=== PATIENT | male | born 1940 | race Caucasian/White ===

== ENCOUNTER 2022-07-05 04:30 | Outpatient (CLI) | payer OTHER, SELFPAY | END 2022-07-05 04:31 | disposition home or self-care (01) | LOC: AMB 07-24 03:48 | PROVIDERS: Visit Provider Emergency Medicine | DX: I26.99 Other pulmonary embolism without acute cor pulmonale (principal) | CPT/HCPCS: A0425; A0428; A0434 ==

== ENCOUNTER 2022-07-11 23:50 | Outpatient (CLI) | payer OTHER, SELFPAY | END 2022-07-11 23:51 | disposition home or self-care (01) | LOC: AMB 07-31 14:41 | PROVIDERS: Visit Provider Family Medicine | DX: R07.89 Other chest pain (principal) | CPT/HCPCS: A0425; A0427 ==

== ENCOUNTER 2024-08-27 19:03 | Outpatient (CLI) | payer OTHER, SELFPAY | END 2024-08-27 19:04 | disposition home or self-care (01) | LOC: AMB 08-28 17:01 | PROVIDERS: Visit Provider Student in an Organized Health Care Education/Training Program | DX: R10.9 Unspecified abdominal pain (principal); R11.0 Nausea | CPT/HCPCS: A0425; A0427 ==

== ENCOUNTER 2024-08-27 19:54 | Emergency (ER) | payer OTHER, SELFPAY ==
--- OUTSIDE RECORDS SUMMARY | 2023-09-15 05:00 | XMS_ITS | Encounter Summary ---
Author Name [facility] [place] Address [address] [place] [address] Care Team Providers Care Medical Services Assistant Name Role Phone BALTAZAR KOBI Primary Care Provider Unavailabl e Insurance Providers: All historical and current Section Date Range: From patient's date of to the date document was created. This section includes the names of all active insurance providers for the patient. Insurance Provider Type of Coverage Plan Name Start of Policy Coverage End of Policy Coverage Group Number Member ID Insurance Provider's Telephone Number Policy Truong's Name Patient's Relationship to Policy Truong LYNDSAYA [facility] (WNR) MEDICARE ADVANTAGE [facility] (WNR) Aug 22, 2021 [id number] TOM MUÑOZ PATIENT [employer] (WNR) MEDICARE ADVANTAGE [facility] (WNR) Aug 22, 2021 [id number] TOM MUÑOZ PATIENT MEDICARE (WNR) MEDICARE (M) PART A Sep 22, 2005 PART A [id number] [phone] TOM MUÑOZ PATIENT MEDICARE (WNR) MEDICARE (M) PART B Sep 22, 2005 PART B [id number] TOM MUÑOZ PATIENT MEDICARE (WNR) MEDICARE (M) PART A Sep 22, 2005 PART A [id number] TOM MUÑOZ PATIENT MEDICARE (WNR) MEDICARE (M) PART B Sep 22, 2005 PART B [id number] TOM MUÑOZ PATIENT MEDICARE (WNR) MEDICARE (M) PART A Sep 22, 2005 PART A [id number] TOM MUÑOZ PATIENT MEDICARE (WNR) MEDICARE (M) PART B Sep 22, 2005 PART B [id number] TONI,TOM ALLISON PATIENT MEDICARE (WNR) MEDICARE (M) PART A Sep 22, 2005 PART A [id number] TOM MUÑOZ PATIENT MEDICARE (WNR) MEDICARE (M) PART B Sep 22, 2005 PART B [id number] TOM MUÑOZ PATIENT Selected Encounter This section includes the information on record at [place] for the Encounter. Date/Time Encounter Type Encounter Description Reason Provider Source Sep 15, 2023 10:00 AM OFFICE O/P EST HI 40 MIN PM&RS [facility] ICD-10-CM Z89.511 Acquired absence of right leg below knee YOLANDA HIRSCH Encounter Template Text not used by [place] Assessments - Encounter Diagnoses This section includes the primary and secondary diagnoses documented for the Encounter. Date/Time Primary/Secondary Diagnosis Diagnosis Name Provider Source Sep 17, 2023 01:48 PM PRIMARY Acquired absence of right leg below knee AMPARO HIRSCH [facility] Sep 17, 2023 01:48 PM SECONDARY Other abnormalities of gait and mobility AMPARO HIRSCH [facility] Plan of Treatment: Future Appointments (+ 6 months) and Future Tests (+/- 45 days) The Plan of Treatment section includes future care activities for the patient from all [place] treatmentfacilities. This section includes future appointments and future orders which are active, pending or scheduled. Future Appointments This section includes appointments that were scheduled to occur 6 months from the date of the Encounter, up to a maximum of 20 appointments. The data comes from all [place] treatment facilities. Appointment Date/Time Appointment Type Appointme nt Facility Name Nov 11, 2023 01:20 PM AMBULATORY - SURGERY [facility] Nov 26, 2023 10:30 AM AMBULATORY - REHAB MEDICIN [facility] Dec 08, 2023 02:30 PM AMBULATORY - PSYCHIATRY [facility] Dec 23, 2023 03:00 PM AMBULATORY - PSYCHIATRY [facility] Jan 06, 2024 03:00 PM AMBULATORY - PSYCHIATRY [facility] Jan 19, 2024 02:30 PM AMBULATORY - PSYCHIATRY [facility] Jan 28, 2024 01:00 PM AMBULATORY - NONE [facility] Feb 02, 2024 10:00 AM AMBULATORY - REHAB MEDICIN E [facility] Feb 03, 2024 01:00 PM AMBULATORY - PSYCHIATRY [facility] Feb 11, 2024 01:00 PM AMBULATORY - NONE [facility] Feb 17, 2024 01:40 PM AMBULATORY - SURGERY [facility] Feb 18, 2024 11:00 AM AMBULATORY - PSYCHIATRY [facility] Mar 02, 2024 01:00 PM AMBULATORY - PSYCHIATRY [facility] Mar 06, 2024 01:00 PM AMBULATORY - NONE [facility] Mar 15, 2024 02:30 PM AMBULATORY - PSYCHIATRY [facility] Advance Directives: All historical and current Section Date Range: From patient's date of to the date document was created. This section includes ALL of a patient's completed or amended [place] Advance and Rescinded Directives. The entries below indicate that a directive exists for the patient, but an actual copy is not included with this document. The data comes from all [place] facilities. Date Advance Directives Provider Source May 20, 2022 ADVANCE DIRECTIVE DISCUSSION HERMINIA HERNANDEZ [facility] May 20, 2022 ADVANCE DIRECTIVE LOLITA HERNANDEZ [facility] Feb 06, 2004 ADVANCE DIRECTIVE JHOANA LECHUGA [facility] Encounter Notes: All associated encounter notes This section contains the clinical notes associated to the Encounter. Date/Time Encounter Note(s) Provider Source Sep 15, 2023 10:52 AM PHYSICAL MEDICINE REHAB CONSULT: LOCAL TITLE: [facility] STANDARD TITLE: PHYSICAL MEDICINE REHAB CONSULT DATE OF NOTE: SEP 15, 2023@10:52 ENTRY DATE: SEP 15, 2023@10:53 AUTHOR: YOLANDA HIRSCH COSIGNER: URGENCY: STATUS: COMPLETED [facility] Outpatient follow-up: VVC to Vendor Visit conducted by synchronous telehealth. verbal consent obtained. Location/emergency number confirmed. Environment surveyed and all participants identified. Virtual conference room locked. PROVIDERS PRESENT: Yolanda Hirsch MD - [facility] Abdifatah Pimentel, PROPERTY COORDINATOR - [facility] Catina Mitchell CPO with Skyla Mckeon SUBJECTIVE: Mr. 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 Patient has a socket from 2023 with pin suspension. He has his initial Taleo foot. His primary prosthesis fits quite well with 3 ply sock. He has multiple concerns today otherwise. First, he notes difficulty with slopes. He is extremely active outdoor and going on hikes. He has difficulty with inclines and even needs to walk sideways often. The second issue is with weight lifting. Working out in the gym is very important to him. He does deep squats at about 150 lbs currently. The foot does not bend enough for him. His socket is also digging in behind his knee. Denies any left foot wounds or issues. FUNCTIONAL HISTORY: Ambulatory without assistive device Quite active outdoors HOME ENVIRONMENT/SUPPORT: Lives in [place], [place] in an RV on his daughter's property. He has declined home eval. PHYSICAL EXAM: Gen: NAD, very talkative Resp: Breathing comfortably on room air MSK/skin: RIGHT transtibial amputation: somewhat shorter in length. Intact without open wounds, though does have significant bruising to popliteal area. Neuro: Alert, converses appropriately. Ambulates without assistive device. Reciprocal gait, quick sara ASSESSMENT/PLAN: Mr. 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 #Prosthetic management: Acquired absence of right leg below knee Abnormalities in gait/mobility We had a long discussion about prosthetic options to meet his goals. First, a trial of a hydraulic foot for difficulty with slopes is indicated. We did discuss that increased weight is a con he would have to take into account. Regarding weigtlifting, this is extremely important to him and something he has engaged in throughout his life. We did discuss the need to do this slowly and gradually. Given that the trimlines would need to be lowered, a new socket would be needed. He does have bruising behind the knee because of this. Moreover, since hydraulic feet would not provide the dorsiflexion needed, a different foot would be required. - Consult for hydraulic foot, [place] - Consult for activity limb for weightlifting: TC socket, KAYA, gel liner interface, pin suspension, Versa 2 foot Follow-up: Checkout This note reflects shared decision-making between the medical provider and [place] (or their designated decision maker). The patient was informed of the plan and agreed to proceed. All questions were answered prior to the conclusion of the clinic visit. Education was provided as described above. Total time including chart review, counseling, coordination of care, and documentation 45min on date of encounter Yolanda Hirsch MD PM&R Staff Physician /es/ YOLANDA HIRSCH MD STAFF PHYSICIAN Signed: 09/17/2023 13:49 YOLANDA HIRSCH [facility]
--- OUTSIDE RECORDS SUMMARY | 2023-11-11 08:20 | XMS_ITS | Encounter Summary ---
Author Name [facility] [place] Address [address] [place] [address] Care Team Providers Care Senior Marketing Coordinator Name Role Phone BALTAZAR KOBI Primary Care [...] Name Patient's Relationship to Policy Truong LYNDSAYA [facility] (WNR) MEDICARE ADVANTAGE [facility] (WNR) Aug 22, 2021 [id number] TOM MUÑOZ PATIENT [employer] M[employer] (WNR) MEDICARE ADVANTAGE [facility] (WNR) Aug 22, 2021 [id number] 21 TOM MUÑOZ PATIENT MEDICARE (WNR) MEDICARE (M) PART A Sep 22, 2005 PART A [id number] TOM MUÑOZ PATIENT MEDICARE (WNR) MEDICARE (M) PART B Sep 22, 2005 PART B [id number] [phone] TOM MUÑOZ PATIENT MEDICARE (WNR) MEDICARE (M) PART A Sep 22, 2005 PART A [id number] [phone] TOM MUÑOZ PATIENT MEDICARE (WNR) MEDICARE (M) PART B Sep 22, 2005 PART B [id number] [phone] TOM MUÑOZ PATIENT MEDICARE (WNR) MEDICARE (M) PART A Sep 22, 2005 PART A [id number] TONI,TOM ESTEFANY PATIENT MEDICARE (WNR) MEDICARE (M) PART B Sep 22, 2005 PART B [id number] TONI,TOM ESTEFANY PATIENT MEDICARE (WNR) MEDICARE (M) PART A Sep 22, 2005 PART A [id number] [phone] TONI,TOM ALLISON PATIENT MEDICARE (WNR) MEDICARE (M) PART B Sep 22, 2005 PART B [id number] 10A [phone] TOM MUÑOZ PATIENT Selected Encounter This section includes the information on record at [place] for the Encounter. Date/Time Encounter Type Encounter Description Reason Provider Source Nov 11, 2023 01:20 PM OFFICE O/P EST LOW 20 MIN DERMATOLOGY ICD-10-CM L12.0 Bullous pemphigoid RAPHAEL MERCHANT [place] Encounter Template Text not used by [place] Assessments - Encounter Diagnoses This section includes the primary and secondary diagnoses documented for the Encounter. Date/Time Primary/Secondary Diagnosis Diagnosis Name Provider Source Nov 11, 2023 02:11 PM PRIMARY Bullous pemphigoid ELIANA MCLAUGHLIN [facility] Plan of Treatment: Future Appointments (+ 6 months) and Future Tests (+/- 45 days) The Plan of Treatment section includes future care activities for the patient [facility] [place] [facility] This section includes future appointments and future orders which are active, pending or scheduled. Future Appointments This section includes appointments that were scheduled to occur 6 months from the date of the Encounter, up to a maximum of 20 appointments. The data comes from all [place] treatment facilities. Appointment Date/Time Appointment Type Appointme nt Facility Name Nov 26, 2023 10:30 AM AMBULATORY - REHAB MEDICIN [facility] Dec 08, 2023 02:30 PM AMBULATORY - PSYCHIATRY [facility] Dec 23, 2023 03:00 PM AMBULATORY - PSYCHIATRY [facility] Jan 06, 2024 03:00 PM AMBULATORY - PSYCHIATRY [facility] Jan 19, 2024 02:30 PM AMBULATORY - PSYCHIATRY [facility] Jan 28, 2024 01:00 PM AMBULATORY - NONE [facility] Feb 02, 2024 10:00 AM [facility] Feb 03, 2024 01:00 PM AMBULATORY - PSYCHIATRY [facility] Feb 11, 2024 01:00 PM [facility] Feb 17, 2024 01:40 PM AMBULATORY - SURGERY [facility] Feb 18, 2024 11:00 AM AMBULATORY - PSYCHIATRY [facility] Mar 02, 2024 01:00 PM AMBULATORY - PSYCHIATRY [facility] Mar 06, 2024 01:00 PM [facility] Mar 15, 2024 02:30 PM AMBULATORY - PSYCHIATRY [facility] Mar 20, 2024 01:00 PM [facility] Mar 30, 2024 01:00 PM AMBULATORY - PSYCHIATRY [facility] Apr 13, 2024 01:00 PM AMBULATORY - PSYCHIATRY [facility] Apr 27, 2024 01:00 PM AMBULATORY - PSYCHIATRY [facility] May 01, 2024 11:00 AM AMBULATORY - NONE [facility] May 04, 2024 02:00 PM AMBULATORY - REHAB [facility] Lab Results: +/- 30 days of the encounter This section includes the Chemistry and Hematology Lab Results on record with [place] for the patient. Radiology Reports and Pathology Reports are provided separately, in subsequent sections. Lab Results This section contains the Chemistry/Hematology Results that were resulted 30 days before or 30 daysafter the date of the Encounter. Date/Time Source Result Type Result - Unit Interpretation Reference Range Specimen Type Comment Nov 26, 2023 02:[address] [facility] MEASLES, MUMPS, & RUBELLA AB IGG SERUM Specim en Type: SERUM Comment: .KELLEY IGG: AU/mL Interpretation .KELLEY IGG: ----- .KELLEY IGG: <13.50 Not consistent with immunity .KELLEY IG.50 - 16.49 Equivocal .KELLEY IGG: >16.49 Consistent with immunity .KELLEY IGG:The presence of measles IgG suggests immunization or .KELLEY IGG:past or current infection with measles virus. .KELLEY IGG:For additional information, please refer to .KELLEY IGG:http://educa tion.Info/faq/FA [email or web address] .KELLEY IGG:(This link is being provided for informational/ .KELLEY IGG: educational purposes only.) .MUM IGG: AU/mL Interpretation .MUM IGG: - .MUM IGG: < 9.00 Not consistent with immunity .MUM IG.00 - 10.99 Equivocal .MUM IGG: > 10.99 Consistent with immunity .MUM IGG:The presence of mumps IgG antibody suggests .MUM IGG:immunization or past or current infection with mumps .MUM IGG:virus. .RUB IGG:INDEX INTERPRETATION .RUB IGG: .RUB IGG:< 0.90 Not consistent with immunity .RUB IG.90 - 0.99 Equivocal .RUB IGG:> or = 1.00 Consistent with immunity .RUB IGG:The presence of Rubella IgG antibody suggests .RUB IGG:immunization or past or current infection with .RUB IGG:Rubella virus. .RUB IGG:Test Performed by [facility], .RUB IGG:[employer] [facility], .RUB IG[address] [place] [address] .RUB IGG:Les Jurado M.D., Ph.D., Director of Laboratories .RUB IGG: , CLIA [id number] Ordering Provider: BETTE CASTELLANOS Report Released Date/Time: Nov 26, 2023 02:00 PM Reporting Lab: [facility] [address] [facility] [id number] Performing Lab: [address] RUBELLA,IGG AB 30.90 {index} MEASLES IgG MICHELLE >300.00 MUMPS VIRUS RIK(IgG) 10.30 L Nov 26, 2023 02:[address] [facility] VARICELLA ZOSTER IgG SERUM Specime n Type: SERUM Comment: Signal Cut-off S/CO Interpretation --------- <1.00 Negative - Antibody not detected > or = 1.00 Positive - Antibody detected A positive result indicates that the patient has antibody to VZV but does not differentiate between an active or past infection. The clinical diagnosis must be interpreted in conjunction with the clinical signs and symptoms of the patient. This assay reliably measures immunity due to previous infection but may not be sensitive enough to detect antibodies induced by vaccination. Thus, a negative result in a vaccinated individual does not necessarily indicate susceptibility to VZV infection. A more sensitive test for vaccination-induced immunity is Varicella Zoster Virus Antibody Immunity Screen, ACIF. Test Performed by [facility], [employer] [facility], [address] [place] [address] Les Jurado M.D., Ph.D., Director of Laboratories , [place] [id number] Ordering Provider: BETTE CASTELLANOS Report Released Date/Time: Nov 26, 2023 02:00 PM Reporting Lab: [facility] [id number] Performing Lab: [address] VARICELLA ZOSTER IgG 26.30 >=1.00 Nov 26, 2023 02:[address] [facility] QUANTIFERON GOLD PLASMA Specimen Ty pe: PLASMA Comment: A NEGATIVE result does not preclude the possibility of M. tuberculosis infection or tuberculosis disease. A false-negative results can be due to the stage of infection (e.g., specimen obtained prior to the development of cellular immune response or other immunological variables). Ordering Provider: BETTE CASTELLANOS Report Released Date/Time: Nov 26, 2023 02:00 PM Reporting Lab: [facility] [id number] Performing Lab: [facility] [id number] QNT NIL (LIAISON) 0.02 [IU]/mL QNT TB1-NIL LIAISON 0.00 [IU]/mL QNT TB2-NIL LIAISON 0.00 [IU]/mL QNT MITOGEN LIAISON 9.98 [IU]/mL QNT FINAL INTERP NEGATIVE See Interp Nov 26, 2023 02:[address] [facility] ANTI-HBs SERUM Specimen Type: SERUM No comment entered. Ordering Provider: BETTE CASTELLANOS Report Released Date/Time: Nov 26, 2023 02:00 PM Reporting Lab: [facility] [id number] Performing Lab: [facility] [id number] ANTI-HBs 7.26 m[IU]/mL Nov 11, 2023 02:[address] [facility] COMPREHENSIVE METABOLIC PANEL+MG PLASMA Specimen Type: PLASMA No comment entered. Ordering Provider: JUS MCLAUGHLIN Report Released Date/Time: Nov 11, 2023 02:11 PM Reporting Lab: [facility] [id number] Performing Lab: [facility] [id number] CREATININE 1.3 mg/dL H 0.7-1.2 UREA NITROGEN 25 mg/dL 8-26 GLUCOSE 105 mg/dL H 70-100 SODIUM 141 mmol/L 136-145 POTASSIUM 4.1 mmol/L 3.5-5.1 CHLORIDE 108 mmol/L H 98-107 CO2 26 mmol/L 22-29 CALCIUM 9.1 mg/dL 8.4-10.2 PROTEIN,TOTAL 6.5 g/dL 6.4-8.3 ALBUMIN 4.1 g/dL 3.5-5.2 BILIRUBIN, TOTAL 0.7 mg/dL 0.2-1.2 MAGNESIUM 2.1 mg/dL 1.6-2.6 ANION GAP 7 mmol/L 5-15 ALKALINE PHOSPHATASE 85 U/L 40-150 ALT/SGPT 13 U/L <44 AST/SGOT 19 U/L 11-34 .CREAT EGFR(CKD-EPI) 55 L >60 Nov 11, 2023 02:[address] [facility] CBC & DIFF BLOOD Specimen Type : BLOOD Comment: Automated Differential Performed Ordering Provider: JUS MCLAUGHLIN Report Released Date/Time: Nov 11, 2023 02:11 PM Reporting Lab: [facility] [id number] Performing Lab: [facility] [id number] WBC 6.1 4.0-11.0 RBC 5.39 4.60-6.20 HGB 15.4 g/dL 13.5-17.9 HCT 47.8 41-54 MCV 88.7 fL 80-100 MCH 28.6 pg 27-33 MCHC 32.2 g/dL 32.0-37.5 PLT 178 150-400 MPV 8.6 fL L 9.1-13.0 NEUT 60.0 40.0-80.0 LYMPHS 22.7 15.0-45.0 MONO 10.1 2.0-12.0 EOSINO 5.7 0.0-6.0 BASO 1.0 0.0-2.0 RDW 13.9 11.5-14.5 ABS LYMPH 1.4 1.0-4.0 ABS MONO 0.6 0.1-1.0 ABS NEUT 3.7 2.0-7.7 ABS EOS 0.4 0-0.5 ABS BASO 0.1 0-0.2 IG(META,MYELO,PRO) 0.5 ABS IMMATURE GRAN 0.0 0-0.1 Advance Directives: All historical and current Section Date Range: From patient's date of to the date document was created. This section includes ALL of a patient's completed or amended [place] Advance and Rescinded Directives. The entries below indicate that a directive exists for the patient, but an actual copy is not included with this document. The data comes from all [place] facilities. Date Advance Directives Provider Source May 20, 2022 ADVANCE DIRECTIVE DISCUSSION HERMINIA HERNANDEZ [facility] May 20, 2022 ADVANCE DIRECTIVE LOLITA HERNANDEZ [facility] Feb 06, 2004 ADVANCE DIRECTIVE JHOANA LECHUGA [facility] Encounter Notes: All associated encounter notes This section contains the clinical notes associated to the Encounter. Date/Time Encounter Note(s) Provider Source Nov 11, 2023 01:44 PM DERMATOLOGY ATTEND ING NOTE: LOCAL TITLE: DERMATOLOGY CLINIC NOTE STANDARD TITLE: DERMATOLOGY ATTENDING NOTE DATE OF NOTE: NOV 11, 2023@13:44 ENTRY DATE: NOV 11, 2023@13:44:16 AUTHOR: JUS MCLAUGHLIN EXP COSIGNER: URGENCY: STATUS: COMPLETED DERMATOLOGY CLINIC NOTE Has ADDENDA Dr. Merchant saw and evaluated the patient with me, and agrees with the findings, assessment and plan as outlined. 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 s/p punch bx 05/19/22, read as scar with focal giant cell reaction consistent with ruptured follicle. No evidence of malignancy # History of prostate cancer, in remission - noted and PCP managing # Immunosuppressed state - recomended vaccination and masking, patient declined both and understood risks SUBJECTIVE: YOLANDA MUÑOZ is a 83 year old MALE who presents today for follow up bullous pemphigoid. Patient last seen in derm clinic 05/13/23 for follow up BP with Dr. Andres. At that time he was essentially clear and had been self tapering his MMF taking 600 mg BID. He had been taking that dose for a few months without any flares and was interested in decreasing MMF further. BP 180 and 230 were checked at that time; BP180 <5 although BP230 mildly elevated at 16. Given his overall clinical picture and quiescent BP, they ultimately continued to taper MMF to 600 mg once daily. Today patient reports taking he has continued taking 600 mg once daily (3 mls once daily of the oral solution) and has had no flares of his BP. At his last visit his Cr was also noted to be elevated at 1.5 and pt mentioned he started creatine powder which he has since discontinued. He is interested in decreasing the MMF even further. Review of systems: CONST: Otherwise in baseline state of health. SKIN: As above in HPI, no additional skin concerns. OBJECTIVE: GEN: No acute distress. SKIN: No vesicles or papules on exposed areas of skin. ASSESSMENT & PLAN: # Bullous pemphigoid Clear on exam today taking MMF 600 mg (3 ml) once daily. Given no flares for several months on this dose, reasonable for patient to continue titrating down per his request. Discussed that we would not recommend stopping this medication altogether due to risk of flaring (and that MMF would take several months to improve symptoms if he were to flare again). Will continue to taper down from 3 ml (600 mg) once daily to 2 ml (400 mg) once daily. If stable at follow up can consider decreasing further or possibly stopping altogether. - Safety labs today: CBC and CMP - MMF 2 ml (400 mg) once daily RTC 3 months for f/u BP Total encounter time (including chart review, counseling, documentation, ordering of labs/meds): 20-29 min /dinah/ JUS MCLAUGHLIN MD Resident Signed: 11/11/2023 14:11 11/11/2023 ADDENDUM STATUS: COMPLETED CBC and CMP largely wnl. Cr a bit elevated at 1.3, which is down from 1.5 when checked in April. /dinah/ JUS MCLAUGHLIN MD Resident Signed: 11/11/2023 16:[address] [facility]
--- OUTSIDE RECORDS SUMMARY | 2023-11-26 05:30 | XMS_ITS | Encounter Summary ---
Author Name [facility] [place] [facility] [place] Address [address] [place] [address] Care Team Providers Care Lead Material Handler Name Role Phone KOBI LEDESMA Primary Care Provider Unavailabl e Insurance Providers: [...] Name Patient's Relationship to Policy Truong [id number] MCR (WNR) MEDICARE ADVANTAGE [facility] (WNR) Aug 22, 2021 [id number] TOM MUÑOZ PATIENT HUMANA MCR (WNR) MEDICARE ADVANTAGE MCR (WNR) Aug 22, 2021 [id number] TOM MUÑOZ PATIENT MEDICARE (WNR) MEDICARE (M) PART A Sep 22, 2005 PART A [id number] TOM MUÑOZ PATIENT MEDICARE (WNR) MEDICARE (M) PART B Sep 22, 2005 PART B [id number] TOM MUÑOZ PATIENT MEDICARE (WNR) MEDICARE (M) PART A Sep 22, 2005 PART A [id number] [phone] TOM MUÑOZ PATIENT MEDICARE (WNR) MEDICARE (M) PART B Sep 22, 2005 PART B [id number] TOM MUÑOZ PATIENT MEDICARE (WNR) MEDICARE (M) PART A Sep 22, 2005 PART A [id number] TONI,TOM ESTEFANY PATIENT MEDICARE (WNR) MEDICARE (M) PART B Sep 22, 2005 PART B [id number] TONI,TOM ESTEFANY PATIENT MEDICARE (WNR) MEDICARE (M) PART A Sep 22, 2005 PART A [id number] TOM MUÑOZ PATIENT MEDICARE (WNR) MEDICARE (M) PART B Sep 22, 2005 PART B [id number] [phone] TOM MUÑOZ PATIENT Selected Encounter This section includes the information on record at [place] for the Encounter. Date/Time Encounter Type Encounter Description Reason Provider Source Nov 26, 2023 10:30 AM IMG RTA DETCJ/MNTR DS STAFF OPHTHALMOLOGY ICD-10-CM Z01.01 Encounter for exam of eyes and vision w abnormal findings TERESA JACKSON [facility] Encounter Template Text not used by [place] Assessments - Encounter Diagnoses This section includes the primary and secondary diagnoses documented for the Encounter. Date/Time Primary/Secondary Diagnosis Diagnosis Name Provider Source Nov 26, 2023 10:54 AM PRIMARY Encounter for exam of eyes and vision w abnormal findings TERESA JACKSON [facility] Plan of Treatment: Future Appointments (+ 6 months) and Future Tests (+/- 45 days) The Plan of Treatment section includes future care activities for the patient [facility] [place] [facility] This section includes future appointments and future orders which are active, pending or scheduled. Future Appointments This section includes appointments that were scheduled to occur 6 months from the date of the Encounter, up to a maximum of 20 appointments. The data comes from all [place] treatment facilities. Appointment Date/Time Appointment Type Appointme nt Facility Name Dec 08, 2023 02:30 PM AMBULATORY - PSYCHIATRY [facility] Dec 23, 2023 03:00 PM AMBULATORY - PSYCHIATRY [facility] Jan 06, 2024 03:00 PM [facility] Jan 19, 2024 02:30 PM [facility] Jan 28, 2024 01:00 PM AMBULATORY - NONE [facility] Feb 02, 2024 10:00 AM AMBULATORY - REHAB MEDICIN E [facility] Feb 03, 2024 01:00 PM [facility] Feb 11, 2024 01:00 PM [facility] Feb 17, 2024 01:40 PM AMBULATORY - SURGERY [facility] Feb 18, 2024 11:00 AM [facility] Mar 02, 2024 01:00 PM [facility] Mar 06, 2024 01:00 PM [facility] Mar 15, 2024 02:30 PM [facility] Mar 20, 2024 01:00 PM [facility] Mar 30, 2024 01:00 PM AMBULATORY - PSYCHIATRY [facility] Apr 13, 2024 01:00 PM [facility] Apr 27, 2024 01:00 [facility] May 01, 2024 11:00 AM AMBULATORY - NONE [facility] May 04, 2024 02:00 PM AMBULATORY - REHAB MEDICDC E [facility] May 08, 2024 01:30 PM AMBULATORY - MEDICINE [facility] Lab Results: +/- 30 days of the encounter This section includes the Chemistry and Hematology Lab Results on record with [place] for the patient. Radiology Reports and Pathology Reports are provided separately, in subsequent sections. Lab Results This section contains the Chemistry/Hematology Results that were resulted 30 days before or 30 daysafter the date of the Encounter. Date/Time Source Result Type Result - Unit Interpretation Reference Range Specimen Type Comment Nov 26, 2023 02:11 PM [facility] MEASLES, MUMPS, & RUBELLA AB IGG SERUM Specim en Type: SERUM Comment: .KELLEY IGG: AU/mL Interpretation .KELLEY IGG: ----- .KELLEY IGG: <13.50 Not consistent with immunity .KELLEY IG.50 - 16.49 Equivocal .KELLEY IGG: >16.49 Consistent with immunity .KELLEY IGG:The presence of measles IgG suggests immunization or .KELLEY IGG:past or current infection with measles virus. .KELLEY IGG:For additional information, please refer to .KELLEY IGG:[email or web address] .KELLEY IGG:(This link is being provided for [...] .RUB IGG:Rubella virus. .RUB IGG:Test Performed by [place], .RUB IGG:[facility], .RUB IG [place], [place] .RUB IGG:Les Jurado M.D., Ph.D., Director of Laboratories .RUB IGG: , CLIA [id number] Ordering Provider: BETTE CASTELLANOS Report Released Date/Time: Nov 26, 2023 02:00 PM Reporting Lab: [facility] [id number] Performing Lab: [address] RUBELLA,IGG AB 30.90 {index} MEASLES IgG MICHELLE >300.00 MUMPS VIRUS RIK(IgG) 10.30 L Nov 26, 2023 02:11 PM [facility] VARICELLA ZOSTER IgG SERUM Specime n Type: [...] Antibody Immunity Screen, ACIF. Test Performed by [facility], [facility], [address] [place] [address] Les Jurado M.D., Ph.D., Director of Laboratories , [place] [id number] Ordering Provider: BETTE CASTELLANOS Report Released Date/Time: Nov 26, 2023 02:00 PM Reporting Lab: [facility] [id number] Performing Lab: [address] VARICELLA ZOSTER IgG 26.30 >=1.00 Nov 26, 2023 02:11 PM [facility] QUANTIFERON GOLD PLASMA Specimen Ty pe: PLASMA Comment: A NEGATIVE result does not preclude the possibility of M. tuberculosis infection or tuberculosis disease. A false-negative results can be due to the stage of infection (e.g., specimen obtained prior to the development of cellular immune response or other immunological variables). Ordering Provider: BETTE CASTELLANOS Report Released Date/Time: Nov 26, 2023 02:00 PM Reporting Lab: [facility] [id number] Performing Lab: [facility] [address] QNT NIL (LIAISON) 0.02 [IU]/mL QNT TB1-NIL LIAISON 0.00 [IU]/mL QNT TB2-NIL LIAISON 0.00 [IU]/mL QNT MITOGEN LIAISON 9.98 [IU]/mL QNT FINAL INTERP NEGATIVE See Interp Nov 26, 2023 02:11 PM [facility] ANTI-HBs SERUM Specimen Type: SERUM No comment entered. Ordering Provider: BETTE CASTELLANOS Report Released Date/Time: Nov 26, 2023 02:00 PM Reporting Lab: [facility] [address] Performing Lab: [facility] [address] ANTI-HBs 7.26 m[IU]/mL Nov 11, 2023 02:17 PM [facility] COMPREHENSIVE METABOLIC PANEL+MG PLASMA Specimen Type: PLASMA No comment entered. Ordering Provider: JUS MCLAUGHLIN Report Released Date/Time: Nov 11, 2023 02:11 PM Reporting Lab: [facility] [id number] Performing Lab: [facility] [address] CREATININE 1.3 mg/dL H 0.7-1.2 UREA NITROGEN [...] L >60 Nov 11, 2023 02:17 PM [facility] CBC & DIFF BLOOD Specimen Type : BLOOD Comment: Automated Differential Performed Ordering Provider: JUS MCLAUGHLIN Report Released Date/Time: Nov 11, 2023 02:11 PM Reporting Lab: [facility] [address] Performing Lab: [facility] [place] [address] WBC 6.1 4.0-11.0 RBC 5.39 4.60-6.20 HGB [...] ALL of a patient's completed or amended [place] Advance and Rescinded Directives. The entries below indicate that a directive exists for the patient, but an actual copy is not included with this document. The data comes from all [place] facilities. Date Advance Directives Provider Source May 20, 2022 ADVANCE DIRECTIVE DISCUSSION HERMINIA HERNANDEZ [facility] May 20, 2022 ADVANCE DIRECTIVE LOLITA HERNANDEZ [facility] Feb 06, 2004 ADVANCE DIRECTIVE JHOANA LECHGUA [facility] Encounter Notes: All associated encounter notes This section contains the clinical notes associated to the Encounter. Date/Time Encounter Note(s) Provider Source Nov 26, 2023 10:34 AM TELEHEALTH NOTE: LOCAL TITLE: EYE TECS [facility] [employer] STANDARD TITLE: TELEHEALTH NOTE DATE OF NOTE: NOV 26, 2023@10:34 ENTRY DATE: NOV 26, 2023@10:34:24 AUTHOR: TERESA JACKSON COSIGNER: URGENCY: STATUS: COMPLETED [facility] ([facility]) Video Production Engineer Note YOLANDA MUÑOZ [id number] Telehealth Consent and Patient Identification Verification: Verified patient identity with 2 separate identifiers prior to the beginning of the visit: Yes Patient was informed that their information and images will be uploaded securely to the [place] computer system and sent to be remotely interpreted by an eye provider. Recommendations/findings will be conveyed to them via phone call, video chat, and/or letter. Yes Patient verbalized understanding and agreed to participate in the [facility] telemedicine eye exam today. Yes TECS Visit Type: Screening and Vision Assessment: Program Exclusions: - Sudden (1 week or less) decrease in vision in either eye - Sudden onset of significant pain (greater than 8 out of 10) in either eye - Sudden (1 week or less) onset of increased light sensitivity in either eye. - Sudden (1 week or less) of new floaters, flashing lights, or loss of peripheral vision - Sudden (1 week or less) onset of double vision that does not go away when one eye is covered - Recent (in last month) eye surgery or trauma No exclusions identified COMPREHENSIVE SCREEN: HISTORY: Chief Complaint: Patient presents for a TECS screening. History of Present Illness: Patient feels that his vision might be chaning slightly. He denies any pain, but does have trouble with dryness and opening his eyes after he has slept. He denies any flashes of light or new floaters. 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 PROCEDURE(S) HISTORY: 11/25/2022 TECS Eye Proc History-Cataract IOL TRAUMA HISTORY: No history of ocular trauma FAMILY HISTORY: 11/25/2022 Tecs Eye Dx Grandparent-Glaucoma SOCIAL HISTORY: 11/25/2022 Tecs Tobacco Hx-No EYE MEDICATION(S): No Current Eye Medications REFRACTION AND VISION: Wearing Rx (WRx): OD: +0.50+0.31t507 +2.50 OS: +0.50+0.87h322 +2.50 Current Style: Bifocal Current Glasses Condition: Good condition/Not damaged WRx VA: OD: 20/30 OS: 2025-2 Manifest Refraction (MRx): OD: +0.50 sph +2.50 OS: +0.50 sph +2.50 Final MRx VA: OD: 20/20-2 OS: 20/20 FINAL RX Tecs Glauc Tech 11/25/2022 Tecs Refrac-Final Mrx Od +0.50 sph +2.50 Tecs Refrac-Final Mrx Os +0.75 sph +2.50 Additional MRx Information: Final MRx: OD: +0.50 sph +2.50 OS: +0.50 sph +2.50 Extraocular Movement, Confrontation Visual Fuentes, Amsler Grid and Color Vision: Extraocular Movement: OU: Full Confrontation Visual Field: OU: Full PACHYMETRY: Pachymetry Past Results: SHF - Health Factor Select Tecs Video Production Engineer 11/26/2022 Tecs Eye Pachymetry Od 552 Tecs Eye Pachymetry Os 550 11/25/2022 Tecs Eye Pachymetry Od 552 Tecs Eye Pachymetry Os 550 INTRAOCULAR PRESSURE (IOP): Method: Date/Time: Oct @10:48 Rebound Tonometer OD: 10 OS: 9 PUPILS/ANTERIOR CHAMBER (AC) Penlight or slit lamp (if available) exam unremarkable Pupils are equal, round, and reactive to light No afferent defect Pupils are dilated - Side effects of dilation medication discussed, patient stated clear understanding, and patient consented to dilation. - Patient advised not to drive if they feel they have any symptoms which could affect their ability to drive safely. - Patient advised not to engage in any activities which could put themselves or others at risk if they feel they have any symptoms which could affect their ability to perform those activities safely. - Post-mydriatic glasses discussed and dispensed to reduce light sensitivity and increase comfort in bright sunlight. - Patient instructed to report to Eye Clinic or Emergency Room IMMEDIATELY if severe eye pain, facial pain, loss of vision or cloudy vision, severe headaches, or nausea occurs. Medication: 1% Tropicamide, 0.5% Proparacaine Date/Time: Nov@10:48 Which Eye? OD How many drops? 1 ea OS How many drops? 1 ea IMAGING/TESTING: Fundus Photographs were done at this encounter Optical Coherence Tomography (OCT) was done at this encounter The patient DID have Optical Coherence Tomography done - Macula CATARACT EVALUATION/COMMUNITY CARE/VOICEMAIL/HANDOUTS: Cataract surgery evaluation is not applicable for this patient The patient is NOT willing to go to community care if applicable Per , okay to leave message regarding results and plan of care. Telephone number and address verified. Yes CONSULT ORDERS: Patient communication preferences Best Contact Number: Voicemail set up: Yes Preferred Contact Method:* Patient prefers results letter to be mailed, phone call only if necessary for questions, concerns, or abnormal exam results Appendix (abbreviations): AC (Anterior Chamber); AREDS (Age Related Eye Disease Study); ARX (Auto Refraction); BID (Two Times Daily); C:D (Cup-to-Disc); CIC (Care In The Community); TRADE SPECIALIST (Cyclophotocoagulation); CSME (Clinically Significant Macular Edema); DFE (Dilated Fundus Exam); Dorz/Timol (Dorzolamide/Timolol); DSEK (Descemet's Stripping Endothelial Keratoplasty); FAF (Fundus Autofluorescence); F/U (Follow up); GCC (Ganglion Cell Complex); Gonio (Gonioscopy); H/O (History Of); HTN (Hypertension); HVF (Evans Visual Field); IOL (Intraocular Lens); IOP (Intraocular Pressure); K (Keratometry); LASIK (Laser-Assisted In Situ Keratomileusis); MD (Mean Deviation when used with visual field); dB (decibels); MRx (Manifest Refraction); NeoPolyDex/Erythro (Neomycin Polymyxin B Dexamethasone/Erythromycin); NFL (Nerve Fiber Layer); NPDR (Nonproliferative Diabetic Retinopathy); OCT (Optical Coherence Tomography); OD (Right Eye); OS (Left Eye); OU (Both Eyes); PDR (Proliferative Diabetic Retinopathy); PFATs (Preservative Free Artificial Tears); RK (Radial Keratotomy); RNFL (Retinal Nerve Fiber Layer); RTC (Return To Clinic); scVA (Visual Acuity Without Correction/Glasses); KHUSHBOO (Hong Konger Interactive Threshold Algorithm); TID (Three Times Daily); UV (Ultraviolet); VA (Visual Acuity); WRx (Prescription glasses currently worn); WRx VA (Visual Acuity With Prescription Glasses); YAG (Yttrium Aluminum [place]) /dinah/ TERESA JACKSON OPHTHALMOLOGY [facility] [employer] Signed: 11/26/2023 10:54 TERESA JACKSON [facility]
--- OUTSIDE RECORDS SUMMARY | 2023-11-29 06:38 | XMS_ITS | Encounter Summary ---
Author Name [facility] [place] [facility] [place] Address [address] [place] [address] Care Team Providers Care Lift Operator Name Role Phone BALTAZARSHRADDHAEN Primary Care Provider Unavailabl e Insurance Providers: [...] Name Patient's Relationship to Policy Truong [id number] [facility] (WNR) MEDICARE ADVANTAGE [facility] (WNR) Aug 22, 2021 [id number] [phone] TOM MUÑOZ PATIENT [employer] (WNR) MEDICARE ADVANTAGE [facility] (WNR) Aug 22, 2021 [id number] TOM MUÑOZ PATIENT MEDICARE (WNR) MEDICARE (M) PART A Sep 22, 2005 PART A [id number] TOM MUÑOZ PATIENT MEDICARE (WNR) MEDICARE (M) PART B Sep 22, 2005 PART B [id number] TOM MUÑOZ PATIENT MEDICARE (WNR) MEDICARE (M) PART A Sep 22, 2005 PART A [id number] TOM MUÑOZ PATIENT MEDICARE (WNR) MEDICARE (M) PART B Sep 22, 2005 PART B [id number] TOM MUÑOZ PATIENT MEDICARE (WNR) MEDICARE (M) PART A Sep 22, 2005 PART A [id number] TOM MUÑOZ PATIENT MEDICARE (WNR) MEDICARE (M) PART B Sep 22, 2005 PART B [id number] TONI,TOM ALLISON PATIENT MEDICARE (WNR) MEDICARE (M) PART A Sep 22, 2005 PART A [id number] TOM MUÑOZ PATIENT MEDICARE (WNR) MEDICARE (M) PART B Sep 22, 2005 PART B [id number] TOM MUÑOZ PATIENT Selected Encounter This section includes the information on record at [place] for the Encounter. Date/Time Encounter Type Encounter Description Reason Provider Source Nov 29, 2023 11:38 AM OFFICE O/P EST MOD 30 MIN OPHTHALMOLOGY ICD-10-CM 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, bilateral, early dry stage MISA STOVALL [facility] Encounter Template Text not used by [place] Assessments - Encounter Diagnoses This section includes the primary and secondary diagnoses documented for the Encounter. Date/Time Primary/Secondary Diagnosis Diagnosis Name Provider Source Nov 29, 2023 11:45 AM PRIMARY Nexdtve age-related mclr degn, bilateral, early dry stage JASMINE STOVALL [facility] Nov 29, 2023 11:45 AM SECONDARY Presence of intraocular lens JASMINE STOVALL [facility] Nov 29, 2023 11:45 AM SECONDARY Vitreomacular adhesion, right eye JASMINE STOVALL [facility] Plan of Treatment: Future Appointments (+ 6 months) and Future Tests (+/- 45 days) The Plan of Treatment section includes future care activities for the patient from all [place] treatmentfacilities. This section includes future appointments and future orders which are active, pending or scheduled. Future Appointments This section includes appointments that were scheduled to occur 6 months from the date of the Encounter, up to a maximum of 20 appointments. The data comes from all [place] treatment facilities. Appointment Date/Time Appointment Type Appointme nt Facility Name Dec 08, 2023 02:30 PM AMBULATORY - PSYCHIATRY [facility] Dec 23, 2023 03:00 PM AMBULATORY - PSYCHIATRY [facility] Jan 06, 2024 03:00 PM AMBULATORY - PSYCHIATRY [facility] Jan 19, 2024 02:30 PM AMBULATORY - PSYCHIATRY [facility] Jan 28, 2024 01:00 PM AMBULATORY - NONE [facility] Feb 02, 2024 10:00 AM AMBULATORY - REHAB MEDICIN E [facility] Feb 03, 2024 01:00 PM AMBULATORY - PSYCHIATRY [facility] Feb 11, 2024 01:00 PM AMBULATORY - NONE [facility] Feb 17, 2024 01:40 PM AMBULATORY - SURGERY [facility] Feb 18, 2024 11:00 AM AMBULATORY - PSYCHIATRY [facility] Mar 02, 2024 01:00 PM AMBULATORY - PSYCHIATRY [facility] Mar 06, 2024 01:00 PM AMBULATORY - NONE [facility] Mar 15, 2024 02:30 PM AMBULATORY - PSYCHIATRY [facility] Mar 20, 2024 01:00 PM AMBULATORY - NONE [facility] Mar 30, 2024 01:00 PM AMBULATORY - PSYCHIATRY [facility] Apr 13, 2024 01:00 PM AMBULATORY - PSYCHIATRY [facility] Apr 27, 2024 01:00 PM AMBULATORY - PSYCHIATRY [facility] May 01, 2024 11:00 AM AMBULATORY - NONE [facility] May 04, 2024 02:00 PM [facility] May 08, 2024 01:30 PM AMBULATORY - MEDICINE [facility] Lab Results: +/- 30 days of the encounter This section includes the Chemistry and Hematology Lab Results on record with [place] for the patient. Radiology Reports and Pathology Reports are provided separately, in subsequent sections. Lab Results This section contains the Chemistry/Hematology Results that were resulted 30 days before or 30 daysafter the date of the Encounter. Date/Time Source Result Type Result - Unit Interpretation Reference Range Specimen Type Comment Nov 26, 2023 02:11 PM [facility] MEASLES, MUMPS, & RUBELLA AB [...] additional information, please refer to .KELLEY IGG:[email or web address] [email or web address]/FA [email or web address] .KELLEY IGG:(This link is being provided for [...] .RUB IGG:Rubella virus. .RUB IGG:Test Performed by [employer], .RUB IGG:[facility], .RUB IG [place], [place] .RUB IGG:Les Jurado M.D., Ph.D., Director of Laboratories .RUB IGG: , CLIA [id number] Ordering Provider: BETTE CASTELLANOS Report Released Date/Time: Nov 26, 2023 02:00 PM Reporting Lab: [facility] [id number] Performing Lab: [address] RUBELLA,IGG AB 30.90 {index} MEASLES IgG MICHELLE >300.00 MUMPS VIRUS RIK(IgG) 10.30 L Nov 26, 2023 02:11 PM [facility] VARICELLA ZOSTER IgG SERUM Specime [...] Antibody Immunity Screen, ACIF. Test Performed by [employer], [place] [facility], [address] [place] [address] Les Jurado M.D., Ph.D., Director of Laboratories , [place] [id number] Ordering Provider: BETTE CASTELLANOS Report Released Date/Time: Nov 26, 2023 02:00 PM Reporting Lab: [facility] [id number] Performing Lab: [address] VARICELLA ZOSTER IgG 26.30 >=1.00 Nov 26, 2023 02:11 PM [facility] QUANTIFERON GOLD PLASMA Specimen Ty [...] Nov 26, 2023 02:00 PM Reporting Lab: [facility] [id number] Performing Lab: [facility] [id number] QNT NIL (LIAISON) 0.02 [IU]/mL QNT TB1-NIL LIAISON 0.00 [IU]/mL QNT TB2-NIL LIAISON 0.00 [IU]/mL QNT MITOGEN LIAISON 9.98 [IU]/mL QNT FINAL INTERP NEGATIVE See Interp Nov 26, 2023 02:11 PM [facility] ANTI-HBs SERUM Specimen Type: SERUM No comment entered. Ordering Provider: BETTE CASTELLANOS Report Released Date/Time: Nov 26, 2023 02:00 PM Reporting Lab: [facility] [id number] Performing Lab: [facility] [address] ANTI-HBs 7.26 m[IU]/mL Nov 11, 2023 02:17 PM [facility] COMPREHENSIVE METABOLIC PANEL+MG PLASMA Specimen Type: PLASMA No comment entered. Ordering Provider: JUS MCLAUGHLIN Report Released Date/Time: Nov 11, 2023 02:11 PM Reporting Lab: [facility] [id number] Performing Lab: [facility] [id number] CREATININE 1.3 mg/dL H 0.7-1.2 UREA NITROGEN [...] L >60 Nov 11, 2023 02:17 PM [facility] CBC & DIFF BLOOD Specimen Type : BLOOD Comment: Automated Differential Performed Ordering Provider: JUS MCLAUGHLIN Report Released Date/Time: Nov 11, 2023 02:11 PM Reporting Lab: [facility] [id number] Performing Lab: [facility] [id number] WBC 6.1 4.0-11.0 RBC 5.39 4.60-6.20 HGB [...] ALL of a patient's completed or amended [place] Advance and Rescinded Directives. The entries below indicate that a directive exists for the patient, but an actual copy is not included with this document. The data comes from all [place] facilities. Date Advance Directives Provider Source May 20, 2022 ADVANCE DIRECTIVE DISCUSSION HERMINIA HERNANDEZ [facility] May 20, 2022 ADVANCE DIRECTIVE LOLITA HERNANDEZ [facility] Feb 06, 2004 ADVANCE DIRECTIVE JHOANA LECHUGA [facility] Encounter Notes: All associated encounter notes This section contains the clinical notes associated to the Encounter. Date/Time Encounter Note(s) Provider Source Nov 30, 2023 11:43 AM LETTERS: LOCAL TITLE: EYE TECS LETTERS STANDARD TITLE: LETTERS DATE OF NOTE: NOV 30, 2023@11:43 ENTRY DATE: NOV 30, 2023@11:43:45 AUTHOR: KLEBER STOVALLIGNER: URGENCY: STATUS: COMPLETED Nov YOLANDA MUÑOZ [address] [place], [place] [address] Dear YOLANDA MUÑOZ, Thank you for your recent visit to the Technology-Based Eye Care Services (TECS) Program visit at your local [facility] facility. The main goal of the TECS program is to screen for visually significant eye conditions. Based on the review of your eye information and the photos that were taken, we recommend an in-person follow-up evaluation by an eye care provider. (Please see TECS exam note for this visit for full exam details. You can access this on My Conjure[employer] at [email or web address] if you would like). You will receive a phone call from one of our staff members to schedule a follow-up evaluation. However, if you have not been contacted within 30 days, please contact the clinic to schedule this follow-up evaluation. If you notice any sudden changes in your vision, please contact the eye clinic immediately for earlier or urgent referral or go to the Emergency Department for urgent evaluation. Eye Clinic: [place] [phone] If you have been seen by a non-VA eye care provider, please bring your records to your next [facility] appointment. Please try to keep your follow-up VA eye appointment or notify us if you cannot attend so other Veterans can receive access to eye care services. Please contact TECS clinic at [place] [phone] if you have questions about your recent TECS visit. For scheduling actions, call [place] [phone]. We appreciate the opportunity to serve you. Age Related Macular Degeneration Smoking is a risk factor for worsening Macular Degeneration, so if you smoke, please stop smoking. Please be sure to schedule and keep all of your eye appointments and reschedule any missed appointments promptly. At home, please monitor the home Amsler Grid and call immediately if you notice any sudden changes. Even if the grid does not look perfect, a sudden change means that you should call to schedule a prompt exam. These changes may include missing lines, new bent or wavy lines, or concerns of new distortions. A sample of the grid, with instructions on how to use, can be found at the public access portion of the [employer] web site listed below or any site that has a similar grid. You can view this grid on your computer screen or print a hard copy on a sheet of paper from any site that allows printing of a copy of the grid. To use the grid, view on your computer screen, or if you print a copy, then tape it to a flat surface such as the bathroom mirror or a cabinet door. Cover one eye at a time and look at the grid with one eye at a time. Look at the grid from 14 inches away with any best near vision glasses you use. Look at the central dot on the grid and keep your eye focused on the central dot. Then without moving your eye, concentrate on all the lines of the grid. If there are new changes as above, call to let the clinic know and to schedule an appointment. An example of the grid can be found at the following public access part of the [employer] web site: [email or web address].org/eye-hea lth/tips-prevention/facts-a kxph-npubqs-kivy-joe jo-amaikn-frrp Macular Degeneration Multivitamin The benefit from Multivitamin treatment is a decreased risk in further vision loss from progression of Macular Degeneration. If your provider recommends these, please take them regularly. Please contact your primary care to be sure there are no other medications that may interact with the multivitamins and also to manage your medications so you don't inadvertently take duplicate other vitamins that could unintentionally lead to side effects. The Study showing this benefit was the Age-Related Eye Disease Study (AREDS) and the subsequent second study (AREDS 2). As smokers and former smokers have risk with Vitamin A supplements, the beta carotene was removed in the second study and replaced with other components so that this is no longer considered an issue in smokers and former smokers. Original AREDS formulation: 500 milligrams (mg) of Vitamin C 400 International Units of Vitamin E 15 mg Beta-carotene 80 mg Zinc as Zinc Oxide 2 mg Copper as Cupric Oxide Changes in the AREDS2 to result in a formulation that is no longer an issue for smokers and former smokers: Lutein 10 mg Zeaxanthin 2 mg Dover-3 fatty acids (Docosahexanoic acid (DHA and its precursor eicosapentanoic acid EPA) DHA 350 mg EPA 650 mg Zinc 25 mg No Beta-carotene Vitreous Degeneration Signs and Symptoms of possible Retinal Detachment The Vitreous, or gel, that fills the large part of the back of the eye undergoes a normal age related degenerative process through our lifetime. Many people will notice some floaters in our vision as we age due to this. Most often this does not lead to anything sight threatening, but as the vitreous ages, there is a low but possible risk of a tear developing in the retina. If you notice sudden changes, please call immediately for care instructions or go to or call the [facility] ER for care instructions if you have difficulty reaching any eye clinic staff. These changes include new or changed flashes of lights (like flash bulbs, or lightning bolts), a new change in floaters or a large shower of floaters, any big black curtains coming over your vision from any direction, any sudden vision loss, or any special concerns. Visual changes do not automatically mean there is a retinal tear or detachment, but in certain circumstances, the only way to know for certain is to perform a complete dilated exam. The risks if there is a retinal tear or detachment without care includes the risk of permanent vision loss. Treatment will depend on the exam findings and that is why prompt evaluation with any changes is important. KLEBER STOVALL [facility] Nov 30, 2023 11:22 AM ADDENDUM: LOCAL TITLE: Addendum STANDARD TITLE: ADDENDUM DATE OF NOTE: NOV 30, 2023@11:22:42 ENTRY DATE: NOV 30, 2023@11:22:43 AUTHOR: KLEBER STOVALL EXP COSIGNER: URGENCY: STATUS: COMPLETED OCT mac reviewed OD erm/vmt with traction nasally, fov contour largely preserved, scattered drusen/reticular pseudodrusen, no cnvm/fluid/heme OS tr erm, rare drusen, no cnvm/fluid/heme 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 Pt will discuss areds2 with PCP given he notes he is taking additional otc supplements already. /dinah/ KLEBER STOVALL Blanket Folder Signed: 11/30/2023 11:43 Receipt Acknowledged By: 11/30/2023 13:54 /dinah/ SOPHIA HOLDER UPPER LINING CEMENTER --- Original Document --- 11/29/23 OPHTHALMOLOGY/OPTOMETRY EYE TECS PROVIDER CONSULT: TECS Evidence Specialist Note: 11/26/2023 10:34 Local Title: EYE TECS REGIONAL DIRECTOR Standard Title: TELEHEALTH NOTE Technology-based Eye Care Services (TECS) Evidence Specialist Note YOLANDA MUÑOZ [phone] Telehealth Consent and Patient Identification Verification: Verified patient identity with 2 separate identifiers prior to the beginning of the visit: Yes Patient was informed that their information and images will be uploaded securely to the [place] computer system and sent to be remotely interpreted by an eye provider. Recommendations/findings will be conveyed to them via phone call, video chat, and/or letter. Yes Patient verbalized understanding and agreed to participate in the TECS telemedicine eye exam today. Yes TECS Visit [...] years ago Location of last eye exam: [facility] Type of eye exam: TECS TECS HISTORY & REVIEW OF SYSTEMS Decrease in vision Gradual- OU for Month(s) Burning - OU for 1 Year first thing in the mornings mostly, has not tried any drops DIABETES HISTORY: Last A1c: <<Placeholder for LAST A1C object>> The patient does NOT have diabetes EYE DISEASE(S) HISTORY: Tecs Evidence Specialist 11/25/2022 TECS Eye Disease History-Pseudophakia Additional Eye Disease Information: Retina Disease: Macular Degeneration: Dry: Mild - OU EYE PROCEDURE(S) HISTORY: 11/25/2022 TECS Eye Proc History-Cataract IOL TRAUMA HISTORY: No history of ocular trauma FAMILY HISTORY: 11/25/2022 Tecs Eye Dx Grandparent-Glaucoma SOCIAL HISTORY: 11/25/2022 Tecs Tobacco Hx-No EYE MEDICATION(S): No Current Eye Medications REFRACTION AND VISION: Wearing Rx (WRx): OD: +0.50+0.14o955 +2.50 OS: +0.50+0.09x237 +2.50 Current Style: Bifocal Current Glasses Condition: Good condition/Not damaged WRx VA: OD: 20/30 OS: 2025-2 Manifest Refraction (MRx): OD: +0.50 sph +2.50 OS: +0.50 sph +2.50 Final MRx VA: OD: 2020-2 OS: 20/20 FINAL RX Tecs Glauc Tech [...] Results: SHF - Health Factor Select Tecs Evidence Specialist 11/26/2022 Tecs Eye Pachymetry Od 552 Tecs Eye Pachymetry Os 550 11/25/2022 Tecs Eye Pachymetry Od 552 Tecs Eye Pachymetry Os 550 INTRAOCULAR PRESSURE (IOP): Method: Date/Time: Nov@10:48 Rebound Tonometer OD: 10 OS: 9 PUPILS/ANTERIOR [...] C:D (Cup-to-Disc); CIC (Care In The Community); SUPPORT ASSISTANT (Cyclophotocoagulation); CSME (Clinically Significant Macular Edema); DFE [...] MRx (Manifest Refraction); NeoPolyDex/Erythro (Neomycin Polymyxin B Dexamethasone/Erythromycin) ; NFL (Nerve Fiber Layer); NPDR (Nonproliferative Diabetic Retinopathy); OCT (Optical Coherence Tomography); OD (Right Eye); OS (Left Eye); OU (Both Eyes); PDR (Proliferative Diabetic Retinopathy); PFATs (Preservative Free Artificial Tears); RK (Radial Keratotomy); RNFL (Retinal Nerve Fiber Layer); RTC (Return To Clinic); scVA (Visual Acuity Without Correction/Glasses); KHUSHBOO (Fijian Interactive Threshold Algorithm); TID (Three Times Daily); UV (Ultraviolet); VA (Visual Acuity); WRx (Prescription glasses currently worn); WRx VA (Visual Acuity With Prescription Glasses); YAG (Yttrium Aluminum Tagg Flats) Signed by: /dinah/ TERESA Anton [facility] OPHTHALMOLOGY [place] REGIONAL DIRECTOR 11/26/2023 10:54 TECS [place] Note: EXTERNAL PHOTOGRAPH ASSESSMENT: External photo quality adequate for interpretation Findings: Presence of Lenticular Opacity: OU FUNDUS PHOTOGRAPH INTERPRETATION: Fundus Image Quality: Adequate OPTIC NERVE ASSESSMENT: Cup-to-Disc ratio: OD: 0.1 OS: 0.1 No apparent abnormalities OU MACULA ASSESSMENT: Findings: Drusen: OU rare small hard drusen ou RETINA ASSESSMENT: No apparent abnormalities: OU VESSEL ASSESSMENT: No apparent abnormalities: OU OPTICAL COHERENCE TOMOGRAPHY (OCT): OCT Macula: Abnormal: Vitreomacular Traction: OD vma with tr vmt nasally os, foveal contour appears preserved Drusen: OU rare small hard drusen ou, no e/o cnvm/fluid/heme ou Other/Comments(OCT Macula): report reviewed, unable to review raw data via imagenet at this time. will provide additional interpretation when imagenet available ASSESSMENT: Intraocular Pressure(past entry): 11/26/2023 TECS Eye IOP-OD 10 TECS Eye IOP-OS 9 Previous images and studies reviewed; greater than 5 minutes spent in the care of this patient. Comment: 11/2022 tecs visit notes/images reviewed TECS Exam Shows: Patient evaluated in Technology-based Eye Care Services (TECS). This assessment is based on an extensive history, diagnostic technology, and imaging. The TECS exam does not replace a amkh-kg-dckf exam. Cataract: Presence of Intraocular Lens-Pseudophakia. OU Macular Degeneration: Nonexudative/Dry: Early Nonexudative: OU Stable Plan: Recommend daily Amsler grid monitoring and no smoking Other: repeat oct mac 1 yr sooner prn Retina: Other(Retina): VMT OD - mild, nvs. Monitor Refractive error: Presbyopia Spectacle Prescription: Spectacle Prescription Ordered: Reasonable to order glasses using today's manifest refraction (MRx) and add as identified in prototype technician note. Add style and any tint per patient preference within optical allowable options. FOLLOW-UP: Follow-up Recommendation: In-Person Exam Within 12 months: Nov Ancillary Testing Recommended: OCT Macula DISPOSITION: Unable to speak with patient, result letter sent; RTC and/or consult placed as needed. Left a message. *will try to reach pt again once raw oct mac data is avail for review Telehealth encounter completed by remote provider at [facility] 23: [facility] Greater than 5 minutes of time spent in the care of this patient. Appendix (abbreviations): AC (Anterior Chamber); AREDS (Age Related Eye Disease Study); ARX (Auto Refraction); BID (Two Times Daily); C:D (Cup-to-Disc); CIC (Care In The Community); SUPPORT ASSISTANT (Cyclophotocoagulation); CSME (Clinically Significant Macular Edema); DFE [...] MRx (Manifest Refraction); NeoPolyDex/Erythro (Neomycin Polymyxin B Dexamethasone/Erythromycin) ; NFL (Nerve Fiber Layer); NPDR (Nonproliferative Diabetic Retinopathy); OCT (Optical Coherence Tomography); OD (Right Eye); OS (Left Eye); OU (Both Eyes); PDR (Proliferative Diabetic Retinopathy); PFATs (Preservative Free Artificial Tears); RK (Radial Keratotomy); RNFL (Retinal Nerve Fiber Layer); RTC (Return To Clinic); scVA (Visual Acuity Without Correction/Glasses); KHUSHBOO (Fijian Interactive Threshold Algorithm); TID (Three Times Daily); UV (Ultraviolet); VA (Visual Acuity); WRx (Prescription glasses currently worn); WRx VA (Visual Acuity With Prescription Glasses); YAG (Yttrium Aluminum Tagg Flats) /es/ KLEBER STOVALL Blanket Folder Signed: 11/29/2023 14:27 Receipt Acknowledged By: * AWAITING SIGNATURE * TERESA JACKSON STEPHANIE J [place] [facility] Nov 29, 2023 11:38 AM TELEHEALTH NOTE: LOCAL TITLE: OPHTHALMOLOGY/OPTOMETRY EYE TECS PROVIDER CONSULT STANDARD TITLE: TELEHEALTH NOTE DATE OF NOTE: NOV 29, 2023@11:38 ENTRY DATE: NOV 29, 2023@11:39:05 AUTHOR: KLEBER STOVALL COSIGNER: URGENCY: STATUS: COMPLETED OPHTHALMOLOGY/OPTOMETRY EYE TECS PROVIDER CONSULT Has ADDENDA TECS Evidence Specialist Note: 11/26/2023 10:34 Local Title: EYE TECS REGIONAL DIRECTOR Standard Title: TELEHEALTH NOTE Technology-based Eye Care Services (TECS) Evidence Specialist Note YOLANDA MUÑOZ [phone] Telehealth Consent and Patient Identification Verification: Verified patient identity with 2 separate identifiers prior to the beginning of the visit: Yes Patient was informed that their information and images will be uploaded securely to the [place] computer system and sent to be remotely interpreted by an eye provider. Recommendations/findings will be conveyed to them via phone call, video chat, and/or letter. Yes Patient verbalized understanding and agreed to participate in the [facility] telemedicine eye exam today. Yes TECS Visit [...] years ago Location of last eye exam: [facility] Type of eye exam: TECS TECS HISTORY & REVIEW OF SYSTEMS Decrease in vision Gradual- OU for Month(s) Burning - OU for 1 Year first thing in the mornings mostly, has not tried any drops DIABETES HISTORY: Last A1c: <<Placeholder for LAST A1C object>> The patient does NOT have diabetes EYE DISEASE(S) HISTORY: Tecs Evidence Specialist 11/25/2022 TECS Eye Disease History-Pseudophakia Additional Eye Disease Information: Retina Disease: Macular Degeneration: Dry: Mild - OU EYE PROCEDURE(S) HISTORY: 11/25/2022 TECS Eye Proc History-Cataract IOL TRAUMA HISTORY: No history of ocular trauma FAMILY HISTORY: 11/25/2022 Tecs Eye Dx Grandparent-Glaucoma SOCIAL HISTORY: 11/25/2022 Tecs Tobacco Hx-No EYE MEDICATION(S): No Current Eye Medications REFRACTION AND VISION: Wearing Rx (WRx): OD: +0.50+0.99a819 +2.50 OS: +0.50+0.34f166 +2.50 Current Style: Bifocal Current Glasses Condition: Good condition/Not damaged WRx VA: OD: 20/30 OS: 20/25-2 Manifest Refraction (MRx): OD: +0.50 sph +2.50 [...] Results: SHF - Health Factor Select Tecs Evidence Specialist 11/26/2022 Tecs Eye Pachymetry Od 552 Tecs Eye Pachymetry Os 550 11/25/2022 Tecs Eye Pachymetry Od 552 Tecs Eye Pachymetry Os 550 INTRAOCULAR PRESSURE (IOP): Method: Date/Time: Nov@10:48 Rebound Tonometer OD: 10 OS: 9 PUPILS/ANTERIOR [...] C:D (Cup-to-Disc); CIC (Care In The Community); SUPPORT ASSISTANT (Cyclophotocoagulation); CSME (Clinically Significant Macular Edema); DFE [...] MRx (Manifest Refraction); NeoPolyDex/Erythro (Neomycin Polymyxin B Dexamethasone/Erythromycin) ; NFL (Nerve Fiber Layer); NPDR (Nonproliferative Diabetic Retinopathy); OCT (Optical Coherence Tomography); OD (Right Eye); OS (Left Eye); OU (Both Eyes); PDR (Proliferative Diabetic Retinopathy); PFATs (Preservative Free Artificial Tears); RK (Radial Keratotomy); RNFL (Retinal Nerve Fiber Layer); RTC (Return To Clinic); scVA (Visual Acuity Without Correction/Glasses); KHUSHBOO (Fijian Interactive Threshold Algorithm); TID (Three Times Daily); UV (Ultraviolet); VA (Visual Acuity); WRx (Prescription glasses currently worn); WRx VA (Visual Acuity With Prescription Glasses); YAG (Yttrium Aluminum Tagg Flats) Signed by: /dinah/ TERESA Anton [facility] OPHTHALMOLOGY [facility]IONAL DIRECTOR 11/26/2023 10:54 TECS [place] Note: EXTERNAL PHOTOGRAPH ASSESSMENT: External photo quality adequate for interpretation Findings: Presence of Lenticular Opacity: OU FUNDUS PHOTOGRAPH INTERPRETATION: Fundus Image Quality: Adequate OPTIC NERVE ASSESSMENT: Cup-to-Disc ratio: OD: 0.1 OS: 0.1 No apparent abnormalities OU MACULA ASSESSMENT: Findings: Drusen: OU rare small hard drusen ou RETINA ASSESSMENT: No apparent abnormalities: OU VESSEL ASSESSMENT: No apparent abnormalities: OU OPTICAL COHERENCE TOMOGRAPHY (OCT): OCT Macula: Abnormal: Vitreomacular Traction: OD vma with tr vmt nasally os, foveal contour appears preserved Drusen: OU rare small hard drusen ou, no e/o cnvm/fluid/heme ou Other/Comments(OCT Macula): report reviewed, unable to review raw data via imagenet at this time. will provide additional interpretation when imagenet available ASSESSMENT: Intraocular Pressure(past entry): 11/26/2023 TECS Eye IOP-OD 10 TECS Eye IOP-OS 9 Previous images and studies reviewed; greater than 5 minutes spent in the care of this patient. Comment: 11/2022 tecs visit notes/images reviewed TECS Exam Shows: Patient evaluated in Technology-based Eye Care Services (TECS). This assessment is based on an extensive history, diagnostic technology, and imaging. The TECS exam does not replace a ygxo-zo-ixuk exam. Cataract: Presence of Intraocular Lens-Pseudophakia. OU Macular Degeneration: Nonexudative/Dry: Early Nonexudative: OU Stable Plan: Recommend daily Amsler grid monitoring and no smoking Other: repeat oct mac 1 yr sooner prn Retina: Other(Retina): VMT OD - mild, nvs. Monitor Refractive error: Presbyopia Spectacle Prescription: Spectacle Prescription Ordered: Reasonable to order glasses using today's manifest refraction (MRx) and add as identified in prototype technician note. Add style and any tint per patient preference within optical allowable options. FOLLOW-UP: Follow-up Recommendation: In-Person Exam Within 12 months: Nov Ancillary Testing Recommended: OCT Macula DISPOSITION: Unable to speak with patient, result letter sent; RTC and/or consult placed as needed. Left a message. *will try to reach pt again once raw oct mac data is avail for review Telehealth encounter completed by remote provider at [facility]: [facility] Greater than 5 minutes of time spent in the care of this patient. Appendix (abbreviations): AC (Anterior Chamber); AREDS (Age Related Eye Disease Study); ARX (Auto Refraction); BID (Two Times Daily); C:D (Cup-to-Disc); CIC (Care In The Community); SUPPORT ASSISTANT (Cyclophotocoagulation); CSME (Clinically Significant Macular Edema); DFE [...] MRx (Manifest Refraction); NeoPolyDex/Erythro (Neomycin Polymyxin B Dexamethasone/Erythromycin) ; NFL (Nerve Fiber Layer); NPDR (Nonproliferative Diabetic Retinopathy); OCT (Optical Coherence Tomography); OD (Right Eye); OS (Left Eye); OU (Both Eyes); PDR (Proliferative Diabetic Retinopathy); PFATs (Preservative Free Artificial Tears); RK (Radial Keratotomy); RNFL (Retinal Nerve Fiber Layer); RTC (Return To Clinic); scVA (Visual Acuity Without Correction/Glasses); KHUSHBOO (Fijian Interactive Threshold Algorithm); TID (Three Times Daily); UV (Ultraviolet); VA (Visual Acuity); WRx (Prescription glasses currently worn); WRx VA (Visual Acuity With Prescription Glasses); YAG (Yttrium Aluminum Tagg Flats) /dinah/ KLEBER STOVALL Blanket Folder Signed: 11/29/2023 14:27 Receipt Acknowledged By: 12/03/2023 15:23 /dinah/ TERESA JACKSON OPHTHALMOLOGY [facility]AL DIRECTOR 11/30/2023 ADDENDUM STATUS: COMPLETED OCT mac reviewed OD erm/vmt with traction nasally, fov contour largely preserved, scattered drusen/reticular pseudodrusen, no cnvm/fluid/heme OS tr erm, rare drusen, no cnvm/fluid/heme 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 Pt will discuss areds2 with PCP given he notes he is taking additional otc supplements already. /dinah/ KLEBER STOVALL Blanket Folder Signed: 11/30/2023 11:43 Receipt Acknowledged By: 11/30/2023 13:54 /dinah/ SOPHIA HOLDER UPPER LINING CEMENTER KLEBER STOVALL [facility]
--- OUTSIDE RECORDS SUMMARY | 2024-01-28 09:09 | XMS_ITS | Encounter Summary ---
Author Name [facility] [place] Address [address] [place] [address] Care Team Providers Care Endodontist Name Role Phone KOBI LEDESMA Primary Care [...] Truong's Name Patient's Relationship to Policy Truong HUMANA MCR (WNR) MEDICARE ADVANTAGE [facility] (WNR) Aug 22, 2021 [id number] [phone] TOM MUÑOZ PATIENT HUMANA MCR (WNR) MEDICARE ADVANTAGE [facility] (WNR) Aug 22, 2021 [id number] TOM MUÑOZ PATIENT MEDICARE (WNR) MEDICARE (M) PART A Sep 22, 2005 PART A [id number] TOM MUÑOZ PATIENT MEDICARE (WNR) MEDICARE (M) PART B Sep 22, 2005 PART B [id number] TOM MUÑOZ PATIENT MEDICARE (WNR) MEDICARE (M) PART A Sep 22, 2005 PART A [id number] TOM MUÑOZ PATIENT MEDICARE (WNR) MEDICARE (M) PART B Sep 22, 2005 PART B [id number] TOM MUÑOZ PATIENT MEDICARE (WNR) MEDICARE (M) PART A Sep 22, 2005 PART A [id number] TONI,TOM ALLISON PATIENT MEDICARE (WNR) MEDICARE (M) PART B Sep 22, 2005 PART B [id number] TONI,TOM ESTEFANY PATIENT MEDICARE (WNR) MEDICARE (M) PART A Sep 22, 2005 PART A [id number] TONI,TOM ALLISON PATIENT MEDICARE (WNR) MEDICARE (M) PART B Sep 22, 2005 PART B [id number] TOM MUÑOZ PATIENT Selected Encounter This section includes the information on record at [place] for the Encounter. Date/Time Encounter Type Encounter Description Reason Pro vider Source Jan 28, 2024 02:09 PM Outpatient Encounter ADMIN PAT ACTIVTIES (MASNONCT) IHE Encounter Template Text not used by [place] Plan of Treatment: Future Appointments (+ 6 months) and Future Tests (+/- 45 days) The Plan of Treatment section includes future care activities for the patient from all [place] treatmentfacilities. This section includes future appointments and future orders which are active, pending or scheduled. Future Appointments This section includes appointments that were scheduled to occur 6 months from the date of the Encounter, up to a maximum of 20 appointments. The data comes from all [place] treatment facilities. Appointment Date/Time Appointment Type Appointme nt Facility Name Feb 02, 2024 10:00 AM AMBULATORY - REHAB [facility]IN [facility] Feb 03, 2024 01:00 PM AMBULATORY - PSYCHIATRY [facility] Feb 11, 2024 01:00 PM AMBULATORY - NONE [facility] Feb 17, 2024 01:40 PM AMBULATORY - SURGERY [facility] Feb 18, 2024 11:00 AM AMBULATORY - PSYCHIATRY [facility] Mar 02, 2024 01:00 PM AMBULATORY - PSYCHIATRY [facility] Mar 06, 2024 01:00 PM AMBULATORY - NONE [facility] Mar 15, 2024 02:30 PM AMBULATORY - PSYCHIATRY [facility] Mar 20, 2024 01:00 PM AMBULATORY - NONE [facility] Mar 30, 2024 01:00 PM AMBULATORY - PSYCHIATRY [facility] Apr 13, 2024 01:00 PM AMBULATORY - PSYCHIATRY [facility] Apr 27, 2024 01:00 PM AMBULATORY - PSYCHIATRY [facility] May 01, 2024 11:00 AM AMBULATORY - NONE [facility] May 04, 2024 02:00 PM AMBULATORY - REHAB [facility]ICIN [facility] May 08, 2024 01:30 PM AMBULATORY - [facility]ICINE [facility] May 11, 2024 01:00 PM AMBULATORY - PSYCHIATRY [facility] May 16, 2024 01:00 PM AMBULATORY - NONE [facility] May 25, 2024 11:00 AM AMBULATORY - PSYCHIATRY [facility] Jun 01, 2024 01:00 PM AMBULATORY - SURGERY [facility] Jun 08, 2024 01:00 PM AMBULATORY - PSYCHIATRY [facility] Advance Directives: All historical and current Section Date Range: From patient's date of to the date document was created. This section includes ALL of a patient's completed or amended [place] Advance and Rescinded Directives. The entries below indicate that a directive exists for the patient, but an actual copy is not included with this document. The data comes from all [place] facilities. Date Advance Directives Provider Source May 20, 2022 ADVANCE DIRECTIVE DISCUSSION HERMINIA HERNANDEZ [facility] May 20, 2022 ADVANCE DIRECTIVE LOLITA HERNANDEZ [facility] Feb 06, 2004 ADVANCE DIRECTIVE JHOANA [facility]CH[facility] Encounter Notes: All associated encounter notes This section contains the clinical notes associated to the Encounter. Date/Time Encounter Note(s) Provider Source Jan 28, 2024 02:10 PM RESCINDED CLINICAL WARNING: LOCAL TITLE: RESEARCH PARTICIPANT-HISTORICAL STANDARD TITLE: RESCINDED CLINICAL WARNING DATE OF NOTE: JAN 28, 2024@14:10 ENTRY DATE: JAN 28, 2024@14:10:37 AUTHOR: MARYSOL DAVIS EXP COSIGNER: URGENCY: STATUS: COMPLETED RESEARCH PARTICIPANT-HISTORICAL Has ADDENDA This patient is currently enrolled in the following study (IRBNet #, title): [id number] A Prosthetic Foot Test-Drive Strategy The purpose of this study is: Research a test-drive strategy for prosthetic feet This study subject's participation is expected to last: Up to 2 months The Call Worker Person within the [facility] for this study is: Nia Orlando Call Worker Person phone extension and/or pager: [phone] The Recycling Collections Driver within the [facility] for this study is: Marysol Davis Recycling Collections Driver phone extension and/or pager: [phone] The inclusion/exclusion criteria for the protocol were reviewed and documented. Prior to all study procedures the consent form was reviewed, the subject/ subject's legally authorized account executive sales representative was given ample opportunity to ask questions and all of the subject's/LAR's questions were answered. The subject/LAR was capable of understanding the informed consent process. The subject/LAR signed the consent form. The subject has been added to the reference investigator's master list of subjects who have signed a consent form for this study. The subject was given a copy of the consent form. A copy of the signed consent form and HIPAA Authorization Form (if applicable) was:sent for auditing. Comments: /dinah/ MARYSOL DAVIS Signed: 01/28/2024 14:11 06/02/2024 ADDENDUM STATUS: COMPLETED 's participation in this study is compelte. /dinah/ MARYSOL DAVIS Signed: 06/02/2024 09:26 MARYSOL DAVIS [facility]
--- OUTSIDE RECORDS SUMMARY | 2024-02-02 05:00 | XMS_ITS | Encounter Summary ---
Author Name [facility] [place] Address [address] [place] [address] Care Team Providers Care [place] Extension Agent Name Role Phone BALTAZAR KOBI Primary Care [...] Name Patient's Relationship to Policy Truong LYNDSAYA [facility] (WNR) MEDICARE ADVANTAGE [facility] (WNR) Aug 22, 2021 [id number] [phone] TOM MUÑOZ PATIENT HUMANA MCR (WNR) MEDICARE ADVANTAGE [facility] (WNR) Aug 22, 2021 [id number] OTM MUÑOZ PATIENT MEDICARE (WNR) MEDICARE (M) PART A Sep 22, 2005 PART A [id number] [phone] TOM MUÑOZ PATIENT MEDICARE (WNR) MEDICARE (M) PART B Sep 22, 2005 PART B [id number] TOM MUÑOZ PATIENT MEDICARE (WNR) MEDICARE (M) PART A Sep 22, 2005 PART A [id number] TOM MUÑOZ PATIENT MEDICARE (WNR) MEDICARE (M) PART B Sep 22, 2005 PART B [id number] TOM MUÑOZ PATIENT MEDICARE (WNR) MEDICARE (M) PART A Sep 22, 2005 PART A [id number] TOM MUÑOZ PATIENT MEDICARE (WNR) MEDICARE (M) PART B Sep 22, 2005 PART B [id number] TOM MUÑOZ PATIENT MEDICARE (WNR) MEDICARE (M) PART A Sep 22, 2005 PART A [id number] TOM MUÑOZ PATIENT MEDICARE (WNR) MEDICARE (M) PART B Sep 22, 2005 PART B [id number] TOM MUÑOZ PATIENT Selected Encounter This section includes the information on record at [place] for the Encounter. Date/Time Encounter Type Encounter Description Reason Provider Source Feb 02, 2024 10:00 AM OFFICE O/P EST HI 40 MIN PM&RS [facility] ICD-10-CM Z44.121 Encounter for fit/adjst of partial artificial right leg TERESA BROTHERS Encounter Template Text not used by [place] Assessments - Encounter Diagnoses This section includes the primary and secondary diagnoses documented for the Encounter. Date/Time Primary/Secondary Diagnosis Diagnosis Name Provider Source Feb 02, 2024 10:33 AM PRIMARY Encounter for fit/adjst of partial artificial right leg RENEA BROTHERS [facility] Feb 02, 2024 10:33 AM SECONDARY Acquired absence of right leg below knee RENEA BROTHERS [facility] Feb 02, 2024 10:33 AM SECONDARY Other abnormalities of gait and mobility RENEA BROTHERS [facility] Plan of Treatment: Future Appointments (+ 6 months) and Future Tests (+/- 45 days) The Plan of Treatment section includes future care activities for the patient from all [place] treatmentfacilities. This section includes future appointments and future orders which are active, pending or scheduled. Future Appointments This section includes appointments that were scheduled to occur 6 months from the date of the Encounter, up to a maximum of 20 appointments. The data comes from all [place] treatment facilities. Appointment Date/Time Appointment Type Appointme nt Facility Name Feb 03, 2024 01:00 PM AMBULATORY - PSYCHIATRY [facility] Feb 11, 2024 01:00 PM AMBULATORY - NONE [facility] Feb 17, 2024 01:40 PM AMBULATORY - SURGERY [facility] Feb 18, 2024 11:00 AM AMBULATORY - PSYCHIATRY [facility] Mar 02, 2024 01:00 PM AMBULATORY - PSYCHIATRY [facility] Mar 06, 2024 01:00 PM AMBULATORY - NONE [facility] Mar 15, 2024 02:30 PM AMBULATORY - PSYCHIATRY [facility] Mar 20, 2024 01:00 PM AMBULATORY - NONE [facility] Mar 30, 2024 01:00 PM AMBULATORY - PSYCHIATRY [facility] Apr 13, 2024 01:00 PM AMBULATORY - PSYCHIATRY [facility] Apr 27, 2024 01:00 PM AMBULATORY - PSYCHIATRY [facility] May 01, 2024 11:00 AM AMBULATORY - NONE [facility] May 04, 2024 02:00 PM AMBULATORY - REHAB MEDICIN [facility] May 08, 2024 01:30 PM [facility]BULATORY - [facility]IC[facility] May 11, 2024 01:00 PM AMBULATORY - PSYCHIATRY [facility] May 16, 2024 01:00 PM AMBULATORY - NONE [facility] May 25, 2024 11:00 AM AMBULATORY - PSYCHIATRY [facility] Jun 01, 2024 01:00 PM AMBULATORY - SURGERY [facility] Jun 08, 2024 01:00 PM AMBULATORY - PSYCHIATRY [facility] June 30, 2024 11:00 AM AMBULATORY - PSYCHIATRY [facility] Advance Directives: All historical and current Section Date Range: From patient's date of to the date document was created. This section includes ALL of a patient's completed or amended [place] Advance and Rescinded Directives. The entries below indicate that a directive exists for the patient, but an actual copy is not included with this document. The data comes from all [place] facilities. Date Advance Directives Provider Source May 20, 2022 ADVANCE DIRECTIVE DISCUSSION HERMINIA HERNANDEZ [facility] May 20, 2022 ADVANCE DIRECTIVE HUBERTY,LOLITA CABALLERO [facility] Feb 06, 2004 ADVANCE DIRECTIVE ALEXANDREAJHOANAAkira HUBBARD [facility] Encounter Notes: All associated encounter notes This section contains the clinical notes associated to the Encounter. Date/Time Encounter Note(s) Provider Source Feb 02, 2024 10:05 AM PHYSICAL MEDICINE REHAB CONSULT: LOCAL TITLE: [facility] CONSULT STANDARD TITLE: PHYSICAL MEDICINE REHAB CONSULT DATE OF NOTE: FEB 02, 2024@10:05 ENTRY DATE: FEB 02, 2024@10:05:36 AUTHOR: TERESA BROTHERS COSIGNER: URGENCY: STATUS: COMPLETED [facility] Outpatient follow-up: VVC to Vendor Visit conducted by synchronous telehealth. Leslie verbal consent obtained. Location/emergency number confirmed. Environment surveyed and all participants identified. Virtual conference room locked. PROVIDERS PRESENT: Yolanda Hirsch MD - [facility] Abdifatah Pimentel CPO - [facility] Catina Mitchell CPO with [employer] [place] SUBJECTIVE: Mr. 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 He was last seen on 09/15/23. At that visit, he was prescribed: - Consult for hydraulic foot, Chemult - Consult for activity limb for weightlifting: TC socket, KAYA, gel liner interface, pin suspension, Versa 2 foot His everyday socket with pin suspension was prescribed in November 2022. He likes the Chemult better than the Taleo. He finds it really helps on slopes. He is using the activity limb for weightlifting 4-5 times/week. He likes that the posterior trimline is lower, which helps with doing squats. He feels like it provides him with a stable base for weightlifting. Both sockets are fitting well to the point that he 'feels like they're not there.' He is wearing 0-1 ply. No skin problems on residual limb. He is wearing the everyday limb 15-16 hours/day. Denies any left foot wounds or issues. He completed the Peer Visitor training last month. He is participating in the prosthetic foot emulator study. FUNCTIONAL HISTORY: Ambulatory without assistive device Quite active outdoors HOME ENVIRONMENT/SUPPORT: Lives in [place], [place] in an RV on his daughter's property. He has declined home eval. PHYSICAL EXAM: Gen: NAD, very talkative Resp: Breathing comfortably on room air RIGHT transtibial amputation: Residual limb is short in length with somewhat varus angulation. 4 1/8 inches from patella tendon to distal end. No KF contracture Distal circumference at 4cm is 29.5cm Skin is warm, dry, intact with no wounds Irritation in popliteal fossa has improved Prosthesis: supracondylar trimlines, pin locking suspension Weight lifting prosthesis: supracondylar trimlines, lower posterior trimline, pin locking suspension, same liner as everyday limb Gait: reciprocal gait, normal step length and sara, right foot is outset with valgus at knee ASSESSMENT/PLAN: Mr. 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 #Prosthetic management: Acquired absence of right leg below knee Abnormalities in gait/mobility - Consult for hydraulic foot, Chemult - check out complete - Consult for activity limb for weightlifting: TC socket, KAYA, gel liner interface, pin suspension, Versa 2 foot - check out complete - Catina will adjust alignment today, as alignment was changed during research study and foot is too outset # Follow-up: - Patient is doing well, will see back in clinic PRN or in 1 year if needed - Okay for VVC to Vendor This note reflects shared decision-making between the medical provider and Leslie (or their designated decision maker). The patient was informed of the plan and agreed to proceed. All questions were answered prior to the conclusion of the clinic visit. Education was provided as described above. Total time including chart review, counseling, coordination of care, and documentation 40 min on date of encounter /es/ TERESA BROTHERS Staff Physician, PM&R Signed: 02/02/2024 17:17 TERESA BROTHERS [facility]
--- OUTSIDE RECORDS SUMMARY | 2024-02-17 08:40 | XMS_ITS | Encounter Summary ---
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 Name Role Phone BALTAZARSHRADDHAEN Primary Care Provider [...] Name Patient's Relationship to Policy Truong [id number] [facility] (WNR) MEDICARE ADVANTAGE [facility] (WNR) Aug 22, 2021 [id number] TOM MUÑOZ PATIENT [employer] (WNR) MEDICARE ADVANTAGE [facility] (WNR) Aug 22, 2021 [id number] TOM MUÑOZ PATIENT MEDICARE (WNR) MEDICARE (M) PART A Sep 22, 2005 PART A [id number] TMO MUÑOZ PATIENT MEDICARE (WNR) MEDICARE (M) PART B Sep 22, 2005 PART B [id number] TOM MUÑOZ PATIENT MEDICARE (WNR) MEDICARE (M) PART A Sep 22, 2005 PART A [id number] [id number] TOM MUÑOZ PATIENT MEDICARE (WNR) MEDICARE (M) PART B Sep 22, 2005 PART B [id number] [phone] TOM MUÑOZ PATIENT MEDICARE (WNR) MEDICARE (M) PART A Sep 22, 2005 PART A [id number] TONI,TOM ESTEFANY PATIENT MEDICARE (WNR) MEDICARE (M) PART B Sep 22, 2005 PART B [id number] TONI,TOM ESTEFANY PATIENT MEDICARE (WNR) MEDICARE (M) PART A Sep 22, 2005 PART A [id number] TONI,TOM ALLISON PATIENT MEDICARE (WNR) MEDICARE (M) PART B Sep 22, 2005 PART B [id number] TOM MUÑOZ PATIENT Selected Encounter This section includes the information on record at [place] for the Encounter. Date/Time Encounter Type Encounter Description Reason Provider Source Feb 17, 2024 01:40 PM OFFICE O/P EST MOD 30 MIN DERMATOLOGY ICD-10-CM L12.0 Bullous pemphigoid AMOS MCCARTNEY Desean Encounter Template Text not used by [place] Assessments - Encounter Diagnoses This section includes the primary and secondary diagnoses documented for the Encounter. Date/Time Primary/Secondary Diagnosis Diagnosis Name Provider Source Feb 17, 2024 02:41 PM PRIMARY Bullous pemphigoid NICOLLE DE JESUS [facility] Plan of Treatment: Future Appointments (+ 6 months) and Future Tests (+/- 45 days) The Plan of Treatment section includes future care activities for the patient from all [place] treatmentfacilities. This section includes future appointments and future orders which are active, pending or scheduled. Future Appointments This section includes appointments that were scheduled to occur 6 months from the date of the Encounter, up to a maximum of 20 appointments. The data comes from all [place] treatment facilities. Appointment Date/Time Appointment Type Appointme nt Facility Name Feb 18, 2024 11:00 AM AMBULATORY - PSYCHIATRY [facility] Mar 02, 2024 01:00 PM AMBULATORY - PSYCHIATRY [facility] Mar 06, 2024 01:00 PM AMBULATORY - [facility] Mar 15, 2024 02:30 PM [facility] Mar 20, 2024 01:00 PM AMBULATORY - NONE [facility] Mar 30, 2024 01:00 PM [facility] Apr 13, 2024 01:00 PM [facility] Apr 27, 2024 01:00 PM AMBULATORY - PSYCHIATRY [facility] May 01, 2024 11:00 AM AMBULATORY - NONE [facility] May 04, 2024 02:00 PM AMBULATORY - REHAB MEDICIN E [facility] May 08, 2024 01:30 PM [facility] - [facility]INE [facility] May 11, 2024 01:00 PM AMBULATORY - PSYCHIATRY [facility] May 16, 2024 01:00 PM AMBULATORY - NONE [facility] May 25, 2024 11:00 AM AMBULATORY - PSYCHIATRY [facility] Jun 01, 2024 01:00 PM AMBULATORY - SURGERY [facility] Jun 08, 2024 01:00 PM AMBULATORY - PSYCHIATRY [facility] June 30, 2024 11:00 AM AMBULATORY - PSYCHIATRY [facility] July 13, 2024 01:00 PM AMBULATORY - PSYCHIATRY [facility] Jul 27, 2024 01:00 PM AMBULATORY - PSYCHIATRY [facility] Advance Directives: All historical and current Section Date Range: From patient's date of to the date document was created. This section includes ALL of a patient's completed or amended [place] Advance and Rescinded Directives. The entries below indicate that a directive exists for the patient, but an actual copy is not included with this document. The data comes from all [place] facilities. Date Advance Directives Provider Source May 20, 2022 ADVANCE DIRECTIVE DISCUSSION HERMINIA HERNANDEZ [facility] May 20, 2022 ADVANCE DIRECTIVE LOLITA HERNANDEZ [facility] Feb 06, 2004 ADVANCE DIRECTIVE JHOANA LECHUGA [facility] Encounter Notes: All associated encounter notes This section contains the clinical notes associated to the Encounter. Date/Time Encounter Note(s) Provider Source Feb 17, 2024 02:02 PM DERMATOLOGY ATTEND ING NOTE: LOCAL TITLE: DERMATOLOGY CLINIC NOTE STANDARD TITLE: DERMATOLOGY ATTENDING NOTE DATE OF NOTE: FEB 17, 2024@14:02 ENTRY DATE: FEB 17, 2024@14:02:20 AUTHOR: NICOLLE DE JESUS EXP COSIGNER: URGENCY: STATUS: COMPLETED Clinic note Dermatology Problem List: UBSE 05/13/23 # Urticarial [...] old MALE who presents today for follow up. States he hasn't had a flare even by decreasing the dosage of medication. Otherwise no new, tender, non-healing, or bleeding lesions. Wears sunscreen sometimes. No other concerns today. Review of systems: CONST: Otherwise in baseline state of health. SKIN: As above in HPI, no additional skin concerns. OBJECTIVE: GEN: No acute distress. SKIN: No vesicles or papules on exposed areas of skin. ASSESSMENT & PLAN: # Bullous pemphigoid Clear on exam today taking MMF 2 ml (400 mg) once daily. Given no flares for several months on this dose, reasonable for patient to stop the medication now. Patient will call for appointment if he flares again. - Stop MMF - Order BP180 and BP230 to be obtained the next time he has labs drawn - Encouraged sunscreen and sun protective behaviors - RTC PRN Dr. Mccartney saw and evaluated the patient with me, and agrees with the findings,assessment and plan as outlined. /dinah/ NICOLLE DE JESUS Dermatology Resident Signed: 02/17/2024 14:41 NICOLLE DE JESUS [facility]
--- OUTSIDE RECORDS SUMMARY | 2024-05-08 08:30 | XMS_ITS | Encounter Summary ---
Author Name [facility] [facility] [place] [facility] [facility] [place] Address [address] [place] [address] Care Team Providers Care Ncqa Specialist Name Role Phone CAROLINE LEDESMA Primary Care Provider Unavailabl e Insurance [...] Name Patient's Relationship to Policy Truong LYNDSAYA [facility] (WNR) MEDICARE ADVANTAGE [facility] (WNR) Aug 22, 2021 [id number] TOM MUÑOZ PATIENT LYNDSAYA MCR (WNR) MEDICARE ADVANTAGE MCR (WNR) Aug 22, 2021 [id number] [phone] TOM MUÑOZ PATIENT MEDICARE (WNR) MEDICARE (M) PART A Sep 22, 2005 PART A [id number] [phone] TOM MUÑOZ PATIENT MEDICARE (WNR) MEDICARE (M) PART B Sep 22, 2005 PART B [id number] [phone] TOM MUÑOZ PATIENT MEDICARE (WNR) MEDICARE (M) PART A Sep 22, 2005 PART A [id number] [phone] TOM MUÑOZ PATIENT MEDICARE (WNR) MEDICARE (M) PART B Sep 22, 2005 PART B [id number] [phone] TONITOM DOE PATIENT MEDICARE (WNR) MEDICARE (M) PART A Sep 22, 2005 PART A [id number] [phone] TONITOM PATIENT MEDICARE (WNR) MEDICARE (M) PART B Sep 22, 2005 PART B [id number] [phone] TONI,TOM ESTEFANY PATIENT MEDICARE (WNR) MEDICARE (M) PART A Sep 22, 2005 PART A [id number] TOM MUÑZO PATIENT MEDICARE (WNR) MEDICARE (M) PART B Sep 22, 2005 PART B [id number] TOM MUÑOZ PATIENT Selected Encounter This section includes the information on record at [place] for the Encounter. Date/Time Encounter Type Encounter Description Reason Provider Source May 08, 2024 01:30 PM OFFICE O/P EST MOD 30 MIN PRIMARY CARE/MEDICINE ICD-10-CM I10 Essential (primary) hypertension CAROLINE LEDESMA Encounter Template Text not used by [facility] Assessments - Encounter Diagnoses This section includes the primary and secondary diagnoses documented for the Encounter. Date/Time Primary/Secondary Diagnosis Diagnosis Name Provider Source May 13, 2024 10:35 AM PRIMARY Essential (primary) hypertension CAROLINE LEDESMA [facility] May 13, 2024 10:35 AM SECONDARY Acquired absence of right leg below knee CAROLINE LEDESMA CB May 13, 2024 10:35 AM SECONDARY Athscl heart disease of [place] coronary artery w/o ang pctrs CAROLINE LEDESMA OC May 13, 2024 10:35 AM SECONDARY Bullous pemphigoid CAROLINE LEDESMA [facility] May 13, 2024 10:35 AM SECONDARY Carcinoma in situ of prostate CAROLINE LEDESMA [facility] May 13, 2024 10:35 AM SECONDARY Hyperlipidemia, unspecified CAROLINE LEDESMA [facility] Plan of Treatment: Future Appointments (+ 6 months) and Future Tests (+/- 45 days) The Plan of Treatment section includes future care activities for the patient from all [place] [facility]. This section includes future appointments and future orders which are active, pending or scheduled. Future Appointments This section includes appointments that were scheduled to occur 6 months from the date of the Encounter, up to a maximum of 20 appointments. The data comes from all [place] treatment facilities. Appointment Date/Time Appointment Type Appointme nt Facility Name May 11, 2024 01:00 PM AMBULATORY - PSYCHIATRY [facility] May 16, 2024 01:00 PM [facility] May 25, 2024 11:00 AM AMBULATORY - PSYCHIATRY [facility] Jun 01, 2024 01:00 PM AMBULATORY - SURGERY [facility] Jun 08, 2024 01:00 PM AMBULATORY - PSYCHIATRY [facility] June 30, 2024 11:00 AM AMBULATORY - PSYCHIATRY [facility] July 13, 2024 01:00 PM AMBULATORY - PSYCHIATRY [facility] Jul 27, 2024 01:00 PM AMBULATORY - PSYCHIATRY [facility] Aug 31, 2024 02:00 PM AMBULATORY - PSYCHIATRY [facility] Sep 14, 2024 01:00 PM AMBULATORY - PSYCHIATRY [facility] Lab Results: +/- 30 days of the encounter This section includes the Chemistry and Hematology Lab Results on record with [place] for the patient. Radiology Reports and Pathology Reports are provided separately, in subsequent sections. Lab Results This section contains the Chemistry/Hematology Results that were resulted 30 days before or 30 daysafter the date of the Encounter. Date/Time Source Result Type Result - Unit Interpretation Reference Range Specimen Type Comment May 16, 2024 01:27 PM [facility] TSH W/REFLEX TO FREE T4 PLASMA Specimen Type: PLASMA No comment entered. Ordering Provider: CAROLINE LEDESMA Report Released Date/Time: May 13, 2024 10:11 AM Reporting Lab: [facility] [id number] Performing Lab: [facility] [id number] TSH 2.78 u[IU]/mL 0.35-4.94 May 16, 2024 01:27 PM [facility] HEMOGLOBIN A1C BLOOD Specimen Type: BLOOD Comment: Values obtained from A1C measurements can vary. For typical A1C assays, a reported value of 7.0 could actually be between 6.7 and 7.3 if measured by a reference method. A reported value of 9.0 could actually be between 8.7 and 9.3. Ref: http://www.ngsp.org/CAPdata.asp Ordering Provider: CAROLINE LEDESMA Report Released Date/Time: May 13, 2024 10:11 AM Reporting Lab: [facility] [id number] Performing Lab: [facility] [id number] HEMOGLOBIN A1C 5.8 4.0-6.0 May 16, 2024 01:27 PM [facility] LIPID PANEL,NON-FASTING PLASMA Specimen Type: PLASMA No comment entered. Ordering Provider: CAROLINE LEDESMA Report Released Date/Time: May 13, 2024 10:11 AM Reporting Lab: [facility] [id number] Performing Lab: [facility] [id number] CHOLESTEROL 225 mg/dL H <199 .HDL 48 mg/dL >40 LDL CALCULATION 154 mg/dL H <99 VLDL CALCULATION 23 mg/dL <29 NON HDL CHOLESTEROL 177 mg/dL H <129 TRIG(NON FASTING) 115 mg/dL <149 May 16, 2024 01:27 PM [facility] PSA SERUM Specimen Type: SERUM No comment entered. Ordering Provider: CAROLINE LEDESMA Report Released Date/Time: May 13, 2024 10:11 AM Reporting Lab: [facility] [id number] Performing Lab: [facility] [id number] PSA 0.46 ng/mL <4.00 May 16, 2024 01:27 PM [facility] COMPREHENSIVE METABOLIC PANEL+MG PLASMA Specim en Type: PLASMA No comment entered. Ordering Provider: CAROLINE LEDESMA Report Released Date/Time: May 13, 2024 10:11 AM Reporting Lab: [facility] [id number] Performing Lab: [facility] [id number] CREATININE 1.2 mg/dL 0.7-1.2 UREA NITROGEN 22 mg/dL 8-26 GLUCOSE 100 mg/dL 70-100 SODIUM 140 mmol/L 136-145 POTASSIUM 4.2 mmol/L 3.5-5.1 CHLORIDE 108 mmol/L H 98-107 CO2 25 mmol/L 22-29 CALCIUM 9.1 mg/dL 8.4-10.2 PROTEIN,TOTAL 6.7 g/dL 6.4-8.3 ALBUMIN 4.0 g/dL 3.5-5.0 BILIRUBIN, TOTAL 0.6 mg/dL 0.2-1.2 MAGNESIUM 2.1 mg/dL 1.6-2.6 ANION GAP 7 mmol/L 5-15 ALKALINE PHOSPHATASE 88 U/L 40-150 ALT/SGPT 13 U/L <44 AST/SGOT 20 U/L 11-34 .CREAT EGFR(CKD-EPI) 60 >60 May 16, 2024 01:27 PM [facility] CBC & DIFF BLOO D Specimen Type: BLOOD Comment: Automated Differential Performed Ordering Provider: CAROLINE LEDESMA Report Released Date/Time: May 13, 2024 10:11 AM Reporting Lab: [facility] [id number] Performing Lab: [facility] [id number] WBC 5.9 4.0-11.0 RBC 5.43 4.60-6.20 HGB 15.6 g/dL 13.5-17.9 HCT 47.6 41.0-54.0 MCV 87.7 fL 80.0-100.0 MCH 28.7 pg 27.0-33.0 MCHC 32.8 g/dL 32.0-37.5 PLT 175 150-400 MPV 8.7 fL L 9.1-13.0 NEUT 57.5 40.0-80.0 LYMPHS 24.2 15.0-45.0 MONO 11.3 2.0-12.0 EOSINO 5.4 0.0-6.0 BASO 0.8 0.0-2.0 RDW 13.8 11.5-14.5 ABS LYMPH 1.4 1.0-4.0 ABS MONO 0.7 0.1-1.0 ABS NEUT 3.4 2.0-7.7 ABS EOS 0.3 0.0-0.5 ABS BASO 0.1 0.0-0.2 IG(META,MYELO,PRO) 0.8 ABS IMMATURE GRAN 0.1 0.0-0.1 Vital Signs: All taken on the encounter date This section contains inpatient and outpatient Vital Signs collected on the date of the Encounter. Date/Time Temperature Pulse Blood Pressure Respiratory Rate SP02 Pain Height Weight Body Mass Index Source May 08, 2024 01:41 PM 97.2 50 99/64 20 97 0 68 167.1 25 [facility] Social History: Smoking Status (Most current) and Tobacco Use (All prior to encounter date) This section includes the most current, and the historical, smoking and tobacco- related health factors from the [place] facility where the Encounter took place. Current Smoking Status This section includes the most current smoking, or tobacco-related health factor, from the [place] facility where the Encounter took place. Date/Time Current Smoking Status Comment Roby cifuentes May 08, 2024 01:30 PM VA-TOBACCO NEVER USED CIGARETTES [facility] Tobacco Use History This section includes a history of the smoking, or tobacco-related health factors, that were collected on or before the date of the Encounter. The data comes from the [place] facility where the Encounter took place. Date/Time Smoking Status/Tobac co Use Comment Facility May 08, 2024 01:30 PM VA-TOBACCO USE FORMER OTHER TYPE pipe occassional , quit 40+ years [facility] Oct 09, 2022 02:00 PM VA-TOBACCO NEVER USED [facility] Dec 31, 2021 01:30 PM VA-TOBACCO NEVER USED [facility] Jan 01, 2021 09:30 AM VA-TOBACCO NEVER USED [facility] Dec 27, 2019 08:30 AM VA-TOBACCO FORMER USER [facility] Dec 27, 2019 08:30 AM VA-TOBACCO QUIT 15 YRS OR MORE [facility] Advance Directives: All historical and current Section Date Range: From patient's date of to the date document was created. This section includes ALL of a patient's completed or amended [place] Advance and Rescinded Directives. The entries below indicate that a directive exists for the patient, but an actual copy is not included with this document. The data comes from all [facility]. Date Advance Directives Provider Source May 20, 2022 ADVANCE DIRECTIVE DISCUSSION HERMINIA HERNANDEZ [facility] May 20, 2022 ADVANCE DIRECTIVE LOLITA HERNANDEZ [facility] Feb 06, 2004 ADVANCE DIRECTIVE JHOANA LECHUGA [facility] Encounter Notes: All associated encounter notes This section contains the clinical notes associated to the Encounter. Date/Time Encounter Note(s) Provider Source May 08, 2024 01:58 PM PRIMARY CARE NOTE: LOCAL TITLE: [facility] PROGRESS NOTE-[facility] TITLE: PRIMARY CARE NOTE DATE OF NOTE: MAY 08, 2024@13:58 ENTRY DATE: MAY 08, 2024@13:58:22 AUTHOR: CAROLINE LEDESMA EXP COSIGNER: URGENCY: STATUS: COMPLETED Time of note is not necessarily time seen - time of visit more accurately reflected in time of vital signs. Chart opened early for preparation for visit. Aiken's identity was confirmed using Last name and last 4 of SS # HPI: 83 years old MALE here for annual exam. Has been feeling well. Has a history of a Rt. BKA. No history of falls. [facility] No CP, SOB. Exercises regularly. History of prostate cancer. No urinary issues. He would like to have a PSA drawn today. Appetite has been good. No dysphagia. No bowel changes. Active and Recently Outpatient Medications (including Supplies): Active Outpatient Medications Status 1) APIXABAN 5MG TAB TAKE ONE TABLET BY MOUTH EVERY 12 HOURS ACTIVE Indication: TO TREAT AND/OR PREVENT BLOOD CLOTS 2) METOPROLOL TARTRATE 25MG TAB TAKE ONE-HALF TABLET BY MOUTH ACTIVE TWICE A DAY Indication: FOR HEART PROTECTION Inactive Outpatient Medications Status 1) MYCOPHENOLATE 1000MG/5ML ORAL SUSP TAKE 5 ML BY MOUTH TWICE A DAY (5ML = 1 TEASPOONFUL) Indication: FOR BULLOUS PEMPHIGOID 2) ZZMYCOPHENOLATE 1000MG/5ML ORAL SUSP TAKE 5 ML BY MOUTH DISCONTINUED TWICE A DAY FOR (5ML = 1 TEASPOONFUL) Indication: BULLOUS PEMPHIGOID Active Non-VA Medications Status 1) Non-VA AMINO ACIDS TAB 1 TABLET MOUTH DAILY ACTIVE 2) Non-VA CHOLECALCIFEROL TAB 4000 UNITS MOUTH EVERY DAY ACTIVE 3) Non-VA COLLAGEN HEMOSTAT POWDER,TOP 1 DOSE TOPICALLY DAILY ACTIVE 4) Non-VA CREATINE POWDER,ORAL 1 DOSE MOUTH DAILY ACTIVE 8 Total Medications No Active Remote Medications for this patient Past Medical History: Active problems - Computerized Problem List is the source for the followin. Umbilical hernia 2. Benign essential hypertension (SNOMED CT 3522468) 3. Carcinoma of prostate (SNOMED CT 888713831) 4. Coronary arteriosclerosis (SNOMED CT 66738314) - stent placed in 2010 5. History of colonoscopy - last done 1999 - + FIT 06/2022 6. History of male erectile disorder 7. Hyperlipidemia 8. Osteoarthritis of left knee joint 9. Squamous cell carcinoma of skin 10. Generalized anxiety disorder 11. 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 Has prosthesis - on PTRP for prosthetic gait training 05/11-05/22/22 12. Bullous pemphigoid 13. Long-term current use of anticoagulant - Pulmonary embolism 07/14 14. Exposure to potentially hazardous substance ([facility] [id number]) - [facility] [employer] Past Surgical History: CABG 2008 Had a stent placed in 2010 Family History: Non contributory Social History: Lives by himself. Lives with his daughter who lives on the same property. non Smoker No ETOH Allergies:Patient has answered NKA Review of System: General: No weight loss, fever, chills, weakness or fatigue. HEENT: No visual loss, blurred vision, double vision or yellow sclerae. No hearing loss, sneezing, congestion, runny nose or sore throat. Cardiovascular: No chest pain, chest pressure or chest discomfort. No palpitations Lungs: No shortness of breath, cough or sputum. GI: No anorexia, nausea, vomiting or diarrhea. No abdominal pain or blood. : No Burning on urination. No hematuria, No dysuria Neuro: No headache, dizziness, syncope, paralysis, ataxia, numbness or tingling in the extremities. No change in bowel or bladder control. MSK: No muscle, back pain, joint pain or stiffness. Physical Exam: Temp: 97.2 F [36.2 C] (05/08/2024 13:41) Pulse:50 (05/08/2024 13:41) BP: 99/64 (05/08/2024 13:41) Resp: 20 (05/08/2024 13:41) Weight: 167.1 lb [75.80 kg] (05/08/2024 13:41) Pain: 0 05/08/2024 13:41) O2 Sat: 97% (05/08/2024:41) BMI: 25.5 Gen: Awake, Alert. Answering questions appropriately HEENT: TM's clear bilaterally. Mucous membranes pink, moist. CV: RRR. No S3, S4 or murmurs Lungs: CTA bilaterally ABD: +BS. Soft. NT.ND Rt. BKA Labs: Labs ordered to be drawn in [place] on 05/16/2024 Assessment/Plan: 1. Benign essential hypertension-BP is stable. On Metoprolol 2. Carcinoma of prostate: Stable. No urinary symptoms. Will order PSA. 3. Coronary arteriosclerosis- stent placed in 2010: No recent chest pain. Continue with 5. Hyperlipidemia: Last LDL 130. Will repeat 6. 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 Has prosthesis on PTRP for prosthetic gait training 05/11-05/22/22 -Doing well and following regularly with prosthetics clinic 7. Bullous pemphigoid: Currently in remission, following with dermatology 8. Long-term current use of anticoagulant: Patient had pulmonary emboli in June 2022. -Continue apixaban 9.. History of iron deficiency anemia: Stopped iron this fall -CBC and iron studies today RTC in ... 1 year. Sooner if problems. 35 minutes spent in patient care, counseling and coordination of care today /es/ Caroline Ledesma MD [facility] Primary Care Physician Signed: 05/13/2024 10:35 CAROLINE LEDESMA [facility] May 08, 2024 01:42 PM PRIMARY CARE NURSI MARGARET NOTE: LOCAL TITLE: [facility] NURSING PROGRESS NOTE STANDARD TITLE: PRIMARY CARE NURSING NOTE DATE OF NOTE: MAY 08, 2024@13:42 ENTRY DATE: MAY 08, 2024@13:42:40 AUTHOR: JULISSA YANEZ EXP COSIGNER: URGENCY: STATUS: COMPLETED TYPE OF VISIT: Appointment Check In Type of appointment: In-person appointment REASON FOR VISIT: Annual Not comanaged ALLERGIES: Patient has answered NKA VITAL SIGNS: Blood Pressure: 99/64 (05/08/2024 13:41) Pulse: 50 (05/08/2024 13:41) Respiration: 20 (05/08/2024 13:41) Temperature: 97.2 F [36.2 C] (05/08/2024 13:41) Weight: 167.1 lb [75.80 kg] (05/08/2024:41) Height: 68 in [172.7 cm] (05/08/2024 13:41) BMI: 25.5 O2 Sat: 97% (05/08/2024 13:41) Pain: 0 (05/08/2024:41) Right leg below knee wears prothesis leg Suicide Screen: C-SSRS Screening [place] Suicide Severity Rating Scale (C-SSRS) screener 1. Over the past month, have you wished you were or wished you could go to sleep and not wake up? No 2. Over the past month, have you had any actual thoughts of killing yourself? No 3. Over the past month, have you been thinking about how you might do this? Response not required due to responses to other questions. 4. Over the past month, have you had these thoughts and had some intention of acting on them? Response not required due to responses to other questions. 5. Over the past month, have you started to work out or worked out the details of how to kill yourself? Response not required due to responses to other questions. 6. If yes, at any time in the past month did you intend to carry out this plan? Response not required due to responses to other questions. 7. In your lifetime, have you ever done anything, started to do anything, or prepared to do anything to end your life (for example, collected pills, obtained a gun, gave away valuables, went to the roof but didn't jump)? No 8. If YES, was this within the past 3 months? Response not required due to responses to other questions. Tobacco Use Screening: The patient has never smoked cigarettes. The patient formerly used other types of tobacco. Comment: pipe occassional , quit 40+ years Depression Screening: Perform PHQ-2 A PHQ-2 screen was performed. The score was 0 which is a negative screen for depression. Over the past two weeks, how often have you been bothered by the following problems? 1. Little interest or pleasure in doing things Not at all 2. Feeling down, depressed, or hopeless Not at all Alcohol Use Screen (AUDIT-C): Alcohol Screen: SCREEN FOR ALCOHOL (AUDIT-C) An alcohol screening test (AUDIT-C) was negative (score=0). 1. How often did you have a drink containing alcohol in the past year? Consider a drink to be a 12 ounce can or bottle of regular beer, 8 ounces of malt liquor, a 5 ounce glass of table wine, or a 1.5 ounce shot of liquor (like scotch, gin, or vodka). Never 2. How many drinks containing alcohol did you have on a typical day when you were drinking in the past year? Response not required due to responses to other questions. 3. How often did you have six or more drinks on one occasion in the past year? Response not required due to responses to other questions. Nursing Annual Screening: Whole Health Screen is due OR due soon (within 90 days). Fall History Screen During the past 12 months, have you had any falls? Patient does not report any falls in the past 12 months. MEDICATIONS: Patient is on one of the following medication classes: Antihypertensives, Antidepressants, Antipsychotics, Diuretics, or Controlled substance medication used for pain. Script Talk Screen Are you able to read your prescription bottles with your glasses, magnifiers or other aids? Yes or patient not taking any prescriptions. Skin Screen Patient reports any current pressure ulcers, a history of pressure ulcers, or a wound from a medical grade shoemaker or Patient is bed-confined or a wheelchair-user or Patient requires assistance to transfer/change position No, Skin Screen is Negative Home Abuse/Violence Screen Is your home free of abuse and violence? Yes MOVE! Program Screen Body Mass Index (BMI)= 25.5 [place]: Collection Specimen Test Name Result Units Ref Range 04/14/2022 14:58 BLOOD !! HEMOGLOBIN A1C 5.5 % 4.0 - 6.0 !! Indicates COMMENTS AVAILABLE...Refer to Interim Lab Report. [place] Hgb A1C: No data available [place] Hgb A1C: No data available Point of Care Hgb A1C: POC HGB A1C____ Outpatient Nutrition Screen Body Mass Index (BMI)= 25.5 [place]: Collection DT Specimen Test Name Result Units Ref Range 04/14/2022 14:58 BLOOD !! HEMOGLOBIN A1C 5.5 % 4.0 - 6.0 !! Indicates COMMENTS AVAILABLE...Refer to Interim Lab Report. [place] Hgb A1C: No data available [place] Hgb A1C: No data available Point of Care Hgb A1C: POC HGB A1C____ Is patient's BMI less than 18.5? No Does patient have swallowing, coughing, or chewing problems affecting oral intake? No Has patient experienced unplanned weight loss or gain greater than 10 pounds over the last 2 months? No Is patient's Hgb A1C (Glycosylated Hemoglobin) greater than 9.5? No Is patient receiving Total Parenteral Nutrition (TPN) or Tube Feedings? No Patient Health Education Screen BARRIERS/SPECIAL NEEDS: Other need or barrier (specify): below right knee prothesis PREFERRED STYLE OF LEARNING: Watching something Listening Reading Client Assistive Service (CATHI) Screen Does the patient require assistance with outpatient visit? No Homelessness/Food Insecurity Screen: In the past 2 months, have you been living in stable housing that you own, rent, or stay in as part of a household? Yes - Living in stable housing. Are you worried or concerned that in the next 2 months you may NOT have stable housing that you own, rent, or stay in as part of a household? No - Not worried about housing near future The reports the following: Within the past 12 months, you worried whether your food would run out before you got money to buy more. Never true Within the past 12 months, the food you bought just didn't last and you didn't have money to get more. Never true Food Assistance Programs [facility] Food Assistance [facility] GOPI /dinah/ JULISSA YANEZ LPN LICENSED PRACTICAL NURSE Signed: 05/08/2024 13:47 JULISSA YANEZ [facility]
--- OUTSIDE RECORDS SUMMARY | 2024-06-01 08:00 | XMS_ITS | Encounter Summary ---
Author Name [facility] [place] Address [address] [place] [address] Care Team Providers Care Production Supervisor Off Shift Name Role Phone BALTAZARSHRADDHAEN Primary Care Provider [...] Name Patient's Relationship to Policy Truong LYNDSAYA [facility] (WNR) MEDICARE ADVANTAGE [facility] (WNR) Aug 22, 2021 [id number] [phone] TOM MUÑOZ PATIENT [employer] [facility] (WNR) MEDICARE ADVANTAGE [facility] (WNR) Aug 22, 2021 [id number] TOM MUÑOZ PATIENT MEDICARE (WNR) MEDICARE (M) PART B Sep 22, 2005 PART B [id number] TOM MUÑOZ PATIENT MEDICARE (WNR) MEDICARE (M) PART A Sep 22, 2005 PART A [id number] TOM MUÑOZ PATIENT MEDICARE (WNR) MEDICARE (M) PART A Sep 22, 2005 PART A [id number] TOM MUÑOZ PATIENT MEDICARE (WNR) MEDICARE (M) PART B Sep 22, 2005 PART B [id number] TOM MUÑOZ PATIENT MEDICARE (WNR) MEDICARE (M) PART A Sep 22, 2005 PART A [id number] TOM MUÑOZ ESTEFANY PATIENT MEDICARE (WNR) MEDICARE (M) PART B Sep 22, 2005 PART B [id number] TOM MUÑOZ PATIENT MEDICARE (WNR) MEDICARE (M) PART B Sep 22, 2005 PART B [id number] TOM MUÑOZ PATIENT MEDICARE (WNR) MEDICARE (M) PART A Sep 22, 2005 PART A [id number] TOM MUÑOZ PATIENT Selected Encounter This section includes the information on record at [place] for the Encounter. Date/Time Encounter Type Encounter Description Reason Provider Source Jun 01, 2024 01:00 PM OFFICE O/P EST MOD 30 MIN OPHTHALMOLOGY ICD-10-CM 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, right eye, intermed dry stage CACHORROBERYL SARMIENTO Desean Encounter Template Text not used by [place] Assessments - Encounter Diagnoses This section includes the primary and secondary diagnoses documented for the Encounter. Date/Time Primary/Secondary Diagnosis Diagnosis Name Provider Source Jun 01, 2024 02:04 PM PRIMARY Nexdtve age-related mclr degn, right eye, intermed dry stage CACHORRO,BERYL Bolaños [facility] Jun 01, 2024 02:04 PM SECONDARY Dry eye syndrome of bilateral lacrimal glands CACHORRO,BERYL Bolaños [facility] Jun 01, 2024 02:04 PM SECONDARY Nexdtve age-related mclr degn, left eye, intermed dry stage CACHORRO,BERYL Bolaños [facility] Jun 01, 2024 02:04 PM SECONDARY Presbyopia CACHORRO,BERYL Bolaños [facility] Jun 01, 2024 02:04 PM SECONDARY Presence of intraocular lens CACHORRO,BERYL Bolaños [facility] Jun 01, 2024 02:04 PM SECONDARY Puckering of macula, right eye CACHORRO,BERYL Bolaños [facility] Jun 01, 2024 02:04 PM SECONDARY Vitreous degeneration, bilateral CACHORRO,BERYL J [facility] Plan of Treatment: Future Appointments (+ 6 months) and Future Tests (+/- 45 days) The Plan of Treatment section includes future care activities for the patient from all [place] treatmentfacilities. This section includes future appointments and future orders which are active, pending or scheduled. Future Appointments This section includes appointments that were scheduled to occur 6 months from the date of the Encounter, up to a maximum of 20 appointments. The data comes from all [place] treatment facilities. Appointment Date/Time Appointment Type Appointme nt Facility Name Jun 08, 2024 01:00 PM AMBULATORY PSYCHIATRY [facility] June 30, 2024 11:00 AM AMBULATORY PSYCHIATRY [facility] July 13, 2024 01:00 PM AMBULATORY [facility] Jul 27, 2024 01:00 PM AMBULATORY [facility] Aug 31, 2024 02:00 PM AMBULATORY [facility] Sep 14, 2024 01:00 PM AMBULATORY [facility] Lab Results: +/- 30 days of the encounter This section includes the Chemistry and Hematology Lab Results on record with [place] for the patient. Radiology Reports and Pathology [...] actually be between 8.7 and 9.3. Ref: [email or web address] Ordering Provider: KOBI LEDESMA Report Released Date/Time: May 13, 2024 10:11 AM Reporting Lab: [facility] [id number] Performing Lab: [facility] [id number] HEMOGLOBIN A1C 5.8 4.0-6.0 May 16, 2024 01:27 PM [facility] TSH W/REFLEX TO FREE T4 PLASMA Spe cimen Type: PLASMA No comment entered. Ordering Provider: KOBI LEDESMA Report Released Date/Time: May 13, 2024 10:11 AM Reporting Lab: [facility] [address] Performing Lab: [facility] [address] TSH 2.78 u[IU]/mL 0.35-4.94 May 16, 2024 01:27 PM ARTIS ALVAREZ LIPID PANEL,NON-FASTING PLASMA Specimen Type: PLASMA No comment entered. Ordering Provider: KOBI LEDESMA Report Released Date/Time: May 13, 2024 10:11 AM Reporting Lab: [facility] [address] Performing Lab: [facility] [address] CHOLESTEROL 225 mg/dL H <199 .HDL 48 mg/dL >40 LDL CALCULATION 154 mg/dL H <99 VLDL CALCULATION 23 mg/dL <29 NON HDL CHOLESTEROL 177 mg/dL H <129 TRIG(NON FASTING) 115 mg/dL <149 May 16, 2024 01:27 PM [facility] PSA SERUM Specimen Type: SERUM No comment entered. Ordering Provider: KOBI LEDESMA Report Released Date/Time: May 13, 2024 10:11 AM Reporting Lab: [facility] [address] Performing Lab: [facility] [address] PSA 0.46 ng/mL <4.00 May 16, 2024 01:27 PM ARTIS ALAVREZ COMPREHENSIVE METABOLIC PANEL+MG PLASMA Specim en Type: PLASMA No comment entered. Ordering Provider: KOBI LEDESMA Report Released Date/Time: May 13, 2024 10:11 AM Reporting Lab: [facility] [address] Performing Lab: [facility] [address] CREATININE 1.2 mg/dL 0.7-1.2 UREA NITROGEN 22 [...] BLOOD Comment: Automated Differential Performed Ordering Provider: KOBI LEDESMA Report Released Date/Time: May 13, 2024 10:11 AM Reporting Lab: [facility] [address] Performing Lab: [facility] [address] WBC 5.9 4.0-11.0 RBC 5.43 4.60-6.20 HGB [...] IG(META,MYELO,PRO) 0.8 ABS IMMATURE GRAN 0.1 0.0-0.1 Advance Directives: All historical and current Section Date Range: From patient's date of to the date document was created. This section includes ALL of a patient's completed or amended [place] Advance and Rescinded Directives. The entries below indicate that a directive exists for the patient, but an actual copy is not included with this document. The data comes from all [place] facilities. Date Advance Directives Provider Source May 20, 2022 ADVANCE DIRECTIVE DISCUSSION HERMINIA HERNANDEZ [facility] May 20, 2022 ADVANCE DIRECTIVE LOLITA HERNANDEZ [facility] Feb 06, 2004 ADVANCE DIRECTIVE JHOANA LECHUGA [facility] Encounter Notes: All associated encounter notes This section contains the clinical notes associated to the Encounter. Date/Time Encounter Note(s) Provider Source Jun 01, 2024 01:35 PM OPHTHALMOLOGY CONSULT: LOCAL TITLE: OPHTHALMOLOGY IMAGING [facility] OUTPT CONSULT STANDARD TITLE: OPHTHALMOLOGY CONSULT DATE OF NOTE: JUN 01, 2024@13:35 ENTRY DATE: JUN 01, 2024@13:35:28 AUTHOR: DEVORA BOLES EXP COSIGNER: URGENCY: STATUS: COMPLETED Requested test(s) done, OCT of maculae OU results uploaded to wrapper and preserver for review. /dinah/ SOPHIA LEOS CRA Substance Abuse Technician Signed: 06/01/2024 13:35 DEVORA BOLES [facility] Jun 01, 2024 01:33 PM OPHTHALMOLOGY ATTENDING NOTE: LOCAL TITLE: OPHTHALMOLOGY CLINIC NOTE STANDARD TITLE: OPHTHALMOLOGY ATTENDING NOTE DATE OF NOTE: JUN 01, 2024@13:33 ENTRY DATE: JUN 01, 2024@13:33:21 AUTHOR: BERYL IVORY EXP COSIGNER: URGENCY: STATUS: COMPLETED Tech note for today: LOCAL TITLE: CAP CUTTER NOTE STANDARD TITLE: CAP CUTTER NOTE DATE OF NOTE: JUN 01, 2024@12:55 ENTRY DATE: JUN 01, 2024@12:55:58 AUTHOR: VERNON ALVAREZ EXP COSIGNER: URGENCY: STATUS: COMPLETED Eye Start Exam Patient: YOLANDA MUÑOZ Sex: MALE SSN: [id number] Birthdate: [birth year] Chief complaint: [facility] mo [facility] erm with VMT re>le. Pt denies any vision changes inpast 6 mo. no floaters/flashes of light. using at's ou prn for dry eyes. History of Present Illness: Location: Intensity: Duration: pseudophakia ou Active Problems List: Active problems - Computerized Problem List is the source for the followin. Umbilical hernia 2. Benign essential hypertension (SNOMED CT 1872764) 3. Carcinoma of prostate (SNOMED CT 231848956) 4. Coronary arteriosclerosis (SNOMED CT 75950835) - stent placed in 2010 5. History of colonoscopy - last done 1999 - + FIT 06/2022 6. History of male erectile disorder 7. Hyperlipidemia 8. Osteoarthritis of left knee joint 9. Squamous cell carcinoma of skin 10. Generalized anxiety disorder 11. 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 Has prosthesis - on PTRP for prosthetic gait training 05/11-05/22/22 12. Bullous pemphigoid 13. Long-term current use of anticoagulant - Pulmonary embolism 07/14 14. Exposure to potentially hazardous substance ([facility] [id number]) [facility] Surgeries: SURGERIES - NONE FOUND Follow Up Exam Eye Medications at's ou prn Allergies: Patient has answered NKA No new Allergies. Last refraction: Vision: OD:CC(with glasses) OD: 20/30+2 Pinhole: 20/25-2 Near: 20/ Vision: OS:CC(with glasses) 0S: 20/25-2 Pinhole: 20/20 Near: 20/ Current glasses: OD:+0.50 sphX Prism: OS:+0.50 sphX Prism: Add: +2.50 Refraction: Manifest: YES Automated: NO OD:-0.50 +0.25X15 20/25+2 OS:plano +0.83Z598 20/20 Balance: Add: +2.75 Near vision: OD : OS : OU Comment: Confrontational Fuentes: Full to finger counting: Right: Yes Left: Yes Extra Ocular Movement: Normal Pupils: Right: Round Left: Round Size: Right: 4 Left: 4 React to light: Right: Yes Left: Yes Afferent pupil defect: Right:No Grade: Left: No Grade: Note: Intra-ocular pressure (IOP): OD: 10 OS: 10 iCare Dilation: mydriacyl 1% and neosynephrine OU May@13:20 end of tech note I have reviewed and agree with the line technician note of today Patient is alert and oriented X3 and mood and affect are appropriate. SLE: External: normal ou Lid/Lash: normal ou Conj/Sclera:clear and quiet ou Cornea: clear ou AC: Deep & quiet ou Iris: normal without RI or defects ou Lens: pcl ou Dilated exam: yes Optic nerve: normal ou, vC/D:0.3/0.3 Macula:2+ intermed drusen ou Vessels: normal ou Periphery: Flat, no abnormalities ou Vitreous: pvd ou, no pigment or heme ou Assessment/Plan: nonex armd areds and hag mac 06/01/24 od:drusen and erm, fovea ok, no irf/srf os:drusen, no irf/srf nonsmoker erm od, nvs pciol ou tint elig prior pvd ou anant at prn presbyopia RTC:1 y, mr, vtd, mac sooner with changes Total time spent on spent on testing/chart review, exam, discussion, and charting was in excess of 30 minutes. /es/ BERYL IVORY MD STAFF SUPPORT SERVICES COORDINATOR Signed: 06/01/2024 14:04 BERYL IVORY [facility] Jun 01, 2024 12:55 PM CAP CUTTER NOTE: LOCAL TITLE: CAP CUTTER NOTE STANDARD TITLE: CAP CUTTER NOTE DATE OF NOTE: JUN 01, 2024@12:55 ENTRY DATE: JUN 01, 2024@12:55:58 AUTHOR: VERNON ALVAREZ EXP COSIGNER: URGENCY: STATUS: COMPLETED Eye Start Exam Patient: YOLANDA MUÑOZ Sex: MALE SSN: [id number] Birthdate: [birth year] Chief complaint: [facility] erm with VMT re>le. Pt denies any vision changes inpast 6 mo. no floaters/flashes of light. using at's ou prn for dry eyes. History of Present Illness: Location: Intensity: Duration: pseudophakia ou Active Problems List: Active problems - Computerized Problem List is the source for the followin. Umbilical hernia 2. Benign essential hypertension (SNOMED CT 6156256) 3. Carcinoma of prostate (SNOMED CT 485218226) 4. Coronary arteriosclerosis (SNOMED CT 23097996) - stent placed in 2010 5. History of colonoscopy - last done 1999 - + FIT 06/2022 6. History of male erectile disorder 7. Hyperlipidemia 8. Osteoarthritis of left knee joint 9. Squamous cell carcinoma of skin 10. Generalized anxiety disorder 11. 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 Has prosthesis - on PTRP for prosthetic gait training 05/11-05/22/22 12. Bullous pemphigoid 13. Long-term current use of anticoagulant - Pulmonary embolism 07/14 14. Exposure to potentially hazardous substance ([facility] [id number]) [facility] Documentation Initiative Surgeries: SURGERIES - NONE FOUND Follow Up Exam Eye Medications at's ou prn Allergies: Patient has answered NKA No new Allergies. Last refraction: Vision: OD:CC(with glasses) OD: 20/30+2 Pinhole: 20/25-2 Near: 20/ Vision: OS:CC(with glasses) 0S: 20/25-2 Pinhole: 20/20 Near: 20/ Current glasses: OD:+0.50 sphX Prism: OS:+0.50 sphX Prism: Add: +2.50 Refraction: Manifest: YES Automated: NO OD:-0.50 +0.25X15 20/25+2 OS:plano +0.06N829 20/20 Balance: Add: +2.75 Near vision: OD : OS : OU Comment: Confrontational Fuentes: Full to finger counting: Right: Yes Left: Yes Extra Ocular Movement: Normal Pupils: Right: Round Left: Round Size: Right: 4 Left: 4 React to light: Right: Yes Left: Yes Afferent pupil defect: Right:No Grade: Left: No Grade: Note: Intra-ocular pressure (IOP): OD: 10 OS: 10 iCare Dilation: mydriacyl 1% and neosynephrine OU May@13:20 /es/ MARU VILLAR COA Signed: 06/01/2024 13:21 VERNON ALVAREZ [facility]
--- OUTSIDE RECORDS SUMMARY | 2024-07-13 08:00 | XMS_ITS | Encounter Summary ---
Author Name [facility] [place] [facility] [place] Address [address] [place] [address] Care Team Providers Care Psychology Teacher Name Role Phone KOBI LEDESMA Primary Care [...] Name Patient's Relationship to Policy Truong LYNDSAYA [facility] (WNR) MEDICARE ADVANTAGE [facility] (WNR) Aug 22, 2021 [id number] TOM MUÑOZ PATIENT [employer] [facility] (WNR) MEDICARE ADVANTAGE [facility] (WNR) Aug 22, 2021 [id number] TOM MUÑOZ PATIENT MEDICARE (WNR) MEDICARE (M) PART A Sep 22, 2005 PART A [id number] TOM MUÑOZ PATIENT MEDICARE (WNR) MEDICARE (M) PART B Sep 22, 2005 PART B [id number] TOM MUÑOZ PATIENT MEDICARE (WNR) MEDICARE (M) PART A Sep 22, 2005 PART A [id number] TOM MUÑOZ PATIENT MEDICARE (WNR) MEDICARE (M) PART B Sep 22, 2005 PART B [id number] TONI,TOM ALLISON PATIENT MEDICARE (WNR) MEDICARE (M) PART A Sep 22, 2005 PART A [id number] TONI,TOM ESTEFANY PATIENT MEDICARE (WNR) MEDICARE (M) PART B Sep 22, 2005 PART B [id number] TONI,TOM ESTEFANY PATIENT MEDICARE (WNR) MEDICARE (M) PART A Sep 22, 2005 PART A [id number] [phone] TONI,TOM ALLISON PATIENT MEDICARE (WNR) MEDICARE (M) PART B Sep 22, 2005 PART B [id number] [phone] TOM MUÑOZ PATIENT Selected Encounter This section includes the information on record at [place] for the Encounter. Date/Time Encounter Type Encounter Description Reason Provider Source July 13, 2024 01:00 PM PSYTX W PT 45 MINUTES TELEPHONE MH ICD-10-CM F41.1 Generalized anxiety disorder Mami ONEILL [facility] Encounter Template Text not used by [place] Assessments - Encounter Diagnoses This section includes the primary and secondary diagnoses documented for the Encounter. Date/Time Primary/Secondary Diagnosis Diagnosis Name Provider Source July 13, 2024 01:00 PM PRIMARY Generalized anxiety disorder Mami ONEILL [facility] July 13, 2024 01:00 PM SECONDARY Post-traumatic stress disorder, chronic Mami ONEILL [facility] Plan of Treatment: Future Appointments (+ 6 months) and Future Tests (+/- 45 days) The Plan of Treatment section includes future care activities for the patient from all [place] treatmentfacilities. This section includes future appointments and future orders which are active, pending or scheduled. Future Appointments This section includes appointments that were scheduled to occur 6 months from the date of the Encounter, up to a maximum of 20 appointments. The data comes from all [place] treatment facilities. Appointment Date/Time Appointment Type Appointme nt Facility Name Jul 27, 2024 01:00 PM AMBULATORY - PSYCHIATRY [facility] Aug 31, 2024 02:00 PM AMBULATORY - PSYCHIATRY [facility] Sep 14, 2024 01:00 PM AMBULATORY - PSYCHIATRY [facility] Advance Directives: All historical and current Section Date Range: From patient's date of to the date document was created. This section includes ALL of a patient's completed or amended [place] Advance and Rescinded Directives. The entries below indicate that a directive exists for the patient, but an actual copy is not included with this document. The data comes from all [place] facilities. Date Advance Directives Provider Source May 20, 2022 ADVANCE DIRECTIVE DISCUSSION HERMINIA HERNANDEZ [facility] May 20, 2022 [facility] Feb [facility], 2004 ADVANCE DIRECTIVE [facility]HOANA [facility]GA [facility] Encounter Notes: All associated encounter notes This section contains the clinical notes associated to the Encounter. Date/Time Encounter Note(s) Provider Source July 13, 2024 01:57 PM MENTAL HEALTH NOTE : LOCAL TITLE: MH PROGRESS NOTE STANDARD TITLE: MENTAL HEALTH NOTE DATE OF NOTE: JULY 13, 2024@13:57 ENTRY DATE: JULY 15, 2024@14:58:17 AUTHOR: BRINA ONEILL COSIGNER: URGENCY: STATUS: COMPLETED Therapy follow-up session: Individual Psychotherapy- 50 min S/O - The displayed a readiness to learn for the education and topics discussed during this session. The indicated understanding by asking questions, engaging in discussion and making appropriate comments. is an 82-year-old, , male being seen in mental health specialty care. Session was conducted over the phone. Yolanda stated that his doing, ok. He talked about needing to focus on world events because of his background. He has friends in [place] and in [place] and he worries that he missed some piece of news so he constantly scrolls his feed. We talked about letting go of things that are not within our control. He was receptive to feedback and support. Assessment/Problems Treated This Encounter: Adjusting to losing a leg. Upset with his war crime trial. MENTAL STATUS: Grooming: Good Motor: Good Mood: Euthymic Affect: Full range Speech: Normal volume, rate, and rhythm Thought Content: Normal Thought Processes: Logic, linear, goal directed Hallucinations: None Delusions: None Fully Oriented: x4 Suicide/Assaultiveness Risk Level Impression: (x) No evidence from available information of conscious deception (x) no evidence from available information of incapacity to assess self and get help if needed Suicide Acute Risk: ( ) High- - unlikely to survive as outpatient. Immediate intervention is needed. ( ) Intermediate - has identified many risk factors but protective factors have influence to keep from imminent risk. (x) Low - can survive and function as outpatient. Protective factors and coping strategies are present. Assaultiveness Acute Risk: ( ) High - unlikely to not hurt someone. Immediate intervention is needed. ( ) Intermediate - has identified many risk factors but protective factors have influence to keep from imminent risk. (x) Low - low risk for assaultiveness. Protective factors and coping strategies are present. Protective Factors: has support from his children; responsibility to family; positive coping and problem-solving skills. Risk Factors: Possible adjustment disorder revolving around a negative view of his career; ; male; age 82 PROGRESS TOWARDS GOALS/PLAN: Pt wants to continue individual therapy Next Appointment Date/RTC: Every two weeks DIAGNOSIS: Adjustment disorder, unspecified /es/ BRINA ONEILL,TRACIE,ICS,[facility] Mental Health Rail Grinder Signed: 07/15/2024 17:45 BRINA ONEILL [facility]
--- OUTSIDE RECORDS SUMMARY | 2024-07-25 10:46 | XMS_ITS | Encounter Summary ---
Author Name [facility] [place] Address [address] [place] [address] Care Team Providers Care Community Resource Officer Name Role Phone KOBI LEDESMA Primary Care [...] Policy Truong LYNDSAYA MCR (WNR) MEDICARE ADVANTAGE [facility] (WNR) Aug 22, 2021 [id number] TOM MUÑOZ PATIENT HUMANA MCR (WNR) MEDICARE ADVANTAGE MCR (WNR) Aug 22, 2021 [id number] TOM MUÑOZ PATIENT MEDICARE (WNR) MEDICARE (M) PART A Sep 22, 2005 PART A [id number] TOM MUÑOZ PATIENT MEDICARE (WNR) MEDICARE (M) PART B Sep 22, 2005 PART B [id number] TOM MUÑOZ PATIENT MEDICARE (WNR) MEDICARE (M) PART A Sep 22, 2005 PART A [id number] TOM MUÑOZ PATIENT MEDICARE (WNR) MEDICARE (M) PART B Sep 22, 2005 PART B [id number] TONITOM ODE PATIENT MEDICARE (WNR) MEDICARE (M) PART A Sep 22, 2005 PART A [id number] TONI,TOM ESTEFANY PATIENT MEDICARE (WNR) MEDICARE (M) PART B Sep 22, 2005 PART B [id number] TONI,TOM ESTEFANY PATIENT MEDICARE (WNR) MEDICARE (M) PART A Sep 22, 2005 PART A [id number] TONI,TOM ALLISON PATIENT MEDICARE (WNR) MEDICARE (M) PART B Sep 22, 2005 PART B [id number] TOM MUÑOZ PATIENT Selected Encounter This section includes the information on record at [place] for the Encounter. 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 Date/Time Primary/Secondary Diagnosis Diagnosis Name Provider Source Jul 25, 2024 03:53 PM PRIMARY residential (current) use of anticoagulants Fernanda TOLENTINO [facility] Jul 25, 2024 03:53 PM SECONDARY Encounter for therapeutic drug level monitoring Fernanda TOLENTINO [facility] Jul 25, 2024 03:53 PM SECONDARY Personal history of pulmonary embolism Fernanda TOLENTINO [facility] Plan of Treatment: Future Appointments (+ 6 months) and Future Tests (+/- 45 days) The Plan of Treatment section includes future care activities for the patient from all [place] treatmentfacilities. This section includes future appointments and future orders which are active, pending or scheduled. Future Appointments This section includes appointments that were scheduled to occur 6 months from the date of the Encounter, up to a maximum of 20 appointments. The data comes from all [place] treatment facilities. Appointment Date/Time Appointment Type Appointme nt Facility Name Jul 27, 2024 01:00 PM AMBULATORY - PSYCHIATRY [facility] Aug 31, 2024 02:00 PM AMBULATORY - PSYCHIATRY [facility] Sep 14, 2024 01:00 PM AMBULATORY - PSYCHIATRY [facility] Advance Directives: All historical and current Section Date Range: From patient's date of to the date document was created. This section includes ALL of a patient's completed or amended [place] Advance and Rescinded Directives. The entries below indicate that a directive exists for the patient, but an actual copy is not included with this document. The data comes from all [facility]. Date Advance Directives Provider Source May 20, 2022 ADVANCE DIRECTIVE DISCUSSION HERMINIA HERNANDEZ [facility] May 20, 2022 ADVANCE DIRECTIVE LOLITA HERNANDEZ [facility] Feb 06, 2004 ADVANCE DIRECTIVE JHOANA LECHUGA [facility] Encounter Notes: All associated encounter notes This section contains the clinical notes associated to the Encounter. Date/Time Encounter Note(s) Provider Source Jul 25, 2024 03:46 PM PHARMACY OUTPATIEN T MEDICATION MGT NOTE: LOCAL TITLE: PHARMACY ANTICOAGULATION CLINIC F/U STANDARD TITLE: PHARMACY OUTPATIENT MEDICATION MGT NOTE DATE OF NOTE: JUL 25, 2024@15:46 ENTRY DATE: JUL 25, 2024@15:47:01 AUTHOR: DELORES TOLENTINO EXP COSIGNER: URGENCY: STATUS: COMPLETED DOAC DASHBOARD ALERT - Anticoagulant: Apixaban 5mg q12h *no initial 10mg q12h dose given per OSH d/t concern for bleeding, but was on heparin gtt x4 days p/t transition to apixaban. 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 Dashboard flags/CPRS alert: Renewal due Labs ==== Age: 83 Height: 68 in [172.7 cm] (05/08/2024 13:41) Weight: 167.1 lb [75.80 kg] (05/08/2024 13:41) Collection DT Specimen Test Name Result Units Ref Range 05/16/2024 13:27 PLASMA CREATININE 1.2 mg/dL 0.7 - 1.2 11/11/2023 14:17 PLASMA CREATININE 1.3 H mg/dL 0.7 - 1.2 05/13/2023 15:07 PLASMA CREATININE 1.5 H mg/dL 0.7 - 1.2 02/09/2023 12:07 PLASMA CREATININE 1.2 mg/dL 0.7 - 1.2 11/25/2022 12:03 PLASMA CREATININE 1.2 mg/dL 0.7 - 1.2 08/12/2022 12:55 PLASMA CREATININE 1.1 mg/dL 0.7 - 1.2 07/13/2022 13:21 PLASMA CREATININE 1.1 mg/dL 0.7 - 1.2 04/14/2022 14:58 PLASMA CREATININE 0.8 mg/dL 0.7 - 1.2 12/31/2021 14:32 PLASMA CREATININE 0.9 mg/dL 0.7 - 1.2 09/12/2021 10:47 PLASMA CREATININE 1.2 mg/dL 0.7 - 1.2 Cockcroft & Gault CrCl=50 (Wt: 05/08/2024 13:41) (Actual Body Weight) Collection DT Spec WBC HGB HCT PLT MCV NEUT LYMPHS 05/16/2024 13:27 BLOOD 5.9 15.6 47.6 175 87.7 57.5 24.2 11/11/2023 14:17 BLOOD 6.1 15.4 47.8 178 88.7 60.0 22.7 Collection DT Specimen Test Name Result Units Ref Range 05/16/2024 13:27 PLASMA BILIRUBIN, TOTAL 0.6 mg/dL 0.2 - 1.2 05/16/2024 13:27 PLASMA ALKALINE PHOSPHAT 88 U/L 40 - 150 05/16/2024 13:27 PLASMA AST/SGOT 20 U/L 11 - 34 05/16/2024 13:27 PLASMA ALT/SGPT 13 U/L Ref: <=44 12/31/2021 14:32 PLASMA GAMMA GTP 73 H U/L Ref: <=64 ASSESSMENT/PLAN: Per chart review, appropriate for continued anticoagulant use. No contraindications noted. Benefit of therapy continues to outweigh risk. Lab monitoring current and without concern. No evidence of recent bleeding or thrombotic events. - Continue anticoagulation at current dose. - Monitor dashboard for labs, drug interactions, and compliance. - Dashboard flags reviewed/cleared, if applicable. - Lab monitoring frequency defined by dashboard or as clinically indicated. - Rx reviewed - renewed for 90ds w/ refills. Time spent: 11 min /dinah/ DELORES TOLENTINO PHARMD CLINCAL PAPER MACHINE OPERATOR Signed: 07/25/2024 15:53 DELORES TOLENTINO [facility]
--- OUTSIDE RECORDS SUMMARY | 2024-07-27 08:00 | XMS_ITS | Encounter Summary ---
Author Name [facility] [place] [facility] [place] Address [address] [place] [address] Care Team Providers Care Audio Recording Engineer Name Role Phone KOBI LEDESMA Primary Care [...] Name Patient's Relationship to Policy Truong LYNDSAYA [facility] (WNR) MEDICARE ADVANTAGE [facility] (WNR) Aug 22, 2021 [id number] TOM MUÑOZ PATIENT HUMANA MCR (WNR) MEDICARE ADVANTAGE [facility] (WNR) Aug 22, 2021 [id number] TOM MUÑOZ PATIENT MEDICARE (WNR) MEDICARE (M) PART A Sep 22, 2005 PART A [id number] TOM MUÑOZ PATIENT MEDICARE (WNR) MEDICARE (M) PART B Sep 22, 2005 PART B [id number] TOM MUÑOZ PATIENT MEDICARE (WNR) MEDICARE (M) PART A Sep 22, 2005 PART A [id number] [id number] TOM MUÑOZ PATIENT MEDICARE (WNR) MEDICARE (M) PART B Sep 22, 2005 PART B [id number] TONI,TOM ALLISON PATIENT MEDICARE (WNR) MEDICARE (M) PART A Sep 22, 2005 PART A [id number] TONI,TOM ESTEFANY PATIENT MEDICARE (WNR) MEDICARE (M) PART B Sep 22, 2005 PART B [id number] TONI,TOM ESTEFANY PATIENT MEDICARE (WNR) MEDICARE (M) PART A Sep 22, 2005 PART A [id number] TONI,TOM ALLISON PATIENT MEDICARE (WNR) MEDICARE (M) PART B Sep 22, 2005 PART B [id number] TOM MUÑOZ PATIENT Selected Encounter This section includes the information on record at [place] for the Encounter. Date/Time Encounter Type Encounter Description Reason Provider Source Jul 27, 2024 01:00 PM PSYTX W PT 45 MINUTES TELEPHONE MH ICD-10-CM F41.1 Generalized anxiety disorder Mami ONEILL [facility] Encounter Template Text not used by [place] Assessments - Encounter Diagnoses This section includes the primary and secondary diagnoses documented for the Encounter. Date/Time Primary/Secondary Diagnosis Diagnosis Name Provider Source Jul 27, 2024 01:00 PM PRIMARY Generalized anxiety disorder Mami ONEILL [facility] Jul 27, 2024 01:00 PM SECONDARY Post-traumatic stress disorder, chronic Mami ONEILL [facility] Plan of Treatment: Future Appointments (+ [...] Date/Time Appointment Type Appointme nt Facility Name Aug 31, 2024 02:00 PM AMBULATORY - PS[facility]CHIATRY [facility] Sep 14, 2024 01:00 PM AMBULATORY - PS[facility]CHIATRY [facility] Advance Directives: All historical and [...] 20, 2022 ADVANCE DIRECTIVE DISCUSSION HERMINIA HERNANDEZ [facility] May 20, 2022 ADVANCE DIRECTIVE [address]ITA [facility] Feb 06, 2004 ADVANCE DIRECTIVE JHOANA LECHUGA [facility] Encounter Notes: All associated encounter notes This section contains the clinical notes associated to the Encounter. Date/Time Encounter Note(s) Provider Source Jul 27, 2024 01:40 PM MENTAL HEALTH NOTE : LOCAL TITLE: MH PROGRESS NOTE STANDARD TITLE: MENTAL HEALTH NOTE DATE OF NOTE: JUL 27, 2024@13:40 ENTRY DATE: JUL 29, 2024@17:40:18 AUTHOR: BRINA ONEILL COSIGNER: URGENCY: STATUS: COMPLETED Therapy follow-up session: Individual Psychotherapy- 50 min S/O - The displayed a readiness to learn for the education and topics discussed during this session. The indicated understanding by asking questions, engaging in discussion and making appropriate comments. [place] is an 82-year-old, , male being seen in mental health specialty care. Session was conducted over the phone. Yolanda stated that his doing, ok. He stated that he just cannot stop focusing on world events. He feels WWIII is right around the corner. He stated that he does not get his news from the mainstream media, but from the internet. World events make him think of this war crime trial and how unjustly he was treated even thou he was found not guilty. He continues to adjust from losing his leg and has been able to start walking in the [place] with his dog without too much fear of falling. We focused on positives in his life. He was receptive to feedback and support. [...] and coping strategies are present. Protective Factors: [place] has support from his children; responsibility to family; positive coping and problem-solving skills. Risk Factors: Possible adjustment disorder revolving around a negative view of his career; ; male; age 82 PROGRESS TOWARDS GOALS/PLAN: Pt wants to continue individual therapy Next Appointment Date/RTC: Every two weeks DIAGNOSIS: Adjustment disorder, unspecified /es/ BRINA ONEILL[facility] Senior Enterprise Architect Signed: 07/29/2024 17:57 BRINA ONEILL [facility]
--- OUTSIDE RECORDS SUMMARY | 2024-08-11 05:02 | XMS_ITS | Encounter Summary ---
Author Name [facility] [place] Address [address] [place] [address] Care Team Providers Care Industrial Boilermaker Name Role Phone KOBI LEDESMA Primary Care Provider Unavailbridgette e Insurance Providers: All historical and current [...] Policy Truong HUMANA MCR (WNR) MEDICARE ADVANTAGE [facility] Aug 22, 2021 [id number] TOM MUÑOZ PATIENT [employer]MA[employer] MCR (WNR) MEDICARE ADVANTAGE MCR (WNR) Aug 22, 2021 [id number] 21 TOM MUÑOZ PATIENT MEDICARE (WNR) MEDICARE (M) PART A Sep 22, 2005 PART A [id number] TOM MUÑOZ PATIENT MEDICARE (WNR) MEDICARE (M) PART B Sep 22, 2005 PART B [id number] TOM MUÑOZ PATIENT MEDICARE (WNR) MEDICARE (M) PART A Sep 22, 2005 PART A [id number] TONI,TOM ALLISON PATIENT MEDICARE (WNR) MEDICARE (M) PART B Sep 22, 2005 PART B [id number] TONI,TOM ALLISON PATIENT MEDICARE (WNR) MEDICARE (M) PART A Sep 22, 2005 PART A [id number] TONI,TOM ESTEFANY PATIENT MEDICARE (WNR) MEDICARE (M) PART B Sep 22, 2005 PART B [id number] TONI,TOM ESTEFANY PATIENT MEDICARE (WNR) MEDICARE (M) PART B Sep 22, 2005 PART B [id number] TONI,TOM ALLISON PATIENT MEDICARE (WNR) MEDICARE (M) PART A Sep 22, 2005 PART A [id number] TOM MUÑOZ PATIENT Selected Encounter This section includes the information on record at [place] for the Encounter. Date/Time Encounter Type Encounter Description Reason Pro vider Source Aug 11, 2024 10:02 AM Outpatient Encounter TELEPHONE I[facility] Encounter Template Text not used by [place] Plan of Treatment: Future Appointments (+ 6 months) and Future Tests (+/- 45 days) The Plan of Treatment section includes future care activities for the patient [facility] [place] [facility] This section includes future appointments and future orders which are active, pending or scheduled. Future Appointments This section includes appointments that were scheduled to occur 6 months from the date of the Encounter, up to a maximum of 20 appointments. The data comes from all [place] treatment facilities. Appointment Date/Time Appointment Type Appointme nt Facility Name Aug 31, 2024 02:00 PM AMBULATORY - PSYCHIATRY [facility] Sep 14, 2024 01:00 PM AMBULATORY - PSYCHIATRY [facility] Advance Directives: All historical and current Section Date Range: From patient's date of to the date document was created. This section includes ALL of a patient's completed or amended [place] Advance and Rescinded Directives. The entries below indicate that a directive exists for the patient, but an actual copy is not included with this document. The data comes from all [facility]. Date Advance Directives Provider Source May 20, 2022 ADVANCE DIRECTIVE DISCUSSION HERMINIA HERNANDEZ [facility] May 20, 2022 ADVANCE DIRECTIVE LOLITA HERNANDEZ [facility] Feb 06, 2004 ADVANCE DIRECTIVE JHOANA LECHUGA [facility] Encounter Notes: All associated encounter notes This section contains the clinical notes associated to the Encounter. Date/Time Encounter Note(s) Provider Source Aug 11, 2024 10:02 AM REPORT OF CONTACT: LOCAL TITLE: APPOINTMENT SCHEDULING NOTE STANDARD TITLE: REPORT OF CONTACT DATE OF NOTE: AUG 11, 2024@10:02 ENTRY DATE: AUG 11, 2024@10:02:54 AUTHOR: ROSY FOSTER EXP COSIGNER: URGENCY: STATUS: COMPLETED Cancellation Clinic cancellation on 08/11/24 at 11AM with Ko Kaiser via phone, due to the provider is out. Contact attempt made to 1st attempt Telephone- Left message on voice mail to call back to this number [phone] If [place] calls back, schedule appt for: 60 minutes via phone with noted above provider at veterans earliest availability. /dinah/ ROSY FOSTER [facility] Signed: 08/11/2024 10:03 ROSY FOSTER [facility]
--- OUTSIDE RECORDS SUMMARY | 2024-08-27 14:55 | XMS_ITS | Continuity of Care Document ---
Author Name [facility] Organization [facility] Care Team Providers Care Electrician Front Name Role Phone [facility] Unavailable Unavailable Problems Combined list of problems from Department of Defense and Veterans Affairs facilities. It does not include entries that were removed or entered in error. 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 Aug Entered By: JYOTI LEONG Comment: 09/10/08 MRSA Isolated from nares surveillance swab [facility] Coronary arteriosclerosis (SNOMED CT 12875608) Active Condition June 28, 2018 Entered By: GÓMEZ KAUR Comment: stent placed in 2010 [facility] ERECTILE DYSFUNCTION Active Condition C [facility] Generalized anxiety disorder Active Condition [facility] History of colonoscopy Active Condition Sep 03, 2014 Entered By: THERESA LI Comment: last done 2023 Entered By: NOAH LAWS Comment: + FIT 06/2022 [facility] History of male erectile disorder Active [facility] HYPERCHOLESTEROLEMIA Active Condition [facility] Hyperlipidemia Active Condition [facility] HYPERTENSION Active Condition [facility] Long-term current use of anticoagulant Active Condition Apr 28 Entered By: NOAH LAWS Comment: Pulmonary embolism 07/14 [facility] MAL GANESH,PROSTATE Active Condition [facility] OSTEOARTH,KNEE Active Condition [facility] Osteoarthritis of left knee joint Active Condition [facility] 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 Condition [facility] Squamous cell carcinoma of skin Active Condition [facility] Umbilical hernia Active Condition [facility] NICKYLIS [facility] W/ DEPRESSED MOOD Active Condition JOSH RHOADES [facility] Cervical lymphadenopathy Inactive Condition 04/29/2023 [facility] Diagnosis: ICD-10-CM F41.1 Generalized anxiety disorder Active Diagnosis [facility] Diagnosis: ICD-10-CM 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.01 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 [facility] Diagnosis: ICD-10-CM 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, right eye, intermed dry stage Active Diagnosis [facility] Diagnosis: ICD-10-CM I10 Essential (primary) hypertension Active Diagnosis [facility] Diagnosis: ICD-10-CM Z89.511 Acquired absence of right leg below knee Active Diagnosis [facility] Diagnosis: ICD-10-CM F43.12 Post-traumatic stress disorder, chronic Active Diagnosis [facility] Diagnosis: ICD-10-CM L12.0 Bullous pemphigoid Active Diagnosis [facility] Diagnosis: ICD-10-CM Z44.121 Encounter for fit/adjst of partial artificial right leg Active Diagnosis BRITT HUBBARD [facility] Diagnosis: ICD-10-CM 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, bilateral, early dry stage Active Diagnosis [facility] Diagnosis: ICD-10-CM Z02.1 Encounter for pre-employment examination Active Diagnosis [facility] Diagnosis: ICD-10-CM Z01.01 Encounter for exam of eyes and vision w abnormal findings Active Diagnosis [facility] Diagnosis: ICD-10-CM F43.10 Post-traumatic stress disorder, unspecified Active Diagnosis [facility] Diagnosis: ICD-10-CM Z44.111 Encounter for fit/adjst of complete right artificial leg Active Diagnosis BRITT HUBBARD [facility] Diagnosis: ICD-10-CM M17.12 Unilateral primary osteoarthritis, left knee Active Diagnosis [facility] Medications Combined list of outpatient medications from Department of Defense and Veterans Affairs facilities.Medications provided include 1) outpatient medications from the last 15 months, and 2) patient-reported medications. Medication Details Route Status Patient Instructions Prescription Expires Prescription Number Last Dispense Date Ordering Provider Order Date Order Qty Source AMINO ACIDS TAB TAKE ONE TABLET BY MOUTH DAILY ORAL ACTIVE ALEX LAWS 2023 [facility] APIXABAN 5MG TAB TAKE ONE TABLET BY MOUTH EVERY 12 HOURS TO TREAT AND/OR PREVENT BLOOD CLOTS ORAL ACTIVE 07/26/2025 [id number] DELORES LEO 2024 180 [facility] APIXABAN 5MG TAB TAKE ONE TABLET BY MOUTH EVERY 12 HOURS TO TREAT AND/OR PREVENT BLOOD CLOTS ORAL DISCONT INUED 08/16/2024 [id number] POBRIT CALLAWAY 2023 180 [facility] CHOLECALCIF RANDI TAB TAKE 4000 UNITS BY MOUTH EVERY DAY ORAL ACTIVE AIDEN ADAIR 2022 [facility] COLLAGEN HEMOSTAT POWDER,TOP USE 1 DOSE TOPICALL Y DAILY TOPICA L ACTIVE ALEX LAWS 2023 [facility] CREATINE POWDER,ORAL TAKE 1 DOSE BY MOUTH DAILY ORAL ACTIVE ALEX LAWS 2023 [facility] METOPROLOL TARTRATE 25MG TAB TAKE ONE-HALF TABLET BY MOUTH TWICE A DAY FOR HEART PROTECTI ON ORAL ACTIVE 10/07/2024 [id number] DEVANTE MA RISTOPHER 2023 90 [facility] MULTIVIT/OP HTH AREDS2/LUTE IN/ZEAXANTH IN CAP/TAB TAKE 1 CAP/TAB BY MOUTH TWICE A DAY FOR EYE HEALTH ORAL ACTIVE 06/02/2025 [id number] HU IVORY 2024 120 [facility] MYCOPHENOLA TE MOFETIL 1000MG/5ML SUSP,ORAL TAKE 5 ML BY MOUTH TWICE A DAY FOR BULLOUS PEMPHIGO ID (5ML = 1 TEASPOON FUL) ORAL 04/01/2024 [id number] MAC BOYLE 2023 350 [facility] OMEGA 3/FLAXSEED/ BORAGE OIL(NON-VA MED) LIQUID TAKE 1 TEASPOON FUL BY MOUTH TWICE A DAY ORAL ACTIVE NOEL LEON 2011 [facility] Immunizations Combined list of available immunizations from the Department of Defense and Veterans Affairs facilities. Immunization Series Date Given Administered By Site Reaction Lot Number CVX Code Drug Tip Cementer Status Comments Source TETANUS (HISTORICAL) 2003 112 complet ed No reaction [facility] TD(ADULT) UNSPECIFIED FORMULATION 2003 139 complet ed pt tolerated the procedure well and showed zero signs of a reaction [facility] Results Combined list of recent chemistry, hematology and other laboratory results from Department of Defense and Veterans Affairs, ranging from 15 months to all on record, depending upon the facility. Order Name Results Value Reference Range Date Interpretation Specimen Comments Source CBC & DIFF LEUKOCYTES [#/VOLUME] IN BLOOD BY AUTOMATED COUNT 5.9 4.0 - 11.0 05/16 Specimen Type: BLOOD Comment: Automated Differentia l Performed Ordering Provider: CORTES LEDESMA Report Released Date/Time: May 13, 2024 10:11 AM Reporting Lab: [facility] [address] Performing Lab: [facility] [address] [facility] CBC & DIFF ERYTHROCYT ES [#/VOLUME] IN BLOOD BY AUTOMATED COUNT 5.43 4.60 - 6.20 05/16 Specimen Type: BLOOD Comment: Automated Differentia l Performed Ordering Provider: CORTES LEDESMA Report Released Date/Time: May 13, 2024 10:11 AM Reporting Lab: [facility] [address] Performing Lab: [facility] [address] [facility] CBC & DIFF HEMOGLOBIN [MASS/VOLU ME] IN BLOOD 15.6 g/dL 13.5 - 17.9 05/16 Specimen Type: BLOOD Comment: Automated Differentia l Performed Ordering Provider: CORTES LEDESMA Report Released Date/Time: May 13, 2024 10:11 AM Reporting Lab: [facility] [address] Performing Lab: [facility] [address] [facility] CBC & DIFF HEMATOCRIT [VOLUME FRACTION] OF BLOOD BY AUTOMATED COUNT 47.6 41.0 - 54.0 05/16 Specimen Type: BLOOD Comment: Automated Differentia l Performed Ordering Provider: CORTES LEDESMA Report Released Date/Time: May 13, 2024 10:11 AM Reporting Lab: [facility] [address] Performing Lab: [facility] [address] [facility] CBC & DIFF MCV [ENTITIC VOLUME] BY AUTOMATED COUNT 87.7 fL 80.0 - 100.0 05/16 Specimen Type: BLOOD Comment: Automated Differentia l Performed Ordering Provider: CORTES LEDESMA Report Released Date/Time: May 13, 2024 10:11 AM Reporting Lab: [facility] [address] Performing Lab: [facility] [address] [facility] CBC & DIFF MCH [ENTITIC MASS] BY AUTOMATED COUNT 28.7 pg 27.0 - 33.0 05/16 Specimen Type: BLOOD Comment: Automated Differentia l Performed Ordering Provider: CORTES LEDESMA Report Released Date/Time: May 13, 2024 10:11 AM Reporting Lab: [facility] [address] Performing Lab: [facility] [address] [facility] CBC & DIFF MCHC [MASS/VOLU ME] BY AUTOMATED COUNT 32.8 g/dL 32.0 - 37.5 05/16 Specimen Type: BLOOD Comment: Automated Differentia l Performed Ordering Provider: CORTES LEDESMA Report Released Date/Time: May 13, 2024 10:11 AM Reporting Lab: [facility] [address] Performing Lab: [facility] [address] [facility] CBC & DIFF PLATELETS [#/VOLUME] IN BLOOD BY AUTOMATED COUNT 175 150 - 400 05/16 Specimen Type: BLOOD Comment: Automated Differentia l Performed Ordering Provider: CORTES LEDESMA Report Released Date/Time: May 13, 2024 10:11 AM Reporting Lab: [facility] [address] Performing Lab: [facility] [address] [facility] CBC & DIFF PLATELET MEAN VOLUME [ENTITIC VOLUME] IN BLOOD BY AUTOMATED COUNT 8.7 fL 9.1 - 13.0 05/16 L Specimen Type: BLOOD Comment: Automated Differentia l Performed Ordering Provider: CORTES LEDESMA Report Released Date/Time: May 13, 2024 10:11 AM Reporting Lab: [facility] [address] Performing Lab: [facility] [address] [facility] CBC & DIFF NEUTROPHIL S/100 LEUKOCYTES IN BLOOD BY MANUAL COUNT 57.5 40.0 - 80.0 05/16 Specimen Type: BLOOD Comment: Automated Differentia l Performed Ordering Provider: CORTES LEDESMA Report Released Date/Time: May 13, 2024 10:11 AM Reporting Lab: [facility] [address] Performing Lab: [facility] [address] [facility] CBC & DIFF LYMPHOCYTE S/100 LEUKOCYTES IN BLOOD BY MANUAL COUNT 24.2 15.0 - 45.0 05/16 Specimen Type: BLOOD Comment: Automated Differentia l Performed Ordering Provider: CORTES LEDESMA Report Released Date/Time: May 13, 2024 10:11 AM Reporting Lab: [facility] [address] Performing Lab: [facility] [address] [facility] CBC & DIFF MONOCYTES/ 100 LEUKOCYTES IN BLOOD BY AUTOMATED COUNT 11.3 2.0 - 12.0 05/16 Specimen Type: BLOOD Comment: Automated Differentia l Performed Ordering Provider: CORTES LEDESMA Report Released Date/Time: May 13, 2024 10:11 AM Reporting Lab: [facility] [address] Performing Lab: [facility] [address] [facility] CBC & DIFF EOSINOPHIL S/100 LEUKOCYTES IN BLOOD BY AUTOMATED COUNT 5.4 0.0 - 6.0 05/16 Specimen Type: BLOOD Comment: Automated Differentia l Performed Ordering Provider: CORTES LEDESMA Report Released Date/Time: May 13, 2024 10:11 AM Reporting Lab: [facility] [address] Performing Lab: [facility] [address] [facility] CBC & DIFF BASOPHILS/ 100 LEUKOCYTES IN BLOOD BY MANUAL COUNT 0.8 0.0 - 2.0 05/16 Specimen Type: BLOOD Comment: Automated Differentia l Performed Ordering Provider: CORTES LEDESMA Report Released Date/Time: May 13, 2024 10:11 AM Reporting Lab: [facility] [address] Performing Lab: [facility] [address] [facility] CBC & DIFF ERYTHROCYT E DISTRIBUTI ON WIDTH [RATIO] BY AUTOMATED COUNT 13.8 11.5 - 14.5 05/16 Specimen Type: BLOOD Comment: Automated Differentia l Performed Ordering Provider: CORTES LEDESMA Report Released Date/Time: May 13, 2024 10:11 AM Reporting Lab: [facility] [address] Performing Lab: [facility] [address] [facility] CBC & DIFF LYMPHOCYTE S [#/VOLUME] IN BLOOD BY AUTOMATED COUNT 1.4 1.0 - 4.0 05/16 Specimen Type: BLOOD Comment: Automated Differentia l Performed Ordering Provider: CORTES LEDESMA Report Released Date/Time: May 13, 2024 10:11 AM Reporting Lab: [facility] [address] Performing Lab: [facility] [address] [facility] CBC & DIFF MONOCYTES [#/VOLUME] IN BLOOD BY AUTOMATED COUNT 0.7 0.1 - 1.0 05/16 Specimen Type: BLOOD Comment: Automated Differentia l Performed Ordering Provider: CORTES LEDESMA Report Released Date/Time: May 13, 2024 10:11 AM Reporting Lab: [facility] [address] Performing Lab: [facility] [address] [facility] CBC & DIFF NEUTROPHIL S [#/VOLUME] IN BLOOD BY AUTOMATED COUNT 3.4 2.0 - 7.7 05/16 Specimen Type: BLOOD Comment: Automated Differentia l Performed Ordering Provider: CORTES LEDESMA Report Released Date/Time: May 13, 2024 10:11 AM Reporting Lab: [facility] [address] Performing Lab: [facility] [address] [facility] CBC & DIFF EOSINOPHIL S [#/VOLUME] IN BLOOD BY AUTOMATED COUNT 0.3 0.0 - 0.5 05/16 Specimen Type: BLOOD Comment: Automated Differentia l Performed Ordering Provider: CORTES LEDESMA Report Released Date/Time: May 13, 2024 10:11 AM Reporting Lab: [facility] [address] Performing Lab: [facility] [address] [facility] CBC & DIFF BASOPHILS [#/VOLUME] IN BLOOD BY AUTOMATED COUNT 0.1 0.0 - 0.2 05/16 Specimen Type: BLOOD Comment: Automated Differentia l Performed Ordering Provider: CORTES LEDESMA Report Released Date/Time: May 13, 2024 10:11 AM Reporting Lab: [facility] [address] Performing Lab: [facility] [address] [facility] CBC & DIFF IG(META,MY JOSE,PRO) 0.8 05/16 Specimen Type: BLOOD Comment: Automated Differentia l Performed Ordering Provider: CORTES LEDESMA Report Released Date/Time: May 13, 2024 10:11 AM Reporting Lab: [facility] [address] Performing Lab: [facility] [address] [facility] CBC & DIFF IMMATURE GRANULOCYT ES [PRESENCE] IN BLOOD BY AUTOMATED COUNT 0.1 0.0 - 0.1 05/16 Specimen Type: BLOOD Comment: Automated Differentia l Performed Ordering Provider: CORTES LEDESMA Report Released Date/Time: May 13, 2024 10:11 AM Reporting Lab: [facility] [address] Performing Lab: [facility] [address] [facility] COMPREHE NSIVE METABOLI C PANEL+MG CREATININE [MASS/VOLU ME] IN SERUM OR PLASMA 1.2 mg/dL 0.7 - 1.2 05/16 Specimen Type: PLASMA No comment entered. Ordering Provider: CORTES LEDESMA Report Released Date/Time: May 13, 2024 10:11 AM Reporting Lab: [facility] [address] Performing Lab: [facility] [address] [facility] COMPREHE NSIVE METABOLI C PANEL+MG UREA NITROGEN [MASS/VOLU ME] IN SERUM OR PLASMA 22 mg/dL 8 - 26 05/16 Specimen Type: PLASMA No comment entered. Ordering Provider: CORTES LEDESMA Report Released Date/Time: May 13, 2024 10:11 AM Reporting Lab: [facility] [address] Performing Lab: [facility] [address] [facility] COMPREHE NSIVE METABOLI C PANEL+MG GLUCOSE [MASS/VOLU ME] IN SERUM OR PLASMA 100 mg/dL 70 - 100 05/16 Specimen Type: PLASMA No comment entered. Ordering Provider: CORTES LEDESMA Report Released Date/Time: May 13, 2024 10:11 AM Reporting Lab: [facility] [address] Performing Lab: [facility] [address] [facility] COMPREHE NSIVE METABOLI C PANEL+MG SODIUM [MOLES/VOL UME] IN SERUM OR PLASMA 140 mmol/L 136 - 145 05/16 Specimen Type: PLASMA No comment entered. Ordering Provider: CORTES LEDESMA Report Released Date/Time: May 13, 2024 10:11 AM Reporting Lab: [facility] [address] Performing Lab: [facility] [address] [facility] COMPREHE NSIVE METABOLI C PANEL+MG POTASSIUM [MOLES/VOL UME] IN SERUM OR PLASMA 4.2 mmol/L 3.5 - 5.1 05/16 Specimen Type: PLASMA No comment entered. Ordering Provider: CORTES LEDESMA Report Released Date/Time: May 13, 2024 10:11 AM Reporting Lab: [facility] [address] Performing Lab: [facility] [address] [facility] COMPREHE NSIVE METABOLI C PANEL+MG CHLORIDE [MOLES/VOL UME] IN SERUM OR PLASMA 108 mmol/L 98 - 107 05/16 H Specimen Type: PLASMA No comment entered. Ordering Provider: CORTES LEDESMA Report Released Date/Time: May 13, 2024 10:11 AM Reporting Lab: [facility] [address] Performing Lab: [facility] [address] [facility] COMPREHE NSIVE METABOLI C PANEL+MG CARBON DIOXIDE, TOTAL [MOLES/VOL UME] IN SERUM OR PLASMA 25 mmol/L 22 - 29 05/16 Specimen Type: PLASMA No comment entered. Ordering Provider: CORTES LEDESMA Report Released Date/Time: May 13, 2024 10:11 AM Reporting Lab: [facility] [address] Performing Lab: [facility] [address] [facility] COMPREHE NSIVE METABOLI C PANEL+MG CALCIUM [MASS/VOLU ME] IN SERUM OR PLASMA 9.1 mg/dL 8.4 - 10.2 05/16 Specimen Type: PLASMA No comment entered. Ordering Provider: CORTES LEDESMA Report Released Date/Time: May 13, 2024 10:11 AM Reporting Lab: [facility] [address] Performing Lab: [facility] [address] [facility] COMPREHE NSIVE METABOLI C PANEL+MG PROTEIN [MASS/VOLU ME] IN SERUM OR PLASMA 6.7 g/dL 6.4 - 8.3 05/16 Specimen Type: PLASMA No comment entered. Ordering Provider: CORTES LEDESMA Report Released Date/Time: May 13, 2024 10:11 AM Reporting Lab: [facility] [address] Performing Lab: [facility] [address] [facility] COMPREHE NSIVE METABOLI C PANEL+MG ALBUMIN [MASS/VOLU ME] IN SERUM OR PLASMA 4.0 g/dL 3.5 - 5.0 05/16 Specimen Type: PLASMA No comment entered. Ordering Provider: CORTES LEDESMA Report Released Date/Time: May 13, 2024 10:11 AM Reporting Lab: [facility] [address] Performing Lab: [facility] [address] [facility] COMPREHE NSIVE METABOLI C PANEL+MG BILIRUBIN. TOTAL [MASS/VOLU ME] IN SERUM OR PLASMA 0.6 mg/dL 0.2 - 1.2 05/16 Specimen Type: PLASMA No comment entered. Ordering Provider: CORTES LEDESMA Report Released Date/Time: May 13, 2024 10:11 AM Reporting Lab: [facility] [address] Performing Lab: [facility] [address] [facility] COMPREHE NSIVE METABOLI C PANEL+MG MAGNESIUM [MASS/VOLU ME] IN SERUM OR PLASMA 2.1 mg/dL 1.6 - 2.6 05/16 Specimen Type: PLASMA No comment entered. Ordering Provider: CORTES LEDESMA Report Released Date/Time: May 13, 2024 10:11 AM Reporting Lab: [facility] [address] Performing Lab: [facility] [address] [facility] COMPREHE NSIVE METABOLI C PANEL+MG ANION GAP IN SERUM OR PLASMA 7 mmol/L 5 - 15 05/16 Specimen Type: PLASMA No comment entered. Ordering Provider: CORTES LEDESMA Report Released Date/Time: May 13, 2024 10:11 AM Reporting Lab: [facility] [address] Performing Lab: [facility] [address] [facility] COMPREHE NSIVE METABOLI C PANEL+MG ALKALINE PHOSPHATAS E [ENZYMATIC ACTIVITY/V OLUME] IN SERUM OR PLASMA 88 U/L 40 - 150 05/16 Specimen Type: PLASMA No comment entered. Ordering Provider: CORTES LEDESMA Report Released Date/Time: May 13, 2024 10:11 AM Reporting Lab: [facility] [address] Performing Lab: [facility] [address] [facility] COMPREHE NSIVE METABOLI C PANEL+MG ALANINE AMINOTRANS FERASE [ENZYMATIC ACTIVITY/V OLUME] IN SERUM OR PLASMA 13 U/L <44 - 44 05/16 Specimen Type: PLASMA No comment entered. Ordering Provider: CORTES LEDESMA Report Released Date/Time: May 13, 2024 10:11 AM Reporting Lab: [facility] [address] Performing Lab: [facility] [address] [facility] COMPREHE NSIVE METABOLI C PANEL+MG ASPARTATE AMINOTRANS FERASE [ENZYMATIC ACTIVITY/V OLUME] IN SERUM OR PLASMA 20 U/L 11 - 34 05/16 Specimen Type: PLASMA No comment entered. Ordering Provider: CORTES LEDESMA Report Released Date/Time: May 13, 2024 10:11 AM Reporting Lab: [facility] [address] Performing Lab: [facility] [address] [facility] COMPREHE NSIVE METABOLI C PANEL+MG GLOMERULAR FILTRATION RATE/1.73 SQ M.PREDICTE D [VOLUME RATE/AREA] IN SERUM, PLASMA OR BLOOD BY CREATININE -BASED FORMULA (CKD-EPI 2020) 60 60 05/16 Specimen Type: PLASMA No comment entered. Ordering Provider: CORTES LEDESMA Report Released Date/Time: May 13, 2024 10:11 AM Reporting Lab: [facility] [address] Performing Lab: [facility] [address] [facility] HEMOGLOB IN A1C HEMOGLOBIN A1C/HEMOGL OBIN.TOTAL IN BLOOD 5.8 4.0 - 6.0 05/16 Specimen Type: BLOOD Comment: Values obtained from A1C measurement s can vary. For typical A1C assays, a reported value of 7.0 could actually be between 6.7 and 7.3 if measured by a reference method. A reported value of 9.0 could actually be between 8.7 and 9.3. Ref: http://www. ngsp.org/[place] Pdata.asp Ordering Provider: CORTES LEDESMA Report Released Date/Time: May 13, 2024 10:11 AM Reporting Lab: [facility] [address] Performing Lab: [facility] [address] [facility] LIPID PANEL,NO N-FASTIN G CHOLESTERO L [MASS/VOLU ME] IN SERUM OR PLASMA 225 mg/dL <199 - 199 05/16 H Specimen Type: PLASMA No comment entered. Ordering Provider: CORTES LEDESMA Report Released Date/Time: May 13, 2024 10:11 AM Reporting Lab: [facility] [address] Performing Lab: [facility] [address] [facility] LIPID PANEL,NO N-FASTIN G CHOLESTERO L IN HDL [MASS/VOLU ME] IN SERUM OR PLASMA 48 mg/dL 40 05/16 Specimen Type: PLASMA No comment entered. Ordering Provider: CORTES LEDESMA Report Released Date/Time: May 13, 2024 10:11 AM Reporting Lab: [facility] [address] Performing Lab: [facility] [address] [facility] LIPID PANEL,NO N-FASTIN G CHOLESTERO L IN LDL [MASS/VOLU ME] IN SERUM OR PLASMA BY CALCULAEVEO N 154 mg/dL <99 - 99 05/16 H Specimen Type: PLASMA No comment entered. Ordering Provider: CORTES LEDESMA Report Released Date/Time: May 13, 2024 10:11 AM Reporting Lab: [facility] [address] Performing Lab: [facility] [address] [facility] LIPID PANEL,NO N-FASTIN G CHOLESTERO L IN VLDL [MASS/VOLU ME] IN SERUM OR PLASMA BY CALCULATIO N 23 mg/dL <29 - 29 05/16 Specimen Type: PLASMA No comment entered. Ordering Provider: CORTES LEDESMA Report Released Date/Time: May 13, 2024 10:11 AM Reporting Lab: [facility] [address] Performing Lab: [facility] [address] [facility] LIPID PANEL,NO N-FASTIN G CHOLESTERO L NON HDL [MASS/VOLU ME] IN SERUM OR PLASMA 177 mg/dL <129 - 129 05/16 H Specimen Type: PLASMA No comment entered. Ordering Provider: CORTES LEDESMA Report Released Date/Time: May 13, 2024 10:11 AM Reporting Lab: [facility] [address] Performing Lab: [facility] [address] [facility] LIPID PANEL,NO N-FASTIN G TRIGLYCERI DE [MASS/VOLU ME] IN SERUM OR PLASMA 115 mg/dL <149 - 149 05/16 Specimen Type: PLASMA No comment entered. Ordering Provider: CORTES LEDESMA Report Released Date/Time: May 13, 2024 10:11 AM Reporting Lab: [facility] [address] Performing Lab: [facility] [address] [facility] PSA PROSTATE SPECIFIC AG [MASS/VOLU ME] IN SERUM OR PLASMA 0.46 ng/mL <4.00 - 4.00 05/16 Specimen Type: SERUM No comment entered. Ordering Provider: CORTES LEDESMA Report Released Date/Time: May 13, 2024 10:11 AM Reporting Lab: [facility] [address] Performing Lab: [facility] [address] [facility] TSH W/REFLEX TO FREE T4 THYROTROPI N [UNITS/VOL UME] IN SERUM OR PLASMA 2.78 u[IU]/mL 0.35 - 4.94 05/16 Specimen Type: PLASMA No comment entered. Ordering Provider: CORTES LEDESMA Report Released Date/Time: May 13, 2024 10:11 AM Reporting Lab: [facility] [address] Performing Lab: [facility] [address] [facility] ANTI-HBs HEPATITIS B VIRUS SURFACE AB [UNITS/VOL UME] IN SERUM 7.26 m[IU]/mL 11/25 Specimen Type: SERUM No comment entered. Ordering Provider: BETTE CASTELLANOS Report Released Date/Time: Nov 26, 2023 02:00 PM Reporting Lab: [facility] [address] Performing Lab: [facility] [address] [facility] MEASLES, MUMPS, & RUBELLA AB IGG RUBELLA VIRUS IGG AB [PRESENCE] IN SERUM 30.90 {index} 11/25 Specimen Type: SERUM Comment: .KELLEY IGG: AU/mL Interpretat ion .KELLEY IGG:------- -------- .KELLEY IGG: <13.50 Not consistent with immunity .KELLEY IG.50 - 16.49 Equivocal .KELLEY IGG: >16.49 Consistent with immunity .KELLEY IGG:The presence of measles IgG suggests immunizatio n or .KELLEY IGG:past or current infection with measles virus. .KELLEY IGG:For additional information , please refer to .KELLEY IGG:http:// education.[employer]/fa q/[email or web address] .KELLEY IGG:(This link is being provided for information al/ .KELLEY IGG: educational purposes only.) .MUM IGG: AU/mL Interpretat ion .MUM IGG:------- ------ -------- .MUM IGG: < 9.00 Not consistent with immunity .MUM IG.00 - 10.99 Equivocal .MUM IGG: > 10.99 Consistent with immunity .MUM IGG:The presence of mumps IgG antibody suggests .MUM IGG:immuniz ation or past or current infection with mumps .MUM IGG:virus. .RUB IGG:INDEX INTERPRETAT ION .RUB IGG:======= ==== ====== .RUB IGG:&lt ; 0.90 Not consistent with immunity .RUB IG.90 - 0.99 Equivocal .RUB IGG:> or = 1.00 Consistent with immunity .RUB IGG:The presence of Rubella IgG antibody suggests .RUB IGG:immuniz ation or past or current infection with .RUB IGG:Rubella virus. .RUB IGG:Test Performed by [facility], .RUB IGG:CM [facility], .RUB IG [place], [place] .RUB IGG:eLs Jurado M.D., Ph.D., Director of Laboratorie s .RUB IGG: , CLIA [id number] Ordering Provider: BETTE CASTELLANOS Report Released Date/Time: Nov 26, 2023 02:00 PM Reporting Lab: [facility] [address] Performing Lab: [facility] [id number] [place] [address] [facility] IS [facility] MEASLES, MUMPS, & RUBELLA AB IGG MEASLES VIRUS IGG AB [PRESENCE] IN SERUM BY IMMUNOASSA Y >300.00 11/25 Specimen Type: SERUM Comment: .KELLEY IGG: AU/mL Interpretat ion .KELLEY IGG:------- -------- .KELLEY IGG: <13.50 Not consistent with immunity .KELLEY IG.50 - 16.49 Equivocal .KELLEY IGG: >16.49 Consistent with immunity .KELLEY IGG:The presence of measles IgG suggests immunizatio n or .KELLEY IGG:past or current infection with measles virus. .KELLEY IGG:For additional information , please refer to .KELLEY IGG:http:// education.[employer]/fa q/[email or web address] .KELLEY IGG:(This link is being provided for information al/ .KELLEY IGG: educational purposes only.) .MUM IGG: AU/mL Interpretat ion .MUM IGG:------- ------ -------- .MUM IGG: < 9.00 Not consistent with immunity .MUM IG.00 - 10.99 Equivocal .MUM IGG: > 10.99 Consistent with immunity .MUM IGG:The presence of mumps IgG antibody suggests .MUM IGG:immuniz ation or past or current infection with mumps .MUM IGG:virus. .RUB IGG:INDEX INTERPRETAT ION .RUB IGG:======= ==== ====== .RUB IGG:&lt ; 0.90 Not consistent with immunity .RUB IG.90 - 0.99 Equivocal .RUB IGG:> or = 1.00 Consistent with immunity .RUB IGG:The presence of Rubella IgG antibody suggests .RUB IGG:immuniz ation or past or current infection with .RUB IGG:Rubella virus. .RUB IGG:Test Performed by [facility], .RUB IGG:[employer] [facility], .RUB IG[address] [place] [address] .RUB IGG:Les Jurado M.D., Ph.D., Director of Laboratorie s .RUB IGG: , CLIA [id number] Ordering Provider: BETTE CASTELLANOS Report Released Date/Time: Nov 26, 2023 02:00 PM Reporting Lab: [facility] [address] Performing Lab: [address] [place] [facility] MEASLES, MUMPS, & RUBELLA AB IGG MUMPS VIRUS IGG AB [PRESENCE] IN SERUM 10.30 11/25 L Specimen Type: SERUM Comment: .KELLEY IGG: AU/mL Interpretat ion .KELLEY IGG:------- -------- .KELLEY IGG: <13.50 Not consistent with immunity .KELLEY IG.50 - 16.49 Equivocal .KELLEY IGG: >16.49 Consistent with immunity .KELLEY IGG:The presence of measles IgG suggests immunizatio n or .KELLEY IGG:past or current infection with measles virus. .KELLEY IGG:For additional information , please refer to .KELLEY IGG:http:// education.[employer]/fa q/[email or web address] .KELLEY IGG:(This link is being provided for information al/ .KELLEY IGG: educational purposes only.) .MUM IGG: AU/mL Interpretat ion .MUM IGG:------- ------ -------- .MUM IGG: < 9.00 Not consistent with immunity .MUM IG.00 - 10.99 Equivocal .MUM IGG: > 10.99 Consistent with immunity .MUM IGG:The presence of mumps IgG antibody suggests .MUM IGG:immuniz ation or past or current infection with mumps .MUM IGG:virus. .RUB IGG:INDEX INTERPRETAT ION .RUB IGG:======= ==== ====== .RUB IGG:&lt ; 0.90 Not consistent with immunity .RUB IG.90 - 0.99 Equivocal .RUB IGG:> or = 1.00 Consistent with immunity .RUB IGG:The presence of Rubella IgG antibody suggests .RUB IGG:immuniz ation or past or current infection with .RUB IGG:Rubella virus. .RUB IGG:Test Performed by [facility], .RUB IGG:CM [facility], .RUB IG [place], [place] .RUB IGG:Les Jurado M.D., Ph.D., Director of Thalia SNIDER IGG: , CLIA [id number] Ordering Provider: BETTE CASTELLANOS Report Released Date/Time: Nov 26, 2023 02:00 PM Reporting Lab: [place] [address] Performing Lab: [facility] [address] [facility] QUANTIFE KAYE GOLD MYCOBACTER IUM TUBERCULOS IS STIMULATED GAMMA INTERFERON [INTERPRET ATION] IN BLOOD QUALITATIV E 0.02 [IU]/mL 11/25 Specimen Type: PLASMA Comment: A NEGATIVE result does not preclude the possibility of M. tuberculosi s infection or tuberculosi s disease. A false-negat terry results can be due to the stage of infection (e.g., specimen obtained prior to the development of cellular immune response or other immunologic al variables). Ordering Provider: BETTE CASTELLANOS Report Released Date/Time: Nov 26, 2023 02:00 PM Reporting Lab: [place] [address] Performing Lab: [address] QUANTIFE KAYE GOLD MYCOBACTER IUM TUBERCULOS IS STIMULATED GAMMA INTERFERON [INTERPRET ATION] IN BLOOD QUALITATIV E 0.00 [IU]/mL 11/25 Specimen Type: PLASMA Comment: A NEGATIVE result does not preclude the possibility of M. tuberculosi s infection or tuberculosi s disease. A false-negat terry results can be due to the stage of infection (e.g., specimen obtained prior to the development of cellular immune response or other immunologic al variables). Ordering Provider: BETTE CASTELLANOS Report Released Date/Time: Nov 26, 2023 02:00 PM Reporting Lab: [place] [address] Performing Lab: [place] [address] [facility] QUANTIFE KAYE GOLD MYCOBACTER IUM TUBERCULOS IS STIMULATED GAMMA INTERFERON [INTERPRET ATION] IN BLOOD QUALITATIV E 0.00 [IU]/mL 11/25 Specimen Type: PLASMA Comment: A NEGATIVE result does not preclude the possibility of M. tuberculosi s infection or tuberculosi s disease. A false-negat terry results can be due to the stage of infection (e.g., specimen obtained prior to the development of cellular immune response or other immunologic al variables). Ordering Provider: BETTE CASTELLANOS Report Released Date/Time: Nov 26, 2023 02:00 PM Reporting Lab: [place] [address] Performing Lab: [address] QUANTIFE KAYE GOLD MYCOBACTER IUM TUBERCULOS IS STIMULATED GAMMA INTERFERON [INTERPRET ATION] IN BLOOD QUALITATIV E 9.98 [IU]/mL 11/25 Specimen Type: PLASMA Comment: A NEGATIVE result does not preclude the possibility of M. tuberculosi s infection or tuberculosi s disease. A false-negat terry results can be due to the stage of infection (e.g., specimen obtained prior to the development of cellular immune response or other immunologic al variables). Ordering Provider: BETTE CASTELLANOS Report Released Date/Time: Nov 26, 2023 02:00 PM Reporting Lab: [facility] [address] Performing Lab: [address] QUANTIFE KAYE GOLD MYCOBACTER IUM TUBERCULOS IS STIMULATED GAMMA INTERFERON [INTERPRET ATION] IN BLOOD QUALITATIV E NEGATIVE 11/25 Specimen Type: PLASMA Comment: A NEGATIVE result does not preclude the possibility of M. tuberculosi s infection or tuberculosi s disease. A false-negat terry results can be due to the stage of infection (e.g., specimen obtained prior to the development of cellular immune response or other immunologic al variables). Ordering Provider: BETTE CASTELLANOS Report Released Date/Time: Nov 26, 2023 02:00 PM Reporting Lab: [facility] [address] Performing Lab: [address] VARICELL A ZOSTER IgG VARICELLA ZOSTER VIRUS IGG AB [PRESENCE] IN SERUM 26.30 1.00 11/25 Specimen Type: SERUM Comment: Signal Cut-off S/CO Interpretat ion --------- - <1.00 Negative - Antibody not detected > or = 1.00 Positive - Antibody detected A positive result indicates that the patient has antibody to VZV but does not differentia te between an active or past infection. The clinical diagnosis must be interpreted in conjunction with the clinical signs and symptoms of the patient. This assay reliably measures immunity due to previous infection but may not be sensitive enough to detect antibodies induced by vaccination . Thus, a negative result in a vaccinated individual does not necessarily indicate susceptibil ity to VZV infection. A more sensitive test for vaccination -induced immunity is Varicella Zoster Virus Antibody Immunity Screen, ACIF. Test Performed by [facility], CM [facility], [address] [place] [address] Les Jurado M.D., Ph.D., Director of Laboratorie s , [place] [id number] Ordering Provider: BETTE CASTELLANOS Report Released Date/Time: Nov 26, 2023 02:00 PM Reporting Lab: [facility] [address] Performing Lab: [address] [facility] Vital Signs Combined list of inpatient and outpatient Vital Signs from Department of Defense and Veterans Affairs, ranging from 12 months to all on record, depending upon the facility. Vital Sign Value Date Comments Source SYSTOLIC BLOOD PRESSURE 99 05/08/2024 13:41:46 [facility] DIASTOLIC BLOOD PRESSURE 64 05/08/2024 13:41:46 [facility] PULSE OXIMETRY 97 05/08/2024 13:41:46 [facility] WEIGHT 167.1 05/08/2024 13:41:46 [facility] BMI 25 kg/m2 05/08/2024 13:41:46 [facility] PAIN 0 05/08/2024 13:41:46 [facility] HEIGHT 68 05/08/2024 13:41:46 [facility] TEMPERATURE 97.2 05/08/2024 13:41:46 [facility] PULSE 50 05/08/2024 13:41:46 [facility] RESPIRATION 20 05/08/2024 13:41:46 [facility] Encounters Combined list of: 1) Encounters from Department of Veterans Affairs facilities going backup to the last 18 months, not all [place] inpatient encounters are included; 2) Encounters from the Department of Defense facilities going backup to 280 months. Location Location Details Encounter Type Encounter Number Reason For Visit Attending Provider ADM Date DC Date Status Disposition Source [facility] PSYTX W PT 45 MINUTES [id number] Diagnos is: ICD-10- CM F41.1 General ized anxiety disorde r [facility],BRINA A 03/04 [facility] PSYTX W PT 45 MINUTES [id number] Diagnos is: ICD-10- CM F41.1 General ized anxiety disorde r [facility] ON,BRINA A 03/18 [facility] PSYTX W PT 45 MINUTES [id number] Diagnos is: ICD-10- CM F43.10 Post-tr aumatic stress disorde r, unspeci fied [facility],BRINA A 04/07 [facility] PSYTX W PT 45 MINUTES [id number] Diagnos is: ICD-10- CM F41.1 General ized anxiety disorde r [facility],BRINA A 04/21 [facility] [place] [facility] Outpatient Encounter [id number] 04/28 [place] [facility] OFFICE O/P EST HI 40 MIN [id number] Diagnos is: ICD-10- CM I10 Essenti al (primar y) hyperte nsion ARIS LAWS J 04/28 [facility] [place] [facility] Outpatient Encounter [id number] 04/28 [facility] Outpatient Encounter [id number] 05/02 [facility] PSYTX W PT 45 MINUTES [id number] Diagnos is: ICD-10- CM F41.1 General ized anxiety disorde r [facility] ON,BRINA A 05/04 [facility] OFFICE O/P EST MOD 30 MIN [id number] Diagnos is: ICD-10- CM L12.0 Bullous pemphig oid LAUREEN,NO RA PADMAJA 05/12 [facility] PSYTX W PT 45 MINUTES [id number] Diagnos is: ICD-10- CM F41.1 General ized anxiety disorde r [facility] ON,BRINA A 05/18 [facility] IS [facility] Outpatient Encounter [id number] 05/19 [facility] IS [facility] Outpatient Encounter [id number] Diagnos is: ICD-10- CM L12.0 Bullous pemphig oid AGNIESZKA,N OAH I 05/20 [facility] QNHP OL DIG ASSMT&MGMT 11-20 [id number] Diagnos is: ICD-10- CM Z79.01 intermediate card tender (curren t) use of anticoa Yanick Sanchez 05/23 [facility] OFF/OP CNSLTJ NEW/EST LOW 30 [id number] Diagnos is: ICD-10- CM M17.12 Unilate ral primary osteoar thritis , left knee ARCELIA MARCH 05/25 [facility] PSYTX W PT 45 MINUTES [id number] Diagnos is: ICD-10- CM F41.1 General ized anxiety disorde r [place] ON,BRINA A 06/01 [facility] PT 45 MINUTES [id number] Diagnos is: ICD-10- CM F41.1 General ized anxiety disorde r [facility] ON,BRINA A 06/22 [facility] 45 MINUTES [id number] Diagnos is: ICD-10- CM F41.1 General ized anxiety disorde r [place]STIANS ON,BRINA A 07/07 [facility] IS [facility] Outpatient Encounter [id number] 07/21 [facility] PSYTX W PT 45 MINUTES [id number] Diagnos is: ICD-10- CM F41.1 General ized anxiety disorde r [facility]STIANS ON,BRINA A 08/11 [facility] OFFICE O/P EST MOD 30 MIN [id number] Diagnos is: ICD-10- CM Z44.111 Encount er for fit/adj st of complet e right artific ial leg TERESA BROTHERS E 08/24 [facility] PSYTX W PT 45 MINUTES [id number] Diagnos is: ICD-10- CM F43.10 Post-tr aumatic stress disorde r, unspeci fied [facility] [place],BRINA A 08/31 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 OFFICE O/P EST LOW 20 MIN [id number] Diagnos is: ICD-10- CM L12.0 Bullous pemphig Jacky Liang 11/10 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 Outpatient Encounter [id number] 11/21 [facility] IMG RTA DETCJ/MNTR DS STAFF [id number] Diagnos is: ICD-10- CM Z01.01 Encount er for exam of eyes and vision w abnorma l finding s Jillian JACKSON 11/25 [facility] Outpatient Encounter [id number] Diagnos is: ICD-10- CM Z02.1 Encount er for pre-emp loyment examHUSSAIN Nolasco 11/25 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 Outpatient Encounter [id number] 11/30 [facility] PSYTX W PT 45 MINUTES [id number] Diagnos is: ICD-10- CM F41.1 General ized anxiety disorde r [facility] ON,BRINA A 12/07 [facility] Outpatient Encounter [id number] 12/09 [place] [facility] PSYTX W PT 45 MINUTES [id number] Diagnos is: ICD-10- CM F41.1 General ized anxiety disorde r [place]STIANS ON,BRINA A 12/22 [facility] IS [facility] Outpatient Encounter [id number] 12/28 [facility] PSYTX W PT 45 MINUTES [id number] Diagnos is: ICD-10- CM F43.12 Post-tr aumatic stress disorde r, chronic [facility] ON,BRINA A 01/05 [facility] PSYTX W PT 45 MINUTES [id number] Diagnos is: ICD-10- CM F41.1 General ized anxiety disorde r [facility]STIANS ON,BRINA A 01[facility]18 [facility] IS [facility] Outpatient Encounter [id number] 01/27 [facility] IS [facility] OFFICE O/P EST HI 40 MIN [id number] Diagnos is: ICD-10- CM Z44.121 Encount er for fit/adj st of partial artific ial right leg TERESA BROTHERS E 02/01 [facility] PSYTX W PT 45 MINUTES [id number] Diagnos is: ICD-10- CM F41.1 General ized anxiety disorde r [place]STIANS ON,BRINA A 02/02 [facility] OFFICE O/P EST MOD 30 MIN [id number] Diagnos is: ICD-10- CM L12.0 Bullous pemphig oid SKIBNESS,L ORIE A 02/16 [facility] PSYTX W PT 45 MINUTES [id number] Diagnos is: ICD-10- CM F41.1 General ized anxiety disorde r [facility]STIANS ON,BRINA A 02/17 [facility] PSYTX W PT 45 MINUTES [id number] Diagnos is: ICD-10- CM F41.1 General ized anxiety disorde r [place]STIANS ON,BRINA A 03/02 [facility] [place] [facility] Outpatient Encounter [id number] 03/08 [place] [facility] PSYTX W PT 45 MINUTES [id number] Diagnos is: ICD-10- CM F41.1 General ized anxiety disorde r [place]STIANS ON,BRINA A 03/15 [facility] MIN[facility]ES [id number] Diagnos is: ICD-10- CM F43.12 Post-tr aumatic stress disorde r, chronic [facility] ON,BRINA A 03/30 [facility] 45 MINUTES [id number] Diagnos is: ICD-10- CM F41.1 General ized anxiety disorde r [place]STIANS ON,BRINA A 04/13 [facility] PH1 ASSMT&MGMT NQHP 11-20 [id number] Diagnos is: ICD-10- CM 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 Mami HERNANDEZ 04/14 [place] [facility] Out[facility] Encounter [id number] 04/27 [facility] COMMUNITY/ WORK REINTEGRAT ION [id number] Diagnos is: ICD-10- CM 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 Mami HERNANDEZ 05/04 [place] [facility] OFFICE O/P EST MOD 30 MIN [id number] Diagnos is: ICD-10- CM I10 Essenti al (primar y) hyperte SHRADDHA Phillips 05/08 [facility] PSYTX W PT 45 MINUTES [id number] [id number] Diagnos is: ICD-10- CM F41.1 General ized anxiety disorde r [place]STIANS ON,BRINA A 05/11 [facility] PSYTX W PT 45 MINUTES [id number] Diagnos is: ICD-10- CM F41.1 General ized anxiety disorde r [facility]STIANS ON,BRINA A 05/25 [facility] OFFICE O/P EST MOD 30 MIN [id number] Diagnos is: ICD-10- CM 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, right eye, interme d dry stage CACHORRO,STEW ART J 06/01 [facility] PSYTX W PT 45 MINUTES [id number] [id number] Diagnos is: ICD-10- CM F41.1 General ized anxiety disorde r CHRISTIANS ON,BRINA A 06/08 [facility] PSYTX W PT 45 MINUTES [id number] [id number] Diagnos is: ICD-10- CM F41.1 General ized anxiety disorde r [place]STIANS ON,BRINA A 06/30 [facility] PSYTX W PT 45 MINUTES [id number] Diagnos is: ICD-10- CM F41.1 General ized anxiety disorde r [place]RISTIANS ON,BRINA A 07/13 [facility] [place] [facility] NQHP OL DIG ASSMT&MGMT 01-11 [id number] [id number] Diagnos is: ICD-10- CM Z79.01 snf (curren t) use of anticoa gulants AMISH NATHAN CamposNE Jillian 07/25 [place] [facility] PSYTX W PT 45 MINUTES [id number] [id number] Diagnos is: ICD-10- CM F41.1 General ized anxiety disorde r [place]STIANS ON,BRINA A 07/27 [facility] Outpatient Encounter [id number] 08/11 [facility] Social History Combined list of available smoking, tobacco, and other social history from Department of Defense and Veterans Affairs facilities. Social History Type Response Date Comment Source Tobacco smoking status [facility] NEVER USED CIGARETTES 05/08/2024 [facility] History of tobacco use PR-TOBACCO USE FORMER OTHER TYPE 05/08/2024 pipe occassional , quit 40+ years [facility] History of tobacco use PR-TOBACCO NEVER USED 10/09/2022 [facility] History of tobacco use PR-TOBACCO NEVER USED 12/31/2021 [facility] History of tobacco use PR-TOBACCO NEVER USED 01/01/2021 [facility] History of tobacco use PR-TOBACCO FORMER USER 12/27/2019 [facility] History of tobacco use PR-TOBACCO QUIT 15 YRS OR MORE 06/27/2018 [facility] History of tobacco use FORMER TOBACCO USER 7Y OR GREATER 09/06/2017 [facility] History of tobacco use FORMER TOBACCO USER 7Y OR GREATER 10/29/2016 [facility] History of tobacco use FORMER TOBACCO USER 7Y OR GREATER 08/23/2015 [facility] History of tobacco use FORMER TOBACCO USER 7Y OR GREATER 09/03/2014 [facility] History of tobacco use LIFETIME NON-TOBACCO USER 06/05/2013 [facility] History of tobacco use FORMER TOBACCO USER 7Y OR GREATER 03/07/2012 [facility] History of tobacco use TOBACCO USE SCREENING 07/28/2005 [facility] History of tobacco use LIFETIME NON-USER OF TOBACCO 06/05/2004 [facility]IOL[facility] Plan of Care List of future care activities from Department of [facility] facilities. Additional future care activities may be listed in the Assessment and Plan section. Date/Time Care Activity Care Activity Detail Facili ty 08/31/2024 AMBULATORY - PSYCHIATRY AMBULATORY - PSYC [facility] Advance Directives List of completed, amended, or rescinded Advance Directives on record at Department [facility] facilities. An actual copy of the Directive is not included. Date Advance Directive Provider Source 05/20/2022 ADVANCE DIRECTIVE DISCUSSION HERMINIA HERNANDEZ [facility] 02/06/2004 ADVANCE DIRECTIVE JHOANA LECHUGA [facility]
--- OUTSIDE RECORDS SUMMARY | 2024-08-27 14:55 | XMS_ITS | Continuity of Care Document ---
Author Name [facility] Organization [facility] Care Team Providers Care Compliance Examiner Name Role Phone [facility] Unavailable Unavailable Problems Combined list of problems from Department of Defense and Veterans Affairs facilities. It does not include entries that were removed or entered in error. 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 Aug Entered By: JYOTI LEONG Comment: 09/10/08 MRSA Isolated from nares surveillance swab [facility] Coronary arteriosclerosis (SNOMED CT 00718487) Active Condition June 28, 2018 Entered By: GÓMEZ KAUR Comment: stent placed in 2010 [facility] ERECTILE DYSFUNCTION Active Condition [facility] Generalized anxiety disorder Active Condition [facility] History of colonoscopy Active Condition Sep 03, 2014 Entered By: THERESA LI Comment: last done 2023 Entered By: NOAH LAWS Comment: + FIT 06/2022 [facility] History of male erectile disorder Active [facility] HYPERCHOLESTEROLEMIA Active Condition Rhoda HICKS [facility] Hyperlipidemia Active Condition [facility] HYPERTENSION Active Condition [facility] Long-term current use of anticoagulant Active Condition Apr 28 Entered By: NOAH LAWS Comment: Pulmonary embolism 07/14 [facility] MAL GANESH,PROSTATE Active Condition [facility] OSTEOARTH,KNEE Active Condition [facility] Osteoarthritis of left knee joint Active Condition [facility] 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 Condition [facility] Squamous cell carcinoma of skin Active Condition [facility] Umbilical hernia Active Condition [facility] NICKYLIS [facility] W/ DEPRESSED MOOD Active Condition [facility] Cervical lymphadenopathy Inactive Condition 04/29/2023 [facility] Diagnosis: ICD-10-CM F41.1 Generalized anxiety disorder Active Diagnosis [facility] Diagnosis: ICD-10-CM 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 [facility] Diagnosis: ICD-10-CM 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, right eye, intermed dry stage Active Diagnosis [facility] Diagnosis: ICD-10-CM I10 Essential (primary) hypertension Active Diagnosis [facility] Diagnosis: ICD-10-CM Z89.511 Acquired absence of right leg below knee Active Diagnosis [facility] Diagnosis: ICD-10-CM F43.12 Post-traumatic stress disorder, chronic Active Diagnosis [facility] Diagnosis: ICD-10-CM L12.0 Bullous pemphigoid Active Diagnosis [facility] Diagnosis: ICD-10-CM Z44.121 Encounter for fit/adjst of partial artificial right leg Active Diagnosis BRITT HUBBARD [facility] Diagnosis: ICD-10-CM 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, bilateral, early dry stage Active Diagnosis [facility] Diagnosis: ICD-10-CM Z02.1 Encounter for pre-employment examination Active Diagnosis [facility] Diagnosis: ICD-10-CM Z01.01 Encounter for exam of eyes and vision w abnormal findings Active Diagnosis [facility] Diagnosis: ICD-10-CM F43.10 Post-traumatic stress disorder, unspecified Active Diagnosis [facility] Diagnosis: ICD-10-CM Z44.111 Encounter for fit/adjst of complete right artificial leg Active Diagnosis BRITT HUBBARD [facility] Diagnosis: ICD-10-CM M17.12 Unilateral primary osteoarthritis, left knee Active Diagnosis [facility] Medications Combined list of outpatient medications from [...] AND/OR PREVENT BLOOD CLOTS ORAL ACTIVE 07/26/2025 [id number] DELORES LEO 2024 180 [facility] APIXABAN 5MG TAB TAKE ONE TABLET BY MOUTH EVERY 12 HOURS TO TREAT AND/OR PREVENT BLOOD CLOTS ORAL DISCONT INUED 08/16/2024 [id number] 5 POBRIT CALLAWAY 2023 180 [facility] CHOLECALCIF RANDI TAB TAKE 4000 UNITS BY [...] FOR HEART PROTECTI ON ORAL ACTIVE 10/07/2024 [id number] DEVANTE MA RISTOPHER 2023 90 [facility] MULTIVIT/OP HTH AREDS2/LUTE IN/ZEAXANTH IN CAP/TAB TAKE 1 CAP/TAB BY MOUTH TWICE A DAY FOR EYE HEALTH ORAL ACTIVE 06/02/2025 [id number] HU IVORY 2024 120 [facility] MYCOPHENOLA TE MOFETIL 1000MG/5ML SUSP,ORAL TAKE 5 ML BY MOUTH TWICE A DAY FOR BULLOUS PEMPHIGO ID (5ML = 1 TEASPOON FUL) ORAL 04/01/2024 [id number] MAC BOYLE 2023 350 [facility] OMEGA 3/FLAXSEED/ BORAGE OIL(NON-VA MED) LIQUID TAKE 1 TEASPOON FUL BY MOUTH TWICE A DAY ORAL ACTIVE NOEL LEON 2011 [facility] Immunizations Combined list of available immunizations from the Department of Defense and Veterans Affairs facilities. Immunization Series Date Given Administered By Site Reaction Lot Number CVX Code Drug Gas Charger Status Comments Source TETANUS (HISTORICAL) 2003 112 complet ed No reaction [facility] TD(ADULT) UNSPECIFIED FORMULATION 2003 139 complet ed pt tolerated the procedure well and showed zero signs of a reaction [facility] Results Combined list of recent chemistry, hematology and other laboratory results from Department of Defense and Veterans Affairs, ranging from 15 months to all on record, depending upon the facility. Order Name Results Value Reference Range Date Interpretation Specimen Comments Source HEMOGLOB IN A1C HEMOGLOBIN A1C/HEMOGL OBIN.TOTAL IN [...] May 13, 2024 10:11 AM Reporting Lab: [facility] [address] Performing Lab: [facility] [address] [facility] TSH W/REFLEX TO FREE T4 THYROTROPI N [UNITS/VOL UME] IN SERUM OR PLASMA 2.78 u[IU]/mL 0.35 - 4.94 05/16 Specimen Type: PLASMA No comment entered. Ordering Provider: CORTES LEDESMA Report Released Date/Time: May 13, 2024 10:11 AM Reporting Lab: [facility] [address] Performing Lab: [facility] [address] [facility] LIPID PANEL,NO N-FASTIN G CHOLESTERO L [MASS/VOLU ME] IN SERUM OR PLASMA 225 mg/dL <199 - 199 05/16 H Specimen Type: PLASMA No comment entered. Ordering Provider: CORTES LEDESMA Report Released Date/Time: May 13, 2024 10:11 AM Reporting Lab: [facility] [address] Performing Lab: [facility] [address] [facility] LIPID PANEL,NO N-FASTIN G CHOLESTERO L IN HDL [MASS/VOLU ME] IN SERUM OR PLASMA 48 mg/dL 40 05/16 Specimen Type: PLASMA No comment entered. Ordering Provider: CORTES LEDESMA Report Released Date/Time: May 13, 2024 10:11 AM Reporting Lab: [facility] [address] Performing Lab: [facility] [address] [facility] LIPID PANEL,NO N-FASTIN G CHOLESTERO L IN LDL [MASS/VOLU ME] IN SERUM OR PLASMA BY CALCULATIO N 154 mg/dL <99 - 99 05/16 H Specimen Type: PLASMA No comment entered. Ordering Provider: CORTES LEDESMA Report Released Date/Time: May 13, 2024 10:11 AM Reporting Lab: [facility] [address] Performing Lab: [facility] [address] [facility] LIPID PANEL,NO N-FASTIN G CHOLESTERO L IN VLDL [MASS/VOLU ME] IN SERUM OR PLASMA BY CALCULATIO N 23 mg/dL <29 - 29 05/16 Specimen Type: PLASMA No comment entered. Ordering Provider: CORTES LEDESMA Report Released Date/Time: May 13, 2024 10:11 AM Reporting Lab: [facility] [address] Performing Lab: [facility] [address] [facility] LIPID PANEL,NO N-FASTIN G CHOLESTERO L NON HDL [MASS/VOLU ME] IN SERUM OR PLASMA 177 mg/dL <129 - 129 05/16 H Specimen Type: PLASMA No comment entered. Ordering Provider: CORTES LEDESMA Report Released Date/Time: May 13, 2024 10:11 AM Reporting Lab: [facility] [address] Performing Lab: [facility] [address] [facility] LIPID PANEL,NO N-FASTIN G TRIGLYCERI DE [MASS/VOLU ME] IN SERUM OR PLASMA 115 mg/dL <149 - 149 05/16 Specimen Type: PLASMA No comment entered. Ordering Provider: CORTES LEDESMA Report Released Date/Time: May 13, 2024 10:11 AM Reporting Lab: [facility] [address] Performing Lab: [facility] [address] [facility] PSA PROSTATE SPECIFIC AG [MASS/VOLU ME] IN SERUM OR PLASMA 0.46 ng/mL <4.00 - 4.00 05/16 Specimen Type: SERUM No comment entered. Ordering Provider: CORTES LEDESMA Report Released Date/Time: May 13, 2024 10:11 AM Reporting Lab: [facility] [address] Performing Lab: [facility] [address] [facility] COMPREHE NSIVE METABOLI C PANEL+MG CREATININE [MASS/VOLU ME] IN SERUM OR PLASMA 1.2 mg/dL 0.7 - 1.2 05/16 Specimen Type: PLASMA No comment entered. Ordering Provider: CORTES LEDESMA Report Released Date/Time: May 13, 2024 10:11 AM Reporting Lab: [facility] [address] Performing Lab: [facility] [address] [facility] COMPREHE NSIVE METABOLI C PANEL+MG UREA NITROGEN [MASS/VOLU ME] IN SERUM OR PLASMA 22 mg/dL 8 - 26 05/16 Specimen Type: PLASMA No comment entered. Ordering Provider: CORTES LEDESMA Report Released Date/Time: May 13, 2024 10:11 AM Reporting Lab: [facility] [address] Performing Lab: [facility] [address] [facility] COMPREHE NSIVE METABOLI C PANEL+MG GLUCOSE [MASS/VOLU ME] IN SERUM OR PLASMA 100 mg/dL 70 - 100 05/16 Specimen Type: PLASMA No comment entered. Ordering Provider: CORTES LEDESMA Report Released Date/Time: May 13, 2024 10:11 AM Reporting Lab: [facility] [address] Performing Lab: [facility] [address] [facility] COMPREHE NSIVE METABOLI C PANEL+MG SODIUM [MOLES/VOL UME] IN SERUM OR PLASMA 140 mmol/L 136 - 145 05/16 Specimen Type: PLASMA No comment entered. Ordering Provider: CORTES LEDESMA Report Released Date/Time: May 13, 2024 10:11 AM Reporting Lab: [facility] [address] Performing Lab: [facility] [address] [facility] COMPREHE NSIVE METABOLI C PANEL+MG POTASSIUM [MOLES/VOL UME] IN SERUM OR PLASMA 4.2 mmol/L 3.5 - 5.1 05/16 Specimen Type: PLASMA No comment entered. Ordering Provider: CORTES LEDESMA Report Released Date/Time: May 13, 2024 10:11 AM Reporting Lab: [facility] [address] Performing Lab: [facility] [address] [facility] COMPREHE NSIVE METABOLI C PANEL+MG CHLORIDE [MOLES/VOL UME] IN SERUM OR PLASMA 108 mmol/L 98 - 107 05/16 H Specimen Type: PLASMA No comment entered. Ordering Provider: CORTES LEDESMA Report Released Date/Time: May 13, 2024 10:11 AM Reporting Lab: [facility] [address] Performing Lab: [facility] [address] [facility] COMPREHE NSIVE METABOLI C PANEL+MG CARBON DIOXIDE, TOTAL [MOLES/VOL UME] IN SERUM OR PLASMA 25 mmol/L 22 - 05/16 Specimen Type: PLASMA No comment entered. Ordering Provider: CORTES LEDESMA Report Released Date/Time: May 13, 2024 10:11 AM Reporting Lab: [facility] [address] Performing Lab: [facility] [address] [facility] COMPREHE NSIVE METABOLI C PANEL+MG CALCIUM [MASS/VOLU ME] IN SERUM OR PLASMA 9.1 mg/dL 8.4 - 10.2 05/16 Specimen Type: PLASMA No comment entered. Ordering Provider: CORTES LEDESMA Report Released Date/Time: May 13, 2024 10:11 AM Reporting Lab: [facility] [address] Performing Lab: [facility] [address] [facility] COMPREHE NSIVE METABOLI C PANEL+MG PROTEIN [MASS/VOLU ME] IN SERUM OR PLASMA 6.7 g/dL 6.4 - 8.3 05/16 Specimen Type: PLASMA No comment entered. Ordering Provider: CORTES LEDESMA Report Released Date/Time: May 13, 2024 10:11 AM Reporting Lab: [facility] [address] Performing Lab: [facility] [address] [facility] COMPREHE NSIVE METABOLI C PANEL+MG ALBUMIN [MASS/VOLU ME] IN SERUM OR PLASMA 4.0 g/dL 3.5 - 5.0 05/16 Specimen Type: PLASMA No comment entered. Ordering Provider: CORTES LEDSEMA Report Released Date/Time: May 13, 2024 10:11 AM Reporting Lab: [facility] [address] Performing Lab: [facility] [address] [facility] COMPREHE NSIVE METABOLI C PANEL+MG BILIRUBIN. TOTAL [MASS/VOLU ME] IN SERUM OR PLASMA 0.6 mg/dL 0.2 - 1.2 05/16 Specimen Type: PLASMA No comment entered. Ordering Provider: CORTES LEDESMA Report Released Date/Time: May 13, 2024 10:11 AM Reporting Lab: [facility] [address] Performing Lab: [facility] [address] [facility] COMPREHE NSIVE METABOLI C PANEL+MG MAGNESIUM [MASS/VOLU ME] IN SERUM OR PLASMA 2.1 mg/dL 1.6 - 2.6 05/16 Specimen Type: PLASMA No comment entered. Ordering Provider: CORTES LEDESMA Report Released Date/Time: May 13, 2024 10:11 AM Reporting Lab: [facility] [address] Performing Lab: [facility] [address] [facility] COMPREHE NSIVE METABOLI C PANEL+MG ANION GAP IN SERUM OR PLASMA 7 mmol/L 5 - 15 05/16 Specimen Type: PLASMA No comment entered. Ordering Provider: CORTES LEDESMA Report Released Date/Time: May 13, 2024 10:11 AM Reporting Lab: [facility] [address] Performing Lab: [facility] [address] [facility] COMPREHE NSIVE METABOLI C PANEL+MG ALKALINE PHOSPHATAS E [ENZYMATIC ACTIVITY/V OLUME] IN SERUM OR PLASMA 88 U/L 40 - 150 05/16 Specimen Type: PLASMA No comment entered. Ordering Provider: CORTES LEDESMA Report Released Date/Time: May 13, 2024 10:11 AM Reporting Lab: [facility] [address] Performing Lab: [facility] [address] [facility] COMPREHE NSIVE METABOLI C PANEL+MG ALANINE AMINOTRANS FERASE [ENZYMATIC ACTIVITY/V OLUME] IN SERUM OR PLASMA 13 U/L <44 - 44 05/16 Specimen Type: PLASMA No comment entered. Ordering Provider: CORTES LEDESMA Report Released Date/Time: May 13, 2024 10:11 AM Reporting Lab: [facility] [address] Performing Lab: [facility] [address] [facility] COMPREHE NSIVE METABOLI C PANEL+MG ASPARTATE AMINOTRANS FERASE [ENZYMATIC ACTIVITY/V OLUME] IN SERUM OR PLASMA 20 U/L 11 - 34 05/16 Specimen Type: PLASMA No comment entered. Ordering Provider: OCRTES LEDESMA Report Released Date/Time: May 13, 2024 10:11 AM Reporting Lab: [facility] [address] Performing Lab: [facility] [address] [facility] COMPREHE NSIVE METABOLI C PANEL+MG GLOMERULAR FILTRATION RATE/1.73 SQ M.PREDICTE D [VOLUME RATE/AREA] IN SERUM, PLASMA OR BLOOD BY CREATININE -BASED FORMULA (CKD-EPI 2020) 60 60 05/16 Specimen Type: PLASMA No comment entered. Ordering Provider: CORTES LEDESMA Report Released Date/Time: May 13, 2024 10:11 AM Reporting Lab: [facility] [address] Performing Lab: [facility] [address] [facility] CBC & DIFF LEUKOCYTES [#/VOLUME] IN BLOOD BY AUTOMATED COUNT 5.9 4.0 - 11.0 05/16 Specimen Type: BLOOD Comment: Automated Differentia l Performed Ordering Provider: CORTES LEDESMA Report Released Date/Time: May 13, 2024 10:11 AM Reporting Lab: [facility] [address] Performing Lab: [facility] [address] [facility] CBC & DIFF ERYTHROCYT ES [#/VOLUME] IN BLOOD BY AUTOMATED COUNT 5.43 4.60 - 6.20 05/16 Specimen Type: BLOOD Comment: Automated Differentia l Performed Ordering Provider: CORTES LEDESMA Report Released Date/Time: May 13, 2024 10:11 AM Reporting Lab: [facility] [address] Performing Lab: [facility] [address] [facility] CBC & DIFF HEMOGLOBIN [MASS/VOLU ME] IN BLOOD 15.6 g/dL 13.5 - 17.9 05/16 Specimen Type: BLOOD Comment: Automated Differentia l Performed Ordering Provider: CORTES LEDESMA Report Released Date/Time: May 13, 2024 10:11 AM Reporting Lab: [facility] [address] Performing Lab: [facility] [address] [facility] CBC & DIFF HEMATOCRIT [VOLUME FRACTION] OF BLOOD BY AUTOMATED COUNT 47.6 41.0 - 54.0 05/16 Specimen Type: BLOOD Comment: Automated Differentia l Performed Ordering Provider: CORTES LEDESMA Report Released Date/Time: May 13, 2024 10:11 AM Reporting Lab: [facility] [address] Performing Lab: [facility] [address] [facility] CBC & DIFF MCV [ENTITIC VOLUME] BY AUTOMATED COUNT 87.7 fL 80.0 - 100.0 05/16 Specimen Type: BLOOD Comment: Automated Differentia l Performed Ordering Provider: CORTES LEDESMA Report Released Date/Time: May 13, 2024 10:11 AM Reporting Lab: [facility] [address] Performing Lab: [facility] [address] [facility] CBC & DIFF MCH [ENTITIC MASS] BY AUTOMATED COUNT 28.7 pg 27.0 - 33.0 05/16 Specimen Type: BLOOD Comment: Automated Differentia l Performed Ordering Provider: CORTES LEDESMA Report Released Date/Time: May 13, 2024 10:11 AM Reporting Lab: [facility] [address] Performing Lab: [facility] [address] [facility] CBC & DIFF MCHC [MASS/VOLU ME] BY AUTOMATED COUNT 32.8 g/dL 32.0 - 37.5 05/16 Specimen Type: BLOOD Comment: Automated Differentia l Performed Ordering Provider: CORTES LEDESMA Report Released Date/Time: May 13, 2024 10:11 AM Reporting Lab: [facility] [address] Performing Lab: [facility] [address] [facility] CBC & DIFF PLATELETS [#/VOLUME] IN BLOOD BY AUTOMATED COUNT 175 150 - 400 05/16 Specimen Type: BLOOD Comment: Automated Differentia l Performed Ordering Provider: CORTES LEDESMA Report Released Date/Time: May 13, 2024 10:11 AM Reporting Lab: [facility] [address] Performing Lab: [facility] [address] [facility] CBC & DIFF PLATELET MEAN VOLUME [ENTITIC VOLUME] IN BLOOD BY AUTOMATED COUNT 8.7 fL 9.1 - 13.0 05/16 L Specimen Type: BLOOD Comment: Automated Differentia l Performed Ordering Provider: CORTES LEDESMA Report Released Date/Time: May 13, 2024 10:11 AM Reporting Lab: [facility] [address] Performing Lab: [facility] [address] [facility] CBC & DIFF NEUTROPHIL S/100 LEUKOCYTES IN BLOOD BY MANUAL COUNT 57.5 40.0 - 80.0 05/16 Specimen Type: BLOOD Comment: Automated Differentia l Performed Ordering Provider: CORTES LEDESMA Report Released Date/Time: May 13, 2024 10:11 AM Reporting Lab: [facility] [address] Performing Lab: [facility] [address] [facility] CBC & DIFF LYMPHOCYTE S/100 LEUKOCYTES IN BLOOD BY MANUAL COUNT 24.2 15.0 - 45.0 05/16 Specimen Type: BLOOD Comment: Automated Differentia l Performed Ordering Provider: CORTES LEDESMA Report Released Date/Time: May 13, 2024 10:11 AM Reporting Lab: [facility] [address] Performing Lab: [facility] [address] [facility] CBC & DIFF MONOCYTES/ 100 LEUKOCYTES IN BLOOD BY AUTOMATED COUNT 11.3 2.0 - 12.0 05/16 Specimen Type: BLOOD Comment: Automated Differentia l Performed Ordering Provider: CORTES LEDESMA Report Released Date/Time: May 13, 2024 10:11 AM Reporting Lab: [facility] [address] Performing Lab: [facility] [address] [facility] CBC & DIFF EOSINOPHIL S/100 LEUKOCYTES IN BLOOD BY AUTOMATED COUNT 5.4 0.0 - 6.0 05/16 Specimen Type: BLOOD Comment: Automated Differentia l Performed Ordering Provider: CORTES LEDESMA Report Released Date/Time: May 13, 2024 10:11 AM Reporting Lab: [facility] [address] Performing Lab: [facility] [address] [facility] CBC & DIFF BASOPHILS/ 100 LEUKOCYTES IN BLOOD BY MANUAL COUNT 0.8 0.0 - 2.0 05/16 Specimen Type: BLOOD Comment: Automated Differentia l Performed Ordering Provider: CORTES LEDESMA Report Released Date/Time: May 13, 2024 10:11 AM Reporting Lab: [facility] [address] Performing Lab: [facility] [address] [facility] CBC & DIFF ERYTHROCYT E DISTRIBUTI ON WIDTH [RATIO] BY AUTOMATED COUNT 13.8 11.5 - 14.5 05/16 Specimen Type: BLOOD Comment: Automated Differentia l Performed Ordering Provider: CORTES LEDESMA Report Released Date/Time: May 13, 2024 10:11 AM Reporting Lab: [facility] [address] Performing Lab: [facility] [address] [facility] CBC & DIFF LYMPHOCYTE S [#/VOLUME] IN BLOOD BY AUTOMATED COUNT 1.4 1.0 - 4.0 05/16 Specimen Type: BLOOD Comment: Automated Differentia l Performed Ordering Provider: CORTES LEDESMA Report Released Date/Time: May 13, 2024 10:11 AM Reporting Lab: [facility] [address] Performing Lab: [facility] [address] [facility] CBC & DIFF MONOCYTES [#/VOLUME] IN BLOOD BY AUTOMATED COUNT 0.7 0.1 - 1.0 05/16 Specimen Type: BLOOD Comment: Automated Differentia l Performed Ordering Provider: CORTES LEDESMA Report Released Date/Time: May 13, 2024 10:11 AM Reporting Lab: [facility] [address] Performing Lab: [facility] [address] [facility] CBC & DIFF NEUTROPHIL S [#/VOLUME] IN BLOOD BY AUTOMATED COUNT 3.4 2.0 - 7.7 05/16 Specimen Type: BLOOD Comment: Automated Differentia l Performed Ordering Provider: CORTES LEDESMA Report Released Date/Time: May 13, 2024 10:11 AM Reporting Lab: [facility] [address] Performing Lab: [facility] [address] [facility] CBC & DIFF EOSINOPHIL S [#/VOLUME] IN BLOOD BY AUTOMATED COUNT 0.3 0.0 - 0.5 05/16 Specimen Type: BLOOD Comment: Automated Differentia l Performed Ordering Provider: CORTES LEDESMA Report Released Date/Time: May 13, 2024 10:11 AM Reporting Lab: [facility] [address] Performing Lab: [facility] [address] [facility] CBC & DIFF BASOPHILS [#/VOLUME] IN BLOOD BY AUTOMATED COUNT 0.1 0.0 - 0.2 05/16 Specimen Type: BLOOD Comment: Automated Differentia l Performed Ordering Provider: CORTES LEDESMA Report Released Date/Time: May 13, 2024 10:11 AM Reporting Lab: [facility] [address] Performing Lab: [facility] [address] [facility] CBC & DIFF IG(META,MY JOSE,PRO) 0.8 05/16 Specimen Type: BLOOD Comment: Automated Differentia l Performed Ordering Provider: CORTES LEDESMA Report Released Date/Time: May 13, 2024 10:11 AM Reporting Lab: [facility] [address] Performing Lab: [facility] [address] [facility] CBC & DIFF IMMATURE GRANULOCYT ES [PRESENCE] IN BLOOD BY AUTOMATED COUNT 0.1 0.0 - 0.1 05/16 Specimen Type: BLOOD Comment: Automated Differentia l Performed Ordering Provider: CORTES LEDESMA Report Released Date/Time: May 13, 2024 10:11 AM Reporting Lab: [facility] [address] Performing Lab: [facility] [address] [facility] MEASLES, MUMPS, & RUBELLA AB IGG RUBELLA [...] information , please refer to .KELLEY IGG:[email or web address] .KELLEY IGG:(This link is being provided for [...] .RUB IGG:Rubella virus. .RUB IGG:Test Performed by [facility], .RUB IGG:[facility], .RUB IG [place], [place] .RUB IGG:Les Jurado M.D., Ph.D., Director of Laboratorie s .RUB IGG: , CLIA [id number] Ordering Provider: BETTE CASTELLANOS Report Released Date/Time: Nov 26, 2023 02:00 PM Reporting Lab: [facility] [address] Performing Lab: [address] [facility] MEASLES, MUMPS, & RUBELLA AB [...] information , please refer to .KELLEY IGG:http:// [email or web address] [email or web address] .KELLEY IGG:(This link is being provided for [...] .RUB IGG:Rubella virus. .RUB IGG:Test Performed by [facility], .RUB IGG:[facility], .RUB IG [place], [place] .RUB IGG:Les Jurado M.D., Ph.D., Director of Laboratorie s .RUB IGG: , CLIA [id number] Ordering Provider: BETTE CASTELLANOS Report Released Date/Time: Nov 26, 2023 02:00 PM Reporting Lab: [facility] [address] Performing Lab: [facility] [address] [facility] [place] [facility] MEASLES, MUMPS, & RUBELLA AB IGG MUMPS [...] information , please refer to .KELLEY IGG:http:// [email or web address] [email or web address] .KELLEY IGG:(This link is being provided for [...] .RUB IGG:Rubella virus. .RUB IGG:Test Performed by [facility], .RUB IGG:[facility] [place], .RUB IG [place], [place] .RUB IGG:Les Jurado M.D., Ph.D., Director of Laboratorie s .RUB IGG: , CLIA [id number] Ordering Provider: BETTE CASTELLANOS Report Released Date/Time: Nov 26, 2023 02:00 PM Reporting Lab: [facility] [address] Performing Lab: [address] [facility] VARICELL A ZOSTER IgG VARICELLA ZOSTER VIRUS [...] Antibody Immunity Screen, ACIF. Test Performed by [facility] [place], [facility], [address] [place] [address] Les Jurado M.D., Ph.D., Director of Laboratorie s , [facility] [id number] Ordering Provider: BETTE CASTELLAONS Report Released Date/Time: Nov 26, 2023 02:00 PM Reporting Lab: [facility] [address] Performing Lab: [address] [facility] QUANTIFE KAYE GOLD MYCOBACTER IUM [...] Nov 26, 2023 02:00 PM Reporting Lab: [facility] [address] Performing Lab: [facility] [address] [place] [facility] [employer]IFE KAYE GOLD MYCOBACTER IUM [...] Nov 26, 2023 02:00 PM Reporting Lab: [facility] [address] Performing Lab: [facility] [id number] [place] [address] QUANTIFE KAYE GOLD MYCOBACTER IUM TUBERCULOS IS [...] Nov 26, 2023 02:00 PM Reporting Lab: [facility] [address] Performing Lab: [facility] [address] [facility] QUANTIFE KAYE GOLD MYCOBACTER IUM [...] Nov 26, 2023 02:00 PM Reporting Lab: [facility] [address] Performing Lab: [facility] [address] [facility] QUANTIFE KAYE GOLD MYCOBACTER IUM [...] Nov 26, 2023 02:00 PM Reporting Lab: [facility] [address] Performing Lab: [facility] [address] [facility] ANTI-HBs HEPATITIS B VIRUS SURFACE AB [UNITS/VOL UME] IN SERUM 7.26 m[IU]/mL 11/25 Specimen Type: SERUM No comment entered. Ordering Provider: BETTE CASTELLANOS Report Released Date/Time: Nov 26, 2023 02:00 PM Reporting Lab: [facility] [address] Performing Lab: [facility] [address] [facility] Vital Signs Combined list of [...] [facility] HEIGHT 68 05/08/2024 13:41:46 [facility] TEMPERATURE 97.2 05/08/2024 13:41:46 [facility] PULSE 50 05/08/2024 13:41:46 [facility] RESPIRATION 20 05/08/2024 13:41:46 [facility] Encounters Combined list of: 1) Encounters from Department of Veterans Affairs facilities going backup to the last 18 months, not all [place] inpatient encounters are included; 2) Encounters from the Department of Defense facilities going backup to 280 months. Location Location Details Encounter Type Encounter Number Reason For Visit Attending Provider ADM Date DC Date Status Disposition Source [facility] PSYTX W PT 45 MINUTES [id number] Diagnos is: ICD-10- CM F41.1 General ized anxiety disorde r [facility] [place],BRINA A 03/04 [facility] PSYTX W PT 45 MINUTES [id number] Diagnos is: ICD-10- CM F41.1 General ized anxiety disorde r [facility]STIANS ON,BRINA A 03/18 [facility] PSYTX W PT 45 MINUTES [id number] Diagnos is: ICD-10- CM F43.10 Post-tr aumatic stress disorde r, unspeci fied [facility] ON,BRINA A 04/07 [facility] PSYTX W PT 45 MINUTES [id number] Diagnos is: ICD-10- CM F41.1 General ized anxiety disorde r [facility]STIANS ON,BRINA A 04/21 [facility] [place] [facility] Outpatient Encounter [id number] 04/28 [place] [facility] OFFICE O/P EST HI 40 MIN [id number] Diagnos is: ICD-10- CM I10 Essenti al (primar y) hyperte nsion ARIS LAWS J 04/28 [facility] [place] [facility] Outpatient Encounter [id number] 04/28 [facility] Outpatient Encounter [id number] 05/02 [facility] PSYTX W PT 45 MINUTES [id number] Diagnos is: ICD-10- CM F41.1 General ized anxiety disorde r [place]STIANS ON,BRINA A 05/04 [facility] OFFICE O/P EST MOD 30 MIN [id number] Diagnos is: ICD-10- CM L12.0 Bullous pemphig oid LAUREEN,NO RA PADMAJA 05/12 [facility] PSYTX W PT 45 MINUTES [id number] Diagnos is: ICD-10- CM F41.1 General ized anxiety disorde r CHRISTIANS ON,BRINA A 05/18 [facility] Outpatient Encounter [id number] 05/19 [facility] IS [facility] Outpatient Encounter [id number] Diagnos is: ICD-10- CM L12.0 Bullous pemphig oid AGNIESZKA,N OAH I 05/20 [facility] QNHP OL DIG ASSMT&MGMT 11-20 [id number] Diagnos is: ICD-10- CM 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 Yanick Sanchez 05/23 [facility] OFF/OP CNSLTJ NEW/EST LOW 30 [id number] Diagnos is: ICD-10- CM M17.12 Unilate ral primary osteoar thritis , left knee ARCELIA MARCH 05/25 [facility] PSYTX W PT 45 MINUTES [id number] [id number] Diagnos is: ICD-10- CM F41.1 General ized anxiety disorde r [place]STIANS ON,BRINA A 06/01 [facility] PS[facility] PT 45 MINUTES [id number] [id number] Diagnos is: ICD-10- CM F41.1 General ized anxiety disorde r [place]RISTIANS ON,BRINA A 06/22 [facility] PT 45 MINUTES [id number] Diagnos is: ICD-10- CM F41.1 General ized anxiety disorde r CHRISTIANS ON,BRINA A 07/07 [facility] Outpatient Encounter [id number] 07/21 [facility] PSYTX W PT 45 MINUTES [id number] Diagnos is: ICD-10- CM F41.1 General ized anxiety disorde r [place]STIANS ON,BRINA A 08/11 [facility] OFFICE O/P EST MOD 30 MIN [id number] Diagnos is: ICD-10- CM Z44.111 Encount er for fit/adj st of complet e right artific ial leg TERESA BROTHERS E 08/24 [facility] PS[facility] W PT 45 MINUTES [id number] [id number] Diagnos is: ICD-10- CM F43.10 Post-tr aumatic stress disorde r, unspeci fied [place]STIANS ON,BRINA A 08/31 [facility] OFFICE O/P EST HI 40 MIN [id number] Diagnos is: ICD-10- CM 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 SJOHOLM,RO ESTEFANY L 09/14 [facility] OFFICE O/P EST LOW 20 MIN [id number] [id number] Diagnos is: ICD-10- CM L12.0 Bullous pemphig Jacky Liang 11/10 [facility] Outpatient Encounter [id number] Diagnos is: ICD-10- CM 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 NOEL NICHOLS 11/16 [facility] Outpatient Encounter [id number] 11/21 [facility] IMG RTA DETCJ/MNTR DS STAFF [id number] Diagnos is: ICD-10- CM Z01.01 Encount er for exam of eyes and vision w abnorma l finding s Jillian JACKSON 11/25 [facility] Outpatient Encounter [id number] Diagnos is: ICD-10- CM Z02.1 Encount er for pre-emp loyment examHUSSAIN Nolasco 11/25 [facility] OFFICE O/P EST MOD 30 MIN [id number] Diagnos is: ICD-10- CM 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, bilater al, early dry stage GONZALES STOVALL 11/28 [facility] Outpatient Encounter [id number] 11/30 [facility] PSYTX W PT 45 MINUTES [id number] [id number] Diagnos is: ICD-10- CM F41.1 General ized anxiety disorde r [place]STIANS ON,BRINA A 12/07 [facility] Outpatient Encounter [id number] 12/09 [place] [facility] PSYTX W PT 45 MINUTES [id number] Diagnos is: ICD-10- CM F41.1 General ized anxiety disorde r [place]STIANS ON,BRINA A 12/22 [facility] Outpatient Encounter [id number] 12/28 [facility] PSY[facility] W PT 45 MINUTES [id number] Diagnos is: ICD-10- CM F43.12 Post-tr aumatic stress disorde r, chronic [place]STIANS ON,BRINA A 01/05 [facility] PSYTX W PT 45 MINUTES [id number] [id number] Diagnos is: ICD-10- CM F41.1 General ized anxiety disorde r CHRISTIANS ON,BRINA A 01/18 [facility] Outpatient Encounter [id number] 01/27 [facility] IS [facility] OFFICE O/P EST HI 40 MIN [id number] Diagnos is: ICD-10- CM Z44.121 Encount er for fit/adj st of partial artific ial right leg TERESA BROTHERS E 02/01 [facility] PSYTX W PT 45 MINUTES [id number] [id number] Diagnos is: ICD-10- CM F41.1 General ized anxiety disorde r [place]STIANS ON,BRINA A 02/02 [facility] OFFICE O/P EST MOD 30 MIN [id number] Diagnos is: ICD-10- CM L12.0 Bullous pemphig oid SKIBNESS,L ORIE A 02/16 [facility] PSYTX W PT 45 MINUTES [id number] [id number] Diagnos is: ICD-10- CM F41.1 General ized anxiety disorde r [place]STIANS ON,BRINA A 02/17 [facility] PSYTX W PT 45 MINUTES [id number] [id number] Diagnos is: ICD-10- CM F41.1 General ized anxiety disorde r [place]STIANS ON,BRINA A 03/02 [facility] [place] [facility] Outpatient Encounter [id number] 03/08 [place] [facility] PSYTX W PT 45 MINUTES [id number] [id number] Diagnos is: ICD-10- CM F41.1 General ized anxiety disorde r CHRISTIANS ON,BRINA A 03/15 [facility] 45 MINUTES [id number] [id number] Diagnos is: ICD-10- CM F43.12 Post-tr aumatic stress disorde r, chronic [place]STIANS ON,BRINA A 03/30 [facility] 45 MINUTES [id number] [id number] Diagnos is: ICD-10- CM F41.1 General ized anxiety disorde r [place]RISTIANS ON,BRINA A 04/13 [facility] PH1 ASSMT&MGMT NQHP 11-20 [id number] Diagnos is: ICD-10- CM 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 Mami HERNANDEZ 04/14 [place] [facility] Out[facility] Encounter [id number] 04/27 [facility] COMMUNITY/ WORK REINTEGRAT ION [id number] Diagnos is: ICD-10- CM 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 Mami HERNANDEZ 05/04 [place] [facility] OFFICE O/P EST MOD 30 MIN [id number] Diagnos is: ICD-10- CM I10 Essenti al (primar y) hyperte SHRADDHA Phillips 05/08 [facility] PSYTX W PT 45 MINUTES [id number] Diagnos is: ICD-10- CM F41.1 General ized anxiety disorde r CHRISTIANS ON,BRINA A 05/11 [facility] PSYTX W PT 45 MINUTES [id number] Diagnos is: ICD-10- CM F41.1 General ized anxiety disorde r CHRISTIANS ON,BRINA A 05/25 [facility] OFFICE O/P EST MOD 30 MIN [id number] Diagnos is: ICD-10- CM 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, right eye, interme d dry stage CACHORRO,STEW ART J 06/01 [facility] PSYTX W PT 45 MINUTES [id number] [id number] Diagnos is: ICD-10- CM F41.1 General ized anxiety disorde r CHRISTIANS ON,BRINA A 06/08 [facility] PSYTX W PT 45 MINUTES [id number] Diagnos is: ICD-10- CM F41.1 General ized anxiety disorde r CHRISTIANS ON,BRINA A 06/30 [facility] PSYTX W PT 45 MINUTES [id number] Diagnos is: ICD-10- CM F41.1 General ized anxiety disorde r CHRISTIANS ON,BRINA A 07/13 [facility] [place] [facility] NQHP OL DIG ASSMT&MGMT 01-11 [id number] Diagnos is: ICD-10- CM Z79.01 care home (curren t) use of anticoa gulants AMISH NATHAN CamposNE Jillian 07/25 [place] [facility] PSYTX W PT 45 MINUTES [id number] Diagnos is: ICD-10- CM F41.1 General ized anxiety disorde r [place]RISTIANS ON,BRINA A 07/27 [facility] Outpatient Encounter [id number] 08/11 [facility] Social History Combined list of available smoking, tobacco, and other social history from Department of Defense and Veterans Affairs facilities. Social History Type Response Date Comment Source [facility] History of tobacco use PA-TOBACCO USE FORMER OTHER TYPE 05/08/2024 pipe occassional , quit 40+ years [facility] History of tobacco use PA-TOBACCO NEVER USED 10/09/2022 [facility] History of tobacco use PA-TOBACCO NEVER USED 12/31/2021 [facility] History of tobacco use PA-TOBACCO NEVER USED 01/01/2021 [facility] History of tobacco use PA-TOBACCO FORMER USER 12/27/2019 [facility] History of tobacco use PA-TOBACCO QUIT 15 YRS OR MORE 06/27/2018 RONEL [...] use TOBACCO USE SCREENING 07/28/2005 DONAL HICKS [facility] History of tobacco use LIFETIME NON-USER OF TOBACCO 06/05/2004 DONAL FABIOLA [facility] Plan of Care List of future care activities from Department of [facility] facilities. Additional future care activities may be listed in the Assessment and Plan section. Date/Time Care Activity Care Activity Detail Facili ty 08/31/2024 AMBULATORY - PSYCHIATRY AMBULATORY - PSYC [facility] Advance Directives List of completed, amended, or rescinded Advance Directives on record at Department [facility] facilities. An actual copy of the Directive is not included. Date Advance Directive Provider Source 05/20/2022 ADVANCE DIRECTIVE DISCUSSION HERMINIA HERNANDEZ [facility] 02/06/2004 ADVANCE DIRECTIVE JHOANA LECHUGA [facility]
--- OUTSIDE RECORDS SUMMARY | 2024-08-27 19:56 | XMS_ITS | Clinical Summary ---
Author Organization [facility] Address [address] [place] [address] Care Team Providers Care Sew Out Operator Name Role Phone [place] Primary Care Provider [phone] Allergies Active Allergy Reactions Criticality Noted Date Comments Cefepime Rash High 07/05/2022 skin rash- back and upper chest Medications bisacodyL (DULCOLAX) 5 mg tablet Take 5 mg by mouth. as directed for colon prep Active cholecalciferol, Vitamin D3, 2,000 unit tablet Take 4,000 units by mouth once daily. Active clobetasol 0.05% (TEMOVATE 0.05% OINTMENT) 0.05 % ointment Apply small amount topically twice daily as needed for bullous pemphigold to the back Active ferrous sulfate, 65 mg elemental, tablet Take 325 mg by mouth once daily with a meal. 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 Lutts 3/Flaxseed/Bora ge oil liquid - take 1 teaspoonful by mouth twice daily Active sod sulf/sodium/NaHCO3/ KCl/peg (PEG 3350/ELECTROLYTES ORAL) Take 1 Container by mouth one time. for colon prep Active emollient base (VANICREAM TOP) Apply thin layer topically twice daily for dry skin Active sennosides-docusate (SENOKOT S) (8.6-50 mg) tablet Take 1 Tablet by mouth 2 times daily if needed for Constipation. Active triamcinolone 0.1% TOPICAL (KENALOG) 0.1 % lotion Apply thin layer topically twice daily Active apixaban (ELIQUIS) 5 mg tabletIndications:p ulmonary thromboembolism Take 1 Tablet (5 mg) by mouth two times daily. 60 Tablet 3 2:43 PM CDT 07/11/19 23 Active metoprolol tartrate (LOPRESSOR) 25 mg tabletIndications:A cute saddle pulmonary embolism with acute cor pulmonale (HC) Take One-Half Tablet (12.5 mg) by mouth two times daily. 30 Tablet 3 2:43 PM CDT 07/11/19 23 Active tamsulosin (FLOMAX) 0.4 mg capsuleIndications: Left ureteral calculus Take 1 Capsule (0.4 mg) by mouth once daily after a meal. 30 Capsule 3 2:43 PM CDT 07/12/19 23 Active Active Problems Problem Noted Date Diagnosed Date Hx of right BKA 07/05/2022 07/05/2022 Adjustment disorder with anxiety 07/05/2022 07/05/2022 Arteriosclerosis of coronary artery 07/05/2022 07/05/2022 Overview (07/05/2022): June 28, 2018 Entered By: GÓMEZ KAUR Comment: stent placed in 2010 Bullous pemphigoid 07/05/2022 07/05/2022 Calculus, kidney 07/05/2022 07/05/2022 Cervical lymphadenopathy 07/05/2022 023 Chronic ischemic heart disease 07/05/2022 0 07/05/2022 Dysphagia, oral phase 07/05/2022 07/05/2022 Generalized anxiety disorder 07/05/2022 Hyperlipidemia 07/05/2022 07/05/2022 Impotence of organic origin 07/05/202206/22 Carcinoma of prostate 07/05/2022 07/05/2022 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 07/05/2022 07/05/2022 Overview (07/05/2022): Sep 12, 2008 Entered By: JYOTI LEONG Comment: 09/10/08 MRSA Isolated from nares surveillance swab Osteoarthrosis involving lower leg 07/05/2022 07/05/2022 Other specified problems rel ated to psychosocial circumstances 07/05/2022 07/05/2022 Benign essential hypertension 07/05/2022 Squamous cell carcinoma of skin 07/05/2022 07/05/2022 Umbilical hernia 07/05/2022 07/05/2022 Acute saddle pulmonary embolism with acute cor p ulmonale 07/05/2022 Nutritional disorder 05/11/2022 07/05/2022 Overview (07/05/2022): May 28, 2022 Entered By: CHEYANNE ROONEY Comment: Moderate Malnutrition Postsurgical aortocoronary bypass status 022 07/05/2022 Pure hypercholesterolemia 11/04/20212022 Left ureteral calculus Social History Tobacco Use Types Packs/Day Years Used Date Smoking Tobacco: Never Smokeless Tobacco: Never Tobacco Cessation:Counseling Given: Not Answered Alcohol Use Standard Drinks/Week Comments Yes 1 (1 standard drink = 0.6 oz pur e alcohol) Social Connections Answer Date Recorded Frequency of Communication with Friends and Fami ly Not on file 07/05/2022 Sex and Gender Information Value Date Recorded Sex Assigned at Not on file Legal Sex Male 5:41 PM CDT Gender Identity Not on file Sexual Orientation Not on file Obstetrics History Last Filed Vital Signs Vital Sign Reading Time Taken Comments Blood Pressure 143/71 07/10/2022 7:52 AM CDT Pulse 73 07/10/2022 7:52 AM CDT Temperature 36.3 C (97.4 F) 07/10/2022 7:52 AM CDT Respiratory Rate 18 07/10/2022 7:52 AM CDT Oxygen Saturation 95% 07/10/2022 7:52 AM CDT Inhaled Oxygen Concentration - - Weight 61.9 kg (136 lb 7.4 oz) 07/07/2022 2:00 A M CDT Height 167.6 cm (5' 6) 07/05/2022 6:00 AM CDT Body Mass Index 22.03 07/05/2022 6:00 AM CDT Plan of Treatment Not on file Medical Devices Implanted Type Area Tube And Manifold Builder Device Identifier Shelf Expiration Date Model / Serial / Lot Stent Uret [id number] Tria Soft No Guidewire - [id number] Implanted:Qty: 1 on 07/08/2022 by Wes Galvez MD at [facility] Left: [facility] 12/12/2024 [id number] / [id number] [facility]ER BASED [facility] PART A ONLY [employer] CHOICE PPO MR Advance Directives * Full Code (Latest Code Status on File) Date Activated Date Inactivated Comments 07/05/2022 5:46 AM 07/10/2022 5:10 PM Question Answer Comments Code Status Discussion: Reviewed Preferences Care Teams Sew Out Operator Relationship Specialty Start Date End Date [place], [place] [facility] [place] [id number] PCP - General 06/02/22
--- OUTSIDE RECORDS SUMMARY | 2024-08-27 19:58 | XMS_ITS ---
Author Organization [facility] [place] Care Team Providers Care University Counselor Name Role Phone Gabby Arce Unavailable Unavailable Manuel Chester Unavailable Unavailable Allergies and adverse reactions No Known Allergies Care Team Name Role Address Phone Organization Dates Manuel Chester [facility] [address] [place] [address], [address], [place], [facility], [place] States (Office): [facility] 12/12/2021 - 01/26/2022 Gabby Arce [facility] [address] [place] [address], [facility], [facility] (Office): : [facility] 12/12/2021 - 01/26/2022 Immunizations Immunization Status Vaccine Details Vaccine Code CodeSystem Date Notes Influenza cancelled Influenza, high-dose, split virus, quadrivalent, injectable, preservative free 197 CVX created date: 2 consent date: 2 per immunization form of 11/20/21 TB 2 Step Mantoux Skin Test completed tuberculin skin test; unspecified formulation lotNumber: [id number] expiry: 11/18/2023 Mfg: Sanof1 Pasteur Given 0.1 ml Right Forearm intradermally Step 1 of Multi-step with next step required 98 CVX created date: 2 consent date: 2 administe red date: 2 negative 11/23/21 PPSV23, Pneumovax 23 cancelled Adenovirus, type 4 and type 7, live, oral 143 CVX created date: 2 consent date: 2 per immunization form of 11/20/21 PCV13, Rmvvdlo25 cancelled Adenovirus, type 4 and type 7, live, oral 143 CVX created date: 2 consent date: 2 per immunization form of 11/20/21 Td completed tetanus and diphtheria toxoids, adsorbed, preservative free, for adult use, Lf unspecified 196 CVX created date: 2 administe red date: 4 Mental Status Section Date Assessment Total Score Description 01/26/2022 BIMS 15 cognitively int act CAM 0 No delirium ind icated PHQ-9 00 01/10/2022 BIMS 15 cognitively int act CAM 0 No delirium ind icated PHQ-9 00 Problems Problem # Description Date of onset Resolved Date Code CodeSystem Concern Status 1 CONSTIPATION, UNSPECIFIED 27252958 SNOMED CT active 2 ENCOUNTER FOR SURGICAL AFTERCARE FOLLOWING SURGERY ON THE SKIN AND SUBCUTANEOUS TISSUE 720674690 SNOMED CT active 3 PERSONAL HISTORY OF OTHER SPECIFIED CONDITIONS 19550833 SNOMED CT active 4 INSOMNIA, UNSPECIFIED 574302290 SNOMED CT active 5 DYSPHAGIA, UNSPECIFIED 96874794 SNOM[address] CT active 6 ACQUIRED ABSENCE OF RIGHT LEG BELOW KNEE 892127889 SNOMED CT active 7 ATHEROSCLEROSIS OF [place] ARTERIES OF EXTREMITIES WITH REST PAIN, RIGHT LEG 42216317702199051 SNOMED CT active 8 ATHEROSCLEROTIC HEART DISEASE OF [place] CORONARY ARTERY WITHOUT ANGINA PECTORIS 018077863945723 SNOMED CT active 9 CEREBROVASCULAR DISEASE, UNSPECIFIED 91931315 SNOMED CT active 10 ENCOUNTER FOR ORTHOPEDIC AFTERCARE FOLLOWING SURGICAL AMPUTATION 12/04/[address] completed 11 ESSENTIAL (PRIMARY) HYPERTENSION 62866990 SNOMED CT active 12 INFECTION FOLLOWING A PROCEDURE, DEEP INCISIONAL SURGICAL SITE, SUBSEQUENT ENCOUNTER 512610001 SNOMED CT active 13 OTHER SPECIFIED PERSONAL RISK FACTORS, NOT ELSEWHERE CLASSIFIED 5628360777 SNOMED CT active 14 PERIPHERAL VASCULAR DISEASE, UNSPECIFIED 536317240 SNOMED CT active 15 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 349602545 SNOMED CT active 16 PERSONAL HISTORY OF TRANSIENT ISCHEMIC ATTACK (TIA), AND CEREBRAL INFARCTION WITHOUT RESIDUAL DEFICITS 57654563 SNOMED CT active 17 PRESENCE OF AORTOCORONARY BYPASS GRAFT 860592027 SNOMED CT active 18 PURE HYPERCHOLESTEROLEM IA, UNSPECIFIED 709200158 SNOMED CT active 19 UNSPECIFIED OSTEOARTHRITIS, UNSPECIFIED SITE 905840593 SNOMED CT active Reason for Referral No Reasons for Referral Entered Social History Social History Observation Description Start Date End Date Code Code System Current Smoking Status Tobacco smoking consumption unknown 610365630 SNOMED CT Sex Assigned At Male 1940 83968-1 [facility] Gender Identity Vital Signs Code Code System Vitals Name Values and Units Timing Information 61865-2 [facility] Weight Yrtdc=613.5 Units=Lbs 06/2021 8310-5 [facility] Body Temperature Value=97.7 Units= F 01/25/2022 84197-2 [facility] O2 % BldC Oximetry Value=97.0 Units= % 01/25/2022 54476-8 [facility] Pain Level Value=0.0 01/21/2022 9279-1 [facility] Respiratory Rate Value=16.0 Units=/m in 01/12/2022 8462-4 [facility] Blood Pressure-Diastolic Value=75 Un its=mmHg 01/12/2022 8480-6 [facility] Blood Pressure-Systolic Dneik=972 Un its=mmHg 01/12/2022 8867-4 [facility] Heart rate Value=60.0 Units=/min 8302-2 [facility] Height Value=68.0 Units=Inches 11/27/2021
--- OUTSIDE RECORDS SUMMARY | 2024-08-27 19:58 | XMS_ITS ---
Author Organization [facility] ter Care Team Providers Care Sales Professional Name Role Phone Gabby Arce Unavailable Unavailable Manuel Chester Unavailable Unavailable Allergies and adverse reactions No Known Allergies Care Team Name Role Address Phone Organization Dates Manuel Chester PCP [facility] [address] [facility], [address], [place], [facility], [place] States (Office): [facility] 12/12/2021 - 01/26/2022 Gabby Arce [facility] [address] [facility] [address], [place], [facility], [place] States (Office): : [facility] 12/12/2021 - 01/26/2022 Immunizations Immunization Status Vaccine Details Vaccine Code CodeSystem Date Notes Influenza cancelled Influenza, high-dose, split virus, quadrivalent, injectable, preservative free 197 CVX created date: 2 consent date: 2 per immunization form of 11/20/21 TB 2 Step Mantoux Skin Test completed tuberculin skin test; unspecified formulation lotNumber: [id number] expiry: 11/18/2023 Mfg: Sanof1 Pasteur Given 0.1 ml Right Forearm intradermally Step 1 of Multi-step with next step required 98 CVX created date: 2 consent date: 2 administe red date: 2 negative 11/23/21 Prevnar 13 cancelled Adenovirus, type 4 and type 7, live, oral 143 CVX created date: 2 consent date: 2 per immunization form of 11/20/21 Pneumovax 23 cancelled Adenovirus, type 4 and [...] Code CodeSystem Concern Status 1 CONSTIPATION, UNSPECIFIED 88731929 SNOMED CT active 2 ENCOUNTER FOR SURGICAL AFTERCARE FOLLOWING SURGERY ON THE SKIN AND SUBCUTANEOUS TISSUE 855491522 SNOMED CT active 3 PERSONAL HISTORY OF OTHER SPECIFIED CONDITIONS 65123724 SNOMED CT active 4 INSOMNIA, UNSPECIFIED 298237092 SNOMED CT active 5 DYSPHAGIA, UNSPECIFIED 25875996 SNOMED CT active 6 ACQUIRED ABSENCE OF RIGHT LEG BELOW KNEE 125347662 SNOMED CT active 7 ATHEROSCLEROSIS OF [place] ARTERIES OF EXTREMITIES WITH REST PAIN, RIGHT LEG 83807032393004452 SNOMED CT active 8 ATHEROSCLEROTIC HEART DISEASE OF [place] CORONARY ARTERY WITHOUT ANGINA PECTORIS 876039983082389 SNOMED CT active 9 CEREBROVASCULAR DISEASE, UNSPECIFIED 81447670 SNOMED CT active 10 ENCOUNTER FOR ORTHOPEDIC AFTERCARE FOLLOWING SURGICAL AMPUTATION 12/04/[address] completed 11 ESSENTIAL (PRIMARY) HYPERTENSION 59307817 SNOMED CT active 12 INFECTION FOLLOWING A PROCEDURE, DEEP INCISIONAL SURGICAL SITE, SUBSEQUENT ENCOUNTER 954081211 SNOMED CT active 13 OTHER SPECIFIED PERSONAL RISK FACTORS, NOT ELSEWHERE CLASSIFIED 5197004116 SNOMED CT active 14 PERIPHERAL VASCULAR DISEASE, UNSPECIFIED 377870248 SNOMED CT active 15 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 559744821 SNOMED CT active 16 PERSONAL HISTORY OF TRANSIENT ISCHEMIC ATTACK (TIA), AND CEREBRAL INFARCTION WITHOUT RESIDUAL DEFICITS 80459946 SNOMED CT active 17 PRESENCE OF AORTOCORONARY BYPASS GRAFT 001084352 SNOMED CT active 18 PURE HYPERCHOLESTEROLEM IA, UNSPECIFIED 312854741 SNOMED CT active 19 UNSPECIFIED OSTEOARTHRITIS, UNSPECIFIED SITE 144351614 SNOMED CT active Reason for Referral No Reasons for Referral Entered Social History Social History Observation Description Start Date End Date Code Code System Current Smoking Status Tobacco smoking consumption unknown 847620055 SNOMED CT Sex Assigned At Male 1940 91523-9 [facility] Gender Identity Vital Signs Code Code System Vitals Name Values and Units Timing Information 15837-0 [facility] Weight Djcum=640.5 Units=Lbs 06/2021 8310-5 [facility] Body Temperature Value=97.7 Units= F 01/25/2022 17265-4 [facility] O2 % BldC Oximetry Value=97.0 Units= % 01/25/2022 21106-8 [facility] Pain Level Value=0.0 01/21/2022 9279-1 [facility] Respiratory Rate Value=16.0 Units=/m in 01/12/2022 8462-4 [facility] Blood Pressure-Diastolic Value=75 Un its=mmHg 01/12/2022 8480-6 [facility] Blood Pressure-Systolic Mdeeo=013 Un its=mmHg 01/12/2022 8867-4 [facility] Heart rate Value=60.0 Units=/min 8302-2 [facility] Height Value=68.0 Units=Inches 11/27/2021
[2024-08-27 19:59] VITALS: BP 195/90; PULSE 60; RESP 16; TEMP 36.2; O2SAT 100; BMI 25.1
--- NOTE | 2024-08-27 20:08 | CRLHL7_ITS ---
For Patients: As a result of the Century Cures Act, medical imaging exams and procedure reports are released immediately into your electronic medical record. You may view this report before your referring provider. If you have questions, please contact your health care provider. INDICATION: Right flank pain, kidney stone suspected. History of nephrolithiasis. TECHNIQUE: CT abdomen and pelvis without contrast protocol. COMPARISON: CT chest, abdomen and pelvis on July 04, 2022. FINDINGS: Kidney/ureters/bladder: Mil moderate d right-sided hydroureteronephrosis with obstructive nephrolith in the right proximal ureter measuring 5 x 4 x 6 mm (AP x ML x CC) (61, /). Mild right-sided perinephric and periureteral fat stranding. Additional bilateral nonobstructive nephroliths (approximally 6 on the right and 4 on the left). The largest nonobstructive nephrolith on the right measures 5 mm (2/37) and the largest nonobstructing nephrolith on the left measures 4 mm (2/45). No left-sided hydroureteronephrosis.. Unremarkable bladder. Liver/gallbladder/bile ducts: Non cirrhotic liver morphology. Cholelithiasis without acute cholecystitis. No intra or extrahepatic biliary ductal dilatation. Spleen/pancreas/adrenal glands: Spleen, pancreas and adrenal glands are unremarkable. GI tract: Stomach is decompressed and appears grossly normal. Small and large bowel is normal in caliber, without obstruction. Normal colonic stool burden. No pneumatosis, pneumoperitoneum or portal venous gas. Abdominal wall/omentum/peritoneum: Small fat containing right inguinal hernia. Prominent superficial venous collaterals in the suprapubic region (2/119) slightly more conspicuous compared to prior. Lymph nodes: No enlarged lymph nodes by size criteria. Prominent, but nonenlarged, left inguinal lymph node measuring up to 0.7 cm in short axis (2/124). Pelvis: Mild circumferential bladder wall thickening with mild prostatomegaly and associated dystrophic calcifications. Lower chest: No suspicious pulmonary nodule or consolidation. Bilateral lower lobe linear atelectasis/scar. No pleural effusion. Small hiatal hernia. Partially visualized coronary vessel calcification/stent. IMPRESSION: : Evaluation of the visceral organs is limited due to the lack of intravenous contrast. 1. Moderate mild right-sided hydroureteronephrosis with obstructive nephrolith in the right proximal ureter measuring 5 x 4 x 6 mm with associated perinephric and periureteral fat stranding. Correlate with urinalysis and culture. 2. Additional bilateral nonobstructive nephroliths measuring up to 5 mm on the right and 4 mm on the left. 3. Mild circumferential bladder wall thickening which is nonspecific and may reflect cystitis infectious or inflammatory etiology versus sequela of bladder outlet obstruction. Please note that all CT scans at this facility use dose modulation, iterative reconstruction, and/or weight-based dosing when appropriate to reduce radiation dose to as low as reasonably achievable. Dictated by Sonia Trujillo MD @ 08/27/2024 9:23:02 PM (Electronically Signed)
[2024-08-27 20:16] LABS: Lactate* 3.4 mmol/L (0.5-1.9)
--- OUTSIDE RECORDS SUMMARY | 2024-08-27 20:18 | XMS_ITS ---
Author Organization [facility] ter Care Team Providers Care Advertising Consultant Name Role Phone Gabby Arce Unavailable Unavailable Manuel Chester Unavailable Unavailable Allergies and adverse reactions No Known Allergies Care Team Name Role Address Phone Organization Dates Manuel Chester PCP [facility] [address] [facility], [address], [place], [facility], [place] States (Office): [facility] 12/12/2021 - 01/26/2022 Gabby Arce [facility] [address] [facility] [address], [place], [facility], [place] States (Office): : [facility] 12/12/2021 - 01/26/2022 Immunizations Immunization Status Vaccine Details Vaccine Code CodeSystem Date Notes Influenza cancelled Influenza, high-dose, split virus, quadrivalent, injectable, preservative free 197 CVX created date: 2 consent date: 2 per immunization form of 11/20/21 TB 2 Step Mantoux Skin Test completed tuberculin skin test; unspecified formulation lotNumber: [id number] expiry: 11/18/2023 Mfg: Sanof1 Pasteur Given 0.1 [...] Code CodeSystem Concern Status 1 CONSTIPATION, UNSPECIFIED 24443310 SNOMED CT active 2 ENCOUNTER FOR SURGICAL AFTERCARE FOLLOWING SURGERY ON THE SKIN AND SUBCUTANEOUS TISSUE 496195161 SNOMED CT active 3 PERSONAL HISTORY OF OTHER SPECIFIED CONDITIONS 76254442 SNOMED CT active 4 INSOMNIA, UNSPECIFIED 850757282 SNOMED CT active 5 DYSPHAGIA, UNSPECIFIED 52717262 SNOMED CT active 6 ACQUIRED ABSENCE OF RIGHT LEG BELOW KNEE 879019981 SNOMED CT active 7 ATHEROSCLEROSIS OF [place] ARTERIES OF EXTREMITIES WITH REST PAIN, RIGHT LEG 30891098961494413 SNOMED CT active 8 ATHEROSCLEROTIC HEART DISEASE OF [place] CORONARY ARTERY WITHOUT ANGINA PECTORIS 095370679120089 SNOMED CT active 9 CEREBROVASCULAR DISEASE, UNSPECIFIED 42537143 SNOMED CT active 10 ENCOUNTER FOR ORTHOPEDIC AFTERCARE FOLLOWING SURGICAL AMPUTATION 12/04/[address] completed 11 ESSENTIAL (PRIMARY) HYPERTENSION 48783794 SNOMED CT active 12 INFECTION FOLLOWING A PROCEDURE, DEEP INCISIONAL SURGICAL SITE, SUBSEQUENT ENCOUNTER 628464817 SNOMED CT active 13 OTHER SPECIFIED PERSONAL RISK FACTORS, NOT ELSEWHERE CLASSIFIED 2775470403 SNOMED CT active 14 PERIPHERAL VASCULAR DISEASE, UNSPECIFIED 105240614 SNOMED CT active 15 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 195157088 SNOMED CT active 16 PERSONAL HISTORY OF TRANSIENT ISCHEMIC ATTACK (TIA), AND CEREBRAL INFARCTION WITHOUT RESIDUAL DEFICITS 47863226 SNOMED CT active 17 PRESENCE OF AORTOCORONARY BYPASS GRAFT 814939229 SNOMED CT active 18 PURE HYPERCHOLESTEROLEM IA, UNSPECIFIED 266577545 SNOMED CT active 19 UNSPECIFIED OSTEOARTHRITIS, UNSPECIFIED SITE 044595497 SNOMED CT active Reason for Referral No Reasons for Referral Entered Social History Social History Observation Description Start Date End Date Code Code System Current Smoking Status Tobacco smoking consumption unknown 770973351 SNOMED CT Sex Assigned At Male 1940 47471-7 [facility] Gender Identity Vital Signs Code Code System Vitals Name Values and Units Timing Information 42757-9 LOINC Weight Cmwsk=049.5 Units=Lbs 06/2021 8310-5 [facility] Body Temperature Value=97.7 Units= F 01/25/2022 49705-3 [facility] O2 % BldC Oximetry Value=97.0 Units= % 01/25/2022 26564-0 [facility] Pain Level Value=0.0 01/21/2022 9279-1 [facility] Respiratory Rate Value=16.0 Units=/m in 01/12/2022 8462-4 [facility] Blood Pressure-Diastolic Value=75 Un its=mmHg 01/12/2022 8480-6 [facility] Blood Pressure-Systolic Fngst=870 Un its=mmHg 01/12/2022 8867-4 [facility] Heart rate Value=60.0 Units=/min 8302-2 [facility] Height Value=68.0 Units=Inches 11/27/2021
--- OUTSIDE RECORDS SUMMARY | 2024-08-27 20:18 | XMS_ITS ---
Author Organization [facility] [place] Care Team Providers Care Fire Support Specialist Name Role Phone Gabby Arce Unavailable Unavailable Manuel Chester Unavailable Unavailable Allergies and adverse reactions No Known Allergies Care Team Name Role Address Phone Organization Dates Manuel Chester [facility] [address] [place] [address], [address], [place], [facility], [place] States (Office): [facility] 12/12/2021 - 01/26/2022 Gabyb Arce [facility] [address] [place] [address], [facility], [facility] (Office): : [facility] 12/12/2021 - 01/26/2022 Immunizations Immunization Status Vaccine Details Vaccine Code CodeSystem Date Notes Influenza cancelled Influenza, high-dose, split virus, quadrivalent, injectable, preservative free 197 CVX created date: 2 consent date: 2 per immunization form of 11/20/21 TB 2 Step Mantoux Skin Test completed tuberculin skin test; unspecified formulation lotNumber: [id number] expiry: 11/18/2023 Mfg: Sanof1 Pasteur Given 0.1 ml Right Forearm intradermally Step 1 of Multi-step with next step required 98 CVX created date: 2 consent date: 2 administe red date: 2 negative 11/23/21 PPSV23, Pneumovax 23 cancelled Adenovirus, type 4 and type 7, live, oral 143 CVX created date: 2 consent date: 2 per immunization form of 11/20/21 PCV13, [id number] cancelled Adenovirus, type 4 and type 7, [...] Code CodeSystem Concern Status 1 CONSTIPATION, UNSPECIFIED 16498537 SNOMED CT active 2 ENCOUNTER FOR SURGICAL AFTERCARE FOLLOWING SURGERY ON THE SKIN AND SUBCUTANEOUS TISSUE 741487440 SNOMED CT active 3 PERSONAL HISTORY OF OTHER SPECIFIED CONDITIONS 92454916 SNOMED CT active 4 INSOMNIA, UNSPECIFIED 779042715 SNOMED CT active 5 DYSPHAGIA, UNSPECIFIED 56228065 SNOMED CT active 6 ACQUIRED ABSENCE OF RIGHT LEG BELOW KNEE 471105797 SNOMED CT active 7 ATHEROSCLEROSIS OF [place] ARTERIES OF EXTREMITIES WITH REST PAIN, RIGHT LEG 62008798547264573 SNOMED CT active 8 ATHEROSCLEROTIC HEART DISEASE OF [place] CORONARY ARTERY WITHOUT ANGINA PECTORIS 762286800138499 SNOMED CT active 9 CEREBROVASCULAR DISEASE, UNSPECIFIED 27473722 SNOMED CT active 10 ENCOUNTER FOR ORTHOPEDIC AFTERCARE FOLLOWING SURGICAL AMPUTATION 12/04/[address] completed 11 ESSENTIAL (PRIMARY) HYPERTENSION 14517725 SNOMED CT active 12 INFECTION FOLLOWING A PROCEDURE, DEEP INCISIONAL SURGICAL SITE, SUBSEQUENT ENCOUNTER 087097442 SNOMED CT active 13 OTHER SPECIFIED PERSONAL RISK FACTORS, NOT ELSEWHERE CLASSIFIED 8863438895 SNOMED CT active 14 PERIPHERAL VASCULAR DISEASE, UNSPECIFIED 491135861 SNOMED CT active 15 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 001797439 SNOMED CT active 16 PERSONAL HISTORY OF TRANSIENT ISCHEMIC ATTACK (TIA), AND CEREBRAL INFARCTION WITHOUT RESIDUAL DEFICITS 62407154 SNOMED CT active 17 PRESENCE OF AORTOCORONARY BYPASS GRAFT 389524145 SNOMED CT active 18 PURE HYPERCHOLESTEROLEM IA, UNSPECIFIED 008312557 SNOMED CT active 19 UNSPECIFIED OSTEOARTHRITIS, UNSPECIFIED SITE 756829360 SNOMED CT active Reason for Referral No Reasons for Referral Entered Social History Social History Observation Description Start Date End Date Code Code System Current Smoking Status Tobacco smoking consumption unknown 470220173 SNOMED CT Sex Assigned At Male 1940 58662-7 [facility] Gender Identity Vital Signs Code Code System Vitals Name Values and Units Timing Information 66356-7 [facility] Weight Mfnst=279.5 Units=Lbs 06/2021 8310-5 [facility] Body Temperature Value=97.7 Units= F 01/25/2022 87353-0 [facility] O2 % BldC Oximetry Value=97.0 Units= % 01/25/2022 49590-2 [facility] Pain Level Value=0.0 01/21/2022 9279-1 [facility] Respiratory Rate Value=16.0 Units=/m in 01/12/2022 8462-4 [facility] Blood Pressure-Diastolic Value=75 Un its=mmHg 01/12/2022 8480-6 [facility] Blood Pressure-Systolic Tpvsl=449 Un its=mmHg 01/12/2022 8867-4 [facility] Heart rate Value=60.0 Units=/min 8302-2 [facility] Height Value=68.0 Units=Inches 11/27/2021
[2024-08-27 20:21] LABS: Hematocrit 49.5 % (37.0-53.0); Hemoglobin* 16.6 gm/dL (13.5-17.5); Immature Granulocytes Abs Auto 0.02 K/uL (0.00-0.30); Immature Granulocytes Pct Auto 0.2 %; Mean Corpuscular HGB Conc 34 gm/dL (32-36); Mean Corpuscular Hemoglobin 29 pg (26-34); Mean Corpuscular Volume 85 fL (80-100); RDW Coefficient of Variation % 13.6 % (11.5-15.5); Red Blood Count 5.82 m/uL (4.30-5.90); White Blood Count* 9.58 K/uL (4.50-11.00)
[2024-08-27 20:23] LABS: Lymphocytes Absolute Auto 1.20 K/uL (0.90-2.90); Slide Review Reflex No
[2024-08-27 20:34] LABS: Albumin* 4.6 g/dL (3.3-5.0); Chloride* 102 mmol/L (96-114); Potassium* 3.7 mmol/L (3.6-5.1); Sodium* 135 mmol/L (135-149)
[2024-08-27 20:36] LABS: Blood Urea Nitrogen* 18 mg/dL (7-30); Creatinine* 1.3 mg/dL (0.5-1.5); Est. Creatinine Clearance* 41.65; Estimated Glomerular Filt Rate 55 ml/min
[2024-08-27 20:37] LABS: Alanine Aminotransferase* 25 U/L (4-50); Alkaline Phosphatase* 101 U/L (40-150); Anion Gap 15 mEq/L (7-15); Aspartate Amino Transferase* 32 U/L (12-35); Bilirubin Direct* 0.0 mg/dL (0.0-0.5); Bilirubin Total* 1.1 mg/dL (0.1-1.5); Calcium* 9.7 mg/dL (8.4-10.6); Carbon Dioxide* 18 mmol/L (20-32); Glucose* 147 mg/dL (60-115); Total Protein* 7.3 g/dL (6.0-8.3)
--- NOTE | 2024-08-27 20:42 | ED.ABDPAIN ---
HPI - Abdominal Pain General Date Seen: 08/27/24 Chief Complaint: Flank Pain Stated Complaint: kindny stone Time Seen by Provider: 08/27/24 20:01 Source: patient, EMS, RN notes reviewed and old records reviewed Mode of arrival: EMS Limitations: no limitations History of Present Illness HPI narrative: Patient is 83-year-old gentleman who presents here via EMS from the emergency room with a history kidney stones, pain started today, describes in his right flank, and has become lower as the day has gone on he describes his stomach being all gnarly, and did vomit, the pain is very characteristic of previous kidney stones he has had, he has always passed these without instrumentation. Although he had never had significant nausea vomiting with the other ones, denies a fevers chills or sweats associated with this, as far as he knows he does not have an aortic aneurysm. Is on Eliquis. In the ambulance they did try some fentanyl IM and Zofran IM. Describes his pain is 12/01. Related Data Home Medications ?Medication ?Instructions ?Recorded ?Confirmed cholecalciferol (vitamin D3) 50 4,000 unit PO DAILY 07/04/22 07/12/22 mcg (2,000 unit) capsule ferrous sulfate 325 mg (65 mg 1 mg PO DAILY 07/04/22 07/12/22 iron) tablet metoprolol tartrate 25 mg tablet 12.5 mg PO BID 07/04/22 08/27/24 apixaban 5 mg tablet (Eliquis) 5 mg PO BID 07/12/22 08/27/24 levofloxacin 500 mg tablet 500 mg PO QAM 07/12/22 07/12/22 tamsulosin 0.4 mg capsule (Flomax) 0.4 mg PO DAILY 07/12/22 07/12/22 Allergies Allergy/AdvReac Type Severity Reaction Status Date / Time No Known Drug Allergies Allergy Verified 07/04/22 22:46 Review of Systems Status of ROS Reports: 10 or more systems reviewed and unremarkable except as noted in History and below PFSH PFS Social History Smoking Status: Never smoker Do you use any of these nicotine containing products: None How often do you have a drink containing alcohol: never AUDIT-C Alcohol total score: 0 Non-prescribed substance use: denies use Exam Narrative: Exam Narrative: On examination in the room he is clearly in moderate distress, speaking to me normally, pupils equal round reactive to light there is no scleral icterus or redness, oropharynx is normal, cranial nerves 3-12 are normal neck is supple chest is clear bilaterally no wheezing crackles noted heart sounds no clicks murmurs or gallops his abdomen is a little bit distended scars from previous hernia repairs are noted on his abdomen, and is midline, and lower quadrants bilaterally. He describes his pain deep to the right lower quadrant, more in his back region. No pulsatile aortic masses are felt. 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 Const: Vital Signs, click to edit/add: Vital Signs - 24 hr 08/27/24 19:59 08/27/24 21:19 08/27/24 21:43 Temperature 97.2 F L Pulse Rate [Pulse Oximeter] 60 50 L 52 L Respiratory Rate 16 15 16 Blood Pressure [Ri ght Upper Arm] 195/90 H 130/67 Pulse Oximetry 100 98 97 Oxygen Delivery Me thod Room Air Room Air Room Air Course Course ED Course: Patient is unwell is no pain at all now, he has the 6 mm stone, he is already on Flomax we will give him a prescription for some [place], along with some Zofran, he will use lots of fluids he will return here if he has intractable pain, nausea vomiting fevers chills. Her other issues. 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 Through [employer] patient has received [place] 5/325, times 12 tablets, Zofran 4 mg times 12 tablets Vital Signs Vital signs: Initial Vital Signs Temperature 97.2 F L 08/27/24 19:59 Temperature Source Temporal Artery Scan 08/27/24 19:59 Pulse Rate 60 08/27/24 19:59 Respiratory Rate 16 08/27/24 19:59 Blood Pressure 195/90 H 08/27/24 19:59 Blood Pressure Mean 125 H 08/27/24 19:59 Blood Pressure Position Semi-Fowlers 08/27/24 19:59 Pulse Oximetry 100 08/27/24 19:59 Oxygen Delivery Method Room Air 08/27/24 19:59 Vital Signs Temperature 97.2 F L 08/27/24 19:59 Pulse Rate 60 08/27/24 19:59 Respiratory Rate 16 08/27/24 19:59 Blood Pressure 195/90 H 08/27/24 19:59 Pulse Oximetry 100 08/27/24 19:59 Oxygen Delivery Method Room Air 08/27/24 19:59 Temperature 97.2 F L 08/27/24 19:59 Pulse Rate 52 L 08/27/24 21:43 Respiratory Rate 16 08/27/24 21:43 Blood Pressure 130/67 08/27/24 21:19 Pulse Oximetry 97 08/27/24 21:43 Oxygen Delivery Method Room Air 08/27/24 21:43 Medications Administered Medications: Discontinued Medications Generic Name Dose Route Start Last Admin Trade Name Freq PRN Reason Stop Dose Admin Hydromorphone HCl 0.5 mg 08/27/24 20:08 08/27/24 20:14 Hydromorphone 0.5 Mg/0.5 Ml Inj IVP 08/27/24 20:09 0.5 mg ONCE ONE Administration Sodium Chloride 1,000 mls @ 1,000 mls/hr 08/27/24 20:15 08/27/24 21:42 0.9 % Sodium Chloride 1000 Ml IV 08/27/24 21:14 Infused .Q1H PRUDENCE Infusion Ketorolac Tromethamine 30 mg 08/27/24 20:08 08/27/24 20:14 Ketorolac 30 Mg/Ml Inj IVP 08/27/24 20:09 30 mg ONCE ONE Administration MDM - Abdominal Pain MDM Narrative Medical decision making narrative: During this evaluation of this patient I considered multiple differential diagnosis is which included the life-threatening such as appendicitis, aortic aneurysm, mesenteric ischemia, bowel perforation, volvulus, and bowel obstruction. Other differential diagnosis is include but are not limited to cholecystitis, pancreatitis, hepatitis, gastritis, GERD, diverticulitis, peptic ulcer disease, pyelonephritis/UTI, renal colic/stone, testicular torsion as well as other acute scrotal processes, inflammatory bowel disease, as well as other etiologies Differential Diagnosis Differential diagnosis: Likely abdominal pain, acute appendicitis, calculus of kidney, constipation, diverticulitis, gastroenteritis, pancreatitis and small bowel obstruction Medical Records Attestation: I reviewed the patient's medical records. Lab Data Attestation: I reviewed the patient's lab results. Labs: Lab Results 08/27/24 Range/Units 20:03 WBC 9.58 (4.50-11.00) K/uL RBC 5.82 (4.30-5.90) m/uL Hgb 16.6 (13.5-17.5) gm/dL Hct 49.5 (37.0-53.0) % MCV 85 (80-100) fL MCH 29 (26-34) pg MCHC 34 (32-36) gm/dL RDW Coeff of Alexis 13.6 (11.5-15.5) % Plt Count 211 (140-440) K/uL Neut % (Auto) 78.6 H (42.0-72.0) % Lymph % (Auto) 12.8 L (20-44) % Stone % (Auto) 7.3 (0.0-11.0) % Eos % (Auto) 0.8 (0.0-7.0) % Baso % (Auto) 0.3 (0.0-3.0) % Neut # (Auto) 7.50 H (1.7-7.0) K/uL Lymph # (Auto) 1.20 (0.90-2.90) K/uL Stone # (Auto) 0.70 (0.00-0.90) K/UL Eos # (Auto) 0.08 (0.00-0.50) K/uL Baso # (Auto) 0.03 (0.00-0.30) K/uL Abs Immat Gran (auto) 0.02 (0.00-0.30) K/uL Imm/Tot Granulo (auto) 0.2 % Sodium 135 (135-149) mmol/L Potassium 3.7 (3.6-5.1) mmol/L Chloride 102 (96-114) mmol/L Carbon Dioxide 18 L (20-32) mmol/L Anion Gap 15 (7-15) mEq/L BUN 18 (7-30) mg/dL Creatinine 1.3 (0.5-1.5) mg/dL Estimated Creat Clear 41.65 Estimated GFR 55 ml/min Glucose 147 H (60-115) mg/dL Lactate 3.4 H (0.5-1.9) mmol/L Calcium 9.7 (8.4-10.6) mg/dL Total Bilirubin 1.1 (0.1-1.5) mg/dL Direct Bilirubin 0.0 (0.0-0.5) mg/dL AST 32 (12-35) U/L ALT 25 (4-50) U/L Alkaline Phosphatase 101 (40-150) U/L C-Reactive Protein < 0.5 L (0.5-1.0) mg/dL Total Protein 7.3 (6.0-8.3) g/dL Albumin 4.6 (3.3-5.0) g/dL Lipase 49 (23-300) U/L Imaging Data CT scan - abdomen: Attestation: I have reviewed the pertinent imaging results. My impression: CT abdomen and pelvis is done, with indication of pain, noncontrast study, this shows hydronephrosis on the right, with the 2 intrarenal stones, and also 1 intrarenal stone on the left, there is 1 stone that is just exited the renal pelvis, the upper ureter on the right, 6.5 mm, no aortic aneurysm, calcification of the aorta and iliacs is noted. Await Radiology read. Radiologist's impression: [place] [id number] Diagnostic Imaging Report Patient: Vikas Martin MR#: [id number] : 1940 Acct:[id number] Loc: ED Service Date: 08/27/[address]: Ordering Physician: Chandra Lew M.D. Date of Service: 08/27/24 Procedure(s): CT abdomen pelvis wo [facility] Accession Number(s): [id number] cc: Provider,Not a Local; Chandra Lew M.D.~ For Patients: As a result of the 21st Century Cures Act, medical imaging exams and procedure reports are released immediately into your electronic medical record. You may view this report before your referring provider. If you have questions, please contact your health care provider. INDICATION: Right flank pain, kidney stone suspected. History of nephrolithiasis. TECHNIQUE: CT abdomen and pelvis without contrast protocol. COMPARISON: CT chest, abdomen and pelvis on July 04, 2022. FINDINGS: Kidney/ureters/bladder: Mil moderate d right-sided hydroureteronephrosis with obstructive nephrolith in the right proximal ureter measuring 5 x 4 x 6 mm (AP x ML x CC) (2/61, 4/66). Mild right-sided perinephric and periureteral fat stranding. Additional bilateral nonobstructive nephroliths (approximally 6 on the right and 4 on the left). The largest nonobstructive nephrolith on the right measures 5 mm (2/37) and the largest nonobstructing nephrolith on the left measures 4 mm (2/45). No left-sided hydroureteronephrosis.. Unremarkable bladder. Liver/gallbladder/bile ducts: Non cirrhotic liver morphology. Cholelithiasis without acute cholecystitis. No intra or extrahepatic biliary ductal dilatation. Spleen/pancreas/adrenal glands: Spleen, pancreas and adrenal glands are unremarkable. GI tract: Stomach is decompressed and appears grossly normal. Small and large bowel is normal in caliber, without obstruction. Normal colonic stool burden. No pneumatosis, pneumoperitoneum or portal venous gas. Abdominal wall/omentum/peritoneum: Small fat containing right inguinal hernia. Prominent superficial venous collaterals in the suprapubic region (2/119) slightly more conspicuous compared to prior. Lymph nodes: No enlarged lymph nodes by size criteria. Prominent, but nonenlarged, left inguinal lymph node measuring up to 0.7 cm in short axis (2/124). Pelvis: Mild circumferential bladder wall thickening with mild prostatomegaly and associated dystrophic calcifications. Lower chest: No suspicious pulmonary nodule or consolidation. Bilateral lower lobe linear atelectasis/scar. No pleural effusion. Small hiatal hernia. Partially visualized coronary vessel calcification/stent. IMPRESSION: : Evaluation of the visceral organs is limited due to the lack of intravenous contrast. 1. Moderate mild right-sided hydroureteronephrosis with obstructive nephrolith in the right proximal ureter measuring 5 x 4 x 6 mm with associated perinephric and periureteral fat stranding. Correlate with urinalysis and culture. 2. Additional bilateral nonobstructive nephroliths measuring up to 5 mm on the right and 4 mm on the left. 3. Mild circumferential bladder wall thickening which is nonspecific and may reflect cystitis infectious or inflammatory etiology versus sequela of bladder outlet obstruction. Please note that all CT scans at this facility use dose modulation, iterative reconstruction, and/or weight-based dosing when appropriate to reduce radiation dose to as low as reasonably achievable. Dictated by Sonia Trujillo MD @ 08/27/2024 9:23:02 PM (Electronically Signed) Discharge Plan Discharge Clinical Impression: Urolithiasis, Renal colic Patient Disposition: Home, Self-Care Condition: Stable Instructions: Renal Colic (ED), How to Strain Your Urine (ED) Additional Instructions: Home, rest, use of pain medications, lots of fluids and rest. , return here fevers chills in adequate pain control, nausea vomiting or other. Activity Level: Light activity Discharge Diet: Regular Prescriptions: No Action Eliquis 5 mg tablet 5 mg PO BID levofloxacin 500 mg tablet 500 mg PO QAM tamsulosin [Flomax] 0.4 mg capsule 0.4 mg PO DAILY metoprolol tartrate 25 mg tablet 12.5 mg PO BID ferrous sulfate 325 mg (65 mg iron) tablet 1 mg PO DAILY cholecalciferol (vitamin D3) 50 mcg (2,000 unit) capsule 4,000 unit PO DAILY Follow Up/Referrals: Provider,Not a Local [Primary Care Provider, Family Practice] Stand Alone Forms: [employer]TR[employer] Info Instructions
[2024-08-27 21:19] VITALS: BP 130/67; PULSE 50; RESP 15; O2SAT 98
[2024-08-27 21:43] VITALS: PULSE 52; RESP 16; O2SAT 97
== END 2024-08-27 23:37 | disposition home or self-care (01) ==
PROVIDERS: Emergency Provider Family Medicine
DX: N20.9 Urinary calculus, unspecified (principal); N23 Unspecified renal colic; Z79.01 Long term (current) use of anticoagulants
CPT/HCPCS: 36415; 74176; 80048; 80076; 83605; 83690; 85025; 86140; 96361; 96374; 96375; 99284; J1171; J1885; J7030

== ENCOUNTER 2024-08-29 01:09 | Emergency (ER) | payer OTHER, SELFPAY ==
--- OUTSIDE RECORDS SUMMARY | 2024-08-28 08:03 | XMS_ITS | Encounter Summary ---
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 Role Phone KOBI LEDESMA Primary Care [...] Name Patient's Relationship to Policy Truong [employer] [facility] (WNR) MEDICARE ADVANTAGE [facility] (WNR) Aug 22, 2021 [id number] [phone] TOM MUÑOZ PATIENT [employer] MCR (WNR) MEDICARE ADVANTAGE [facility] (WNR) Aug 22, 2021 [id number] [phone] TOM MUÑOZ PATIENT MEDICARE (WNR) MEDICARE (M) PART A Sep 22, 2005 PART A [id number] [phone] TOM MUÑOZ PATIENT MEDICARE (WNR) MEDICARE (M) PART B Sep 22, 2005 PART B [id number] TONI,RO ESTEFANY PATIENT MEDICARE (WNR) MEDICARE (M) PART A Sep 22, 2005 PART A [id number] [phone] TONI,RO ESTEFANY PATIENT MEDICARE (WNR) MEDICARE (M) PART B Sep 22, 2005 PART B [id number] TONI,RO ESTEFANY PATIENT MEDICARE (WNR) MEDICARE (M) PART A Sep 22, 2005 PART A [id number] [phone] TONI,RO ESTEFANY PATIENT MEDICARE (WNR) MEDICARE (M) PART B Sep 22, 2005 PART B [id number] TONI,RO ESTEFANY PATIENT MEDICARE (WNR) MEDICARE (M) PART A Sep 22, 2005 PART A [id number] [phone] TONI,RO ESTEFANY PATIENT MEDICARE (WNR) MEDICARE (M) PART B Sep 22, 2005 PART B [id number] TONI,TOM ALLISON PATIENT Selected Encounter This section includes the information on record at [place] for the Encounter. Date/Time Encounter Type Encounter Description Reason Provider Source Aug 28, 2024 01:03 PM Outpatient Encounter ADMIN PAT ACTIVTIES (MASNONCT) ISHMAEL LECHUGA Encounter Template Text not used by [place] Plan of Treatment: Future Appointments (+ 6 months) and Future Tests (+/- 45 days) The Plan of Treatment section includes future care activities for the patient from all [place] [facility] This section includes future appointments and future orders which are active, pending or scheduled. Future Appointments This section includes appointments that were scheduled to occur 6 months from the date of the Encounter, up to a maximum of 20 appointments. The data comes from all [place] treatment [facility]. Appointment Date/Time Appointment Type Appointme nt Facility Name Aug 31, 2024 02:00 PM AMBULATORY - PSY[facility]IATRY [facility] Sep 14, 2024 01:00 PM AMBULATORY - PSYCHIATRY [facility] Advance Directives: All historical and current Section Date Range: From patient's date of to the date document was created. This section includes ALL of a patient's completed or amended [place] Advance and Rescinded Directives. The entries below indicate that a directive exists for the patient, but an actual copy is not included with this document. The data comes from all [facility]. Date Advance Directives Provider Source May 20, 2022 ADVANCE DIRECTIVE DISCUSSION HERMINIA HERNANDEZ [facility] May 20, 2022 ADVANCE DIRECTIVE [facility] Feb 06, 2004 ADVANCE DIRECTIVE JHOANA LECHUGA [facility] Encounter Notes: All associated encounter notes This section contains the clinical notes associated to the Encounter. Date/Time Encounter Note(s) Provider Source Aug 27, 2024 01:04 PM NONVA NOTE: LOCAL TITLE: [facility] PRESENTING CARE COORD PLAN STANDARD TITLE: NONVA NOTE DATE OF NOTE: AUG 27, 2024@13:04 ENTRY DATE: AUG 28, 2024@13:04:36 AUTHOR: TIM KIM EXP COSIGNER: URGENCY: STATUS: COMPLETED Emergency Notification Intake Date Presenting to the Facility: Aug Method of Contact: Notified from [employer] worklist Notification ID: [id number] [facility] Referral #: [facility] Name: Hospital: [facility] Address: [address] City: [place] State: [place] Zip Code: Phone : [facility] Point of Contact: Name: MEGAN Rico Chief complaint: FLANK PAIN Primary Diagnosis: Disposition Discharged Date of discharge: Aug Discharge to home 1703 Clinical Review /es/ TIM KIM 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
--- OUTSIDE RECORDS SUMMARY | 2024-08-28 20:10 | XMS_ITS | Continuity of Care Document ---
Author Name [facility] Organization [facility] Care Team Providers Care Bottle Sorter Name Role Phone [facility] Unavailable Unavailable Problems Combined list of problems from Department of Defense and Veterans Affairs facilities. It does not include entries that were removed or entered in error. 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 Aug Entered By: JYOTI LEONG Comment: 09/10/08 MRSA Isolated from nares surveillance swab [facility] Coronary arteriosclerosis (SNOMED CT 55820004) Active Condition June 28, 2018 Entered By: GÓMEZ KAUR Comment: stent placed in 2010 [facility] ERECTILE DYSFUNCTION Active Condition C [facility] Generalized anxiety disorder Active Condition [facility] History of colonoscopy Active Condition Sep 03, 2014 Entered By: THERESA LI Comment: last done 2023 Entered By: NOAH LAWS Comment: + FIT 06/2022 [facility] History of male erectile disorder [facility] HYPERCHOLESTEROLEMIA Active Condition [facility] Hyperlipidemia Active Condition [facility] HYPERTENSION Active Condition [facility] Long-term current use of anticoagulant Active Condition Apr 28 Entered By: NOAH LAWS Comment: Pulmonary embolism 07/14 [facility] MAL GANESH,PROSTATE Active Condition [facility] OSTEOARTH,KNEE Active Condition [facility] Osteoarthritis of left knee joint Active Condition [facility] 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 Condition [facility] Squamous cell carcinoma of skin Active Condition [facility] Umbilical hernia Active Condition [facility] NICKYLIS [facility] W/ DEPRESSED MOOD Active Condition [facility] Cervical lymphadenopathy Inactive Condition 04/29/2023 [facility] Diagnosis: ICD-10-CM F41.1 Generalized anxiety disorder Active Diagnosis [facility] Diagnosis: ICD-10-CM 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 [facility] Diagnosis: ICD-10-CM 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, right eye, intermed dry stage Active Diagnosis [facility] Diagnosis: ICD-10-CM I10 Essential (primary) hypertension Active Diagnosis [facility] Diagnosis: ICD-10-CM Z89.511 Acquired absence of right leg below knee Active Diagnosis [facility] Diagnosis: ICD-10-CM F43.12 Post-traumatic stress disorder, chronic Active Diagnosis [facility] Diagnosis: ICD-10-CM L12.0 Bullous pemphigoid Active Diagnosis [facility] Diagnosis: ICD-10-CM Z44.121 Encounter for fit/adjst of partial artificial right leg Active Diagnosis BRITT HUBBARD [facility] Diagnosis: ICD-10-CM 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, bilateral, early dry stage Active Diagnosis [facility] Diagnosis: ICD-10-CM Z02.1 Encounter for pre-employment examination Active Diagnosis [facility] Diagnosis: ICD-10-CM Z01.01 Encounter for exam of eyes and vision w abnormal findings Active Diagnosis [facility] Diagnosis: ICD-10-CM F43.10 Post-traumatic stress disorder, unspecified Active Diagnosis [facility] Diagnosis: ICD-10-CM Z44.111 Encounter for fit/adjst of complete right artificial leg Active Diagnosis BRITT HUBBARD [facility] Diagnosis: ICD-10-CM M17.12 Unilateral primary osteoarthritis, left knee Active Diagnosis [facility] Medications Combined list of outpatient medications [...] AND/OR PREVENT BLOOD CLOTS ORAL ACTIVE 07/26/2025 [id number] DELORES LEO [address] [facility] APIXABAN 5MG TAB TAKE ONE TABLET BY MOUTH EVERY 12 HOURS TO TREAT AND/OR PREVENT BLOOD CLOTS ORAL DISCONT INUED 08/16/2024 [id number] 5 POBRIT CALLAWAY [address] [facility] CHOLECALCIF RANDI TAB TAKE 4000 [...] FOR HEART PROTECTI ON ORAL ACTIVE 10/07/2024 [id number] DEVANTE MA RISTOPHER 2023 90 [facility] MULTIVIT/OP HTH AREDS2/LUTE IN/ZEAXANTH IN CAP/TAB TAKE 1 CAP/TAB BY MOUTH TWICE A DAY FOR EYE HEALTH ORAL ACTIVE 06/02/2025 [id number] HU IVORY [address] [facility] MYCOPHENOLA TE MOFETIL 1000MG/5ML SUSP,ORAL TAKE 5 ML BY MOUTH TWICE A DAY FOR BULLOUS PEMPHIGO ID (5ML = 1 TEASPOON FUL) ORAL 04/01/2024 [id number] MAC BOYLE [address] [facility] OMEGA 3/FLAXSEED/ BORAGE OIL(NON-VA MED) LIQUID TAKE 1 TEASPOON FUL BY MOUTH TWICE A DAY ORAL ACTIVE NOEL LEON 2011 [facility] Immunizations Combined list of available immunizations from the Department of Defense and Veterans Affairs facilities. Immunization Series Date Given Administered By Site Reaction Lot Number CVX Code Drug Mold Changer Status Comments Source TETANUS (HISTORICAL) 2003 112 complet ed No reaction [facility] TD(ADULT) UNSPECIFIED FORMULATION 2003 139 complet ed pt tolerated the procedure well and showed zero signs of a reaction [facility] Results Combined list of recent [...] May 13, 2024 10:11 AM Reporting Lab: [facility] [address] Performing Lab: [facility] [address] [facility] CBC & DIFF ERYTHROCYT ES [#/VOLUME] IN BLOOD BY AUTOMATED COUNT 5.43 4.60 - 6.20 05/16 Specimen Type: BLOOD Comment: Automated Differentia l Performed Ordering Provider: CORTES LEDESMA Report Released Date/Time: May 13, 2024 10:11 AM Reporting Lab: [facility] [address] Performing Lab: [facility] [address] [facility] CBC & DIFF HEMOGLOBIN [MASS/VOLU ME] IN BLOOD 15.6 g/dL 13.5 - 17.9 05/16 Specimen Type: BLOOD Comment: Automated Differentia l Performed Ordering Provider: CORTES LEDESMA Report Released Date/Time: May 13, 2024 10:11 AM Reporting Lab: [facility] [address] Performing Lab: [facility] [address] [facility] CBC & DIFF HEMATOCRIT [VOLUME FRACTION] OF BLOOD BY AUTOMATED COUNT 47.6 41.0 - 54.0 05/16 Specimen Type: BLOOD Comment: Automated Differentia l Performed Ordering Provider: CORTES LEDESMA Report Released Date/Time: May 13, 2024 10:11 AM Reporting Lab: [facility] [address] Performing Lab: [facility] [address] [facility] CBC & DIFF MCV [ENTITIC VOLUME] BY AUTOMATED COUNT 87.7 fL 80.0 - 100.0 05/16 Specimen Type: BLOOD Comment: Automated Differentia l Performed Ordering Provider: CORTES LEDESMA Report Released Date/Time: May 13, 2024 10:11 AM Reporting Lab: [facility] [address] Performing Lab: [facility] [address] [facility] CBC & DIFF MCH [ENTITIC MASS] BY AUTOMATED COUNT 28.7 pg 27.0 - 33.0 05/16 Specimen Type: BLOOD Comment: Automated Differentia l Performed Ordering Provider: CORTES LEDESMA Report Released Date/Time: May 13, 2024 10:11 AM Reporting Lab: [facility] [address] Performing Lab: [facility] [address] [facility] CBC & DIFF MCHC [MASS/VOLU ME] BY AUTOMATED COUNT 32.8 g/dL 32.0 - 37.5 05/16 Specimen Type: BLOOD Comment: Automated Differentia l Performed Ordering Provider: CORTES LEDESMA Report Released Date/Time: May 13, 2024 10:11 AM Reporting Lab: [facility] [address] Performing Lab: [facility] [address] [facility] CBC & DIFF PLATELETS [#/VOLUME] IN BLOOD BY AUTOMATED COUNT 175 150 - 400 05/16 Specimen Type: BLOOD Comment: Automated Differentia l Performed Ordering Provider: CORTES LEDESMA Report Released Date/Time: May 13, 2024 10:11 AM Reporting Lab: [facility] [address] Performing Lab: [facility] [address] [facility] CBC & DIFF PLATELET MEAN VOLUME [ENTITIC VOLUME] IN BLOOD BY AUTOMATED COUNT 8.7 fL 9.1 - 13.0 05/16 L Specimen Type: BLOOD Comment: Automated Differentia l Performed Ordering Provider: CORTES LEDESMA Report Released Date/Time: May 13, 2024 10:11 AM Reporting Lab: [facility] [address] Performing Lab: [facility] [address] [facility] CBC & DIFF NEUTROPHIL S/100 LEUKOCYTES IN BLOOD BY MANUAL COUNT 57.5 40.0 - 80.0 05/16 Specimen Type: BLOOD Comment: Automated Differentia l Performed Ordering Provider: CORTES LEDESMA Report Released Date/Time: May 13, 2024 10:11 AM Reporting Lab: [facility] [address] Performing Lab: [facility] [address] [facility] CBC & DIFF LYMPHOCYTE S/100 LEUKOCYTES IN BLOOD BY MANUAL COUNT 24.2 15.0 - 45.0 05/16 Specimen Type: BLOOD Comment: Automated Differentia l Performed Ordering Provider: CORTES LEDESMA Report Released Date/Time: May 13, 2024 10:11 AM Reporting Lab: [facility] [address] Performing Lab: [facility] [address] [facility] CBC & DIFF MONOCYTES/ 100 LEUKOCYTES IN BLOOD BY AUTOMATED COUNT 11.3 2.0 - 12.0 05/16 Specimen Type: BLOOD Comment: Automated Differentia l Performed Ordering Provider: CORTES LEDESMA Report Released Date/Time: May 13, 2024 10:11 AM Reporting Lab: [facility] [phone] Performing Lab: [facility] [address] [facility] CBC & DIFF EOSINOPHIL S/100 LEUKOCYTES IN BLOOD BY AUTOMATED COUNT 5.4 0.0 - 6.0 05/16 Specimen Type: BLOOD Comment: Automated Differentia l Performed Ordering Provider: CORTES LEDESMA Report Released Date/Time: May 13, 2024 10:11 AM Reporting Lab: [facility] [address] Performing Lab: [facility] [address] [facility] CBC & DIFF BASOPHILS/ 100 LEUKOCYTES IN BLOOD BY MANUAL COUNT 0.8 0.0 - 2.0 05/16 Specimen Type: BLOOD Comment: Automated Differentia l Performed Ordering Provider: CORTES LEDESMA Report Released Date/Time: May 13, 2024 10:11 AM Reporting Lab: [facility] [phone] Performing Lab: [facility] [address] [facility] CBC & DIFF ERYTHROCYT E DISTRIBUTI ON WIDTH [RATIO] BY AUTOMATED COUNT 13.8 11.5 - 14.5 05/16 Specimen Type: BLOOD Comment: Automated Differentia l Performed Ordering Provider: CORTES LEDESMA Report Released Date/Time: May 13, 2024 10:11 AM Reporting Lab: [facility] [address] Performing Lab: [facility] [address] [facility] CBC & DIFF LYMPHOCYTE S [#/VOLUME] IN BLOOD BY AUTOMATED COUNT 1.4 1.0 - 4.0 05/16 Specimen Type: BLOOD Comment: Automated Differentia l Performed Ordering Provider: CORTES LEDESMA Report Released Date/Time: May 13, 2024 10:11 AM Reporting Lab: [facility] [address] Performing Lab: [facility] [address] [facility] CBC & DIFF MONOCYTES [#/VOLUME] IN BLOOD BY AUTOMATED COUNT 0.7 0.1 - 1.0 05/16 Specimen Type: BLOOD Comment: Automated Differentia l Performed Ordering Provider: CORTES LEDESMA Report Released Date/Time: May 13, 2024 10:11 AM Reporting Lab: [facility] [address] Performing Lab: [facility] [address] [facility] CBC & DIFF NEUTROPHIL S [#/VOLUME] IN BLOOD BY AUTOMATED COUNT 3.4 2.0 - 7.7 05/16 Specimen Type: BLOOD Comment: Automated Differentia l Performed Ordering Provider: CORTES LEDESMA Report Released Date/Time: May 13, 2024 10:11 AM Reporting Lab: [facility] [address] Performing Lab: [facility] [address] [facility] CBC & DIFF EOSINOPHIL S [#/VOLUME] IN BLOOD BY AUTOMATED COUNT 0.3 0.0 - 0.5 05/16 Specimen Type: BLOOD Comment: Automated Differentia l Performed Ordering Provider: CORTES LEDESMA Report Released Date/Time: May 13, 2024 10:11 AM Reporting Lab: [facility] [address] Performing Lab: [facility] [address] [facility] CBC & DIFF BASOPHILS [#/VOLUME] IN BLOOD BY AUTOMATED COUNT 0.1 0.0 - 0.2 05/16 Specimen Type: BLOOD Comment: Automated Differentia l Performed Ordering Provider: CORTES LEDESMA Report Released Date/Time: May 13, 2024 10:11 AM Reporting Lab: [facility] [address] Performing Lab: [facility] [address] [facility] CBC & DIFF IG(META,MY JOSE,PRO) 0.8 05/16 Specimen Type: BLOOD Comment: Automated Differentia l Performed Ordering Provider: CORTES LEDESMA Report Released Date/Time: May 13, 2024 10:11 AM Reporting Lab: [facility] [address] Performing Lab: [facility] [address] [facility] CBC & DIFF IMMATURE GRANULOCYT ES [PRESENCE] IN BLOOD BY AUTOMATED COUNT 0.1 0.0 - 0.1 05/16 Specimen Type: BLOOD Comment: Automated Differentia l Performed Ordering Provider: CORTES LEDESMA Report Released Date/Time: May 13, 2024 10:11 AM Reporting Lab: [facility] [address] Performing Lab: [facility] [address] [facility] COMPREHE NSIVE METABOLI C PANEL+MG CREATININE [MASS/VOLU ME] IN SERUM OR PLASMA 1.2 mg/dL 0.7 - 1.2 05/16 Specimen Type: PLASMA No comment entered. Ordering Provider: CORTES LEDESMA Report Released Date/Time: May 13, 2024 10:11 AM Reporting Lab: [facility] [address] Performing Lab: [facility] [address] [facility] COMPREHE NSIVE METABOLI C PANEL+MG UREA NITROGEN [MASS/VOLU ME] IN SERUM OR PLASMA 22 mg/dL 8 - 26 05/16 Specimen Type: PLASMA No comment entered. Ordering Provider: CORTES LEDESMA Report Released Date/Time: May 13, 2024 10:11 AM Reporting Lab: [facility] [address] Performing Lab: [facility] [address] [facility] COMPREHE NSIVE METABOLI C PANEL+MG GLUCOSE [MASS/VOLU ME] IN SERUM OR PLASMA 100 mg/dL 70 - 100 05/16 Specimen Type: PLASMA No comment entered. Ordering Provider: CORTES LEDESMA Report Released Date/Time: May 13, 2024 10:11 AM Reporting Lab: [facility] [address] Performing Lab: [facility] [address] [facility] COMPREHE NSIVE METABOLI C PANEL+MG SODIUM [MOLES/VOL UME] IN SERUM OR PLASMA 140 mmol/L 136 - 145 05/16 Specimen Type: PLASMA No comment entered. Ordering Provider: CORTES LEDESMA Report Released Date/Time: May 13, 2024 10:11 AM Reporting Lab: [facility] [phone] Performing Lab: [facility] [address] [facility] COMPREHE NSIVE METABOLI C PANEL+MG POTASSIUM [MOLES/VOL UME] IN SERUM OR PLASMA 4.2 mmol/L 3.5 - 5.1 05/16 Specimen Type: PLASMA No comment entered. Ordering Provider: CORTES LEDESMA Report Released Date/Time: May 13, 2024 10:11 AM Reporting Lab: [facility] [address] Performing Lab: [facility] [phone] [facility] COMPREHE NSIVE METABOLI C PANEL+MG CHLORIDE [MOLES/VOL UME] IN SERUM OR PLASMA 108 mmol/L 98 - 107 05/16 H Specimen Type: PLASMA No comment entered. Ordering Provider: CORTES LEDESMA Report Released Date/Time: May 13, 2024 10:11 AM Reporting Lab: [facility] [address] Performing Lab: [facility] [address] [facility] COMPREHE NSIVE METABOLI C PANEL+MG CARBON DIOXIDE, TOTAL [MOLES/VOL UME] IN SERUM OR PLASMA 25 mmol/L 22 - 29 05/16 Specimen Type: PLASMA No comment entered. Ordering Provider: CORTES LEDESMA Report Released Date/Time: May 13, 2024 10:11 AM Reporting Lab: [facility] [address] Performing Lab: [facility] [address] [facility] COMPREHE NSIVE METABOLI C PANEL+MG CALCIUM [MASS/VOLU ME] IN SERUM OR PLASMA 9.1 mg/dL 8.4 - 10.2 05/16 Specimen Type: PLASMA No comment entered. Ordering Provider: CORTES LEDESMA Report Released Date/Time: May 13, 2024 10:11 AM Reporting Lab: [facility] [address] Performing Lab: [facility] [address] [facility] COMPREHE NSIVE METABOLI C PANEL+MG PROTEIN [MASS/VOLU ME] IN SERUM OR PLASMA 6.7 g/dL 6.4 - 8.3 05/16 Specimen Type: PLASMA No comment entered. Ordering Provider: CORTES LEDESMA Report Released Date/Time: May 13, 2024 10:11 AM Reporting Lab: [facility] [address] Performing Lab: [facility] [address] [facility] COMPREHE NSIVE METABOLI C PANEL+MG ALBUMIN [MASS/VOLU ME] IN SERUM OR PLASMA 4.0 g/dL 3.5 - 5.0 05/16 Specimen Type: PLASMA No comment entered. Ordering Provider: CORTES LEDESMA Report Released Date/Time: May 13, 2024 10:11 AM Reporting Lab: [facility] [address] Performing Lab: [facility] [phone] [facility] COMPREHE NSIVE METABOLI C PANEL+MG BILIRUBIN. TOTAL [MASS/VOLU ME] IN SERUM OR PLASMA 0.6 mg/dL 0.2 - 1.2 05/16 Specimen Type: PLASMA No comment entered. Ordering Provider: CORTES LEDESMA Report Released Date/Time: May 13, 2024 10:11 AM Reporting Lab: [facility] [address] Performing Lab: [facility] [address] [facility] COMPREHE NSIVE METABOLI C PANEL+MG MAGNESIUM [MASS/VOLU ME] IN SERUM OR PLASMA 2.1 mg/dL 1.6 - 2.6 05/16 Specimen Type: PLASMA No comment entered. Ordering Provider: CORTES LEDESMA Report Released Date/Time: May 13, 2024 10:11 AM Reporting Lab: [facility] [address] Performing Lab: [facility] [address] [facility] COMPREHE NSIVE METABOLI C PANEL+MG ANION GAP IN SERUM OR PLASMA 7 mmol/L 5 - 15 05/16 Specimen Type: PLASMA No comment entered. Ordering Provider: CORTES LEDESMA Report Released Date/Time: May 13, 2024 10:11 AM Reporting Lab: [facility] [address] Performing Lab: [facility] [address] [facility] COMPREHE NSIVE METABOLI C PANEL+MG ALKALINE PHOSPHATAS E [ENZYMATIC ACTIVITY/V OLUME] IN SERUM OR PLASMA 88 U/L 40 - 150 05/16 Specimen Type: PLASMA No comment entered. Ordering Provider: CORTES LEDESMA Report Released Date/Time: May 13, 2024 10:11 AM Reporting Lab: [facility] [address] Performing Lab: [facility] [address] [facility] COMPREHE NSIVE METABOLI C PANEL+MG ALANINE AMINOTRANS FERASE [ENZYMATIC ACTIVITY/V OLUME] IN SERUM OR PLASMA 13 U/L <44 - 44 05/16 Specimen Type: PLASMA No comment entered. Ordering Provider: CORTES LEDESMA Report Released Date/Time: May 13, 2024 10:11 AM Reporting Lab: [facility] [address] Performing Lab: [facility] [address] [facility] COMPREHE NSIVE METABOLI C PANEL+MG ASPARTATE AMINOTRANS FERASE [ENZYMATIC ACTIVITY/V OLUME] IN SERUM OR PLASMA 20 U/L 11 - 34 05/16 Specimen Type: PLASMA No comment entered. Ordering Provider: CORTES LEDESMA Report Released Date/Time: May 13, 2024 10:11 AM Reporting Lab: [facility] [address] Performing Lab: [facility] [address] [facility] COMPREHE NSIVE METABOLI C PANEL+MG GLOMERULAR FILTRATION RATE/1.73 SQ M.PREDICTE D [VOLUME RATE/AREA] IN SERUM, PLASMA OR BLOOD BY CREATININE -BASED FORMULA (CKD-EPI 2020) 60 60 05/16 Specimen Type: PLASMA No comment entered. Ordering Provider: CORTES LEDESMA Report Released Date/Time: May 13, 2024 10:11 AM Reporting Lab: [facility] [address] Performing Lab: [facility] [address] [facility] HEMOGLOB IN A1C HEMOGLOBIN [...] May 13, 2024 10:11 AM Reporting Lab: [facility] [address] Performing Lab: [facility] [phone] [facility] LIPID PANEL,NO N-FASTIN G CHOLESTERO L [MASS/VOLU ME] IN SERUM OR PLASMA 225 mg/dL <199 - 199 05/16 H Specimen Type: PLASMA No comment entered. Ordering Provider: CORTES LEDESMA Report Released Date/Time: May 13, 2024 10:11 AM Reporting Lab: [facility] [phone] Performing Lab: [facility] [address] [facility] LIPID PANEL,NO N-FASTIN G CHOLESTERO L IN HDL [MASS/VOLU ME] IN SERUM OR PLASMA 48 mg/dL 40 05/16 Specimen Type: PLASMA No comment entered. Ordering Provider: CORTES LEDESMA Report Released Date/Time: May 13, 2024 10:11 AM Reporting Lab: [facility] [address] Performing Lab: [facility] [address] [facility] LIPID PANEL,NO N-FASTIN G CHOLESTERO L IN LDL [MASS/VOLU ME] IN SERUM OR PLASMA BY CALCULAEVEO N 154 mg/dL <99 - 99 05/16 H Specimen Type: PLASMA No comment entered. Ordering Provider: CORTES LEDESMA Report Released Date/Time: May 13, 2024 10:11 AM Reporting Lab: [facility] [phone] Performing Lab: [facility] [address] [facility] LIPID PANEL,NO N-FASTIN G CHOLESTERO L IN VLDL [MASS/VOLU ME] IN SERUM OR PLASMA BY CALCULATIO N 23 mg/dL <29 - 29 05/16 Specimen Type: PLASMA No comment entered. Ordering Provider: CORTES LEDESMA Report Released Date/Time: May 13, 2024 10:11 AM Reporting Lab: [facility] [address] Performing Lab: [facility] [address] [facility] LIPID PANEL,NO N-FASTIN G CHOLESTERO L NON HDL [MASS/VOLU ME] IN SERUM OR PLASMA 177 mg/dL <129 - 129 05/16 H Specimen Type: PLASMA No comment entered. Ordering Provider: CORTES LEDESMA Report Released Date/Time: May 13, 2024 10:11 AM Reporting Lab: [facility] [address] Performing Lab: [facility] [address] [facility] LIPID PANEL,NO N-FASTIN G TRIGLYCERI DE [MASS/VOLU ME] IN SERUM OR PLASMA 115 mg/dL <149 - 149 05/16 Specimen Type: PLASMA No comment entered. Ordering Provider: CORTES LEDESMA Report Released Date/Time: May 13, 2024 10:11 AM Reporting Lab: [facility] [address] Performing Lab: [facility] [address] [facility] PSA PROSTATE SPECIFIC AG [MASS/VOLU ME] IN SERUM OR PLASMA 0.46 ng/mL <4.00 - 4.00 05/16 Specimen Type: SERUM No comment entered. Ordering Provider: CORTES LEDESMA Report Released Date/Time: May 13, 2024 10:11 AM Reporting Lab: [facility] [address] Performing Lab: [facility] [address] [facility] TSH W/REFLEX TO FREE T4 THYROTROPI N [UNITS/VOL UME] IN SERUM OR PLASMA 2.78 u[IU]/mL 0.35 - 4.94 05/16 Specimen Type: PLASMA No comment entered. Ordering Provider: CORTES LEDESMA Report Released Date/Time: May 13, 2024 10:11 AM Reporting Lab: [facility] [phone] Performing Lab: [facility] [address] [facility] ANTI-HBs HEPATITIS B VIRUS SURFACE AB [UNITS/VOL UME] IN SERUM 7.26 m[IU]/mL 11/25 Specimen Type: SERUM No comment entered. Ordering Provider: BETTE CASTELLANOS Report Released Date/Time: Nov 26, 2023 02:00 PM Reporting Lab: [facility] [address] Performing Lab: [facility] [address] [facility] MEASLES, MUMPS, & RUBELLA AB IGG RUBELLA [...] , please refer to .KELLEY IGG:http:// education.Q [employer]/fa q/XLI987 .KELLEY IGG:(This link is being provided for [...] .RUB IGG:Rubella virus. .RUB IGG:Test Performed by [facility], .RUB IGG:[employer] [facility], .RUB IG [place], [place] .RUB IGG:Les Jurado M.D., Ph.D., Director of Laboratorie s .RUB IGG: , CLIA [id number] Ordering Provider: BETTE CASTELLANOS Report Released Date/Time: Nov 26, 2023 02:00 PM Reporting Lab: [facility] [address] Performing Lab: [facility] [address] [place] [address] [facility] IS [facility] MEASLES, MUMPS, & RUBELLA AB IGG MEASLES [...] information , please refer to .KELLEY IGG:http:// education.CoNarrative/fa q/AWV877 .KELLEY IGG:(This link is being provided for [...] .RUB IGG:Rubella virus. .RUB IGG:Test Performed by [facility], .RUB IGG:[employer] [facility], .RUB IG[address] [place] [address] .RUB IGG:Les Jurado M.D., Ph.D., Director of Laboratorie s .RUB IGG: , CLIA [id number] Ordering Provider: BETTE CASTELLANOS Report Released Date/Time: Nov 26, 2023 02:00 PM Reporting Lab: [facility] [facility] [address] Performing Lab: [address] [place] [facility] MEASLES, MUMPS, & RUBELLA AB IGG MUMPS [...] information , please refer to .KELLEY IGG:[email or web address] .KELLEY IGG:(This link is being provided for [...] .RUB IGG:Test Performed by Nancy Jackson, .RUB IGG:[employer] ([employer]) [facility], .RUB IG [place], [place] .RUB IGG:Les Jurado M.D., Ph.D., Director of Thalia SNIDER IGG: , CLIA [id number] Ordering Provider: BETTE CASTELLANOS Report Released Date/Time: Nov 26, 2023 02:00 PM Reporting Lab: [place] [address] Performing Lab: [facility] [address] [facility] QUANTIFE KAYE GOLD MYCOBACTER IUM TUBERCULOS IS [...] Nov 26, 2023 02:00 PM Reporting Lab: [place] [address] Performing Lab: [address] [employer] IUM TUBERCULOS [...] Nov 26, 2023 02:00 PM Reporting Lab: [place] [address] Performing Lab: [place] [address] [facility] [employer] G[employer] IUM TUBERCULOS IS [...] Nov 26, 2023 02:00 PM Reporting Lab: [place] [address] Performing Lab: [address] [employer] IUM TUBERCULOS [...] Nov 26, 2023 02:00 PM Reporting Lab: [facility] [address] Performing Lab: [address] [employer] G[employer] IUM TUBERCULOS IS STIMULATED GAMMA INTERFERON [INTERPRET ATION] IN BLOOD QUALITATIV E NEGATIVE 11/25 Specimen Type: PLASMA Comment: A NEGATIVE result does not preclude the possibility of M. tuberculosi s infection or tuberculosi s disease. A false-negat trery results can be due to the stage of infection (e.g., specimen obtained prior to the development of cellular immune response or other immunologic al variables). Ordering Provider: BETTE CASTELLANOS Report Released Date/Time: Nov 26, 2023 02:00 PM Reporting Lab: [facility] [address] Performing Lab: [address] VARICELL A ZOSTER IgG VARICELLA ZOSTER [...] Antibody Immunity Screen, ACIF. Test Performed by [employer], [employer] ([employer]) [facility], [address] [place] [address] Les Jurado M.D., Ph.D., Director of Laboratorie s , [place] [id number] Ordering Provider: BETTE CASTELLANOS Report Released Date/Time: Nov 26, 2023 02:00 PM Reporting Lab: [facility] [address] Performing Lab: [address] [facility] Vital Signs Combined list of inpatient and [...] [facility] PAIN 0 05/08/2024 13:41:46 [facility] HEIGHT 68 05/08/2024 13:41:46 [facility] TEMPERATURE 97.2 05/08/2024 13:41:46 [facility] PULSE 50 05/08/2024 13:41:46 [facility] RESPIRATION 20 05/08/2024 13:41:46 [facility] Encounters Combined list of: 1) Encounters from Department of Veterans Affairs facilities going backup to the last 18 months, not all [place] inpatient encounters are included; 2) Encounters from the Department of Defense facilities going backup to 280 months. Location Location Details Encounter Type Encounter Number Reason For Visit Attending Provider ADM Date DC Date Status Disposition Source [facility] PSYTX W PT 45 MINUTES [id number] Diagnos is: ICD-10- CM F41.1 General ized anxiety disorde r [facility] A 03/04 [facility] PSYTX W PT 45 MINUTES [id number] Diagnos is: ICD-10- CM F41.1 General ized anxiety disorde r [facility] [place],BRINA A 03/18 [facility] PSYTX W PT 45 MINUTES [id number] Diagnos is: ICD-10- CM F43.10 Post-tr aumatic stress disorde r, unspeci fied [facility],BRINA A 04/07 [facility] PSYTX W PT 45 MINUTES [id number] Diagnos is: ICD-10- CM F41.1 General ized anxiety disorde r [facility] [place],BRINA A 04/21 [facility] [place] [facility] Outpatient Encounter [id number] 04/28 [place] [facility] OFFICE O/P EST HI 40 MIN [id number] [id number] Diagnos is: ICD-10- CM I10 Essenti al (primar y) hyperte nsion ARIS LAWS J 04/28 [facility] [place] [facility] Outpatient Encounter [id number] 04/28 [facility] Outpatient Encounter [id number] 05/02 [facility] PSYTX W PT 45 MINUTES [id number] [id number] Diagnos is: ICD-10- CM F41.1 General ized anxiety disorde r [place] [place],BRINA A 05/04 [facility] OFFICE O/P EST MOD 30 MIN [id number] Diagnos is: ICD-10- CM L12.0 Bullous pemphig oid LAUREEN,NO RA PADMAJA 05/12 [facility] PSYTX W PT 45 MINUTES [id number] [id number] Diagnos is: ICD-10- CM F41.1 General ized anxiety disorde r [place] [place],BRINA A 05/18 [facility] Outpatient Encounter [id number] 05/19 [facility] Outpatient Encounter [id number] Diagnos is: ICD-10- CM L12.0 Bullous pemphig oid AGNIESZKA,N OAH I 05/20 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 45 MINUTES [id number] [id number] Diagnos is: ICD-10- CM F41.1 General ized anxiety disorde r [place] [place],BRINA A 06/22 [facility] 45 MINUTES [id number] [id number] Diagnos is: ICD-10- CM F41.1 General ized anxiety disorde r [place] [place],BRINA A 07/07 [facility] Outpatient Encounter [id number] 07/21 [facility] PSYTX W PT 45 MINUTES [id number] [id number] Diagnos is: ICD-10- CM F41.1 General ized anxiety disorde r [place],BRINA A 08/11 [facility] OFFICE O/P EST MOD 30 MIN [id number] [id number] Diagnos is: ICD-10- CM Z44.111 Encount er for fit/adj st of complet e right artific ial leg TERESA BROTHERS E 08/24 [facility] PSYTX W PT 45 MINUTES [id number] [id number] Diagnos is: ICD-10- CM F43.10 Post-tr aumatic stress disorde r, unspeci fied [place] [place],BRINA A 08/31 [facility] OFFICE O/P EST HI 40 MIN [id number] [id number] Diagnos is: ICD-10- CM 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 SJOHOLM,RO ESTEFANY L 09/14 [facility] OFFICE O/P EST LOW 20 MIN [id number] [id number] Diagnos is: ICD-10- CM L12.0 Bullous pemphig Jacky Liang 11/10 [facility] Outpatient Encounter [id number] Diagnos is: ICD-10- CM 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 NOEL NICHOLS 11/16 [facility] Outpatient Encounter [id number] 11/21 [facility] IMG RTA DETCJ/MNTR DS STAFF [id number] [id number] Diagnos is: ICD-10- CM Z01.01 Encount er for exam of eyes and vision w abnorma l finding s Jillian [facility] 11/25 [facility] Outpatient Encounter [id number] Diagnos is: ICD-10- CM Z02.1 Encount er for pre-emp loyment examHUSSAIN Nolasco 11/25 [facility] OFFICE O/P EST MOD 30 MIN [id number] [id number] Diagnos is: ICD-10- CM 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, bilater al, early dry stage GONZALES STOVALL 11/28 [facility] Outpatient Encounter [id number] 11/30 [facility] PSYTX W PT 45 MINUTES [id number] [id number] Diagnos is: ICD-10- CM F41.1 General ized anxiety disorde r [place] [place],BRINA A 12/07 [facility] Outpatient Encounter [id number] 12/09 [place] [facility] PSYTX W PT 45 MINUTES [id number] [id number] Diagnos is: ICD-10- CM F41.1 General ized anxiety disorde r [place],BRINA A 12/22 [facility] Outpatient Encounter [id number] 12/28 [facility] PSYTX W PT 45 MINUTES [id number] [id number] Diagnos is: ICD-10- CM F43.12 Post-tr aumatic stress disorde r, chronic [facility] [place],BRINA A 01/05 [facility] PSYTX W PT 45 MINUTES [id number] [id number] Diagnos is: ICD-10- CM F41.1 General ized anxiety disorde r [place] [place],BRINA A 01/18 [facility] Outpatient Encounter [id number] 01/27 [facility] OFFICE O/P EST HI 40 MIN [id number] [id number] Diagnos is: ICD-10- CM Z44.121 Encount er for fit/adj st of partial artific ial right leg TERESA BROTHERS E 02/01 [facility] PSYTX W PT 45 MINUTES [id number] [id number] Diagnos is: ICD-10- CM F41.1 General ized anxiety disorde r [place],BRINA A 02/02 [facility] OFFICE O/P EST MOD 30 MIN [id number] [id number] Diagnos is: ICD-10- CM L12.0 Bullous pemphig oid SKIBNESS,L ORIE A 02/16 [facility] PSYTX W PT 45 MINUTES [id number] [id number] Diagnos is: ICD-10- CM F41.1 General ized anxiety disorde r [place] [place],BRINA A 02/17 [facility] PSYTX W PT 45 MINUTES [id number] [id number] Diagnos is: ICD-10- CM F41.1 General ized anxiety disorde r [place],BRINA A 03/02 [facility] [place] [facility] Outpatient Encounter [id number] 03/08 [place] [facility] PSYTX W PT 45 MINUTES [id number] [id number] Diagnos is: ICD-10- CM F41.1 General ized anxiety disorde r [place] ON,BRINA A 03/15 [facility] MIN[facility] [id number] [id number] Diagnos is: ICD-10- CM F43.12 Post-tr aumatic stress disorde r, chronic [place] [place],BRINA A 03/30 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 Mami HERNANDEZ 04/14 [place] [facility] Encounter [id number] 04/27 [facility] COMMUNITY/ WORK REINTEGRAT ION [id number] [id number] Diagnos is: ICD-10- CM 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 Mami HERNANDEZ 05/04 [place] [facility] OFFICE O/P EST MOD 30 MIN [id number] [id number] Diagnos is: ICD-10- CM I10 Essenti al (primar y) hyperte SHRADDHA Phillips 05/08 [facility] PSYTX W PT 45 MINUTES [id number] [id number] Diagnos is: ICD-10- CM F41.1 General ized anxiety disorde r [place],BRINA A 05/11 [facility] PSYTX W PT 45 MINUTES [id number] [id number] Diagnos is: ICD-10- CM F41.1 General ized anxiety disorde r [place] ON,BRINA A 05/25 [facility] OFFICE O/P EST MOD 30 MIN [id number] [id number] Diagnos is: ICD-10- CM 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, right eye, interme d dry stage CACHORRO,STEW ART J 06/01 [facility] PSYTX W PT 45 MINUTES [id number] [id number] Diagnos is: ICD-10- CM F41.1 General ized anxiety disorde r [place] ON,BRINA A 06/08 [facility] PSYTX W PT 45 MINUTES [id number] [id number] Diagnos is: ICD-10- CM F41.1 General ized anxiety disorde r [place],BRINA A 06/30 [facility] PSYTX W PT 45 MINUTES [id number] [id number] Diagnos is: ICD-10- CM F41.1 General ized anxiety disorde r [place],BRINA A 07/13 [facility] [place] [facility] NQHP OL DIG ASSMT&MGMT 01-11 [id number] [id number] Diagnos is: ICD-10- CM Z79.01 long-term (curren t) use of anticoa gulants AMISH NATHAN CamposNE Jillian 07/25 [place] [facility] PSYTX W PT 45 MINUTES [id number] [id number] Diagnos is: ICD-10- CM F41.1 General ized anxiety disorde r [place],BRINA A 07/27 [facility] Outpatient Encounter [id number] 08/11 [place] [facility] [place] [facility] Outpatient Encounter [id number] JONATHAN LECHUGA SA 08/28 [facility] Social History Combined list of available smoking, tobacco, and other social history from Department of Defense and Veterans Affairs facilities. Social History Type Response Date Comment Source Tobacco smoking status [facility]-TOBACCO USE FORMER OTHER TYPE 05/08/2024 pipe occassional , quit 40+ years [facility] History of tobacco use [place]-TO[place]ACCO NEVER USED CIGARETTES 05/08/2024 [facility] History of tobacco use [place]-TO[place]ACCO NEVER USED 10/09/2022 [facility] History of tobacco use [place]-TOBACCO NEVER USED 12/31/2021 [facility] History of tobacco use [place]-TOBACCO NEVER USED 01/01/2021 [facility] History of tobacco use [place]-TOBACCO FORMER USER 12/27/2019 [facility] History of tobacco use [place]-TOBACCO QUIT 15 YRS OR MORE 06/27/2018 [facility] History of tobacco use FORMER TOBACCO USER 7Y OR GREATER 09/06/2017 [facility] History of tobacco use FORMER TOBACCO USER 7Y OR GREATER 10/29/2016 [facility] History of tobacco use FORMER TOBACCO USER 7Y OR GREATER 08/23/2015 [facility] History of tobacco use FORMER TOBACCO USER 7Y OR GREATER 09/03/2014 [facility] History of tobacco use LIFETIME NON-TOBACCO USER 06/05/2013 [facility] History of tobacco use FORMER TOBACCO USER 7Y OR GREATER 03/07/2012 [facility] History of tobacco use TOBACCO USE SCREENING 07/28/2005 [facility] History of tobacco use LIFETIME NON-USER OF TOBACCO 06/05/2004 [facility] Plan of Care List of future care activities from [facility] facilities. Additional future care activities may be listed in the Assessment and Plan section. Date/Time Care Activity Care Activity Detail Facili ty 08/31/2024 [facility] Advance Directives List of completed, amended, or rescinded Advance Directives on record at [facility] facilities. An actual copy of the Directive is not included. Date Advance Directive Provider Source 05/20/2022 ADVANCE DIRECTIVE LOLITA HERNANDEZ [facility] 02/06/2004 ADVANCE DIRECTIVE [address] [facility]
--- OUTSIDE RECORDS SUMMARY | 2024-08-28 20:10 | XMS_ITS | Continuity of Care Document ---
Author Name [facility] Organization [facility] Care Team Providers Care Swedger Name Role Phone [facility] Unavailable Unavailable Problems Combined list of problems from Department of Defense and Veterans Affairs facilities. It does not include entries that were removed or entered in error. 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 Aug Entered By: JYOTI LEONG Comment: 09/10/08 MRSA Isolated from nares surveillance swab [facility] Coronary arteriosclerosis (SNOMED CT 71298066) Active Condition June 28, 2018 Entered By: GÓMEZ KAUR Comment: stent placed in 2010 [facility] ERECTILE DYSFUNCTION Active Condition C VANESA [facility] Generalized anxiety disorder Active Condition [facility] History of colonoscopy Active Condition Sep 03, 2014 Entered By: THERESA LI Comment: last done 2023 Entered By: NOAH LAWS Comment: + FIT 06/2022 [facility] History of male erectile disorder Active Condition [facility] HYPERCHOLESTEROLEMIA Active Condition Rhoda HICKS [facility] Hyperlipidemia Active Condition [facility] HYPERTENSION Active Condition [facility] Long-term current use of anticoagulant Active Condition Apr 28 Entered By: NOAH LAWS Comment: Pulmonary embolism 07/14 [facility] MAL GANESH,PROSTATE Active Condition SAE[facility] BAUTISTA [facility] OSTEOARTH,KNEE Active Condition [facility] Osteoarthritis of left knee joint Active Condition [facility] 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 Condition [facility] Squamous cell carcinoma of skin Active Condition [facility] Umbilical hernia Active Condition [facility] W/ DEPRESSED MOOD Active Condition JOSH RHOADES [facility] Cervical lymphadenopathy Inactive Condition 04/29/2023 [facility] Diagnosis: ICD-10-CM F41.1 Generalized anxiety disorder Active Diagnosis [facility] Diagnosis: ICD-10-CM Z79.01 roasterman (current) use of anticoagulants [facility] Diagnosis: ICD-10-CM 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, right eye, intermed dry stage Active Diagnosis [facility] Diagnosis: ICD-10-CM I10 Essential (primary) hypertension Active Diagnosis [facility] Diagnosis: ICD-10-CM Z89.511 Acquired absence of right leg below knee Active Diagnosis [facility] Diagnosis: ICD-10-CM F43.12 Post-traumatic stress disorder, chronic Active Diagnosis [facility] Diagnosis: ICD-10-CM L12.0 Bullous pemphigoid Active Diagnosis [facility] Diagnosis: ICD-10-CM Z44.121 Encounter for fit/adjst of partial artificial right leg Active Diagnosis [facility] Diagnosis: ICD-10-CM 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, bilateral, early dry stage Active Diagnosis [facility] Diagnosis: ICD-10-CM Z02.1 Encounter for pre-employment examination Active Diagnosis [facility] Diagnosis: ICD-10-CM Z01.01 Encounter for exam of eyes and vision w abnormal findings Active Diagnosis [facility] Diagnosis: ICD-10-CM F43.10 Post-traumatic stress disorder, unspecified Active Diagnosis [facility] Diagnosis: ICD-10-CM Z44.111 Encounter for fit/adjst of complete right artificial leg Active Diagnosis [facility] Diagnosis: ICD-10-CM M17.12 Unilateral primary osteoarthritis, left knee Active Diagnosis [facility] Medications Combined list of outpatient medications [...] AND/OR PREVENT BLOOD CLOTS ORAL ACTIVE 07/26/2025 [id number] DELORES LEO 2024 180 [facility] APIXABAN 5MG TAB TAKE ONE TABLET BY MOUTH EVERY 12 HOURS TO TREAT AND/OR PREVENT BLOOD CLOTS ORAL DISCONT INUED 08/16/2024 [id number] 5 POBIRT CALLAWAY 2023 180 [facility] CHOLECALCIF RANDI TAB TAKE 4000 UNITS BY [...] FOR HEART PROTECTI ON ORAL ACTIVE 10/07/2024 [id number] DEVANTE MA RISTOPHER 2023 90 [facility] MULTIVIT/OP HTH AREDS2/LUTE IN/ZEAXANTH IN CAP/TAB TAKE 1 CAP/TAB BY MOUTH TWICE A DAY FOR EYE HEALTH ORAL ACTIVE 06/02/2025 [id number] HU IVORY 2024 120 [facility] MYCOPHENOLA TE MOFETIL 1000MG/5ML SUSP,ORAL TAKE 5 ML BY MOUTH TWICE A DAY FOR BULLOUS PEMPHIGO ID (5ML = 1 TEASPOON FUL) ORAL 04/01/2024 [id number] MAC BOYLE 2023 350 [facility] OMEGA 3/FLAXSEED/ BORAGE OIL(NON-VA MED) LIQUID TAKE 1 TEASPOON FUL BY MOUTH TWICE A DAY ORAL ACTIVE NOEL LEON 2011 [facility] Immunizations Combined list of available immunizations from the Department of Defense and Veterans Affairs facilities. Immunization Series Date Given Administered By Site Reaction Lot Number CVX Code Drug Recreation Professor Status Comments Source TETANUS (HISTORICAL) 2003 112 complet ed No reaction [facility] TD(ADULT) UNSPECIFIED FORMULATION 2003 139 complet ed pt tolerated the procedure well and showed zero signs of a reaction [facility] Results Combined list of recent chemistry, hematology [...] Ref: [email or web address] Ordering Provider: CORTES ELDESMA Report Released Date/Time: May 13, 2024 10:11 AM Reporting Lab: [facility] [address] Performing Lab: [facility] [address] [facility] TSH W/REFLEX TO FREE T4 THYROTROPI N [UNITS/VOL UME] IN SERUM OR PLASMA 2.78 u[IU]/mL 0.35 - 4.94 05/16 Specimen Type: PLASMA No comment entered. Ordering Provider: CORTES LEDESMA Report Released Date/Time: May 13, 2024 10:11 AM Reporting Lab: [facility] [address] Performing Lab: [facility] [address] [facility] PSA PROSTATE SPECIFIC AG [MASS/VOLU ME] IN SERUM OR PLASMA 0.46 ng/mL <4.00 - 4.00 05/16 Specimen Type: SERUM No comment entered. Ordering Provider: CORTES LEDESMA Report Released Date/Time: May 13, 2024 10:11 AM Reporting Lab: [facility] [address] Performing Lab: [facility] [address] [facility] LIPID PANEL,NO N-FASTIN G CHOLESTERO L [MASS/VOLU ME] IN SERUM OR PLASMA 225 mg/dL <199 - 199 05/16 H Specimen Type: PLASMA No comment entered. Ordering Provider: CORTES LEDESMA Report Released Date/Time: May 13, 2024 10:11 AM Reporting Lab: [facility] [address] Performing Lab: [facility] [address] [facility] LIPID PANEL,NO N-FASTIN G CHOLESTERO L IN HDL [MASS/VOLU ME] IN SERUM OR PLASMA 48 mg/dL 40 05/16 Specimen Type: PLASMA No comment entered. Ordering Provider: CORTES LEDESMA Report Released Date/Time: May 13, 2024 10:11 AM Reporting Lab: [facility] [address] Performing Lab: [facility] [address] [facility] LIPID PANEL,NO N-FASTIN G CHOLESTERO L IN LDL [MASS/VOLU ME] IN SERUM OR PLASMA BY CALCULATIO N 154 mg/dL <99 - 99 05/16 H Specimen Type: PLASMA No comment entered. Ordering Provider: CORTES LEDESMA Report Released Date/Time: May 13, 2024 10:11 AM Reporting Lab: [facility] [address] Performing Lab: [facility] [address] [facility] LIPID PANEL,NO N-FASTIN G CHOLESTERO L IN VLDL [MASS/VOLU ME] IN SERUM OR PLASMA BY CALCULATIO N 23 mg/dL <29 - 29 05/16 Specimen Type: PLASMA No comment entered. Ordering Provider: CORTES LEDESMA Report Released Date/Time: May 13, 2024 10:11 AM Reporting Lab: [facility] [address] Performing Lab: [facility] [address] [facility] LIPID PANEL,NO N-FASTIN G CHOLESTERO L NON HDL [MASS/VOLU ME] IN SERUM OR PLASMA 177 mg/dL <129 - 129 05/16 H Specimen Type: PLASMA No comment entered. Ordering Provider: CORTES LEDESMA Report Released Date/Time: May 13, 2024 10:11 AM Reporting Lab: [facility] [address] Performing Lab: [facility] [address] [facility] LIPID PANEL,NO N-FASTIN G TRIGLYCERI DE [MASS/VOLU ME] IN SERUM OR PLASMA 115 mg/dL <149 - 149 05/16 Specimen Type: PLASMA No comment entered. Ordering Provider: CORTES LEDESMA Report Released Date/Time: May 13, 2024 10:11 AM Reporting Lab: [facility] [address] Performing Lab: [facility] [address] [facility] COMPREHE NSIVE METABOLI C PANEL+MG CREATININE [MASS/VOLU ME] IN SERUM OR PLASMA 1.2 mg/dL 0.7 - 1.2 05/16 Specimen Type: PLASMA No comment entered. Ordering Provider: CORTES LEDESMA Report Released Date/Time: May 13, 2024 10:11 AM Reporting Lab: [facility] [address] Performing Lab: [facility] [address] [facility] COMPREHE NSIVE METABOLI C PANEL+MG UREA NITROGEN [MASS/VOLU ME] IN SERUM OR PLASMA 22 mg/dL 8 - 26 05/16 Specimen Type: PLASMA No comment entered. Ordering Provider: CORTES LEDESMA Report Released Date/Time: May 13, 2024 10:11 AM Reporting Lab: [facility] [address] Performing Lab: [facility] [address] [facility] COMPREHE NSIVE METABOLI C PANEL+MG GLUCOSE [MASS/VOLU ME] IN SERUM OR PLASMA 100 mg/dL 70 - 100 05/16 Specimen Type: PLASMA No comment entered. Ordering Provider: CORTES LEDESMA Report Released Date/Time: May 13, 2024 10:11 AM Reporting Lab: [facility] [address] Performing Lab: [facility] [address] [facility] COMPREHE NSIVE METABOLI C PANEL+MG SODIUM [MOLES/VOL UME] IN SERUM OR PLASMA 140 mmol/L 136 - 145 05/16 Specimen Type: PLASMA No comment entered. Ordering Provider: CORTES LEDESMA Report Released Date/Time: May 13, 2024 10:11 AM Reporting Lab: [facility] [address] Performing Lab: [facility] [address] [facility] COMPREHE NSIVE METABOLI C PANEL+MG POTASSIUM [MOLES/VOL UME] IN SERUM OR PLASMA 4.2 mmol/L 3.5 - 5.1 05/16 Specimen Type: PLASMA No comment entered. Ordering Provider: CORTES LEDESMA Report Released Date/Time: May 13, 2024 10:11 AM Reporting Lab: [facility] [address] Performing Lab: [facility] [address] [facility] COMPREHE NSIVE METABOLI C PANEL+MG CHLORIDE [MOLES/VOL UME] IN SERUM OR PLASMA 108 mmol/L 98 - 107 05/16 H Specimen Type: PLASMA No comment entered. Ordering Provider: CORTES LEDESMA Report Released Date/Time: May 13, 2024 10:11 AM Reporting Lab: [facility] [address] Performing Lab: [facility] [address] [facility] COMPREHE NSIVE METABOLI C PANEL+MG CARBON DIOXIDE, TOTAL [MOLES/VOL UME] IN SERUM OR PLASMA 25 mmol/L 22 - 05/16 Specimen Type: PLASMA No comment entered. Ordering Provider: CORTES LEDESMA Report Released Date/Time: May 13, 2024 10:11 AM Reporting Lab: [facility] [address] Performing Lab: [facility] [address] [facility] COMPREHE NSIVE METABOLI C PANEL+MG CALCIUM [MASS/VOLU ME] IN SERUM OR PLASMA 9.1 mg/dL 8.4 - 10.2 05/16 Specimen Type: PLASMA No comment entered. Ordering Provider: CORTES LEDESMA Report Released Date/Time: May 13, 2024 10:11 AM Reporting Lab: [facility] [address] Performing Lab: [facility] [address] [facility] COMPREHE NSIVE METABOLI C PANEL+MG PROTEIN [MASS/VOLU ME] IN SERUM OR PLASMA 6.7 g/dL 6.4 - 8.3 05/16 Specimen Type: PLASMA No comment entered. Ordering Provider: CORTES LEDESMA Report Released Date/Time: May 13, 2024 10:11 AM Reporting Lab: [facility] [address] Performing Lab: [facility] [address] [facility] COMPREHE NSIVE METABOLI C PANEL+MG ALBUMIN [MASS/VOLU ME] IN SERUM OR PLASMA 4.0 g/dL 3.5 - 5.0 05/16 Specimen Type: PLASMA No comment entered. Ordering Provider: CORTES LEDESMA Report Released Date/Time: May 13, 2024 10:11 AM Reporting Lab: [facility] [address] Performing Lab: [facility] [address] [facility] COMPREHE NSIVE METABOLI C PANEL+MG BILIRUBIN. TOTAL [MASS/VOLU ME] IN SERUM OR PLASMA 0.6 mg/dL 0.2 - 1.2 05/16 Specimen Type: PLASMA No comment entered. Ordering Provider: CORTES LEDESMA Report Released Date/Time: May 13, 2024 10:11 AM Reporting Lab: [facility] [address] Performing Lab: [facility] [address] [facility] COMPREHE NSIVE METABOLI C PANEL+MG MAGNESIUM [MASS/VOLU ME] IN SERUM OR PLASMA 2.1 mg/dL 1.6 - 2.6 05/16 Specimen Type: PLASMA No comment entered. Ordering Provider: CORTES LEDESMA Report Released Date/Time: May 13, 2024 10:11 AM Reporting Lab: [facility] [address] Performing Lab: [facility] [address] [facility] COMPREHE NSIVE METABOLI C PANEL+MG ANION GAP IN SERUM OR PLASMA 7 mmol/L 5 - 15 05/16 Specimen Type: PLASMA No comment entered. Ordering Provider: CORTES LEDESMA Report Released Date/Time: May 13, 2024 10:11 AM Reporting Lab: [facility] [address] Performing Lab: [facility] [address] [facility] COMPREHE NSIVE METABOLI C PANEL+MG ALKALINE PHOSPHATAS E [ENZYMATIC ACTIVITY/V OLUME] IN SERUM OR PLASMA 88 U/L 40 - 150 05/16 Specimen Type: PLASMA No comment entered. Ordering Provider: CORTES LEDESMA Report Released Date/Time: May 13, 2024 10:11 AM Reporting Lab: [facility] [address] Performing Lab: [facility] [address] [facility] COMPREHE NSIVE METABOLI C PANEL+MG ALANINE AMINOTRANS FERASE [ENZYMATIC ACTIVITY/V OLUME] IN SERUM OR PLASMA 13 U/L <44 - 44 05/16 Specimen Type: PLASMA No comment entered. Ordering Provider: CORTES LEDESMA Report Released Date/Time: May 13, 2024 10:11 AM Reporting Lab: [facility] [address] Performing Lab: [facility] [address] [facility] COMPREHE NSIVE METABOLI C PANEL+MG ASPARTATE AMINOTRANS FERASE [ENZYMATIC ACTIVITY/V OLUME] IN SERUM OR PLASMA 20 U/L 11 - 34 05/16 Specimen Type: PLASMA No comment entered. Ordering Provider: CORTES LEDESMA Report Released Date/Time: May 13, 2024 10:11 AM Reporting Lab: [facility] [address] Performing Lab: [facility] [address] [facility] COMPREHE NSIVE METABOLI C PANEL+MG GLOMERULAR FILTRATION RATE/1.73 SQ M.PREDICTE D [VOLUME RATE/AREA] IN SERUM, PLASMA OR BLOOD BY CREATININE -BASED FORMULA (CKD-EPI 2020) 60 60 05/16 Specimen Type: PLASMA No comment entered. Ordering Provider: CORTES LEDESMA Report Released Date/Time: May 13, 2024 10:11 AM Reporting Lab: [facility] [address] Performing Lab: [facility] [address] [facility] CBC & DIFF LEUKOCYTES [#/VOLUME] IN BLOOD BY AUTOMATED COUNT 5.9 4.0 - 11.0 05/16 Specimen Type: BLOOD Comment: Automated Differentia l Performed Ordering Provider: CORTES LEDESMA Report Released Date/Time: May 13, 2024 10:11 AM Reporting Lab: [facility] [address] Performing Lab: [facility] [address] [facility] CBC & DIFF ERYTHROCYT ES [#/VOLUME] IN BLOOD BY AUTOMATED COUNT 5.43 4.60 - 6.20 05/16 Specimen Type: BLOOD Comment: Automated Differentia l Performed Ordering Provider: CORTES LEDESMA Report Released Date/Time: May 13, 2024 10:11 AM Reporting Lab: [facility] [address] Performing Lab: [facility] [address] [facility] CBC & DIFF HEMOGLOBIN [MASS/VOLU ME] IN BLOOD 15.6 g/dL 13.5 - 17.9 05/16 Specimen Type: BLOOD Comment: Automated Differentia l Performed Ordering Provider: CORTES LEDESMA Report Released Date/Time: May 13, 2024 10:11 AM Reporting Lab: [facility] [address] Performing Lab: [facility] [address] [facility] CBC & DIFF HEMATOCRIT [VOLUME FRACTION] OF BLOOD BY AUTOMATED COUNT 47.6 41.0 - 54.0 05/16 Specimen Type: BLOOD Comment: Automated Differentia l Performed Ordering Provider: CORTES LEDESMA Report Released Date/Time: May 13, 2024 10:11 AM Reporting Lab: [facility] [address] Performing Lab: [facility] [address] [facility] CBC & DIFF MCV [ENTITIC VOLUME] BY AUTOMATED COUNT 87.7 fL 80.0 - 100.0 05/16 Specimen Type: BLOOD Comment: Automated Differentia l Performed Ordering Provider: CORTES LEDESMA Report Released Date/Time: May 13, 2024 10:11 AM Reporting Lab: [facility] [address] Performing Lab: [facility] [address] [facility] CBC & DIFF MCH [ENTITIC MASS] BY AUTOMATED COUNT 28.7 pg 27.0 - 33.0 05/16 Specimen Type: BLOOD Comment: Automated Differentia l Performed Ordering Provider: CORTES LEDESMA Report Released Date/Time: May 13, 2024 10:11 AM Reporting Lab: [facility] [address] Performing Lab: [facility] [address] [facility] CBC & DIFF MCHC [MASS/VOLU ME] BY AUTOMATED COUNT 32.8 g/dL 32.0 - 37.5 05/16 Specimen Type: BLOOD Comment: Automated Differentia l Performed Ordering Provider: CORTES LEDESMA Report Released Date/Time: May 13, 2024 10:11 AM Reporting Lab: [facility] [address] Performing Lab: [facility] [address] [facility] CBC & DIFF PLATELETS [#/VOLUME] IN BLOOD BY AUTOMATED COUNT 175 150 - 400 05/16 Specimen Type: BLOOD Comment: Automated Differentia l Performed Ordering Provider: CORTES LEDESMA Report Released Date/Time: May 13, 2024 10:11 AM Reporting Lab: [facility] [address] Performing Lab: [facility] [address] [facility] CBC & DIFF PLATELET MEAN VOLUME [ENTITIC VOLUME] IN BLOOD BY AUTOMATED COUNT 8.7 fL 9.1 - 13.0 05/16 L Specimen Type: BLOOD Comment: Automated Differentia l Performed Ordering Provider: CORTES LEDESMA Report Released Date/Time: May 13, 2024 10:11 AM Reporting Lab: [facility] [address] Performing Lab: [facility] [address] [facility] CBC & DIFF NEUTROPHIL S/100 LEUKOCYTES IN BLOOD BY MANUAL COUNT 57.5 40.0 - 80.0 05/16 Specimen Type: BLOOD Comment: Automated Differentia l Performed Ordering Provider: CORTES LEDESMA Report Released Date/Time: May 13, 2024 10:11 AM Reporting Lab: [facility] [address] Performing Lab: [facility] [address] [facility] CBC & DIFF LYMPHOCYTE S/100 LEUKOCYTES IN BLOOD BY MANUAL COUNT 24.2 15.0 - 45.0 05/16 Specimen Type: BLOOD Comment: Automated Differentia l Performed Ordering Provider: CORTES LEDESMA Report Released Date/Time: May 13, 2024 10:11 AM Reporting Lab: [facility] [address] Performing Lab: [facility] [address] [facility] CBC & DIFF MONOCYTES/ 100 LEUKOCYTES IN BLOOD BY AUTOMATED COUNT 11.3 2.0 - 12.0 05/16 Specimen Type: BLOOD Comment: Automated Differentia l Performed Ordering Provider: CORTES LEDESMA Report Released Date/Time: May 13, 2024 10:11 AM Reporting Lab: [facility] [address] Performing Lab: [facility] [address] [facility] CBC & DIFF EOSINOPHIL S/100 LEUKOCYTES IN BLOOD BY AUTOMATED COUNT 5.4 0.0 - 6.0 05/16 Specimen Type: BLOOD Comment: Automated Differentia l Performed Ordering Provider: CORTES LEDESMA Report Released Date/Time: May 13, 2024 10:11 AM Reporting Lab: [facility] [address] Performing Lab: [facility] [address] [facility] CBC & DIFF BASOPHILS/ 100 LEUKOCYTES IN BLOOD BY MANUAL COUNT 0.8 0.0 - 2.0 05/16 Specimen Type: BLOOD Comment: Automated Differentia l Performed Ordering Provider: CORTES LEDESMA Report Released Date/Time: May 13, 2024 10:11 AM Reporting Lab: [facility] [address] Performing Lab: [facility] [address] [facility] CBC & DIFF ERYTHROCYT E DISTRIBUTI ON WIDTH [RATIO] BY AUTOMATED COUNT 13.8 11.5 - 14.5 05/16 Specimen Type: BLOOD Comment: Automated Differentia l Performed Ordering Provider: CORTES LEDESMA Report Released Date/Time: May 13, 2024 10:11 AM Reporting Lab: [facility] [address] Performing Lab: [facility] [address] [facility] CBC & DIFF LYMPHOCYTE S [#/VOLUME] IN BLOOD BY AUTOMATED COUNT 1.4 1.0 - 4.0 05/16 Specimen Type: BLOOD Comment: Automated Differentia l Performed Ordering Provider: CORTES LEDESMA Report Released Date/Time: May 13, 2024 10:11 AM Reporting Lab: [facility] [address] Performing Lab: [facility] [address] [facility] CBC & DIFF MONOCYTES [#/VOLUME] IN BLOOD BY AUTOMATED COUNT 0.7 0.1 - 1.0 05/16 Specimen Type: BLOOD Comment: Automated Differentia l Performed Ordering Provider: CORTES LEDESMA Report Released Date/Time: May 13, 2024 10:11 AM Reporting Lab: [facility] [address] Performing Lab: [facility] [address] [facility] CBC & DIFF NEUTROPHIL S [#/VOLUME] IN BLOOD BY AUTOMATED COUNT 3.4 2.0 - 7.7 05/16 Specimen Type: BLOOD Comment: Automated Differentia l Performed Ordering Provider: CORTES LEDESMA Report Released Date/Time: May 13, 2024 10:11 AM Reporting Lab: [facility] [address] Performing Lab: [facility] [address] [facility] CBC & DIFF EOSINOPHIL S [#/VOLUME] IN BLOOD BY AUTOMATED COUNT 0.3 0.0 - 0.5 05/16 Specimen Type: BLOOD Comment: Automated Differentia l Performed Ordering Provider: CORTES LEDESMA Report Released Date/Time: May 13, 2024 10:11 AM Reporting Lab: [facility] [address] Performing Lab: [facility] [address] [facility] CBC & DIFF BASOPHILS [#/VOLUME] IN BLOOD BY AUTOMATED COUNT 0.1 0.0 - 0.2 05/16 Specimen Type: BLOOD Comment: Automated Differentia l Performed Ordering Provider: CORTES LEDESMA Report Released Date/Time: May 13, 2024 10:11 AM Reporting Lab: [facility] [address] Performing Lab: [facility] [address] [facility] CBC & DIFF IG(META,MY JOSE,PRO) 0.8 05/16 Specimen Type: BLOOD Comment: Automated Differentia l Performed Ordering Provider: CORTES LEDESMA Report Released Date/Time: May 13, 2024 10:11 AM Reporting Lab: [facility] [address] Performing Lab: [facility] [address] [facility] CBC & DIFF IMMATURE GRANULOCYT ES [PRESENCE] IN BLOOD BY AUTOMATED COUNT 0.1 0.0 - 0.1 05/16 Specimen Type: BLOOD Comment: Automated Differentia l Performed Ordering Provider: CORTES LEDESMA Report Released Date/Time: May 13, 2024 10:11 AM Reporting Lab: [facility] [address] Performing Lab: [facility] [address] [facility] MEASLES, MUMPS, & RUBELLA [...] information , please refer to .KELLEY IGG:http:// [email or web address]/fa [email or web address] .KELLEY IGG:(This link is being provided for [...] .RUB IGG:Rubella virus. .RUB IGG:Test Performed by [facility], .RUB IGG:[employer] [facility], .RUB [place], [place] .RUB IGG:Les Jurado M.D., Ph.D., Director of Laboratorie s .RUB IGG: , CLIA [id number] Ordering Provider: BETTE CASTELLANOS Report Released Date/Time: Nov 26, 2023 02:00 PM Reporting Lab: [facility] [address] Performing Lab: [address] [facility] MEASLES, MUMPS, & RUBELLA AB [...] information , please refer to .KELLEY IGG:http:// [email or web address] [email or web address] .KELLEY IGG:(This link is being provided for [...] .RUB IGG:Rubella virus. .RUB IGG:Test Performed by [facility], .RUB IGG:[facility] [facility], .RUB [place], [place] .RUB IGG:Les Jurado M.D., Ph.D., Director of Laboratorie s .RUB IGG: , CLIA [id number] Ordering Provider: BETTE CASTELLANOS Report Released Date/Time: Nov 26, 2023 02:00 PM Reporting Lab: [facility] [address] Performing Lab: [facility] [address] [facility] [place] [facility] MEASLES, MUMPS, & RUBELLA AB IGG [...] information , please refer to .KELLEY IGG:http:// [email or web address]/fa [email or web address] .KELLEY IGG:(This link is being provided for [...] .RUB IGG:Rubella virus. .RUB IGG:Test Performed by [facility], .RUB IGG:[facility] [place], .RUB [place] .RUB IGG:Les Juardo M.D., Ph.D., Director of Laboratorie s .RUB IGG: , CLIA [id number] Ordering Provider: BETTE CASTELLANOS Report Released Date/Time: Nov 26, 2023 02:00 PM Reporting Lab: [facility] [address] Performing Lab: [address] [facility] VARICELL A ZOSTER IgG VARICELLA ZOSTER VIRUS [...] Antibody Immunity Screen, ACIF. Test Performed by [employer] [place], [employer] [facility], [address] [place] [address] Les Jurado M.D., Ph.D., Director of Laboratorie s , [facility] [id number] Ordering Provider: BETTE CASTELLANOS Report Released Date/Time: Nov 26, 2023 02:00 PM Reporting Lab: [facility] [address] Performing Lab: [address] [facility] QUANTIFE KAYE GOLD MYCOBACTER IUM TUBERCULOS [...] Nov 26, 2023 02:00 PM Reporting Lab: [facility] [address] Performing Lab: [facility] [address] [facility] [employer]IFE KAYE GOLD MYCOBACTER IUM TUBERCULOS [...] Nov 26, 2023 02:00 PM Reporting Lab: [facility] [address] Performing Lab: [facility] [address] [place] [address] QUANTIFE KAYE GOLD MYCOBACTER IUM TUBERCULOS IS [...] Nov 26, 2023 02:00 PM Reporting Lab: [facility] [address] Performing Lab: [facility] [address] [facility] QUANTIFE KAYE GOLD MYCOBACTER IUM TUBERCULOS [...] Nov 26, 2023 02:00 PM Reporting Lab: [facility] [address] Performing Lab: [facility] [address] [facility] QUANTIFE KAYE GOLD MYCOBACTER IUM TUBERCULOS [...] Nov 26, 2023 02:00 PM Reporting Lab: [facility] [address] Performing Lab: [facility] [address] [facility] ANTI-HBs HEPATITIS B VIRUS SURFACE AB [UNITS/VOL UME] IN SERUM 7.26 m[IU]/mL 11/25 Specimen Type: SERUM No comment entered. Ordering Provider: BETTE CASTELLANOS Report Released Date/Time: Nov 26, 2023 02:00 PM Reporting Lab: [facility] [address] Performing Lab: [facility] [address] [facility] Vital Signs Combined list of inpatient and [...] [facility] PAIN 0 05/08/2024 13:41:46 [facility] HEIGHT 68 05/08/2024 13:41:46 [facility] TEMPERATURE 97.2 05/08/2024 13:41:46 [facility] PULSE 50 05/08/2024 13:41:46 [facility] RESPIRATION 20 05/08/2024 13:41:46 [facility] Encounters Combined list of: 1) Encounters from Department of Veterans Affairs facilities going backup to the last 18 months, not all [place] inpatient encounters are included; 2) Encounters from the Department of Defense facilities going backup to 280 months. Location Location Details Encounter Type Encounter Number Reason For Visit Attending Provider ADM Date DC Date Status Disposition Source [facility] PSYTX W PT 45 MINUTES [id number] Diagnos is: ICD-10- CM F41.1 General ized anxiety disorde r [facility] [place] A 03/04 [facility] PSYTX W PT 45 MINUTES [id number] Diagnos is: ICD-10- CM F41.1 General ized anxiety disorde r [place] [place],BRINA A 03/18 [facility] PSYTX W PT 45 MINUTES [id number] Diagnos is: ICD-10- CM F43.10 Post-tr aumatic stress disorde r, unspeci fied [place] [place] A 04/07 [facility] PSYTX W PT 45 MINUTES [id number] [id number] Diagnos is: ICD-10- CM F41.1 General ized anxiety disorde r [place],BRINA A 04/21 [facility] [place] [facility] Encounter [id number] 04/28 [place] [facility] OFFICE [place] 40 [place] [id number] Diagnos is: ICD-10- CM I10 Essenti al (primar y) hyperte nsion ARIS LAWS J 04/28 [facility] [place] [facility] Encounter [id number] 04/28 [facility] [employer] Encounter [id number] 05/02 [facility] [employer] [facility] [employer] [facility] [facility] PSYTX W PT 45 MINUTES [id number] Diagnos is: ICD-10- CM F41.1 General ized anxiety disorde r [place],BRINA A 05/04 [facility] OFFICE O/P EST MOD 30 MIN [id number] Diagnos is: ICD-10- CM L12.0 Bullous pemphig oid LAUREEN,NO RA PADMAJA 05/12 [facility] [employer] [facility] [employer] [facility] [facility] PSYTX W PT 45 MINUTES [id number] Diagnos is: ICD-10- CM F41.1 General ized anxiety disorde r [place],BRINA A 05/18 [facility] Outpatient Encounter [id number] 05/19 [facility] [employer] [facility] [employer] [facility] [facility] Outpatient Encounter [id number] Diagnos is: ICD-10- CM L12.0 Bullous pemphig oid AGNIESZKA,N OAH I 05/20 [facility] QNHP OL DIG ASSMT&MGMT 11-20 [id number] Diagnos is: ICD-10- CM Z79.01 roasterman (curren t) use of anticoa Yanick Sanchez 05/23 [facility] OFF/OP CNSLTJ NEW/EST LOW 30 [id number] [id number] Diagnos is: ICD-10- CM M17.12 Unilate ral primary osteoar thritis , left knee ARCELIA MARCH 05/[address] [facility] PSYTX W PT 45 MINUTES [id number] [id number] Diagnos is: ICD-10- CM F41.1 General ized anxiety disorde r [place],BRINA A 06/01 [facility] PSYTX W PT 45 MINUTES [id number] [id number] Diagnos is: ICD-10- CM F41.1 General ized anxiety disorde r [place],BRINA A 06/22 [facility] PSYTX W PT 45 MINUTES [id number] [id number] Diagnos is: ICD-10- CM F41.1 General ized anxiety disorde r [place],BRINA A 07/[address] [facility] Encounter [id number] 07/21 [facility] [employer] [facility] [employer] [facility] [facility] PSYTX W PT 45 MINUTES [id number] [id number] Diagnos is: ICD-10- CM F41.1 General ized anxiety disorde r [place],BRINA A 08/11 [facility] OFFICE O/P EST MOD 30 MIN [id number] Diagnos is: ICD-10- CM Z44.111 Encount er for fit/adj st of complet e right artific ial leg TERESA BROTHERS E 08/24 [facility] [employer] [facility] [employer] [facility] [facility] PSYTX W PT 45 MINUTES [id number] Diagnos is: ICD-10- CM F43.10 Post-tr aumatic stress disorde r, unspeci fied [place],BRINA A 08/[address] 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 OFFICE O/P EST LOW 20 MIN [id number] [id number] Diagnos is: ICD-10- CM L12.0 Bullous pemphig Jacky Liang 11/10 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 Outpatient Encounter [id number] 11/21 [facility] IMG RTA DETCJ/MNTR DS STAFF [id number] Diagnos is: ICD-10- CM Z01.01 Encount er for exam of eyes and vision w abnorma l finding s Jillian JACKSON 11/25 [facility] Outpatient Encounter [id number] Diagnos is: ICD-10- CM Z02.1 Encount er for pre-emp loyment examHUSSAIN Nolasco 11/25 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 Outpatient Encounter [id number] 11/30 [facility] PSYTX W PT 45 MINUTES [id number] Diagnos is: ICD-10- CM F41.1 General ized anxiety disorde r [place],BRINA A 12/07 [facility] Outpatient Encounter [id number] 12/[address] [place] [address] [facility] PSYTX W PT 45 MINUTES [id number] [id number] Diagnos is: ICD-10- CM F41.1 General ized anxiety disorde r [place],BRINA A 12/[address] [facility] Outpatient Encounter [id number] 12/28 [facility] [employer] [facility] [facility] [employer] [facility] [facility] PSYTX W PT 45 MINUTES [id number] [id number] Diagnos is: ICD-10- CM F43.12 Post-tr aumatic stress disorde r, chronic [place],BRINA A 01/05 [facility] PSYTX W PT 45 MINUTES [id number] Diagnos is: ICD-10- CM F41.1 General ized anxiety disorde r [place],BRINA A 01/18 [facility] Encounter [id number] 01/27 [facility] OFFICE O/P EST HI 40 MIN [id number] Diagnos is: ICD-10- CM Z44.121 Encount er for fit/adj st of partial artific ial right leg TERESA BROTHERS E 02/01 [facility] PSYTX W PT 45 MINUTES [id number] Diagnos is: ICD-10- CM F41.1 General ized anxiety disorde r [place],BRINA A 02/[address] [facility] OFF[facility] O/P EST MOD 30 MIN [id number] Diagnos is: ICD-10- CM L12.0 Bullous pemphig oid SKIBNESS,L ORIE A 02/16 [facility] [employer] [facility] PSYTX W PT 45 MINUTES [id number] [id number] Diagnos is: ICD-10- CM F41.1 General ized anxiety disorde r [place],BRINA A 02/17 [facility] PSYTX W PT 45 MINUTES [id number] [id number] Diagnos is: ICD-10- CM F41.1 General ized anxiety disorde r [place],BRINA A 03/02 [facility] [place] [facility] Encounter [id number] 03/08 [place] [facility] PSYTX W PT 45 MINUTES [id number] [id number] Diagnos is: ICD-10- CM F41.1 General ized anxiety disorde r [place],BRINA A 03/15 [facility] 45 MINUTES [id number] [id number] Diagnos is: ICD-10- CM F43.12 Post-tr aumatic stress disorde r, chronic [place],BRINA A 03/30 [facility] PT 45 MINUTES [id number] Diagnos is: ICD-10- CM F41.1 General ized anxiety disorde r [place],BRINA A 04/13 [facility] PH1 ASSMT&MGMT NQHP 11-20 [id number] Diagnos is: ICD-10- CM 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 Mami HERNANDEZ 04/14 [place] [facility] Out[facility] Encounter [id number] 04/27 [facility] COMMUNITY/ WORK REINTEGRAT ION [id number] [id number] Diagnos is: ICD-10- CM 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 Mami HERNANDEZ 05/04 [place] [facility] OFFICE O/P EST MOD 30 MIN [id number] [id number] Diagnos is: ICD-10- CM I10 Essenti al (primar y) hyperte SHRADDHA Phillips 05/08 [facility] PSYTX W PT 45 MINUTES [id number] [id number] Diagnos is: ICD-10- CM F41.1 General ized anxiety disorde r [place],BRINA A 05/11 [facility] PSYTX W PT 45 MINUTES [id number] [id number] Diagnos is: ICD-10- CM F41.1 General ized anxiety disorde r [place],BRINA A 05/25 [facility] OFFICE O/P EST MOD 30 MIN [id number] Diagnos is: ICD-10- CM 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, right eye, interme d dry stage CACHORRO,STEW ART J 06/01 [facility] [employer] PSYTX W PT 45 MINUTES [id number] [id number] Diagnos is: ICD-10- CM F41.1 General ized anxiety disorde r [place],BRINA A 06/08 [facility] PSYTX W PT 45 MINUTES [id number] [id number] Diagnos is: ICD-10- CM F41.1 General ized anxiety disorde r [place],BRINA A 06/30 [facility] PSYTX W PT 45 MINUTES [id number] [id number] Diagnos is: ICD-10- CM F41.1 General ized anxiety disorde r [place],BRINA A 07/13 [facility] [place] [facility] NQHP OL DIG ASSMT&MGMT 01-11 [id number] [id number] Diagnos is: ICD-10- CM Z79.01 longterm (curren t) use of anticoa gulants AMISH NATHAN CamposNE Jillian 07/25 [place] [facility] PSYTX W PT 45 MINUTES [id number] [id number] Diagnos is: ICD-10- CM F41.1 General ized anxiety disorde r [place],BRINA A 07/27 [facility] Encounter [id number] 08/11 [place] [facility] [place] [facility] Encounter [id number] JONATHAN LECHUGA SA 08/28 [facility] [employer] [facility] [facility] [employer] [facility] [facility] Social History Combined list of available smoking, tobacco, and other social history from Department of Defense and Veterans Affairs facilities. Social History Type Response Date Comment Source Tobacco smoking status [facility] [place]-TOBACCO USE FORMER OTHER TYPE 05/08/2024 pipe occassional , quit 40+ years [facility] History of tobacco use [place]-TO[place]AC[place] NEVER USED CIGARETTES 05/08/2024 [facility] History of tobacco use [place]-TO[place]AC[place] NEVER USED 10/09/2022 [facility] History of tobacco use [place]-TOBACCO NEVER USED 12/31/2021 [facility] History of tobacco use [place]-TOBACCO NEVER USED 01/01/2021 [facility] History of tobacco use [place]-TOBACCO FORMER USER 12/27/2019 [facility] History of tobacco use [place]AC[place] QUIT 15 YRS OR MORE 06/27/2018 [facility] [...] FORMER TOBACCO USER 7Y OR GREATER 03/07/2012 [facility] History of tobacco use TOBACCO USE SCREENING 07/28/2005 [facility] History of tobacco use LIFETIME NON-USER OF TOBACCO 06/05/2004 [facility] Plan of Care List of future care activities from [facility] facilities. Additional future care activities may be listed in the Assessment and Plan section. Date/Time Care Activity Care Activity Detail Facili ty 08/31/2024 AMBUL[facility] Advance Directives List of completed, amended, or rescinded Advance Directives on record at [facility] facilities. An actual copy of the Directive is not included. Date Advance Directive Provider Source 05/20/2022 ADVANCE DIRECTIVE [facility]ITA [facility] 02/06/2004 ADVANCE DIRECTIVE JHOANA LECHUGA [facility]
[2024-08-29] VITALS (8 sets, daily range): BP systolic 116–153; BP diastolic 60–81; PULSE 50–63; RESP 16; TEMP 35.9–36.9; O2SAT 95–97; BMI 25.1
--- OUTSIDE RECORDS SUMMARY | 2024-08-29 01:10 | XMS_ITS | Clinical Summary ---
Author Organization [facility] Address [address] [place] [address] Care Team Providers Care Automatic Maintainer Name Role Phone [place], [place] Primary Care Provider [phone] Allergies Active Allergy Reactions Criticality Noted Date [...] with a meal. 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 [place] 3/Flaxseed/Bora ge oil liquid - take 1 [...] on file Medical Devices Implanted Type Area Sap Basis Consultant Device Identifier Shelf Expiration Date Model / Serial / Lot Stent Uret [id number] Tria Soft No Guidewire - [id number] Implanted:Qty: 1 on 07/08/2022 by Wes Galvez MD at [facility] Left: Ureter [facility] Urology 12/12/2024 [id number] / [id number] Insurance [facility] MEDICARE PROVIDER BASED [facility] MEDICARE PART A ONLY [employer] CHOICE PPO MR Advance Directives * Full Code (Latest Code Status on File) Date Activated Date Inactivated Comments 07/05/2022 5:46 AM 07/10/2022 5:10 PM Question Answer Comments Code Status Discussion: Reviewed Preferences Care Teams Automatic Maintainer Relationship Specialty Start Date End Date Hospital, [place] 1 [facility] [place] [address] PCP - General 06/02/22
--- OUTSIDE RECORDS SUMMARY | 2024-08-29 01:11 | XMS_ITS ---
Author Organization [facility] Care Team Providers Care Casualty Underwriter Name Role Phone Gabby Arce Unavailable Unavailable Manuel Chester Unavailable Unavailable Allergies and adverse reactions No Known Allergies Care Team Name Role Address Phone Organization Dates Manuel Chester [facility] [address] [place] [address], [address], [place], [facility] [place] States (Office): [facility] 12/12/2021 - 01/26/2022 Gabby Arce [facility] [address] [place] [address], [facility], [facility] (Office): : [facility] 12/12/2021 - 01/26/2022 Immunizations Immunization Status Vaccine Details Vaccine Code CodeSystem Date Notes Influenza cancelled Influenza, high-dose, split virus, quadrivalent, injectable, preservative free 197 CVX created date: 2 consent date: 2 per immunization form of 11/20/21 TB 2 Step Mantoux Skin Test completed tuberculin skin test; unspecified formulation lotNumber: [id number] expiry: 11/18/2023 Mfg: [employer] Given 0.1 ml Right Forearm intradermally Step 1 of Multi-step with next step required 98 CVX created date: 2 consent date: 2 administe red date: 2 negative 11/23/21 PPSV23, Pneumovax 23 cancelled Adenovirus, type 4 and type 7, live, oral 143 CVX created date: 2 consent date: 2 per immunization form of 11/20/21 PCV13, Xoqillx02 cancelled Adenovirus, type 4 and type 7, [...] Code CodeSystem Concern Status 1 CONSTIPATION, UNSPECIFIED 66536965 SNOMED CT active 2 ENCOUNTER FOR SURGICAL AFTERCARE FOLLOWING SURGERY ON THE SKIN AND SUBCUTANEOUS TISSUE 828431545 SNOMED CT active 3 PERSONAL HISTORY OF OTHER SPECIFIED CONDITIONS 96060599 SNOMED CT active 4 INSOMNIA, UNSPECIFIED 954536387 SNOMED CT active 5 DYSPHAGIA, UNSPECIFIED 00355549 SNOMED CT active 6 ACQUIRED ABSENCE OF RIGHT LEG BELOW KNEE 790299095 SNOMED CT active 7 ATHEROSCLEROSIS OF [place] ARTERIES OF EXTREMITIES WITH REST PAIN, RIGHT LEG 23182653164085179 SNOMED CT active 8 ATHEROSCLEROTIC HEART DISEASE OF [place] CORONARY ARTERY WITHOUT ANGINA PECTORIS 729658648235194 SNOMED CT active 9 CEREBROVASCULAR DISEASE, UNSPECIFIED 57294829 SNOMED CT active 10 ENCOUNTER FOR ORTHOPEDIC AFTERCARE FOLLOWING SURGICAL AMPUTATION 12/04/[address] completed 11 ESSENTIAL (PRIMARY) HYPERTENSION 06992461 SNOMED CT active 12 INFECTION FOLLOWING A PROCEDURE, DEEP INCISIONAL SURGICAL SITE, SUBSEQUENT ENCOUNTER 802313821 SNOMED CT active 13 OTHER SPECIFIED PERSONAL RISK FACTORS, NOT ELSEWHERE CLASSIFIED 3169421767 SNOMED CT active 14 PERIPHERAL VASCULAR DISEASE, UNSPECIFIED 977239491 SNOMED CT active 15 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 780152519 SNOMED CT active 16 PERSONAL HISTORY OF TRANSIENT ISCHEMIC ATTACK (TIA), AND CEREBRAL INFARCTION WITHOUT RESIDUAL DEFICITS 66013293 SNOMED CT active 17 PRESENCE OF AORTOCORONARY BYPASS GRAFT 906805909 SNOMED CT active 18 PURE HYPERCHOLESTEROLEM IA, UNSPECIFIED 034967047 SNOMED CT active 19 UNSPECIFIED OSTEOARTHRITIS, UNSPECIFIED SITE 108540806 SNOMED CT active Reason for Referral No Reasons for Referral Entered Social History Social History Observation Description Start Date End Date Code Code System Current Smoking Status Tobacco smoking consumption unknown 103758673 SNOMED CT Sex Assigned At Male 1940 89360-4 [facility] Gender Identity Vital Signs Code Code System Vitals Name Values and Units Timing Information 20403-5 [facility] Weight Nepvh=397.5 Units=Lbs 06/2021 8310-5 [facility] Body Temperature Value=97.7 Units= F 01/25/2022 58232-2 [facility] O2 % BldC Oximetry Value=97.0 Units= % 01/25/2022 57084-3 [facility] Pain Level Value=0.0 01/21/2022 9279-1 [facility] Respiratory Rate Value=16.0 Units=/m in 01/12/2022 8462-4 [facility] Blood Pressure-Diastolic Value=75 Un its=mmHg 01/12/2022 8480-6 [facility] Blood Pressure-Systolic Egpmk=305 Un its=mmHg 01/12/2022 8867-4 [facility] Heart rate Value=60.0 Units=/min 8302-2 [facility] Height Value=68.0 Units=Inches 11/27/2021
--- OUTSIDE RECORDS SUMMARY | 2024-08-29 01:11 | XMS_ITS ---
Author Organization [facility] ter Care Team Providers Care Tail Ripper Name Role Phone Gabby Arce Unavailable Unavailable Manuel Chester Unavailable Unavailable Allergies and adverse reactions No Known Allergies Care Team Name Role Address Phone Organization Dates Manuel Chester PCP [facility] [address] [facility], [address], [place], [facility], [place] States (Office): [facility] 12/12/2021 - 01/26/2022 Gabby Arce [address] [address] [facility] [address], [place], [facility], [place] States (Office): : [facility] 12/12/2021 - 01/26/2022 Immunizations Immunization Status Vaccine Details Vaccine Code CodeSystem Date Notes Influenza cancelled Influenza, high-dose, split virus, quadrivalent, injectable, preservative free 197 CVX created date: 2 consent date: 2 per immunization form of 11/20/21 TB 2 Step Mantoux Skin Test completed tuberculin skin test; unspecified formulation lotNumber: [id number] expiry: 11/18/2023 Mfg: Sanof1 Pasteur Given 0.1 [...] Code CodeSystem Concern Status 1 CONSTIPATION, UNSPECIFIED 77058333 SNOMED CT active 2 ENCOUNTER FOR SURGICAL AFTERCARE FOLLOWING SURGERY ON THE SKIN AND SUBCUTANEOUS TISSUE 032525430 SNOMED CT active 3 PERSONAL HISTORY OF OTHER SPECIFIED CONDITIONS 65680535 SNOMED CT active 4 INSOMNIA, UNSPECIFIED 603577214 SNOMED CT active 5 DYSPHAGIA, UNSPECIFIED 59063931 SNOMED CT active 6 ACQUIRED ABSENCE OF RIGHT LEG BELOW KNEE 150406609 SNOMED CT active 7 ATHEROSCLEROSIS OF [place] ARTERIES OF EXTREMITIES WITH REST PAIN, RIGHT LEG 45135541223823752 SNOMED CT active 8 ATHEROSCLEROTIC HEART DISEASE OF [place] CORONARY ARTERY WITHOUT ANGINA PECTORIS 374580427841504 SNOMED CT active 9 CEREBROVASCULAR DISEASE, UNSPECIFIED 75026795 SNOMED CT active 10 ENCOUNTER FOR ORTHOPEDIC AFTERCARE FOLLOWING SURGICAL AMPUTATION 12/04/[address] completed 11 ESSENTIAL (PRIMARY) HYPERTENSION 04992146 SNOMED CT active 12 INFECTION FOLLOWING A PROCEDURE, DEEP INCISIONAL SURGICAL SITE, SUBSEQUENT ENCOUNTER 592536284 SNOMED CT active 13 OTHER SPECIFIED PERSONAL RISK FACTORS, NOT ELSEWHERE CLASSIFIED 0184749699 SNOMED CT active 14 PERIPHERAL VASCULAR DISEASE, UNSPECIFIED 710668798 SNOMED CT active 15 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 231845633 SNOMED CT active 16 PERSONAL HISTORY OF TRANSIENT ISCHEMIC ATTACK (TIA), AND CEREBRAL INFARCTION WITHOUT RESIDUAL DEFICITS 81012671 SNOMED CT active 17 PRESENCE OF AORTOCORONARY BYPASS GRAFT 933222355 SNOMED CT active 18 PURE HYPERCHOLESTEROLEM IA, UNSPECIFIED 992144174 SNOMED CT active 19 UNSPECIFIED OSTEOARTHRITIS, UNSPECIFIED SITE 400900325 SNOMED CT active Reason for Referral No Reasons for Referral Entered Social History Social History Observation Description Start Date End Date Code Code System Current Smoking Status Tobacco smoking consumption unknown 915076845 SNOMED CT Sex Assigned At Male 1940 23877-2 [facility] Gender Identity Vital Signs Code Code System Vitals Name Values and Units Timing Information 94020-8 LOINC Weight Qclrz=782.5 Units=Lbs 06/2021 8310-5 LOINC Body Temperature Value=97.7 Units= F 01/25/2022 26053-9 LOINC O2 % BldC Oximetry Value=97.0 Units= % 01/25/2022 22152-3 LOINC Pain Level Value=0.0 01/21/2022 9279-1 LOINC Respiratory Rate Value=16.0 Units=/m in 01/12/2022 8462-4 [facility] Blood Pressure-Diastolic Value=75 Un its=mmHg 01/12/2022 8480-6 [facility] Blood Pressure-Systolic Hapkz=163 Un its=mmHg 01/12/2022 8867-4 [facility] Heart rate Value=60.0 Units=/min 8302-2 [facility] Height Value=68.0 Units=Inches 11/27/2021
--- OUTSIDE RECORDS SUMMARY | 2024-08-29 01:51 | XMS_ITS ---
Author Organization [facility] Care Team Providers Care Automatic Seamer Name Role Phone Gabby rAce Unavailable Unavailable Manuel Chester Unavailable Unavailable Allergies and adverse reactions No Known Allergies Care Team Name Role Address Phone Organization Dates Manuel Chester [facility] [address] [address] [place] [address], [address], [place], [facility], [place] States (Office): [facility] 12/12/2021 - 01/26/2022 Gabby Arce [facility] [address] [place] [address], [facility], [facility] (Office): : [facility] 12/12/2021 - 01/26/2022 Immunizations Immunization Status Vaccine Details Vaccine Code CodeSystem Date Notes Influenza cancelled Influenza, high-dose, split virus, quadrivalent, injectable, preservative free 197 CVX created date: 2 consent date: 2 per immunization form of 11/20/21 TB 2 Step Mantoux Skin Test completed tuberculin skin test; unspecified formulation lotNumber: [id number] expiry: 11/18/2023 Mfg: Sanof1 Pasteur Given 0.1 ml Right Forearm intradermally Step 1 of Multi-step with next step required 98 CVX created date: 2 consent date: 2 administe red date: 2 negative 11/23/21 PPSV23, Pneumovax 23 cancelled Adenovirus, type 4 and type 7, live, oral 143 CVX created date: 2 consent date: 2 per immunization form of 11/20/21 PCV13, [id number] cancelled Adenovirus, type 4 and type 7, [...] Code CodeSystem Concern Status 1 CONSTIPATION, UNSPECIFIED 45235578 SNOMED CT active 2 ENCOUNTER FOR SURGICAL AFTERCARE FOLLOWING SURGERY ON THE SKIN AND SUBCUTANEOUS TISSUE 312529662 SNOMED CT active 3 PERSONAL HISTORY OF OTHER SPECIFIED CONDITIONS 36976462 SNOMED CT active 4 INSOMNIA, UNSPECIFIED 185289063 SNOMED CT active 5 DYSPHAGIA, UNSPECIFIED 55207107 SNOMED CT active 6 ACQUIRED ABSENCE OF RIGHT LEG BELOW KNEE 300869944 SNOMED CT active 7 ATHEROSCLEROSIS OF [place] ARTERIES OF EXTREMITIES WITH REST PAIN, RIGHT LEG 33323609502181263 SNOMED CT active 8 ATHEROSCLEROTIC HEART DISEASE OF [place] CORONARY ARTERY WITHOUT ANGINA PECTORIS 470018415236001 SNOMED CT active 9 CEREBROVASCULAR DISEASE, UNSPECIFIED 03473578 SNOMED CT active 10 ENCOUNTER FOR ORTHOPEDIC AFTERCARE FOLLOWING SURGICAL AMPUTATION 12/04/[address] completed 11 ESSENTIAL (PRIMARY) HYPERTENSION 25817819 SNOMED CT active 12 INFECTION FOLLOWING A PROCEDURE, DEEP INCISIONAL SURGICAL SITE, SUBSEQUENT ENCOUNTER 953347851 SNOMED CT active 13 OTHER SPECIFIED PERSONAL RISK FACTORS, NOT ELSEWHERE CLASSIFIED 3544336275 SNOMED CT active 14 PERIPHERAL VASCULAR DISEASE, UNSPECIFIED 641571567 SNOMED CT active 15 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 764621248 SNOMED CT active 16 PERSONAL HISTORY OF TRANSIENT ISCHEMIC ATTACK (TIA), AND CEREBRAL INFARCTION WITHOUT RESIDUAL DEFICITS 77816020 SNOMED CT active 17 PRESENCE OF AORTOCORONARY BYPASS GRAFT 649298046 SNOMED CT active 18 PURE HYPERCHOLESTEROLEM IA, UNSPECIFIED 644922845 SNOMED CT active 19 UNSPECIFIED OSTEOARTHRITIS, UNSPECIFIED SITE 296868104 SNOMED CT active Reason for Referral No Reasons for Referral Entered Social History Social History Observation Description Start Date End Date Code Code System Current Smoking Status Tobacco smoking consumption unknown 981369093 SNOMED CT Sex Assigned At Male 1940 53024-3 [facility] Gender Identity Vital Signs Code Code System Vitals Name Values and Units Timing Information 66961-3 [facility] Weight Stygd=871.5 Units=Lbs 06/2021 8310-5 [facility] Body Temperature Value=97.7 Units= F 01/25/2022 19181-9 [facility] O2 % BldC Oximetry Value=97.0 Units= % 01/25/2022 87965-5 [facility] Pain Level Value=0.0 01/21/2022 9279-1 [facility] Respiratory Rate Value=16.0 Units=/m in 01/12/2022 8462-4 [facility] Blood Pressure-Diastolic Value=75 Un its=mmHg 01/12/2022 8480-6 [facility] Blood Pressure-Systolic Llykt=413 Un its=mmHg 01/12/2022 8867-4 [facility] Heart rate Value=60.0 Units=/min 8302-2 [facility] Height Value=68.0 Units=Inches 11/27/2021
--- OUTSIDE RECORDS SUMMARY | 2024-08-29 01:51 | XMS_ITS ---
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 Name Role Phone Gabby Arce Unavailable Unavailable Manuel Chester Unavailable Unavailable Allergies and adverse reactions No Known Allergies Care Team Name Role Address Phone Organization Dates Manuel Chester PCP [facility] [address] [facility], [address], [place], [facility], [place] States (Office): [facility] 12/12/2021 - 01/26/2022 Gabby Arce [address] [address] [facility] [address], [place], [facility], [place] States (Office): : [facility] 12/12/2021 - 01/26/2022 Immunizations Immunization Status Vaccine Details Vaccine Code CodeSystem Date Notes Influenza cancelled Influenza, high-dose, split virus, quadrivalent, injectable, preservative free 197 CVX created date: 2 consent date: 2 per immunization form of 11/20/21 TB 2 Step Mantoux Skin Test completed tuberculin skin test; unspecified formulation lotNumber: [id number] expiry: 11/18/2023 Mfg: Sanof1 Pasteur Given 0.1 [...] Code CodeSystem Concern Status 1 CONSTIPATION, UNSPECIFIED 79446784 SNOMED CT active 2 ENCOUNTER FOR SURGICAL AFTERCARE FOLLOWING SURGERY ON THE SKIN AND SUBCUTANEOUS TISSUE 824168499 SNOMED CT active 3 PERSONAL HISTORY OF OTHER SPECIFIED CONDITIONS 50156649 SNOMED CT active 4 INSOMNIA, UNSPECIFIED 726158708 SNOMED CT active 5 DYSPHAGIA, UNSPECIFIED 54563239 SNOMED CT active 6 ACQUIRED ABSENCE OF RIGHT LEG BELOW KNEE 867930432 SNOMED CT active 7 ATHEROSCLEROSIS OF [place] ARTERIES OF EXTREMITIES WITH REST PAIN, RIGHT LEG 46270731006071978 SNOMED CT active 8 ATHEROSCLEROTIC HEART DISEASE OF [place] CORONARY ARTERY WITHOUT ANGINA PECTORIS 727991618568916 SNOMED CT active 9 CEREBROVASCULAR DISEASE, UNSPECIFIED 00678756 SNOMED CT active 10 ENCOUNTER FOR ORTHOPEDIC AFTERCARE FOLLOWING SURGICAL AMPUTATION 12/04/[address] completed 11 ESSENTIAL (PRIMARY) HYPERTENSION 89442700 SNOMED CT active 12 INFECTION FOLLOWING A PROCEDURE, DEEP INCISIONAL SURGICAL SITE, SUBSEQUENT ENCOUNTER 708560647 SNOMED CT active 13 OTHER SPECIFIED PERSONAL RISK FACTORS, NOT ELSEWHERE CLASSIFIED 9736380936 SNOMED CT active 14 PERIPHERAL VASCULAR DISEASE, UNSPECIFIED 535990300 SNOMED CT active 15 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 877299250 SNOMED CT active 16 PERSONAL HISTORY OF TRANSIENT ISCHEMIC ATTACK (TIA), AND CEREBRAL INFARCTION WITHOUT RESIDUAL DEFICITS 45487121 SNOMED CT active 17 PRESENCE OF AORTOCORONARY BYPASS GRAFT 431543031 SNOMED CT active 18 PURE HYPERCHOLESTEROLEM IA, UNSPECIFIED 149175576 SNOMED CT active 19 UNSPECIFIED OSTEOARTHRITIS, UNSPECIFIED SITE 825733403 SNOMED CT active Reason for Referral No Reasons for Referral Entered Social History Social History Observation Description Start Date End Date Code Code System Current Smoking Status Tobacco smoking consumption unknown 005389620 SNOMED CT Sex Assigned At Male 1940 96511-9 [facility] Gender Identity Vital Signs Code Code System Vitals Name Values and Units Timing Information 95236-4 LOINC Weight Wxadu=942.5 Units=Lbs 06/2021 8310-5 LOINC Body Temperature Value=97.7 Units= F 01/25/2022 38284-0 LOINC O2 % BldC Oximetry Value=97.0 Units= % 01/25/2022 09587-5 LOINC Pain Level Value=0.0 01/21/2022 9279-1 LOINC Respiratory Rate Value=16.0 Units=/m in 01/12/2022 8462-4 [facility] Blood Pressure-Diastolic Value=75 Un its=mmHg 01/12/2022 8480-6 [facility] Blood Pressure-Systolic Cjoki=034 Un its=mmHg 01/12/2022 8867-4 [facility] Heart rate Value=60.0 Units=/min 8302-2 [facility] Height Value=68.0 Units=Inches 11/27/2021
[2024-08-29 02:07] LABS: Lactate* 1.3 mmol/L (0.5-1.9)
[2024-08-29 02:09] LABS: Hematocrit 46.7 % (37.0-53.0); Hemoglobin* 15.5 gm/dL (13.5-17.5); Immature Granulocytes Pct Auto 0.2 %; Mean Corpuscular HGB Conc 33 gm/dL (32-36); Mean Corpuscular Hemoglobin 29 pg (26-34); Mean Corpuscular Volume 87 fL (80-100); RDW Coefficient of Variation % 13.7 % (11.5-15.5); Red Blood Count 5.37 m/uL (4.30-5.90); White Blood Count* 11.22 K/uL (4.50-11.00)
[2024-08-29 02:10] LABS: Immature Granulocytes Abs Auto 0.00 K/uL (0.00-0.30); Lymphocytes Absolute Auto 0.50 K/uL (0.90-2.90); Slide Review Reflex No
[2024-08-29 02:22] LABS: Albumin* 4.0 g/dL (3.3-5.0); Chloride* 101 mmol/L (96-114)
[2024-08-29 02:23] LABS: Potassium* 4.4 mmol/L (3.6-5.1); Sodium* 133 mmol/L (135-149)
[2024-08-29 02:25] LABS: Alanine Aminotransferase* 17 U/L (4-50); Aspartate Amino Transferase* 27 U/L (12-35); Blood Urea Nitrogen* 23 mg/dL (7-30); Creatinine* 1.9 mg/dL (0.5-1.5); Est. Creatinine Clearance* 28.50; Estimated Glomerular Filt Rate 35 ml/min
[2024-08-29 02:26] LABS: Alkaline Phosphatase* 83 U/L (40-150); Anion Gap 9 mEq/L (7-15); Bilirubin Total* 1.1 mg/dL (0.1-1.5); Calcium* 8.7 mg/dL (8.4-10.6); Carbon Dioxide* 23 mmol/L (20-32); Glucose* 143 mg/dL (60-115); Total Protein* 6.5 g/dL (6.0-8.3)
--- NOTE | 2024-08-29 02:30 | ED.GENADULT ---
HPI - General Adult General Chief complaint: Abdominal Pain Stated complaint: abdominal pain Time Seen by Provider: 08/29/24 01:33 History of Present Illness HPI narrative: 83-year-old male presents to the emergency department for evaluation of right lower quadrant abdominal pain became severe at home, has been present for about 4 hours but not as intense. He was seen in the emergency department 28 hours ago, was diagnosed with 6 mm right proximal ureteral stone. Patient reports the location of the pain is different and he is concerned that this could be appendicitis. When I see him in the ED trauma he reports that the pain is now markedly better. I let him know that that is probably because he was given fentanyl in the ambulance. He reports that he did not realize that had been done but does admit that he is feeling much better now. No hematuria. No fever. No new trauma or injury. Does have a history of multiple prior abdominal surgeries with inguinal hernia repair, with sounds like an aneurysm repair, coronary artery bypass graft. He has also had multiple prior blood clots and remains anticoagulated on Eliquis. He notes no fever or symptoms of infection currently. He has been eating and drinking normally through the day and voiding without complication. Notes, labs and imaging from yesterday reviewed. Past medical history most notable for pulmonary embolisms, prior DVT. 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 Multiple prior surgeries as described above. He reports is medications listed are not quite accurate. He continues to take the metoprolol and Eliquis. He also has started the Flomax as was documented recommended yesterday. ROS is notable for the right lower abdominal symptoms only, otherwise acutely denies times 12 systems. Related Data Home Medications ?Medication ?Instructions ?Recorded ?Confirmed cholecalciferol (vitamin D3) 50 4,000 unit PO DAILY 07/04/22 07/12/22 mcg (2,000 unit) capsule ferrous sulfate 325 mg (65 mg 1 mg PO DAILY 07/04/22 07/12/22 iron) tablet metoprolol tartrate 25 mg tablet 12.5 mg PO BID 07/04/22 08/27/24 apixaban 5 mg tablet (Eliquis) 5 mg PO BID 07/12/22 08/27/24 levofloxacin 500 mg tablet 500 mg PO QAM 07/12/22 07/12/22 tamsulosin 0.4 mg capsule (Flomax) 0.4 mg PO DAILY 07/12/22 07/12/22 Allergies Allergy/AdvReac Type Severity Reaction Status Date / Time No Known Drug Allergies Allergy Verified 07/04/22 22:46 [facility] Social History Smoking Status: Never smoker Do you use any of these nicotine containing products: None Second hand tobacco smoke exposure: No How often do you have a drink containing alcohol: never How often do you have six or more drinks on one occasion: Never AUDIT-C Alcohol total score: 0 Non-prescribed substance use: denies use service: Yes Exam Const: Vital Signs, click to edit/add: Vital Signs - 24 hr 08/29/24 01:15 08/29/24 03:19 Temperature 98.5 F 98.5 F Pulse Rate [Pulse Oximeter] 60 53 L Respiratory Rate 16 16 Blood Pressure [Ri ght Upper Arm] 136/66 126/60 Pulse Oximetry 96 96 Oxygen Delivery Me thod Room Air Room Air Documenting provider has reviewed patient's vital signs: yes Common normals: no apparent distress General appearance: cooperative and well kempt HENMT: Common normals: normocephalic, moist oral mucous membranes and oropharynx normal Head and scalp: normocephalic Face and sinus: normal facial exam Eye: Common normals: conjunctivae normal General eye: normal appearance of both eyes Conjunctiva: conjunctiva(e) normal Neck & C-Spine: Common normals: full ROM and no lymphadenopathy General: normal visual inspection Resp: Common normals: normal respiratory effort, no use of accessory muscles and clear to auscultation bilaterally Effort & inspection: able to speak in complete sentences Auscultation: clear to auscultation bilaterally Cardio: Common normals: regular rate, regular rhythm, S1 normal heart sound, S2 normal heart sound and no murmurs Rate: regular rate Rhythm: regular rhythm Heart sounds: S1 normal and S2 normal GI: Other: Initial exam showing diffuse tenderness, hard to get him to redirect since his pain had escalated after the fentanyl from the ambulance had worn off. Was given Toradol and Dilaudid, exam is repeated. Now at this point he reports tenderness to the right lower quadrant but no tenderness can be elicited on exam. Certainly no rebound tenderness, guarding or obvious mass. : Common normals: no CVA tenderness Bladder/kidney exam: no CVA tenderness Back & Pelvis: Common normals: no CVA tenderness Thoracic spine/upper back: normal to inspection Extremity: Common normals: normal to inspection and normal capillary refill General: normal exam except as noted Neuro: Speech: speech normal Motor exam: strength 5/5 throughout Psych: Appearance: well kempt Attitude: engaged Activity/motor behavior: appropriate eye contact Other: Mild memory impairment but appropriate decision making. Friendly and cooperative. Skin: Common normals: no rashes or lesions noted General skin exam: no rashes or lesions noted Course Course ED Course: 83-year-old male with history of 6.5 mm ureteral stone, proximal yesterday. Pain is now migrated to the right lower quadrant which is quite suspicious for a distal ureteral stone. I do not think that this is an appendicitis as patient does not have point tenderness on exam. Certainly no guarding. There were no signs of appendical inflammation yesterday. I have elected to do some basic blood work to make sure that his creatinine is stable, electrolytes are fine, there are no signs of dehydration, infection or other worsening. I do need to urinalysis is it looks like he was not able to provide when yesterday. This will help is better clarify for infection. His pain has return after the fentanyl has worn off. There was difficulty getting him to understand that his pain improved after he was given medicine in the ambulance and that is not a sign that the problem had resolved and recurred. Update: I have also clarified with him that his last dose of his Eliquis was yester morning as in Wednesday morning. Did not take it this evening prior to coming to ED. Differential diagnosis is most likely the stone has migrated to the distal right ureter, likely the UVJ. Cannot exclude appendicitis, hernia, colitis, musculoskeletal etiology, amongst others. Do have concern for possible infection. Will treat the pain and get basic labs and re-evaluate. Reevaluation(s) Reevaluation #1: Update: Creatinine has increased significantly from 1.2-1.9. This is been in only 24 hours. Urinalysis does not show signs of infection. White count has gone from 9-11 so not much been increased. Hemoglobin is stable. Remainder of electrolytes are stable as well. I have made a call to the hospitalist physician Jane. There is an 8 hour bed delay but they agree that it seems like there is acute kidney injury on top of a potentially obstructing urinary stone he would likely benefit from urological intervention. Patient has been given Percocet which is helping his pain better now. He did get a single dose of Toradol which I will no longer repeat due to his acute kidney injury. I have given him a L of normal saline any drinking clear fluids without difficulty. I will hold his Eliquis while we await transfer. We discussed potentially repeating the CT scan, neither of us think that there is value in this at this time. I will have the images from yesterday pushed to Jane. Patient has been accepted for transfer by the hospitalist, likely an 8 hour bed delay. Will remain on clear liquid diet with pain control here in the ED in the interim. Vital Signs Vital signs: Initial Vital Signs Temperature 98.5 F 08/29/24 01:15 Temperature Source Temporal Artery Scan 08/29/24 01:15 Pulse Rate 60 08/29/24 01:15 Respiratory Rate 16 08/29/24 01:15 Blood Pressure 136/66 08/29/24 01:15 Blood Pressure Mean 89 08/29/24 01:15 Blood Pressure Position Supine 08/29/24 01:15 Pulse Oximetry 96 08/29/24 01:15 Oxygen Delivery Method Room Air 08/29/24 01:15 Vital Signs Temperature 98.5 F 08/29/24 01:15 Pulse Rate 60 08/29/24 01:15 Respiratory Rate 16 08/29/24 01:15 Blood Pressure 136/66 08/29/24 01:15 Pulse Oximetry 96 08/29/24 01:15 Oxygen Delivery Method Room Air 08/29/24 01:15 Temperature 96.7 F L 08/29/24 07:32 Pulse Rate 51 L 08/29/24 07:32 Respiratory Rate 16 08/29/24 07:32 Blood Pressure 116/62 08/29/24 07:32 Pulse Oximetry 97 08/29/24 07:32 Oxygen Delivery Method Room Air 08/29/24 04:36 Medications Administered Medications: Discontinued Medications Generic Name Dose Route Start Last Admin Trade Name Freq PRN Reason Stop Dose Admin Hydromorphone HCl 0.5 mg 08/29/24 01:45 08/29/24 02:07 Hydromorphone 0.5 Mg/0.5 Ml Inj IVP 08/29/24 01:46 0.5 mg ONCE ONE Administration Sodium Chloride 1,000 mls @ 500 mls/hr 08/29/24 02:51 08/29/24 04:44 0.9 % Sodium Chloride 1000 Ml IV 08/29/24 04:50 Infused .Q2H PRUDENCE Infusion Ketorolac Tromethamine 15 mg 08/29/24 01:45 08/29/24 02:06 Ketorolac 15 Mg/Ml Inj IVP 08/29/24 01:46 15 mg ONCE ONE Administration Oxycodone/Acetaminophen 2 tab 08/29/24 02:30 08/29/24 02:54 Oxycodone/Apap 5-325 Tablet PO 08/29/24 02:31 2 tab ONCE ONE Administration Medical Decision Making Lab Data Lab results reviewed: Yes I reviewed the patient's lab results Lab results narrative: Interval increase of creatinine from 1.2-1.9 in 24 hours. Labs: Lab Results 08/29/24 08/29/24 Range/Units 02:00 03:15 WBC 11.22 H (4.50-11.00) K/uL RBC 5.37 (4.30-5.90) m/uL Hgb 15.5 (13.5-17.5) gm/dL Hct 46.7 (37.0-53.0) % MCV 87 (80-100) fL MCH 29 (26-34) pg MCHC 33 (32-36) gm/dL RDW Coeff of Alexis 13.7 (11.5-15.5) % Plt Count 148 (140-440) K/uL Neut % (Auto) 86.3 H (42.0-72.0) % Lymph % (Auto) 4.4 L (20-44) % [place] % (Auto) 8.8 (0.0-11.0) % Eos % (Auto) 0.2 (0.0-7.0) % Baso % (Auto) 0.1 (0.0-3.0) % Neut # (Auto) 9.70 H (1.7-7.0) K/uL Lymph # (Auto) 0.50 L (0.90-2.90) K/uL [place] # (Auto) 1.00 H (0.00-0.90) K/UL Eos # (Auto) 0.00 (0.00-0.50) K/uL Baso # (Auto) 0.00 (0.00-0.30) K/uL Abs Immat Gran (auto) 0.00 (0.00-0.30) K/uL Imm/Tot Granulo (auto) 0.2 % Sodium 133 L (135-149) mmol/L Potassium 4.4 (3.6-5.1) mmol/L Chloride 101 (96-114) mmol/L Carbon Dioxide 23 (20-32) mmol/L Anion Gap 9 (7-15) mEq/L BUN 23 (7-30) mg/dL Creatinine 1.9 H (0.5-1.5) mg/dL Estimated Creat Clear 28.50 Estimated GFR 35 ml/min Glucose 143 H (60-115) mg/dL Lactate 1.3 (0.5-1.9) mmol/L Calcium 8.7 (8.4-10.6) mg/dL Total Bilirubin 1.1 (0.1-1.5) mg/dL AST 27 (12-35) U/L ALT 17 (4-50) U/L Alkaline Phosphatase 83 (40-150) U/L C-Reactive Protein 1.5 H (0.5-1.0) mg/dL Total Protein 6.5 (6.0-8.3) g/dL Albumin 4.0 (3.3-5.0) g/dL Urine Color Yellow (Yellow) Urine Appearance Cloudy A (Clear) Urine pH 5.5 (5.0-8.5) Ur Specific [place] 1.020 (1.000-1.030) Urine Protein 1+ A (Negative) Urine Glucose (UA) Negative (Negative) Urine Ketones 3+ A (Negative) Urine Blood 3+ A (Negative) Urine Nitrite Negative (Negative) Urine Bilirubin Negative (Negative) Urine Urobilinogen 0.2 (0.2-1.0) Ur Leukocyte Esterase Negative (Negative) Urine RBC 25-50 A (0-2) Urine WBC 2-5 (0-5) Ur Squamous Epith Cells Few (None-Few) Amorphous Sediment Few A (None) Urine Bacteria Few A (None) Discharge Plan Discharge Clinical Impression: Acute kidney injury, Obstruction of right ureteropelvic junction (UPJ) due to stone Patient Disposition: [facility] Condition: Stable Prescriptions: No Action Eliquis 5 mg tablet 5 mg PO BID levofloxacin 500 mg tablet 500 mg PO QAM tamsulosin [Flomax] 0.4 mg capsule 0.4 mg PO DAILY metoprolol tartrate 25 mg tablet 12.5 mg PO BID ferrous sulfate 325 mg (65 mg iron) tablet 1 mg PO DAILY cholecalciferol (vitamin D3) 50 mcg (2,000 unit) capsule 4,000 unit PO DAILY Stand Alone Forms: Live Shuttle Info Instructions
[2024-08-29] MEDS: OxyCODONE/APAP 5-325 TABLET 2 TAB PO (02:54)
[2024-08-29 03:27] LABS: Appearance Urine Cloudy (Clear)
== END 2024-08-29 08:19 | disposition short-term general hospital (02) ==
PROVIDERS: Emergency Provider Family Medicine
DX: N13.0 Hydronephrosis with ureteropelvic junction obstruction (principal); N17.9 Acute kidney failure, unspecified
CPT/HCPCS: 36415; 80053; 81001; 83605; 85025; 86140; 87086; 96374; 96375; 99284; 99285; A9270; J1171; J1885; J7030

== ENCOUNTER 2024-08-29 08:07 | Outpatient (CLI) | payer OTHER, SELFPAY | END 2024-08-29 08:08 | disposition home or self-care (01) | LOC: AMB 08-31 12:41 | PROVIDERS: Visit Provider Student in an Organized Health Care Education/Training Program | DX: N20.1 Calculus of ureter (principal) | CPT/HCPCS: A0425; A0427 ==